=== PATIENT | male | born 1935 | race Caucasian/White ===

== ENCOUNTER → 2017-01-23 | Outpatient (CLI) | payer OTHER ==
[~2017-01-23] MED LIST: ASPI81TA28 PO; BUME1TAB PO; CARV6.252 PO; DEXTCAP23 PO; GLC/500 PO; HYT/2 PO; ISOS120T5 PO; LPT/20 PO; LSN40 PO; MENT2LOZ MT; MRLP17 PO; NRT/25 PO; NRV/10 PO; NTRGSL/4 UT; POTA10TA30 PO; SENN8.6T11 PO; SULF800T23 PO
== END | disposition home or self-care (01) ==
LOC: C.RDSM 10:13
PROVIDERS: ATTEND Physical Medicine & Rehabilitation Sports Medicine
DX: M79.671 Pain in right foot (principal)

== ENCOUNTER 2017-05-01 04:54 | Observation (INO) | payer OTHER ==
[2017-04-22 12:05] VITALS: BMI 32.0
--- NOTE | 2017-04-22 12:47 | PAT Medication Instructions ---
Service Date Apr 22, 2017. Current Home Medication List Amlodipine Besylate (Amlodipine Besylate), 10 MG PO QAM Aspirin (Aspirin Ec), 81 MG PO DAILY Atorvastatin (Atorvastatin Calcium), 20 MG PO QAM Bumetanide (Bumex), 1 MG PO QAM Carvedilol (Coreg), 6.25 MG PO BID Isosorbide Mononitrate Ext Rel (Imdur Ext Rel), 120 MG PO QAM Lisinopril (Lisinopril), 40 MG PO QAM Metformin Hcl (Glucophage), 500 MG PO BID Nitroglycerin (Nitrostat), 0.4 MG UT UD PRN for Chest Pain Nortriptyline Hcl (Pamelor), 25 MG PO HS Polyethylene Glycol 3350 (Miralax), 17 GM PO PRN Potassium Chloride (Potassium Chloride Cr), 20 MEQ PO BID Sennosides-Docusate Sodium (Doc-Q-Lax), 2 TABS PO HS Sulfa/Trimethoprim (Bactrim Ds 800MG/160MG), 1 TAB PO BID Terazosin Hcl (Hytrin), 2 MG PO HS Medication Instructions For Your Scheduled Surgery Sulfa/Trimethoprim (Bactrim Ds 800MG/160MG), 1 TAB PO BID (to be completed prior to surgery) - Hold the following medications 48 hours prior to surgery: Metformin Hcl (Glucophage), 500 MG PO BID - Hold the following medications the morning of surgery: Polyethylene Glycol 3350 (Miralax), 17 GM PO PRN Potassium Chloride (Potassium Chloride Cr), 20 MEQ PO BID Lisinopril (Lisinopril), 40 MG PO QAM Bumetanide (Bumex), 1 MG PO QAM - Take the following medications the morning of surgery with a sip of water: Isosorbide Mononitrate Ext Rel (Imdur Ext Rel), 120 MG PO QAM Nitroglycerin (Nitrostat), 0.4 MG UT UD PRN for Chest Pain (if needed) Carvedilol (Coreg), 6.25 MG PO BID. Atorvastatin (Atorvastatin Calcium), 20 MG PO QAM Amlodipine Besylate (Amlodipine Besylate), 10 MG PO QAM Aspirin (Aspirin Ec), 81 MG PO DAILY (okay to continue per surgeon per pt) - Take the following medications as scheduled the night before surgery: Terazosin Hcl (Hytrin), 2 MG PO HS Sennosides-Docusate Sodium (Doc-Q-Lax), 2 TABS PO HS Polyethylene Glycol 3350 (Miralax), 17 GM PO PRN (if needed) Potassium Chloride (Potassium Chloride Cr), 20 MEQ PO BID Nortriptyline Hcl (Pamelor), 25 MG PO HS Nitroglycerin (Nitrostat), 0.4 MG UT UD PRN for Chest Pain (if needed) Carvedilol (Coreg), 6.25 MG PO BID If you have any questions please call us at [phone] or [phone] or [phone]
[2017-04-22 13:59] LABS: BASO % 0.6 %; BASO ABS # 0.03 K/uL (0-0.2); COMPLETE YES; EOS % 3.8 %; HEMATOCRIT 34.4 % (42-52); IG% 0.2 %; LYMPH % 18.4 %; LYMPH ABS # 0.97 K/uL (1.2-3.4); MEAN CELL VOLUME 85.8 fL (80-100); MEAN CORPUSCULAR HEMOGLOBIN 28.4 pg (25-34); MEAN CORPUSCULAR HGB CONC 33.1 g/dl (32-36); MEAN PLATELET VOLUME 10.2 fL (7.4-10.4); PLATELET COUNT 117 K/uL (130-400); RED BLOOD COUNT 4.01 M/uL (4.7-6.1); WHITE BLOOD COUNT 5.28 K/uL (4.8-10.8)
[2017-04-22 14:09] LABS: PARTIAL THROMBOPLASTIN RATIO 1.1
[2017-04-22 14:10] LABS: BUN/CREATININE RATIO 19.6 (10-20); CALCIUM 8.9 mg/dl (8.5-10.1); CREATININE 1.29 mg/dl (0.60-1.40); POTASSIUM 4.5 mmol/L (3.5-5.1)
[2017-04-22 14:17] LABS: ESTIMATED AVERAGE GLUCOSE 123 mg/dl; HA1C FLAG Normal (Normal)
--- NOTE | 2017-04-22 15:02 | History and Physical ---
History & Physical Date & Time of Service: Apr 22, 2017 at 14:30 Chief Complaint: Right Foot Intractable Plantar Keratosis Primary Care Physician: Lawrence Mallory M.D. History of Present Illness Source: patient Patient is a 81-year-old male who initially saw Dr. Devries back in the beginning of January 2017 due to recurrent breakdown of his right foot. He was referred by the diabetic foot clinic. He has been having issues for many years with regards to his right foot. He has had recurrent breakdown on the plantar aspect of his right foot treated with offloading in the past. Most recently had an episode in August 2016 which has healed up in November. He currently uses a boot to offload this area. He does take some antibiotics. He was treated in them out knee wound clinic. When the wound is healed he has no drainage or swelling. 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 He had a sesamoidectomy on the contralateral foot which relieved the exact same problem when he is having currently. He is therefore interested in having a sesamoidectomy performed on his right foot. He was referred to vascular to evaluate his circulation status and have ABIs performed. He was found to have no circulatory disturbance. He has tried offloading for approximately 3 months again with an orthosis. He continues to have an ulceration of the plantar first ray. He would like to proceed with surgical intervention. He is scheduled for a right foot tibial Sesamoid excision and Achilles tendon lengthening On May 01, 2017 at the [facility]. Past Medical/Surgical History Medical Problems: (1) AAA (abdominal aortic aneurysm) Status: Resolved (2) BPH (benign prostatic hyperplasia) Status: Chronic (3) Diabetes Status: Chronic (4) Diabetic neuropathy Status: Chronic (5) Diabetic retinopathy Status: Chronic (6) Hepatitis Status: Resolved (7) Hypertension Status: Chronic (8) MRSA (methicillin resistant Staphylococcus aureus) Status: Resolved (9) Renal insufficiency Status: Chronic 10. History of skin cancer 11. History of breast cancer 12. Sleep apnea with CPAP 13. History of stroke 14. History of high cholesterol 15. History of heart attack in 1978 16. History of kidney stones 17. Osteoarthritis Surgical Problems: (1) Hx of CABG Status: Resolved (2) Hx of cholecystectomy Status: Resolved 3. Mastectomy 4. Laser surgery 5. Polyp removed from nasal cavity 6. Tonsillectomy 7. Left foot sesamoidectomy 8. Skin cancer excision Family History Diabetes mellitus FHx: heart disease Hypertension He does have a family history of cancer, diabetes, heart disease, Stroke. His father has a history of colon cancer, diabetes mellitus, heart attack, heart disease, and hypertension. His mother has a history of colon cancer, heart attack, heart disease, hypertension. Social History Smoking Status: Former Smoker Drug Use: none Marital Status: Housing status: lives alone, other (States he lives in a "Senior citizen building". [facility] Occupational Status: retired Immunizations History of Influenza Vaccine: No History of Tetanus Vaccine?: Unknown History of Pneumococcal: Yes Pneumococcal Date: Apr 23, 2009 History of Hepatitis B Vaccine: Unknown Multi-Drug Resistant Organisms History of MDRO: Yes Type of MDRO: MRSA Allergies Coded Allergies: Penicillins (Verified Adverse Reaction, Unknown, HAS TOLERATED CEPHALOSPORINS W/O RXN-lightheaded, 04/22/17) tolerates pcn in low doses Home Medications Scheduled Amlodipine Besylate (Amlodipine Besylate), 10 MG PO QAM Aspirin (Aspirin Ec), 81 MG PO DAILY Atorvastatin (Atorvastatin Calcium), 20 MG PO QAM Bumetanide (Bumex), 1 MG PO QAM Carvedilol (Coreg), 6.25 MG PO BID Isosorbide Mononitrate Ext Rel (Imdur Ext Rel), 120 MG PO QAM Lisinopril (Lisinopril), 40 MG PO QAM Metformin Hcl (Glucophage), 500 MG PO BID Nortriptyline Hcl (Pamelor), 25 MG PO HS Polyethylene Glycol 3350 (Miralax), 17 GM PO PRN Potassium Chloride (Potassium Chloride Cr), 20 MEQ PO BID Sennosides-Docusate Sodium (Doc-Q-Lax), 2 TABS PO HS Sulfa/Trimethoprim (Bactrim Ds 800MG/160MG), 1 TAB PO BID Terazosin Hcl (Hytrin), 2 MG PO HS Scheduled PRN Nitroglycerin (Nitrostat), 0.4 MG UT UD PRN for Chest Pain Review of Systems Constitutional: No fever, No chills, No sweats, No weight loss Eyes: No eye pain, No redness ENT: No hearing loss, No sore throat, No tinnitus Respiratory: No cough, No wheezing, No shortness of breath Cardiovascular: No chest pain, No edema, No palpitations Abdomen: No pain, No nausea, No vomiting, No diarrhea, No constipation Musculoskeletal: + joint pain (Left knee pain due to osteoarthritis), + problem reported, No muscle pain, No swelling, No calf pain Genitourinary - Male: + urinary retention (Due to enlarged prostate), No hematuria, No dysuria Neurologic: + numbness/tingling (Diabetic neuropathy), + balance problems Psychiatric: No anxiety Endocrine: No fatigue Hematologic / Lymphatic: No abnormal bleeding/bruising, No clotting problems Integumentary: No rash, No itch Allergic / Immunologic: No frequent infections, No poor healing Physical Exam Vital Signs Height is 6 feet 1 inches. Weight is 115 kg General Appearance: WD/WN, no apparent distress Head: normocephalic, atraumatic Eyes: normal inspection, PERRL, EOMI, funduscopic exam normal ENT: normal ENT inspection, hearing grossly normal, TMs normal, pharynx normal , + pertinent finding (No upper teeth; has dentures for upper and lower teeth but does not have them in today.) Neck: supple, no JVD, no carotid bruits, trachea midline Respiratory/Chest: chest non-tender, lungs clear, normal breath sounds, no respiratory distress, no accessory muscle use Cardiovascular: regular rate, rhythm, no edema, no murmur, normal peripheral pulses Abdomen/GI: normal bowel sounds, non tender, soft Extremities/Musculoskelatal: normal inspection, no calf tenderness, normal capillary refill, no pedal edema, non-tender, + pertinent finding (There is a large callus on the plantar aspect of the great toe MTP joint, perhaps 3 cm in diameter. Centrally, there is an area where there has been some very superficial breakdown of the skin, there is no bleeding. The first ray appears to be slightly plantarflexed. Silfverskiold test is positive. He is short of dorsiflexion in both the knee extended and knee flexed position by about 5. He has a 1+ posterior tibial pulse. 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 The Achilles is nontender.) Neurologic/Psych: no motor/sensory deficits, alert, normal mood/affect, oriented x 3 Skin: normal color, warm/dry, no rash Diagnostics Laboratory Results Results Past 24 Hours Test 04/22/17 12:53 Range/Units White Blood Count 5.28 4.8-10.8 K/uL Red Blood Count 4.01 4.7-6.1 M/uL Hemoglobin 11.4 14.0-18.0 g/dL Hematocrit 34.4 42-52 % Mean Corpuscular Volume 85.8 80-100 fL Mean Corpuscular Hemoglobin 28.4 25-34 pg Mean Corpuscular Hemoglobin Concent 33.1 32-36 g/dl Platelet Count 117 130-400 K/uL Mean Platelet Volume 10.2 7.4-10.4 fL Neutrophils (%) (Auto) 69.0 % Lymphocytes (%) (Auto) 18.4 % Monocytes (%) (Auto) 8.0 % Eosinophils (%) (Auto) 3.8 % Basophils (%) (Auto) 0.6 % Neutrophils # (Auto) 3.65 1.4-6.5 K/uL Lymphocytes # (Auto) 0.97 1.2-3.4 K/uL Monocytes # (Auto) 0.42 0.11-0.59 K/uL Eosinophils # (Auto) 0.20 0-0.5 K/uL Basophils # (Auto) 0.03 0-0.2 K/uL RDW Standard Deviation 52.9 36.4-46.3 fL RDW Coefficient of Variation 16.8 11.5-14.5 % Immature Granulocyte % (Auto) 0.2 % Immature Granulocyte # (Auto) 0.01 0.00-0.02 K/uL Prothrombin Time 11.0 9.0-12.0 SECONDS Prothromb Time International Ratio 1.0 0.9-1.1 Activated Partial Thromboplast Time 27.8 21.0-31.0 SECONDS Partial Thromboplastin Ratio 1.1 Sodium Level 138 136-145 mmol/L Potassium Level 4.5 3.5-5.1 mmol/L Chloride Level 104 98-107 mmol/L Carbon Dioxide Level 27 21-32 mmol/L Anion Gap 7.0 3-11 mmol/L Blood Urea Nitrogen 25 7-18 mg/dl Creatinine 1.29 0.60-1.40 mg/dl Est Creatinine Clear Calc Drug Dose 61.1 ml/min Estimated GFR () 60.7 Estimated GFR (Non- 52.4 BUN/Creatinine Ratio 19.6 10-20 Random Glucose 115 70-99 mg/dl Estimated Average Glucose 123 mg/dl Hemoglobin A1c 5.9 4.5-5.6 % Calcium Level 8.9 8.5-10.1 mg/dl Diagnostic Radiology Diagnostic imaging: Radiographs of the foot done showed degenerative changes. No acute fractures. There is no bone distraction or any indication of ostium myelitis. Radiographs are done with a marker placed overs plantar keratosis and this shows that essentially overlies directly the medial sesamoid bone. other (Atrial fibrillation with slow ventricular response) Impression Assessment and Plan Assessment: Intractable plantar keratosis. Diabetic foot ulcer. Plan: Patient is scheduled for a right foot Achilles tendon lengthening and tibial sesamoid excision with Dr. Devries on May 01, 2017 at the [facility]. Risks and complications of surgery were explained to the patient and include but are not limited to infection, bleeding, pain, scarring, nerve or blood vessel damage, wound problems, blood clots, embolisms, stiffness, incomplete relief of symptoms, Achilles tendon rupture, heart attack, Stroke and . All questions were answered today and he agrees to proceed with surgery. Informed consent was obtained by Dr. Devries. He will have preadmission testing later today and which she will obtain a preoperative CBC, PRP, and EKG. He has presurgical clearance scheduled with his family physician Dr. Llanes later this week. We will use aspirin 325 mg twice daily for approximately 3 weeks after surgery for DVT prophylaxis. He will be admitted to the hospital after surgery for 23 hour observation. Patient states it is not like to take any type of blood thinners due to causing bruising. He does not think that he will take the aspirin 325 mg. He will continue to take his aspirin 81 mg daily as he typically does. Did explain the importance of increase in the aspirin dosage for DVT prophylaxis. We will discuss further with Dr. Devries. He will follow up with Dr. Devries postoperatively 10-14 days after surgery for wound check and evaluation. He would like to go home after surgery. He does live alone but states he is in a senior citizen building and would have help if needed. He typically uses a cane for ambulation. He does have a walker if he needs one. He states he does not do significantly well with a walker and does have a wheelchair. He is able to use a wheelchair throughout his home as he recently just got handicap Equipped apartment. I did explain to him that he may need a short inpatient rehabilitation or prison facility stay. He does not want to do this. All questions were answered today and he does call with any further problems, questions, or concerns.
[~2017-05-01] VITALS: Ht 185.4 cm; Wt 112.8 kg
[2017-05-01] VITALS (8 sets, daily range): BP systolic 129–155; BP diastolic 66–75; PULSE 55–73; TEMP 36.2–36.5; O2SAT 95–100; Ht 185.4 cm; Wt 112.8 kg
[~2017-05-01 04:54] MED LIST changes: -DEXTCAP23 PO; -MENT2LOZ MT; -MRLP17 PO; +POLY335019 PO; -SENN8.6T11 PO; +SENN8.6T96 PO
[2017-05-01] MEDS ORDERED: CEFAZOLIN SOD 2000MG/10 ML IV PUSH IV ONE (06:00)
[2017-05-01] MEDS ORDERED: LACTATED RINGER'S 1000ML 1,000 ML IV SCH ×2 (06:00)
[2017-05-01] MEDS ORDERED: BUPIVACAINE 0.25% 30 ML VIAL ONE (06:23)
[2017-05-01] MEDS ORDERED: MIDAZOLAM HCL 1 MG/ML 2ML VIAL ONE (06:34)
[2017-05-01] MEDS ORDERED: FENTANYL CITRATE INJ 50 MCG/1 ML 2 ML VIAL ONE (06:34)
[2017-05-01] MEDS ORDERED: BACITRACIN 50000 UNIT VIAL ONE (06:37)
[2017-05-01] MEDS ORDERED: BUPIVACAINE 0.5 % 5 MG/1 ML MPF 30ML VIAL ONE (06:37)
--- NOTE | 2017-05-01 07:00 | History & Physical Bridge Note ---
H&P Re-Evaluation Bridge Note: I have examined the patient, reviewed the History & Physical and in the interval since the performance of the History & Physical I have noted the following changes of clinical significance: No changes noted
[2017-05-01] MEDS ORDERED: ONDANSETRON INJ 2 MG/ML 2 ML VIAL ONE (08:03)
[2017-05-01] MEDS ORDERED: PROPOFOL IV EMULSION 10 MG/ML 20 ML VIAL IV ONE (08:03)
[2017-05-01] MEDS ORDERED: LIDOCAINE HCL 2% 2 ML VIAL (20MG/ML) ONE (08:03)
[2017-05-01] MEDS ORDERED: EpHEDrine SULFATE INJ 50 MG/ML AMP ONE (08:11)
--- NOTE | 2017-05-01 08:40 | [facility] Operative Report ---
Operative Report Operative Date May 01, 2017. Pre-Operative Diagnosis Right Foot Intractable Plantar Keratosis. Achilles tendon contracture Post-Operative Diagnosis Same as preop Procedure(s) Performed Right Achilles Tendon Lengthening Tibial Sesmoid Excision Surgeon Dr. Devries Package Checker Surgeon(s) Jania Colbert PA-C Estimated Blood Loss minimal Findings Equinus contracture of the Achilles tendon. Arreguin grade 1 plantar diabetic foot ulcer likely related to pressure from Achilles tendon contracture causing forefoot equinus and prominent tibial sesamoid Specimens A. Right Medial Tibial Sesamoiod Drains none Anesthesia laryngeal mask with popliteal block Complication(s) None Disposition Recovery Room / PACU Indications The patient is a 81-year-old gentleman whose had previous forefoot ulcer on contralateral side treated with tibial seasonal excision. He has an intractable plantar keratosis of the right foot with a superficial ulceration. This is been recurrent and refractory to nonsurgical methods of management. This directly overlies the tibial seasonal which is large. I have any clinical radiographic or MRI evidence of osteomyelitis. He has a positive Silverskiold' s test with a -7-10 loss of ankle dorsiflexion from neutral with both knee extended and knee flexed. Description of Procedure Informed consent was obtained. The patient was identified as able. He identified the operative site as the right big toe and right Achilles tendon. I marked the separately with my initials. Preoperative surgical timeout was performed. Appropriate dose of IV antibiotics was given. He was taken to the operating room positioned supine on the OR table popliteal block and the laryngeal mask anesthetic were administered. DVT prophylaxis intraoperatively with foot pumps postoperatively mechanical devices early mobility and aspirin. There was -7-10 of ankle dorsiflexion with both knee extended and knee flexed. He had a plantar keratosis with a central ulceration several millimeters in size with a granulated base. Tourniquet was applied to the right side films pre -scrubbed and prepped and draped in usual sterile fashion. Limb was exsanguinated with the Esmarch tourniquet inflated 250 mmHg. A medial incision was made over the first metatarsophalangeal joint just below midline. The incision was approximate 5-6 cm in length. The skin was incised and blunt dissection was utilized down to subcutaneous tissues until the medial capsule was identified. The medial sensory nerve was identified and retracted plantar rivera. A longitudinal incision was made below the midline of the metatarsal phalangeal joint in a full-thickness fashion down into the joint. The capsule was released slightly proximally and distally. The medial tibial sesamoid was identified. Her some arthritic spurring present which was excised with a rongeur. The tibial seasonal and was then completely excised using needle tip electrocautery and a 15 blade knife. The tibial seasonal it appeared to be normal in appearance and this was sent for specimen. There is no fluid purulence or softness to indicate any degree of infection. The wound was then irrigated with sterile saline. The gap could not be reapproximated proximal to distal. I did tie the Lexer brevis tendon proximally and distally into the capsule with 2-0 Vicryl. I then repaired the capsule with interrupted 2-0 Vicryl's. The FHL tendon was identified preserved and protected. The sensory nerves were also protected. The skin was then closed with interrupted 40 horizontal nylon mattress sutures. The tibial sesamoid was directly underneath the plantar keratosis. The ulceration was debrided sharply with a rongeur and scalpel blade. The hypertrophic keratin layer was excised. The base of the lesion was debrided. It was 2 mm deep and 4 mm in diameter with good healing tissue. It did not probe to bone. A percutaneous Achilles tendon lengthening was made with 2 cuts medial one distal one proximal just distal to the musculocutaneous junction and the third lateral in between. These were closed with 4-0 nylon interrupted simple simple sutures. The release was percutaneous with a 15 blade knife. The ankle was manipulated and now had 5-10 of dorsiflexion with knee both extended and flexed. Incisions were closed. Fluffs were placed between the toes a nonadherent sterile dressing was applied along with ABDs to pad the heel. Kerlix and an Philipp wrap were applied followed by the patient's a fracture boot. He was then awakened from anesthesia without difficulty and taken to the recovery room in stable condition. The resected tibial seasonal was sent for specimen. There were no complications. Counts are correct in the case. Blood loss was minimal. At the conclusion of the operation spoke the patient's son informed him of my findings in detail postoperative instructions were given. She'll be admitted to the hospital overnight for observation. He'll receive physical therapy. He may weight-bear as tolerated with the fracture boot on at all times. We will follow up on the pathology. I will consider total contact casting and we'll coordinate care with a diabetic foot clinic and wound center. I attest to the content of the Intraoperative Record and any orders documented therein. Any exceptions are noted below.
[2017-05-01] MEDS ORDERED: MAGNESIUM HYDROXIDE SUSP 30 ML UDC PO PRN (08:45)
[2017-05-01] MEDS ORDERED: METOCLOPRAMIDE HCL INJ 5 MG/ML 2 ML VIAL IV PRN (08:45)
[2017-05-01] MEDS ORDERED: OXYCODONE HCL IR 5 MG TAB (IMMEDIATE RELEASE) PO PRN (08:45)
[2017-05-01] MEDS ORDERED: ACETAMINOPHEN 325 MG TAB PO PRN (08:45)
[2017-05-01] MEDS ORDERED: SOD PHOSPHATE/SOD BIPHOSPHATE ENEMA 132 ML BTL PR PRN (08:45)
[2017-05-01] MEDS ORDERED: BISACODYL 10 MG SUPP PR PRN (08:45)
[2017-05-01] MEDS ORDERED: ONDANSETRON INJ 2 MG/ML 2 ML VIAL IV PRN ×2 (08:45→09:15)
[2017-05-01] MEDS ORDERED: NITROGLYCERIN 0.4 MG SL PER TAB CHARGE UT PRN (08:45)
--- NOTE | 2017-05-01 08:53 | [facility] Operative Report ---
Operative Report Operative Date May 01, 2017. Pre-Operative Diagnosis Right Foot Intractable Plantar Keratosis. Achilles tendon contracture Post-Operative Diagnosis Same as preop Procedure(s) Performed Right Achilles Tendon Lengthening, Medial Tibial Sesmoid Excision right foot Surgeon Dr. Devries Manager Storage Surgeon(s) Jania Colbert PA-C Estimated Blood Loss minimal Findings diabetic foot ulcer; achilles tendon contracture Specimens A. Right Medial Tibial Sesamoiod Drains none Anesthesia laryngeal mask with popliteal block Complication(s) None Disposition Recovery Room / PACU (stable) Indications Patient is a 81 year old male, who was evaluated by Dr. Devries for his right foot diabetic foot ulcer that had been coming and going for years. He had normal ADRIEN's and failure of conservative treatment which included local wound care and shoe modifications for offloading. Surgical intervention vs. continue conservative treatment discussed. He wished to proceed with surgery. Risks/ complications discussed, informed consent obtained. Description of Procedure Patient was taken to the operating room, given IV Ancef for surgical prophylaxis. Time out performed, prepped and draped in routine sterile fashion. Patient was placed under general anesthesia. I was present during the entire case, please see Dr. Devries's operative report for further detail. Patient was awakened and transferred to the recovery room in stable condition. I attest to the content of the Intraoperative Record and any orders documented therein. Any exceptions are noted below.
[2017-05-01] MEDS ORDERED: ATROPINE SULFATE 0.1 MG/ML 5ML SYR IV PRN (09:15)
[2017-05-01] MEDS ORDERED: FENTANYL CITRATE INJ 50 MCG/1 ML 2 ML VIAL IV PRN (09:15)
[2017-05-01] MEDS ORDERED: EpHEDrine SULFATE INJ 50 MG/ML AMP IV PRN (09:15)
--- NOTE | 2017-05-01 09:20 | Anesthesiology Progress Note ---
Anesthesia Post Op Note Date & Time May 01, 2017 at 09:20 Vital Signs Pain Intensity: 0 Vital Signs Past 12 Hours Date Time Temp Pulse Resp B/P (MAP) Pulse Ox O2 Delivery O2 Flow Rate FiO2 05/01/17 09:10 59 14 148/71 100 Oxymask 10 05/01/17 09:00 62 15 143/70 100 Oxymask 10 05/01/17 08:50 62 22 131/67 100 Oxymask 10 05/01/17 08:44 36.0 62 18 134/65 96 Oxymask 10 05/01/17 05:47 36.5 66 18 129/66 (87) 98 Room Air Notes Mental Status: alert / awake / arousable, participated in evaluation Pt Amnestic to Procedure: Yes Nausea / Vomiting: adequately controlled Pain: adequately controlled Airway Patency, RR, SpO2: stable & adequate BP & HR: stable & adequate Hydration State: stable & adequate Anesthetic Complications: no major complications apparent
[2017-05-01] MEDS ORDERED: PHARMACY GLYCEMIC MGMT CONSULT PRN (09:36)
[2017-05-01] MEDS ORDERED: DEXTROSE 50% 50 ML SYR IV PRN (09:45)
[2017-05-01] MEDS ORDERED: GLUCOSE 10 TABS/TUBE PO PRN (09:45)
[2017-05-01] MEDS ORDERED: GLUCAGON FOR INJ 1 MG VIAL SQ PRN (09:45)
[2017-05-01] MEDS ORDERED: GLUCOSE 40% GEL 15 GM TUBE PO PRN (09:45)
[2017-05-01] MEDS ORDERED: IV FLUIDS COMPLETED PRN (10:15)
[2017-05-01] MEDS: POTASSIUM CHLORIDE INJ 10 MEQ in SODIUM CHLORIDE 0.9% 1000ML 1,000 ML IV SCH ×2 (11:15→22:26)
--- NOTE | 2017-05-01 13:04 | Pharmacy Progress Note ---
Glycemic Control Intl Consult Date of Service May 01, 2017. Scope Glycemic Pharmacist consulted by Ramon Colbert on 05/01/17 for glycemic control and to write orders per [facility] inpatient glycemic control protocol Objective Weight (Kilograms): 112.800 Accuchecks BSG (last 24hrs): Test 05/01/17 05:34 05/01/17 08:47 05/01/17 12:06 Bedside Glucose 127 mg/dl (70-99) 115 mg/dl (70-99) 110 mg/dl (70-99) HbA1c Test 04/22/17 12:53 Hemoglobin A1c 5.9 % (4.5-5.6) H Recent Pertinent Medications Outpatient Anti-diabetic Regimen: * Metformin 500mg PO BIDM Risk Factors for Insulin Resistance: * Steroids x 1 on POD#1 * Recent Surgery * Diet Assessment & Plan ASSESSMENT: * 81yo T2DM male with excellent outpatient control per recent A1c * Pt is maintained on oral antidiabetic agents as an outpatient * Oral agents are not recommended for inpatient use d/t drug interactions, changing PO intake, and difficulty titrating for acute hyper/hypoglycemia. ADA recommends re-initiating outpatient oral agents 1-2 days prior to discharge if/ when appropriate if they were held on admission. * Will hold oral agents for admission and utilize SQ basal bolus insulin regimen which is the recommended regimen for inpatient glycemic control. * Will initiate weight based insulin dosing for insulin clarence patient and titrate based on BSG trends. PLAN FOR INPATIENT GLYCEMIC CONTROL: * Holding outpatient oral diabetes medications * Will resume metformin POD#1 after PO intake adequate and renal function assessed. * Basal insulin * Lantus 10 units SQ BID IF BSG > 180 * Bolus insulin * NovoLog per scale ACHS or Q6hrs while NPO * Goal Range: Low 110 mg/dL - High 140 mg/dL * Correction Factor: 40 mg/dL/unit * Nutritional / Prandial insulin per carb ratio of 1 unit per 13 grams CHO consumed --> will d/c CR if/when metformin resumed. * Please note that the plan above was derived based on current level of insulin resistance and hospital stress. These recommendations are appropriate for inpatient admission only. Plan of care upon discharge will need to be reassessed to avoid potential outpatient hypo/hyperglycemia. Thank you.
[2017-05-01] MEDS: INSULIN ASPART 100 UNITS/ML 3 ML PEN SC SCH ×3 (14:01→21:06)
[2017-05-01] MEDS: CEFAZOLIN IV 2,000 MG in SYRINGE 0 ML IV SCH (15:49)
--- NOTE | 2017-05-01 16:45 | DIAGNOSTIC IMAGING REPORT ---
RIGHT FIRST TOE 2 VIEWS CLINICAL HISTORY: Foot ulcer. FINDINGS: 2 views of the right first toe are compared to study dated 01/23/2017. The skeletal structures are osteopenic. No fracture is seen. No bony erosion or periostitis is identified. Arthritic changes present the first metatarsophalangeal and interphalangeal joints. Mild soft tissue edema is present in the first toe. This is greatest at the level of the metatarsophalangeal joint. Tiny foci of subcutaneous gas are suggested. No radiodense foreign body is seen. IMPRESSION: 1. No acute bony abnormality is identified in the right first toe. 2. Osteopenia and arthritic change as above. 3. Soft tissue edema is present within the first toe, greatest at the level of the first MTP joint. Electronically signed by: Alex Ye M.D. 05/01/2017 4:44 PM Dictated Date/Time: 05/01/2017 4:42 PM
--- NOTE | 2017-05-01 16:55 | Orthopedic Progress Note ---
Orthopedic Progress Note Date of Service May 01, 2017. Subjective Post OP Day: 0 Reports: feeling well, pain controlled w PO medications, Denies: complaints, chest pain, SOB, nausea / vomiting, light headedness, calf pain Additional Notes: Had some mild vomiting due to the "rice" from lunch. States he just "had to get it out". Otherwise not nauseous. Objective calves soft nontender, N/V intact, dressing C/D/I, A&O x3, toes mobile Sitting in wheelchair, boot in place right foot. Date Time Temp Pulse Resp B/P (MAP) Pulse Ox O2 Delivery O2 Flow Rate FiO2 05/01/17 14:54 36.4 73 18 154/71 (98) 97 Nasal Cannula 2.0 05/01/17 13:00 36.4 58 16 147/75 (99) 100 2.0 05/01/17 11:52 62 16 155/73 (100) 99 2.0 05/01/17 10:52 55 16 140/67 (91) 99 2.0 05/01/17 10:22 61 16 132/73 (92) 99 2.0 05/01/17 09:53 36.2 64 16 145/73 (97) Nasal Cannula 2.0 05/01/17 09:50 Nasal Cannula 2.0 05/01/17 09:30 36.0 60 14 131/70 100 Nasal Cannula 2 05/01/17 09:20 36.0 56 11 148/76 100 Nasal Cannula 2 05/01/17 09:10 59 14 148/71 100 Oxymask 10 05/01/17 09:00 62 15 143/70 100 Oxymask 10 05/01/17 08:50 62 22 131/67 100 Oxymask 10 05/01/17 08:44 36.0 62 18 134/65 96 Oxymask 10 05/01/17 05:47 36.5 66 18 129/66 (87) 98 Room Air Additional Notes: X-rays of foot and toes show removal of medial tibial sesamoid Assessment & Plan Assessment: Right foot s/p achilles tendon lengthening, sesamoidectomy Plan: Continue OOB/WBAT RLE Ice/elevate right foot as needed Needs to wear boot at all times right foot. Regular diet as tolerated will continue to follow Will discuss findings with Dr. Devries. Will re-eval in AM. Discharge Planning Discharge Planning: home (tomorrow)
--- NOTE | 2017-05-01 18:25 | PROGRESS NOTE ---
DATE: 05/01/2017 No problems reported. Toe x-ray shows that the tibial sesamoid has been removed. He is afebrile with stable vital signs. The toe is insensate due to chronic neuropathy. He can wiggle his toes and has normal capillary refill. He can weightbear as tolerated and he will wear the boot at all times. We will reassess tomorrow.
[2017-05-01] MEDS ORDERED: NORTRIPTYLINE HCL 25 MG CAP PO SCH (21:00)
[2017-05-01] MEDS: INSULIN GLARGINE SOLOSTAR 100 UNITS/ML 3 ML PEN SC SCH (21:00)
[2017-05-01] MEDS: POTASSIUM CHLORIDE 20 MEQ TABCR PO SCH (21:35)
[2017-05-01] MEDS: DOCUSATE SODIUM 100 MG CAP PO SCH (21:37)
[2017-05-01] MEDS: CARVEDILOL 6.25 MG TAB PO SCH (21:37)
[2017-05-02] MEDS: CEFAZOLIN IV 2,000 MG in SYRINGE 0 ML IV SCH (00:05)
[2017-05-02 03:00] VITALS: BP 133/70; PULSE 79; TEMP 36.6; O2SAT 94
[2017-05-02 06:27] LABS: MEAN CELL VOLUME 86.7 fL (80-100); MEAN CORPUSCULAR HEMOGLOBIN 27.6 pg (25-34); MEAN CORPUSCULAR HGB CONC 31.9 g/dl (32-36); MEAN PLATELET VOLUME 9.3 fL (7.4-10.4); PLATELET COUNT 104 K/uL (130-400); RED BLOOD COUNT 3.69 M/uL (4.7-6.1); WHITE BLOOD COUNT 5.15 K/uL (4.8-10.8)
[2017-05-02] MEDS ORDERED: NURSING DECISION MEDICATION ORDER SCH (06:45)
[2017-05-02 07:01] LABS: BUN/CREATININE RATIO 17.5 (10-20); CALCIUM 8.1 mg/dl (8.5-10.1); CREATININE 1.14 mg/dl (0.60-1.40); POTASSIUM 4.6 mmol/L (3.5-5.1)
[2017-05-02 07:27] VITALS: BP 138/73; PULSE 72; TEMP 36.6; O2SAT 95
[2017-05-02] MEDS ORDERED: METFORMIN HCL 500 MG TAB PO SCH (08:00)
[2017-05-02] MEDS: POTASSIUM CHLORIDE INJ 10 MEQ in SODIUM CHLORIDE 0.9% 1000ML 1,000 ML IV SCH (08:56)
[2017-05-02] MEDS: POTASSIUM CHLORIDE 20 MEQ TABCR PO SCH (08:57)
[2017-05-02] MEDS: DOCUSATE SODIUM 100 MG CAP PO SCH (08:57)
[2017-05-02] MEDS: CARVEDILOL 6.25 MG TAB PO SCH (08:57)
[2017-05-02] MEDS ORDERED: BUMETANIDE 1 MG TAB PO SCH (09:00)
[2017-05-02] MEDS ORDERED: LISINOPRIL 40 MG TAB PO SCH (09:00)
[2017-05-02] MEDS: INSULIN GLARGINE SOLOSTAR 100 UNITS/ML 3 ML PEN SC SCH (09:00)
[2017-05-02] MEDS ORDERED: ATORVASTATIN 20 MG TAB PO SCH (09:00)
[2017-05-02] MEDS ORDERED: MULTIVITAMIN TAB PO SCH (09:00)
[2017-05-02] MEDS ORDERED: AMLODIPINE BESYLATE 5 MG TAB PO SCH (09:00)
[2017-05-02] MEDS ORDERED: ASPIRIN 81 MG ECTAB PO SCH (09:00)
[2017-05-02] MEDS ORDERED: PANTOprazole SOD 40 MG TAB PO SCH (09:00)
[2017-05-02] MEDS ORDERED: ISOSORBIDE MONONITRATE 60 MG TABCR PO SCH (09:00)
[2017-05-02] MEDS: INSULIN ASPART 100 UNITS/ML 3 ML PEN SC SCH (09:01)
--- NOTE | 2017-05-02 11:52 | Orthopedic Progress Note ---
Orthopedic Progress Note Date of Service May 02, 2017. Subjective Post OP Day: 1 Reports: feeling well, Denies: complaints, chest pain, SOB, nausea / vomiting, light headedness, calf pain Additional Notes: Denies pain right foot due to neuropathy Objective calves soft nontender, N/V intact, capillary refill less than 2 sec., dressing C /D/I, A&O x3, toes mobile Excellent capillary refill. Boot in place right foot. Date Time Temp Pulse Resp B/P (MAP) Pulse Ox O2 Delivery O2 Flow Rate FiO2 05/02/17 08:00 Room Air 05/02/17 07:27 36.6 72 16 138/73 (94) 95 Room Air 05/02/17 03:00 36.6 79 18 133/70 (91) 94 Room Air 05/02/17 00:05 Room Air 05/01/17 22:53 36.5 66 18 143/70 (94) 95 Room Air 05/01/17 15:10 Nasal Cannula 2.0 05/01/17 14:54 36.4 73 18 154/71 (98) 97 Nasal Cannula 2.0 05/01/17 13:00 36.4 58 16 147/75 (99) 100 2.0 05/01/17 11:52 62 16 155/73 (100) 99 2.0 Laboratory Results 24 Hours: Test 05/02/17 06:04 Hematocrit 32.0 % Hemoglobin 10.2 g/dL Assessment & Plan Assessment: POD 1 - Right foot s/p achilles tendon lengthening, sesamoidectomy Plan: Continue OOB/WBAT RLE Ice/elevate right foot as needed Needs to wear boot at all times right foot. Regular diet as tolerated Patient seen and evaluated by Dr. Devries this morning. Plan for discharge to home today. Follow up as scheduled next week [facility]. Discharge Planning Discharge Planning: home (tomorrow)
--- NOTE | 2017-05-02 11:56 | Discharge Instructions ---
Discharge Instructions Date of Service May 02, 2017. Admission Reason for Admission: Right Foot Intractable Plantar Keratosis Discharge Discharge Diagnosis / Problem: Right foot intractable plantar keratosis Discharge Goals Goal(s): Decrease discomfort, Improve function, Increase independence Activity Recommendations Activity Limitations: per Instructions/Follow-up section Weightbearing Status: Left weightbearing (as tolerated), Right weightbearing ( as tolerated with boot on at all times. Use walker to assist with ambulation.) . Instructions / Follow-Up Instructions / Follow-Up DIET: * Resume previous diet. MEDICATIONS: * Please take your prescriptions as instructed at your pre-op appointment and/ or see medication discharge instructions listed above. * If concerns develop, call your physician's office at . SPECIAL CARE INSTRUCTIONS: * Ice/Elevate right foot above heart to relieve pain/swelling. * Keep dressing clean, dry, intact. We will change at your appointment on Saturday. Cover right foot with bag to bathe. * KEEP BOOT ON RIGHT FOOT AT ALL TIMES. * Use walker to assist with ambulation. * You may weight bear as tolerated right lower extremity. * Your surgical extremity may be discolored due to prepping agents used on the skin. A bluish-green tint is a normal variant and should not cause alarm. Call your doctor at [phone] if: * Temperature above 101 degrees * Pain not relieved by pain medicine ordered * There is increased drainage or redness from any incision * You have any unanswered questions, problems or concerns. FOLLOW UP VISIT: * If not already scheduled, please call the office at to schedule a follow-up appointment. *You have a follow up appointment for Saturday05/06/17 for a dressing change right foot at 10:45 a.m. Please call with questions/concerns or need to reschedule appointment. Current Hospital Diet Patient's current hospital diet: Diabetes Type 2 Diet Discharge Diet Recommended Diet: Regular Diet, Diabetes Type 2 Diet Procedures Procedures Performed: Right Achilles Tendon Lengthening, Medial Tibial Sesmoid Excision right foot Pending Studies Studies pending at discharge: no Laboratory Results Hemoglobin A1c Test 04/22/17 12:53 Range/Units Estimated Average Glucose 123 mg/dl Hemoglobin A1c 5.9 H 4.5-5.6 % Medical Emergencies . Who to Call and When: Medical Emergencies: If at any time you feel your situation is an emergency, please call 911 immediately. . Non-Emergent Contact Non-Emergency issues call your: Surgeon Call Non-Emergent contact if: temperature is above 101, your pain is not controlled, wound has increased drainage, wound has increased redness, wound has increased pain, you have any medication questions . "Provider Documentation" section prepared by Jania Colbert. . VTE Core Measure Inpt VTE Proph given/why not?: Other Anticoagulation (ASA 81 mg daily)
[2017-05-02 12:02] VITALS: BP 138/73; PULSE 72; TEMP 36.6; O2SAT 95
--- NOTE | 2017-05-02 14:16 | Discharge Summary ---
Discharge Summary Date of Service May 02, 2017. Discharge Summary Admission Date: May 01, 2017 at 08:48 Discharge Date: May 02, 2017 Discharge Disposition: Home Principal Diagnosis: Intractable plantar keratosis right foot, diabetic foot ulcer Secondary Diagnoses/Problems: Diabetes Procedures: Right foot Achilles tendon lengthening, right foot medial tibial sesamoid excision, debridement diabetic Right foot ulcer Pending Studies/Follow-Up: Follow-up with [facility] orthopedics as scheduled. First follow-up should be on Saturday May 06, 2017 at 10:45 AM. Medication Reconciliation Continued Medications: Amlodipine Besylate (Amlodipine Besylate) 10 Mg Tab 10 MG PO QAM Aspirin (Aspirin Ec) 81 Mg Tab 81 MG PO DAILY TAKES IRREGULARLY Atorvastatin (Atorvastatin Calcium) 20 Mg Tab 20 MG PO QAM Bumetanide (Bumex) 1 Mg Tab 1 MG PO QAM Carvedilol (Coreg) 6.25 Mg Tab 6.25 MG PO BID Isosorbide Mononitrate Ext Rel (Imdur Ext Rel) 120 Mg Ertab 120 MG PO QAM Lisinopril (Lisinopril) 40 Mg Tab 40 MG PO QAM Metformin Hcl (Glucophage) 500 Mg Tab 500 MG PO BID Nitroglycerin (Nitrostat) 0.4 Mg Tab 0.4 MG UT UD PRN for Chest Pain, #25 Nortriptyline Hcl (Pamelor) 25 Mg Cap 25 MG PO HS Polyethylene Glycol 3350 (Miralax) 1 Pow Pow 17 GM PO PRN, #255 GM Potassium Chloride (Potassium Chloride Cr) 10 Meq Tab 20 MEQ PO BID Sennosides-Docusate Sodium (Doc-Q-Lax) 1 Tab Tab 2 TABS PO HS Terazosin Hcl (Hytrin) 2 Mg Cap 2 MG PO HS, CAP Admission Information HPI (per Admitting provider): Patient is a 81-year-old male who initially saw Dr. Devries back in the beginning of January 2017 due to recurrent breakdown of his right foot. He was referred by the diabetic foot clinic. He has been having issues for many years with regards to his right foot. He has had recurrent breakdown on the plantar aspect of his right foot treated with offloading in the past. Most recently had an episode in August 2016 which has healed up in November. He currently uses a boot to offload this area. He does take some antibiotics. He was treated in them out knee wound clinic. When the wound is healed he has no drainage or swelling. 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 He had a sesamoidectomy on the contralateral foot which relieved the exact same problem when he is having currently. He is therefore interested in having a sesamoidectomy performed on his right foot. He was referred to vascular to evaluate his circulation status and have ABIs performed. He was found to have no circulatory disturbance. He has tried offloading for approximately 3 months again with an orthosis. He continues to have an ulceration of the plantar first ray. He would like to proceed with surgical intervention. He is scheduled for a right foot tibial Sesamoid excision and Achilles tendon lengthening On May 01, 2017 at the [facility]. Physical Exam (per Admitting): General Appearance: WD/WN, no apparent distress Head: normocephalic, atraumatic Eyes: normal inspection, PERRL, EOMI, funduscopic exam normal ENT: normal ENT inspection, hearing grossly normal, TMs normal, pharynx normal, + pertinent finding (No upper teeth; has dentures for upper and lower teeth but does not have them in today.) Neck: supple, no JVD, no carotid bruits, trachea midline Respiratory/Chest: chest non-tender, lungs clear, normal breath sounds, no respiratory distress, no accessory muscle use Cardiovascular: regular rate, rhythm, no edema, no murmur, normal peripheral pulses Abdomen/GI: normal bowel sounds, non tender, soft Extremities/Musculoskelatal: normal inspection, no calf tenderness, normal capillary refill, no pedal edema, non-tender, + pertinent finding (There is a large callus on the plantar aspect of the great toe MTP joint, perhaps 3 cm in diameter. Centrally, there is an area where there has been some very superficial breakdown of the skin, there is no bleeding. The first ray appears to be slightly plantarflexed. Silfverskiold test is positive. He is short of dorsiflexion in both the knee extended and knee flexed position by about 5. He has a 1+ posterior tibial pulse. 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 The Achilles is nontender.) Neurologic/Psych: no motor/sensory deficits, alert, normal mood/affect, oriented x 3 Skin: normal color, warm/dry, no rash Hospital Course Patient was admitted to [facility] after undergoing a right foot Achilles tendon lengthening, medial tibial sesamoid excision and debridement diabetic foot ulcer with Dr. Devries on May 01, 2017. His surgery was performed under general anesthesia in peripheral nerve block. He tolerated the procedure well. He did not have any intraoperative complications. He was given 2 g of IV Ancef for surgical prophylaxis. He was awakened and transferred to the recovery room in stable condition. He was kept overnight for observation and pain management. Dressings and his fracture boot were applied. He was instructed that he could be weightbearing as tolerated right lower extremity with the fracture boot on at all times and the assistance of a walker. His regular diet was ordered. His at-home medications were also Continued. He did not have a significant amount of pain after surgery due to his history of diabetic neuropathy in both of his feet. He did well out of bed and felt comfortable with use of the walker. His diabetic diet was continued while in the hospital. He developed some slight nausea during lunch after his surgery but states that it resolved and has had no issues with that since. He did not develop any chest pain or shortness of breath after surgery. He had no issues with urination or moving his bowels. He tolerated a regular diet. He had x-rays of his right foot and toe on the day of surgery which confirmed the sesamoidectomy. On postoperative day one he was evaluated his dressings were clean dry and intact. His boot was in place. It was determined that he would be stable for discharge today. He was discharged to his home with his son in stable condition on May 02, 2017. Discharge instructions were provided. Follow-up instructions were also provided. Total time spent on discharge = 20 min This includes examination of the patient, discharge planning, medication reconciliation, and communication with other providers. Discharge Instructions Discharge Instructions Date of Service May 02, 2017. Admission Reason for Admission: Right Foot Intractable Plantar Keratosis Discharge Discharge Diagnosis / Problem: Right foot intractable plantar keratosis Discharge Goals Goal(s): Decrease discomfort, Improve function, Increase independence Activity Recommendations Activity Limitations: per Instructions/Follow-up section Weightbearing Status: Left weightbearing (as tolerated), Right weightbearing ( as tolerated with boot on at all times. Use walker to assist with ambulation.) . Instructions / Follow-Up Instructions / Follow-Up DIET: * Resume previous diet. MEDICATIONS: * Please take your prescriptions as instructed at your pre-op appointment and/ or see medication discharge instructions listed above. * If concerns develop, call your physician's office at . SPECIAL CARE INSTRUCTIONS: * Ice/Elevate right foot above heart to relieve pain/swelling. * Keep dressing clean, dry, intact. We will change at your appointment on Saturday. Cover right foot with bag to bathe. * KEEP BOOT ON RIGHT FOOT AT ALL TIMES. * Use walker to assist with ambulation. * You may weight bear as tolerated right lower extremity. * Your surgical extremity may be discolored due to prepping agents used on the skin. A bluish-green tint is a normal variant and should not cause alarm. Call your doctor at [phone] if: * Temperature above 101 degrees * Pain not relieved by pain medicine ordered * There is increased drainage or redness from any incision * You have any unanswered questions, problems or concerns. FOLLOW UP VISIT: * If not already scheduled, please call the office at to schedule a follow-up appointment. *You have a follow up appointment for Saturday05/06/17 for a dressing change right foot at 10:45 a.m. Please call with questions/concerns or need to reschedule appointment. Current Hospital Diet Patient's current hospital diet: Diabetes Type 2 Diet Discharge Diet Recommended Diet: Regular Diet, Diabetes Type 2 Diet Procedures Procedures Performed: Right Achilles Tendon Lengthening, Medial Tibial Sesmoid Excision right foot Pending Studies Studies pending at discharge: no Laboratory Results Hemoglobin A1c Test 04/22/17 12:53 Range/Units Estimated Average Glucose 123 mg/dl Hemoglobin A1c 5.9 H 4.5-5.6 % Medical Emergencies . Who to Call and When: Medical Emergencies: If at any time you feel your situation is an emergency, please call 911 immediately. . Non-Emergent Contact Non-Emergency issues call your: Surgeon Call Non-Emergent contact if: temperature is above 101, your pain is not controlled, wound has increased drainage, wound has increased redness, wound has increased pain, you have any medication questions . "Provider Documentation" section prepared by Jania Colbert. . VTE Core Measure Inpt VTE Proph given/why not?: Other Anticoagulation (ASA 81 mg daily) <Electronically signed by Jania Colbert PA-C> Signed: 05/02/17 2710 Signed: The status of this report is ISigned * If report status is Draft, the document has not been finalized by the responsible provider.
== END 2017-05-02 13:05 | disposition home or self-care (01) ==
LOC: C.ACU 04:54 → C.3E 08:48 → ENRESERV 09:32
PROVIDERS: ADMIT Physical Medicine & Rehabilitation Sports Medicine; ATTEND Physical Medicine & Rehabilitation Sports Medicine
DX: L85.1 Acquired keratosis [keratoderma] palmaris et plantaris (principal); M67.01 Short Achilles tendon (acquired), right ankle; E11.621 Type 2 diabetes mellitus with foot ulcer; I48.91 Unspecified atrial fibrillation; I10 Essential (primary) hypertension; E78.00 Pure hypercholesterolemia, unspecified; G47.30 Sleep apnea, unspecified; E66.9 Obesity, unspecified; Z68.32 Body mass index [BMI] 32.0-32.9, adult; I25.2 Old myocardial infarction; Z79.82 Long term (current) use of aspirin; Z79.899 Other long term (current) drug therapy; Z85.3 Personal history of malignant neoplasm of breast; Z87.891 Personal history of nicotine dependence; Z86.73 Personal history of transient ischemic attack (TIA), and cerebral infarction without residual deficits; Z86.14 Personal history of Methicillin resistant Staphylococcus aureus infection; Z88.0 Allergy status to penicillin; Z98.890 Other specified postprocedural states; Z95.1 Presence of aortocoronary bypass graft; Z90.49 Acquired absence of other specified parts of digestive tract; Z90.10 Acquired absence of unspecified breast and nipple; Z90.89 Acquired absence of other organs

== ENCOUNTER 2018-06-28 08:23 | Inpatient (IN) ==
[2018-06-28 09:09] LABS: Basophils # (auto) 0.01 K/uL (0-0.2); Basophils % (auto) 0.2 %; Eosinophils # (auto) 0.25 K/uL (0-0.5); Eosinophils % (auto) 4.9 %; Hematocrit (blood only) 37.1 % (42-52); Immature Granulocytes # (auto) 0.01 K/uL (0.00-0.02); Immature Granulocytes % (auto) 0.2 %; Lymphocytes # (auto) 0.76 K/uL (1.2-3.4); Lymphocytes % (auto) 14.8 %; Mean Corpuscular Hgb Conc 32.3 g/dL (32-36); Mean Corpuscular Volume 86.5 fL (80-100); Mean Platelet Volume 10.6 fL (7.4-10.4); Monocytes # (auto) 0.23 K/uL (0.11-0.59); Monocytes % (auto) 4.5 %; Neutrophils # (auto) 3.88 K/uL (1.4-6.5); Neutrophils % (auto) 75.4 %; Platelet Count 118 K/uL (130-400); RDW Coefficient of Variation 16.7 % (11.5-14.5); RDW Standard Deviation 53.2 fL (36.4-46.3); Red Blood Count 4.29 M/uL (4.7-6.1); White Blood Count 5.14 K/uL (4.8-10.8)
--- NOTE | 2018-06-28 09:18 | Emergency Department Note ---
Entered by Nagi Caro acting as a scribe for Joseph Mak MD History of Present Illness General Chief complaint: Illness Stated complaint: WEAKNESS,CONFUSION Time Seen by Provider: 06/28/18 08:39 Source: patient and family (son and daughter) Limitations: no limitations History of Present Illness Onset (ago): hour(s) (this morning) Location: head Pain Consistency: + other (getting better) Quality: + constant Associated symptoms: + headaches, + shortness of breath, + weakness and + other (concentrated and darker urine, blurry vision, ); no chest pain and no fever/ chills (fever) The patient is an 82 year old male who presents to the Emergency Room with complaints of confusion. The patient's son states the patient woke up this morning confused and did not know where he was. The son states the patient was combative when he woke up. The son states the patient was by himself when he woke up and his friend checked up on him. The daughter states the patient has been filled up with fluid the past couple days. The son notes the patient got prescribed Lasixs yesterday, but has not begun on that medication yet. The patient states he has been SOB and weaker than normal. The patient notes his urine has been more concentrated and darker recently. The patient notes he is a little bit confused right now. The daughter states the patient has been having trouble finding his words. The daughter states the patient complained about blurry vision 2 days ago. The patient states he has not fell recently. He states he has been having headaches since he fell in February, when he was diagnosed with breast cancer and had a cracked bone in the back of his neck. The patient denies having fever or chest pain. He notes his lower back hurts but this is not new and has been constant. Home Medications Home Medications Medication Instructions Recorded Confirmed Type aspirin [Aspirin Low Dose] 81 mg PO DAILY 05/21/18 06/28/18 History carvedilol 6.25 mg PO BID 05/21/18 06/28/18 History metformin 500 mg PO BIDM 05/21/18 06/28/18 History nortriptyline 25 mg PO HS 05/21/18 06/28/18 History sennosides-docusate sodium [Senna 2 tab PO HS 05/21/18 06/28/18 History with Docusate Sodium] terazosin 2 mg PO HS 05/21/18 06/28/18 History acetaminophen [Tylenol Extra 1,000 mg PO Q6H PRN 06/28/18 06/28/18 History Strength] atorvastatin 20 mg PO DAILY 06/28/18 06/28/18 History diclofenac sodium 50 mg PO TID PRN 06/28/18 06/28/18 History isosorbide mononitrate 60 mg PO DAILY 06/28/18 06/28/18 History lisinopril 40 mg PO DAILY 06/28/18 06/28/18 History nitroglycerin 0.4 mg SUBLINGUAL UD 06/28/18 06/28/18 History polyethylene glycol 3350 [Miralax] 17 g PO DAILY PRN 06/28/18 06/28/18 History psyllium 1 scoop/day PO TID PRN 06/28/18 06/28/18 History tamoxifen 20 mg PO DAILY 06/28/18 06/28/18 History torsemide 20 mg PO DAILY 06/28/18 06/28/18 History Allergies Allergy/AdvReac Type Severity Reaction Status Date / Time Penicillins AdvReac Unknown HAS Verified 05/21/18 10:33 TOLERATED CEPHALOSPORINS W/O RXN-lightheaded Past Med/Surg History Medical History Breast cancer in male (Chronic) HLD (hyperlipidemia) (Chronic) Chronic atrial fibrillation (Chronic) CAD (coronary artery disease) (Chronic) Thoracic aortic aneurysm (Chronic) MRSA (methicillin resistant Staphylococcus aureus) (Resolved) Diabetes (Chronic) Hypertension (Chronic) Diabetic neuropathy (Chronic) Diabetic retinopathy (Chronic) BPH (benign prostatic hyperplasia) (Chronic) History of diabetic ulcer of foot (Resolved) Status post partial amputation of foot (Resolved) Bone cancer Kidney stones Surgical History Hx of CABG (Resolved) 1993 Hx of cholecystectomy (Resolved) Social History Current Living Situation: Alone current occupational status: retired Other Information That Helps Us Care for You: No Feels Safe at Home: Yes Safety Concerns: Feels Safe At This Time Smoking Status: Current some day smoker Cigarettes per Day: started smoking cigars intermittently again, previous quit 1977 Hx Alcohol Use: Yes Alcohol type: beer Alcohol Intake Frequency: holidays/ special occasions only Hx Substance Use: No Beliefs That Will Affect Care: None Preferred Language: Dominican Communication Ability: Effective Accounts Payable Or Receivable Clerk Required: No Review of Systems See HPI for pertinent positives & negatives. and A total of 10 systems reviewed and were otherwise negative Physical Exam Vital Signs Vital Signs - 24 hr 06/28/18 08:25 06/28/18 08:35 06/28/18 08:38 Temperature 36.4 C L Temperature Source Oral Sepsis Recent Fever Within 48 Hours No Sepsis New/Unexplained Change in Mental Status No Sepsis Action Taken by Nursing No Action Required Pulse Rate 85 84 81 Pulse Rate [Radial] Respiratory Rate 18 27 H 28 H Respiratory Effort / Characteristics Respiratory Depth Blood Pressure 155/84 H 142/85 H Blood Pressure [Left Arm] Blood Pressure Mean 107 104 Blood Pressure Mean [Left Arm] Pulse Oximetry 94 93 93 Oxygen Delivery Method Room Air Oxygen Flow Rate 06/28/18 08:40 06/28/18 08:50 06/28/18 09:00 Temperature Temperature Source Sepsis Recent Fever Within 48 Hours Sepsis New/Unexplained Change in Mental Status Sepsis Action Taken by Nursing Pulse Rate 77 73 75 Pulse Rate [Radial] Respiratory Rate 29 H 24 21 Respiratory Effort / Characteristics Respiratory Depth Blood Pressure Blood Pressure [Left Arm] Blood Pressure Mean Blood Pressure Mean [Left Arm] Pulse Oximetry 95 Oxygen Delivery Method Oxygen Flow Rate 06/28/18 09:10 06/28/18 09:18 06/28/18 09:19 Temperature Temperature Source Sepsis Recent Fever Within 48 Hours Sepsis New/Unexplained Change in Mental Status Sepsis Action Taken by Nursing Pulse Rate 76 78 Pulse Rate [Radial] 78 Respiratory Rate 26 H 24 18 Respiratory Effort / Characteristics Non-Labored Respiratory Depth Normal Blood Pressure 159/90 H Blood Pressure [Left Arm] 159/90 H Blood Pressure Mean 113 Blood Pressure Mean [Left Arm] 113 Pulse Oximetry 95 Oxygen Delivery Method Room Air Oxygen Flow Rate 06/28/18 09:31 06/28/18 09:40 06/28/18 09:44 Temperature Temperature Source Sepsis Recent Fever Within 48 Hours Sepsis New/Unexplained Change in Mental Status Sepsis Action Taken by Nursing Pulse Rate Pulse Rate [Radial] 75 Respiratory Rate 18 Respiratory Effort / Characteristics Respiratory Depth Blood Pressure Blood Pressure [Left Arm] 160/84 H Blood Pressure Mean Blood Pressure Mean [Left Arm] 109 Pulse Oximetry 90 92 91 Oxygen Delivery Method Room Air Oxygen Flow Rate 06/28/18 09:45 06/28/18 09:50 06/28/18 10:00 Temperature Temperature Source Sepsis Recent Fever Within 48 Hours Sepsis New/Unexplained Change in Mental Status Sepsis Action Taken by Nursing Pulse Rate Pulse Rate [Radial] Respiratory Rate Respiratory Effort / Characteristics Respiratory Depth Blood Pressure 160/84 H Blood Pressure [Left Arm] Blood Pressure Mean 109 Blood Pressure Mean [Left Arm] Pulse Oximetry 91 96 97 Oxygen Delivery Method Oxygen Flow Rate 06/28/18 10:10 06/28/18 10:19 06/28/18 10:20 Temperature Temperature Source Sepsis Recent Fever Within 48 Hours Sepsis New/Unexplained Change in Mental Status Sepsis Action Taken by Nursing Pulse Rate Pulse Rate [Radial] 78 Respiratory Rate 16 Respiratory Effort / Characteristics Non-Labored Respiratory Depth Normal Blood Pressure Blood Pressure [Left Arm] 160/84 H Blood Pressure Mean Blood Pressure Mean [Left Arm] 109 Pulse Oximetry 99 98 98 Oxygen Delivery Method Oxygen Flow Rate 06/28/18 10:30 06/28/18 11:05 06/28/18 11:10 Temperature Temperature Source Sepsis Recent Fever Within 48 Hours Sepsis New/Unexplained Change in Mental Status Sepsis Action Taken by Nursing Pulse Rate 80 Pulse Rate [Radial] Respiratory Rate 20 28 H Respiratory Effort / Characteristics Respiratory Depth Blood Pressure Blood Pressure [Left Arm] Blood Pressure Mean Blood Pressure Mean [Left Arm] Pulse Oximetry 97 Oxygen Delivery Method Oxygen Flow Rate 06/28/18 11:20 06/28/18 11:30 06/28/18 11:40 Temperature Temperature Source Sepsis Recent Fever Within 48 Hours Sepsis New/Unexplained Change in Mental Status Sepsis Action Taken by Nursing Pulse Rate 80 84 78 Pulse Rate [Radial] Respiratory Rate 31 H 31 H 25 H Respiratory Effort / Characteristics Respiratory Depth Blood Pressure Blood Pressure [Left Arm] Blood Pressure Mean Blood Pressure Mean [Left Arm] Pulse Oximetry Oxygen Delivery Method Oxygen Flow Rate 06/28/18 11:50 06/28/18 11:51 06/28/18 12:00 Temperature Temperature Source Sepsis Recent Fever Within 48 Hours Sepsis New/Unexplained Change in Mental Status Sepsis Action Taken by Nursing Pulse Rate 78 93 H Pulse Rate [Radial] Respiratory Rate 30 H 32 H Respiratory Effort / Characteristics Non-Labored Spontaneous Respiratory Depth Normal Blood Pressure Blood Pressure [Left Arm] Blood Pressure Mean Blood Pressure Mean [Left Arm] Pulse Oximetry Oxygen Delivery Method Room Air Oxygen Flow Rate 06/28/18 12:10 06/28/18 12:20 06/28/18 12:30 Temperature Temperature Source Sepsis Recent Fever Within 48 Hours Sepsis New/Unexplained Change in Mental Status Sepsis Action Taken by Nursing Pulse Rate 77 79 83 Pulse Rate [Radial] Respiratory Rate 29 H 28 H 24 Respiratory Effort / Characteristics Respiratory Depth Blood Pressure Blood Pressure [Left Arm] Blood Pressure Mean Blood Pressure Mean [Left Arm] Pulse Oximetry Oxygen Delivery Method Oxygen Flow Rate 06/28/18 12:40 06/28/18 12:50 06/28/18 13:00 Temperature Temperature Source Sepsis Recent Fever Within 48 Hours Sepsis New/Unexplained Change in Mental Status Sepsis Action Taken by Nursing Pulse Rate 81 78 82 Pulse Rate [Radial] Respiratory Rate 26 H 26 H 30 H Respiratory Effort / Characteristics Respiratory Depth Blood Pressure Blood Pressure [Left Arm] Blood Pressure Mean Blood Pressure Mean [Left Arm] Pulse Oximetry Oxygen Delivery Method Oxygen Flow Rate 06/28/18 13:10 06/28/18 13:20 06/28/18 13:33 Temperature Temperature Source Sepsis Recent Fever Within 48 Hours Sepsis New/Unexplained Change in Mental Status Sepsis Action Taken by Nursing Pulse Rate 80 84 Pulse Rate [Radial] 82 Respiratory Rate 28 H 26 H 27 H Respiratory Effort / Characteristics Respiratory Depth Blood Pressure Blood Pressure [Left Arm] 157/91 H Blood Pressure Mean Blood Pressure Mean [Left Arm] 113 Pulse Oximetry 97 Oxygen Delivery Method Room Air Oxygen Flow Rate 06/28/18 14:18 06/28/18 14:22 Temperature Temperature Source Sepsis Recent Fever Within 48 Hours Sepsis New/Unexplained Change in Mental Status Sepsis Action Taken by Nursing Pulse Rate 84 Pulse Rate [Radial] 88 Respiratory Rate 25 H 28 H Respiratory Effort / Characteristics Respiratory Depth Blood Pressure 157/91 H Blood Pressure [Left Arm] 177/82 H Blood Pressure Mean Blood Pressure Mean [Left Arm] 113 Pulse Oximetry 97 Oxygen Delivery Method Room Air Nasal Cannula Oxygen Flow Rate 2 General: Chronically-ill appearing older male in no acute distress. HEENT: Normal cephalic atraumatic. Pupils are equal round and reactive to light. Extraocular movements are intact. Oropharynx is pink with moist mucous membranes. No swelling of the mouth lips or tongue. Neck: Supple with a midline trachea. No meningeal signs or stiffness, no JVD or bruits. No Stridor. Chest: Clear to auscultation bilaterally. No wheezes or rhonchi. No increased work of breathing. Chest has scars from previous surgeries. Heart: regular rate and rhythm. Abdomen: Soft nontender, nondistended without rebound guarding or rigidity. Abdomen has scars from previous surgeries. No hernia. Extremities: No cyanosis clubbing or edema. No calf tenderness or assymetry. Bilateral lower pitting edema. Spine/Back. Non tender to palpation. No CVA tenderness Skin: Good turgor without rashes. Neurologic exam: Cranial nerves two through 12 are intact. Motor and sensation are intact and symmetrical throughout. Answers most questions appropriately. Able to name objects wihout difficulty. Course 0842: Past medical records reviewed. The patient was evaluated in room B6, and a complete history and physical examination were performed. 1022: I reviewed the patient's case with Clarissa Ness PA-C at [facility]– [place]. She will evaluate the patient for further management. Administered Medications Discontinued Medications Furosemide (Lasix) 20 mg IV NOW STA Stop: 06/28/18 10:09 Last Admin: 06/28/18 10:20 Dose: 20 mg Medical Decision Making Differential Diagnosis Sepsis, UTI, CHF, cancer related complication, CVA, and medication side effect. Medical Records Attestation: I reviewed the patient's medical records. Home Medications Current Medication List: was personally reviewed by me Laboratory Data Attestation: I reviewed the patient's lab results. Result diagrams: 06/28/18 08:45 06/28/18 08:45 Lab Results 06/28/18 06/28/18 06/28/18 Range/Units 08:45 08:45 08:45 WBC 5.14 (4.8-10.8) K/uL RBC 4.29 L (4.7-6.1) M/uL Hgb 12.0 L (14.0-18.0) g/dL Hct 37.1 L (42-52) % MCV 86.5 (80-100) fL MCH 28.0 (25-34) pg MCHC 32.3 (32-36) g/dL RDW Std Deviation 53.2 H (36.4-46.3) fL RDW Coeff of Pranay 16.7 H (11.5-14.5) % Plt Count 118 L (130-400) K/uL MPV 10.6 H (7.4-10.4) fL Immature Gran % (Auto) 0.2 % Neut % (Auto) 75.4 % Lymph % (Auto) 14.8 % Gregory % (Auto) 4.5 % Eos % (Auto) 4.9 % Baso % (Auto) 0.2 % Immature Gran # (Auto) 0.01 (0.00-0.02) K/uL Neut # (Auto) 3.88 (1.4-6.5) K/uL Lymph # (Auto) 0.76 L (1.2-3.4) K/uL Gregory # (Auto) 0.23 (0.11-0.59) K/uL Eos # (Auto) 0.25 (0-0.5) K/uL Baso # (Auto) 0.01 (0-0.2) K/uL PT 11.4 (9.0-12.0) Seconds INR 1.1 (0.9-1.1) APTT 24.7 (21.0-31.0) Seconds PTT Ratio 1.0 Sodium 137 (136-145) mmol/L Potassium 3.9 (3.5-5.1) mmol/L Chloride 105 (98-107) mmol/L Carbon Dioxide 25 (21-32) mmol/L Anion Gap 7.0 (3-11) BUN 17 (7-18) mg/dl Creatinine 0.86 (0.6-1.4) mg/dl Est Cr Clr Drug Dosing 89.1 ml/min Est GFR ( Amer) 94.9 Est GFR (Non-Af Amer) 81.9 BUN/Creatinine Ratio 19.7 (10-20) Glucose 124 H (70-99) mg/dl Lactate (0.4-2.0) mmol/L Calcium 8.7 (8.5-10.1) mg/dl Total Bilirubin 1.7 H (0.2-1) mg/dl AST 28 (15-37) U/L ALT 18 (12-78) U/L Alkaline Phosphatase 167 H (45-117) U/L Troponin I < 0.015 (0-0.045) ng/ml NT-Pro-B Natriuret Pep 57890 H (0-1800) pg/ml Total Protein 6.8 (6.4-8.2) gm/dl Albumin 3.0 L (3.4-5.0) gm/dl Globulin 3.8 (2.5-4.0) gm/dl Albumin/Globulin Ratio 0.8 L (0.9-2) Urine Color Urine Appearance (Clear) Urine pH (4.5-7.5) Ur Specific Nada (1.000-1.030) Urine Protein (Negative) Urine Glucose (UA) (Negative) Urine Ketones (Negative) Urine Blood (Negative) Urine Nitrite (Negative) Urine Bilirubin (Negative) Urine Urobilinogen (Negative) Ur Leukocyte Esterase (Negative) Urine WBC (Auto) (0-5) /hpf Urine RBC (Auto) (0-4) /hpf U Hyaline Cast (Auto) (0-5) /lpf U Epithel Cells (Auto) (0-5) /lpf Urine Bacteria (Auto) (Negative) 06/28/18 06/28/18 Range/Units 09:05 12:00 WBC (4.8-10.8) K/uL RBC (4.7-6.1) M/uL Hgb (14.0-18.0) g/dL Hct (42-52) % MCV (80-100) fL MCH (25-34) pg MCHC (32-36) g/dL RDW Std Deviation (36.4-46.3) fL RDW Coeff of Pranay (11.5-14.5) % Plt Count (130-400) K/uL MPV (7.4-10.4) fL Immature Gran % (Auto) % Neut % (Auto) % Lymph % (Auto) % Gregory % (Auto) % Eos % (Auto) % Baso % (Auto) % Immature Gran # (Auto) (0.00-0.02) K/uL Neut # (Auto) (1.4-6.5) K/uL Lymph # (Auto) (1.2-3.4) K/uL Gregory # (Auto) (0.11-0.59) K/uL Eos # (Auto) (0-0.5) K/uL Baso # (Auto) (0-0.2) K/uL PT (9.0-12.0) Seconds INR (0.9-1.1) APTT (21.0-31.0) Seconds PTT Ratio Sodium (136-145) mmol/L Potassium (3.5-5.1) mmol/L Chloride (98-107) mmol/L Carbon Dioxide (21-32) mmol/L Anion Gap (3-11) BUN (7-18) mg/dl Creatinine (0.6-1.4) mg/dl Est Cr Clr Drug Dosing ml/min Est GFR ( Amer) Est GFR (Non-Af Amer) BUN/Creatinine Ratio (10-20) Glucose (70-99) mg/dl Lactate 0.9 (0.4-2.0) mmol/L Calcium (8.5-10.1) mg/dl Total Bilirubin (0.2-1) mg/dl AST (15-37) U/L ALT (12-78) U/L Alkaline Phosphatase (45-117) U/L Troponin I (0-0.045) ng/ml NT-Pro-B Natriuret Pep (0-1800) pg/ml Total Protein (6.4-8.2) gm/dl Albumin (3.4-5.0) gm/dl Globulin (2.5-4.0) gm/dl Albumin/Globulin Ratio (0.9-2) Urine Color Yellow Urine Appearance Clear (Clear) Urine pH 5.0 (4.5-7.5) Ur Specific Nada 1.012 (1.000-1.030) Urine Protein 1+ H (Negative) Urine Glucose (UA) Negative (Negative) Urine Ketones Negative (Negative) Urine Blood Negative (Negative) Urine Nitrite Negative (Negative) Urine Bilirubin Negative (Negative) Urine Urobilinogen Negative (Negative) Ur Leukocyte Esterase Negative (Negative) Urine WBC (Auto) 1-5 (0-5) /hpf Urine RBC (Auto) 0-4 (0-4) /hpf U Hyaline Cast (Auto) 1-5 (0-5) /lpf U Epithel Cells (Auto) 20-30 H (0-5) /lpf Urine Bacteria (Auto) Negative (Negative) Imaging Data Radiologist's Impression: Radiology results as stated below per my review and the radiologist's interpretation: CT head/brain wo con CT DOSE: 537.48 mGy.cm HISTORY: Mental status change episode of confusion TECHNIQUE: Multiaxial CT images of the head were performed without the use of intravenous contrast. A dose lowering technique was utilized adhering to the principles of ALARA. Comparison: None. Findings: The paranasal sinuses and mastoid air cells are clear. The calvarium and skull base are intact. The ventricles and sulci are within normal limits. There is no mass, hematoma, midline shift, or acute infarct. Impression: No acute intracranial abnormality. The above report was generated using voice recognition software. It may contain grammatical, syntax or spelling errors. Electronically signed by: Jared Tyler M.D. 06/28/2018 9:31 AM XR chest 1V portable CLINICAL HISTORY: Sepsis dyspnea COMPARISON STUDY: 02/12/2016 FINDINGS: Moderate cardiomegaly. Infiltrate right base. Atelectasis left base. IMPRESSION: 1. Right and to a lesser extent left basilar infiltrate. 2. Pulmonary vascular congestion. The above report was generated using voice recognition software. It may contain grammatical, syntax or spelling errors. Electronically signed by: Jared Tyler M.D. 06/28/2018 9:17 AM ECG Data Attestation: I personally reviewed and interpreted this ECG as follows: Indication: weakness Rate (beats per minute): 79 Rhythm: atrial fibrillation (poor baseline) Findings: + other (non-specific T wave abnormality); no ST depression and no ST elevation Comparison ECG Date: from (04/22/17) Change: the following changes noted (rate has increased) Blood Pressure Blood Pressure Findings: Elevated blood pressure Blood Pressure Disposition: further management by hospitalist [facility] Narrative This patient comes in as described above. He was placed in room D6. He arrives by ambulance. He will apparently was combative and confused this morning seems doing a lot better. He may have had some potentially word finding problems on exam he seems to be much better at present he has no neurologic deficits. He does appear to be confused intermittently but is able to name objects appropriately. He does a very complex medical history with metastatic breast cancer. He also has congestive heart failure and was supposed to be started on Lasix however they have not received it yet from the pharmacy. he has been filling up with fluid in his legs and short of breath. He also has had some urinary symptoms. Due to all these issues, I do not think this was likely a stroke but more of a metabolic issue or potentially infectious issue he was worked up from a sepsis as well as stroke standpoint and cardiac standpoint. He is not a TPA candidate given the fact that he woke up this way and I do not feel is likely an interventional candidate given all of his other comorbidities. His chest x-ray does show increased markings in the base which I think is most likely fluid overload, clinically is nothing to suggest pneumonia. Clinically does look fluid overloaded and his BNP is elevated further supporting CHF. He was given IV Lasix 20 mg IV. He has no significant electrolyte or metabolic abnormalities. The CAT scan of his head is unremarkable and he has nothing to suggest sepsis. Blood cultures been obtained and are pending. The patient does need to be admitted/observe for further inpatient treatment evaluation and diuresis. Impression & Plan CHF (congestive heart failure), Altered mental status Discharge Plan Visit Data *Final* Discharge Date/Time: 06/28/18 14:18 Chief Complaint: Illness Stated Complaint: WEAKNESS,CONFUSION ED Provider: Joseph Mak Discharge Problem: CHF (congestive heart failure), Altered mental status Patient Disposition: Admitted As Inpatient Discharge Instructions Interventions: ED Discharge Assessment Last Done: 06/28/18 14:18 The scribe's documentation has been prepared under my direction and personally reviewed by me in its entirety. I confirm that the note above accurately reflects all work, treatment, procedures, and medical decision making performed by me.
[2018-06-28 09:27] LABS: Alanine Aminotransferase 18 U/L (12-78); Aspartate Aminotransferase 28 U/L (15-37); BUN Creatinine Ratio 19.7 (10-20); Blood Urea Nitrogen 17 mg/dl (7-18); Calcium 8.7 mg/dl (8.5-10.1); Carbon Dioxide 25 mmol/L (21-32); Chloride 105 mmol/L (98-107); Creatinine Clr Calc Pharmacy 89.1 ml/min; Est GFR (African American) 94.9; Est GFR (Non-African American) 81.9; Glucose 124 mg/dl (70-99); Potassium 3.9 mmol/L (3.5-5.1); Sodium 137 mmol/L (136-145)
[2018-06-28 09:31] LABS: Albumin Globulin Ratio 0.8 (0.9-2); Alkaline Phosphatase 167 U/L (45-117); Bilirubin,Total 1.7 mg/dl (0.2-1); Globulin 3.8 gm/dl (2.5-4.0); NT Pro B Type Natriuretic Pept 11716 pg/ml (0-1800); Total Protein 6.8 gm/dl (6.4-8.2); Troponin I < 0.015 ng/ml (0-0.045)
[2018-06-28 09:34] LABS: INR 1.1 (0.9-1.1); Partial Thromboplastin Time 24.7 Seconds (21.0-31.0); Prothrombin Time 11.4 Seconds (9.0-12.0)
--- NOTE | 2018-06-28 09:34 | CT Scan Report ---
CT head/brain wo con CT DOSE: 537.48 mGy.cm HISTORY: Mental status change episode of confusion TECHNIQUE: Multiaxial CT images of the head were performed without the use of intravenous contrast. A dose lowering technique was utilized adhering to the principles of ALARA. Comparison: None. Findings: The paranasal sinuses and mastoid air cells are clear. The calvarium and skull base are int act. The ventricles and sulci are within normal limits. There is no mass, hematoma, midline shift, or acute infarct. Impression: No acute intracranial abnormality. The above report was generated using voice recognition software. It may contain grammatical, syntax or spelling errors. Electronically signed by: Jared Tyler M.D. 06/28/2018 9:31 AM
[2018-06-28] MEDS ORDERED: FUROSEMIDE 40 MG/4 ML VIAL IV STA (10:08)
[2018-06-28 12:12] LABS: Appearance Urine Clear (Clear); Bacteria Urine Automated Negative (Negative); Bilirubin Urine Negative (Negative); Color Urine Yellow; Epithelial Cell Urine Auto 20-30 /lpf (0-5); Glucose Urine UA Negative (Negative); Ketones Urine Negative (Negative); Leukocyte Esterase Urine Negative (Negative); Nitrite Urine Negative (Negative); Protein Urine 1+ (Negative); Specific Gravity Urine 1.012 (1.000-1.030); Urobilinogen Urine Negative (Negative)
--- NOTE | 2018-06-28 12:24 | History & Physical Report ---
Date of Service June 28, 2018 Assessment & Plan (1) CHF (congestive heart failure): Patient presented with increased shortness of breath, increased BLE edema past couple of days. 11 pound weight gain in the past 1-2 weeks. Had torsemide 20 mg prescribed by PCP yesterday however has not started yet. In ER patient afebrile, P: 85, BP: 155/84, RR: 27, 94% on room air. WBC: 5, Hgb : 12 (baseline ~ 11), PLT: 118 (baseline ~90-120s), BNP: 11,716, negative troponin, EKG: Atrial fibrillation, rate 79, nonspecific T wave abnormality inferior leads. Was given Lasix 20 mg IV CXR: Right and to a lesser extent left basilar infiltrate. Pulmonary vascular congestion. -Telemetry to monitor -Monitor I's and O's, daily weights -low-sodium diet -Lasix 40 mg IV twice daily -Echo -Trend troponin -Bladder scan, postvoid residual, Arcos catheter -CBC, CMP, BNP in a.m. (2) Altered mental status: Reported confusion and workup this morning, agitation, word finding difficulty. Symptoms improved since ER arrival however continues with difficulty with word finding. Reported BSG this morning 143. In ER BS, afebrile, lactic acid WNL, no leukocytosis. CXR: Right and to a lesser extent left basilar infiltrate. Pulmonary vascular congestion. CT head: No acute changes -R/O metabolic encephalopathy secondary to underlying infection, Brain mets, stroke -Suspect more fluid overload, than infiltrate. Will monitor -Pending UA -Pending blood cultures -pending TSH, B12 -MRI brain -neuro checks -continue ASA, statin -consider neuro consult if no improvement or worsening (3) Chronic atrial fibrillation: Rate controlled in the 70s Not on anticoagulation: Refused anticoagulation in the past, h/o falls -Continue carvedilol (4) CAD (coronary artery disease): S/P CABG in 1993 Denies CP, SOB. Negative troponin. EKG: a-fib, rate 79, nonspecific t wave abnormality inferior, chronic anterior lead changes -trend troponin -pending echo -Continue imdur, carvedilol, aspirin (5) Breast cancer in male: S/P mastectomy in 2012. 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 Follows with Dr Tran - oncologist -continue tamoxifen -chronic back and hip pain - will hold NSAIDs at this time and monitor renal functions, Tylenol IV prn, try to avoid narcotics at this time with AMS (6) Diabetes: DM II HA1c: 5.9 on 05/2018 -Hold metformin while in hospital -NovoLog sliding scale (7) Hypertension: -Continue lisinopril, carvedilol, imdur -monitor BP (8) HLD (hyperlipidemia): -Continue atorvastatin (9) Diabetic neuropathy: -Patient has been on nortriptyline for several years, will continue (10) BPH (benign prostatic hyperplasia): History urinary retention 04/2018 requiring Arcos catheter in ER visit -Bladder scan, pending post void residual -Continue terazosin DVT Prophylaxis -SCDs DNR/DNI as per discussion with pt and daughter Follows with Dr Mallory for routine care Pt was seen with Dr Galeas. See addendum History of Present Illness Chief Complaint: Confusion Primary Care Provider: Lawrence Mallory MD Pt is 82 y/o M with PMH CAD s/p CABG in 1993, chronic atrial fibrillation refuses anticoagulation, HTN, HLD, DM II, BPH, thoracic aortic aneurysm, breast cancer diagnosed in 2012 with metastases to the spine diagnosed 02/2018 presented to ER with complaint of confusion this morning. Patient reports woke up this morning and was confused. He has a friend/neighbor who checks on him every morning and patient states was verbally hostile towards friend this morning which is very unlike him. He reports that he kept putting his pills in a bag instead of putting them in his mouth to swallow. Also reports was confused and thought the pill container lid was a pill. It is reported patient had noted trouble with word finding. Patient's daughter feels patient is less confused in the ER however still has some continued word finding troubles. He reports that he checked his BSG this morning and was 143. Denies any trouble swallowing or recent choking. Denies any falls since 2017. Reports some blurry vision past several weeks. Patient and daughter also reports that patient has had increased shortness of breath and orthopnea past several days with noted increased bilateral lower extremity edema and approximately 11 pound weight gain in the past 2 weeks. Was seen at PCP office yesterday given a prescription for torsemide 20 mg however has not started that yet. Denies chest pain. Reports intermittent clear productive cough for the past several months, without any recent worsening. Denies fever or chills. Patient with history syncope/fall in 02/2018 and was found to have left fibular head fracture, C7 fracture, further workup ensued and patient found to have bone metastases to L-spine, pelvis. Patient was discharged to [facility] and then discharged home. Has been ambulating with walker and uses wheelchair. Patient states since that time has had gradual increase generalized weakness, intermittent nausea, decreased appetite and shortness of breath with walking. Has chronic lower extremity paresthesias, denies any recent worsening or new parethesias. 04/2018 patient had urinary retension and was seen in ER requiring catheterization. Patient states since has had intermittent dysuria in the past few weeks has noticed dark urine. Reports has been urinating, unsure if complete bladder emptying. Has nocturia. Denies fever/chills, diaphoresis, V/D/C, ACEVES, dizziness, syncope, neck pain, CP, palpitations, hemoptysis, sore throat, otalgia, rhinorrhea, abdominal pain, rashes, hematuria, melena, hematochezia. Out patient records reviewed: -MRI L Spine w/o contrast 03/15/2018: T9 superior endplate fx, T1 sclerotic lesion compatible with mets, healing right 11th rib fx, 50% L1 compression fx, extensive hypointense mets seen throught lumbar spine and sacrum, sacral insufficiency fx -MRI C-Spine w/o contrast 03/15/18: displaced C7 spinous process fracture edema, multilevel disc degeneration -echo 12/2015: EF: 55-60% -Cardiac cath 2005 - patent vessels -Nuclear stress test 03/2015 - no inducible ischemia -CT CHEST: 12/2015: Atherosclerotic changes with mild ectasia of the thoracic aorta but no evidence of aneurysm or dissection Allergies Allergy/AdvReac Type Severity Reaction Status Date / Time Penicillins AdvReac Unknown HAS Verified 05/21/18 10:33 TOLERATED CEPHALOSPORINS W/O RXN-lightheaded Home Medications Home Medications Medication Instructions Recorded Confirmed Type aspirin [Aspirin Low Dose] 81 mg PO DAILY 05/21/18 06/28/18 History carvedilol 6.25 mg PO BID 05/21/18 06/28/18 History metformin 500 mg PO BIDM 05/21/18 06/28/18 History nortriptyline 25 mg PO HS 05/21/18 06/28/18 History sennosides-docusate sodium [Senna 2 tab PO HS 05/21/18 06/28/18 History with Docusate Sodium] terazosin 2 mg PO HS 05/21/18 06/28/18 History acetaminophen [Tylenol Extra 1,000 mg PO Q6H PRN 06/28/18 06/28/18 History Strength] atorvastatin 20 mg PO DAILY 06/28/18 06/28/18 History diclofenac sodium 50 mg PO TID PRN 06/28/18 06/28/18 History isosorbide mononitrate 60 mg PO DAILY 06/28/18 06/28/18 History lisinopril 40 mg PO DAILY 06/28/18 06/28/18 History nitroglycerin 0.4 mg SUBLINGUAL UD 06/28/18 06/28/18 History polyethylene glycol 3350 [Miralax] 17 g PO DAILY PRN 06/28/18 06/28/18 History psyllium 1 scoop/day PO TID PRN 06/28/18 06/28/18 History tamoxifen 20 mg PO DAILY 06/28/18 06/28/18 History torsemide 20 mg PO DAILY 06/28/18 06/28/18 History Past Med/Surg History Medical History Breast cancer in male (Chronic) HLD (hyperlipidemia) (Chronic) Chronic atrial fibrillation (Chronic) CAD (coronary artery disease) (Chronic) Thoracic aortic aneurysm (Chronic) MRSA (methicillin resistant Staphylococcus aureus) (Resolved) Diabetes (Chronic) Hypertension (Chronic) Diabetic neuropathy (Chronic) Diabetic retinopathy (Chronic) BPH (benign prostatic hyperplasia) (Chronic) History of diabetic ulcer of foot (Resolved) Status post partial amputation of foot (Resolved) Bone cancer Kidney stones Surgical History Hx of CABG (Resolved) 1993 Hx of cholecystectomy (Resolved) Social History Current Living Situation: Alone current occupational status: retired Other Information That Helps Us Care for You: No Feels Safe at Home: Yes Safety Concerns: Feels Safe At This Time Smoking Status: Current some day smoker Cigarettes per Day: started smoking cigars intermittently again, previous quit 1977 Hx Alcohol Use: Yes Alcohol type: beer Alcohol Intake Frequency: holidays/ special occasions only Hx Substance Use: No Beliefs That Will Affect Care: None Preferred Language: Luxembourgish Communication Ability: Effective Environmental Geologist Required: No Review of Systems All systems reviewed & are unremarkable except as noted in HPI & below Physical Exam 2 Vital Signs (Past 24 Hours): Last Vital Signs Temp 36.4 C L 06/28/18 08:25 Pulse 93 H 06/28/18 12:00 Resp 32 H 06/28/18 12:00 BP 160/84 H 06/28/18 10:19 Pulse Ox 97 06/28/18 10:30 Physical Exam: General: no acute distress, WDWN Head: normocephalic, atraumatic Eyes: PERRL, EOM's intact, conjunctiva non-injected, anicteric ENT: normal inspection external ears, nose, mucous membranes mildly dry Neck: supple, trachea midline, non-tender Lungs: R: 24, no retractions, +diminished, rales bases bilaterally, pulse ox 94 % on RA CV: irregularly irregular, rate 70's, systolic murmur, 3+ pretibial edema Abd: normal BS, soft, distended, non-tender Ext: no cyanosis, no calf tenderness Neuro: A&O to person, place, time, some noted trouble with word finding, tongue midline, no facial droop, bilateral upper and lower extremities 3/5 strength bilaterally, weak equal food concession manager strength bilaterally, no pronator drift, normal affect Skin: warm, dry Results & Data Laboratory Results Short CBC 06/28/18 Range/Units 08:45 WBC 5.14 (4.8-10.8) K/uL Hgb 12.0 L (14.0-18.0) g/dL Hct 37.1 L (42-52) % Plt Count 118 L (130-400) K/uL BMP 06/28/18 08:45 Sodium 137 Potassium 3.9 Chloride 105 Carbon Dioxide 25 BUN 17 Creatinine 0.86 Glucose 124 H Calcium 8.7 Cardiac Enzymes 06/28/18 Range/Units 08:45 Troponin I < 0.015 (0-0.045) ng/ml Liver Function 06/28/18 Range/Units 08:45 Total Bilirubin 1.7 H (0.2-1) mg/dl AST 28 (15-37) U/L ALT 18 (12-78) U/L Alkaline Phosphatase 167 H (45-117) U/L Albumin 3.0 L (3.4-5.0) gm/dl Urine 06/28/18 Range/Units 12:00 Urine Color Yellow Urine Appearance Clear (Clear) Urine pH 5.0 (4.5-7.5) Ur Specific Nathalie 1.012 (1.000-1.030) Urine Protein 1+ H (Negative) Urine Glucose (UA) Negative (Negative) Lactate 0.9 (0.4-2.0) Diagnostic Findings CT HEAD: Impression: No acute intracranial abnormality. CXR: IMPRESSION: 1. Right and to a lesser extent left basilar infiltrate. 2. Pulmonary vascular congestion. ECG Rate (beats per minute): 79 Rhythm: atrial fibrillation Additional Comments: Read by record retrieval specialist: Atrial fibrillation Non-specific intra-ventricular conduction block Cannot rule out Anterior infarct , age undetermined Abnormal ECG When compared with ECG of 22-APR-2017 12:55, Questionable change in QRS axis Nonspecific T wave abnormality now evident in Inferior leads Confirmed by SHAN FLORES ([id number]) on 06/28/2018 12:54:13 PM Supervising Physician Co-Signing Physician Notes I saw this patient with the physician assistant paralegal, I participated in the history, physical, review of systems, and physical exam. I reviewed the medications with the patient and the physician assistant paralegal and helped reconcile the medications. I helped take a detailed family and social history as well. I formulated the assessment and plan personally with the physician assistant paralegal and went over it with the patient. _ (1) CHF (congestive heart failure) Heart failure chronicity: unspecified Heart failure type: unspecified Qualified Code(s): I50.9 - Heart failure, unspecified (2) Altered mental status Altered mental status type: unspecified Coma depth: Coma timing: Qualified Code(s): R41.82 - Altered mental status, unspecified
[2018-06-28] MEDS ORDERED: GLUCAGON FOR INJ 1 MG VIAL SQ PRN (15:01)
[2018-06-28] MEDS ORDERED: POLYETHYLENE (MIRALAX) 17 GM PACK PO PRN (15:01)
[2018-06-28] MEDS ORDERED: NITROGLYCERIN SL 0.4 MG/TAB TAB SL PRN (15:01)
[2018-06-28] MEDS ORDERED: GLUCOSE 10 TABS/TUBE PO PRN (15:01)
[2018-06-28] MEDS ORDERED: GLUCOSE 40% GEL 15 GM TUBE PO PRN (15:01)
[2018-06-28] MEDS ORDERED: ACETAMINOPHEN 325 MG TAB PO PRN (15:01)
[2018-06-28] MEDS ORDERED: CARBOHYDRATES FOR HYPOGLYCEMIA PO PRN (15:01)
[2018-06-28] MEDS ORDERED: DEXTROSE 50% 50 ML SYRINGE IV PRN (15:01)
[2018-06-28] MEDS ORDERED: PHARMACIST DISCHARGE MED REC CONSULT PRN (15:01)
[2018-06-28] MEDS ORDERED: ACETAMINOPHEN 65 ML IV PRN (15:45)
[2018-06-28] MEDS ORDERED: MoRPHine SULFATE 2 MG/ML CARP IV ONE (16:18)
[2018-06-28] MEDS: FUROSEMIDE 40 MG in SYRINGE 0 ML IV SCH (16:39)
[2018-06-28] MEDS ORDERED: FUROSEMIDE 40 MG/4 ML VIAL IV SCH (17:00)
[2018-06-28] MEDS ORDERED: OXYCODONE HCL IR 5 MG TAB (IMMEDIATE RELEASE) PO PRN (17:33)
[2018-06-28] MEDS: INSULIN ASPART 100 UNITS/ML 3 ML PEN SC SCH ×2 (17:47→20:58)
[2018-06-28 20:13] LABS: T4 Free Thyroxine 1.33 ng/dl (0.8-1.6); Troponin I < 0.015 ng/ml (0-0.045)
[2018-06-28] MEDS: TERAZOSIN HCL 1 MG CAP PO SCH (20:57)
[2018-06-28] MEDS: NORTRIPTYLINE HCL 25 MG CAP PO SCH (20:57)
[2018-06-28] MEDS: CARVEDILOL 6.25 MG TAB PO SCH (20:58)
[2018-06-29 03:14] LABS: Hematocrit (blood only) 33.9 % (42-52); Hemoglobin 10.6 g/dL (14.0-18.0); Mean Corpuscular Hgb Conc 31.3 g/dL (32-36); Mean Corpuscular Volume 87.6 fL (80-100); RDW Coefficient of Variation 16.9 % (11.5-14.5); RDW Standard Deviation 53.9 fL (36.4-46.3); Red Blood Count 3.87 M/uL (4.7-6.1); White Blood Count 4.53 K/uL (4.8-10.8)
[2018-06-29 03:41] LABS: Alanine Aminotransferase 16 U/L (12-78); Albumin Level 2.6 gm/dl (3.4-5.0); Aspartate Aminotransferase 26 U/L (15-37); BUN Creatinine Ratio 20.4 (10-20); Blood Urea Nitrogen 18 mg/dl (7-18); Calcium 7.9 mg/dl (8.5-10.1); Carbon Dioxide 27 mmol/L (21-32); Chloride 108 mmol/L (98-107); Creatinine Clr Calc Pharmacy 88.1 ml/min; Est GFR (African American) 94.5; Est GFR (Non-African American) 81.5; Glucose 110 mg/dl (70-99); Magnesium 1.7 mg/dl (1.8-2.4); Potassium 3.8 mmol/L (3.5-5.1); Sodium 139 mmol/L (136-145)
[2018-06-29 03:45] LABS: Mean Platelet Volume 10.6 fL (7.4-10.4); Platelet Count 98 K/uL (130-400)
[2018-06-29 03:46] LABS: Albumin Globulin Ratio 0.8 (0.9-2); Alkaline Phosphatase 152 U/L (45-117); Bilirubin,Total 1.6 mg/dl (0.2-1); Globulin 3.2 gm/dl (2.5-4.0); NT Pro B Type Natriuretic Pept 11685 pg/ml (0-1800); Total Protein 5.8 gm/dl (6.4-8.2); Troponin I < 0.015 ng/ml (0-0.045)
[2018-06-29] MEDS: INSULIN ASPART 100 UNITS/ML 3 ML PEN SC SCH ×4 (08:43→20:58)
[2018-06-29] MEDS: LISINOPRIL 40 MG TAB PO SCH (08:44)
[2018-06-29] MEDS: CARVEDILOL 6.25 MG TAB PO SCH ×2 (08:44→20:56)
[2018-06-29] MEDS: TAMOXIFEN CITRATE 10 MG TABLET PO SCH (08:44)
[2018-06-29] MEDS: ASPIRIN 81 MG ECTAB PO SCH ×2 (08:44→20:56)
[2018-06-29] MEDS: ATORVASTATIN 20 MG TAB PO SCH (08:44)
[2018-06-29] MEDS: ISOSORBIDE MONO EXTENDED REL 60 MG TABCR PO SCH (08:45)
[2018-06-29] MEDS: FUROSEMIDE 40 MG in SYRINGE 0 ML IV SCH ×2 (08:51→17:11)
--- NOTE | 2018-06-29 11:35 | Hospitalist Progress Note ---
Date of Service June 29, 2018 Assessment & Plan (1) CHF (congestive heart failure): BNP: 11,716, negative troponin, CXR: Right and to a lesser extent left basilar infiltrate. Pulmonary vascular congestion. Echo: grade III diastolic CHF, RV systolic function reduced, mild to moderate mitral regurg placed on Lasix 40mg IV -150cc documented on i&os continue Lasix 40mg IV will consult Cardiology S[facility] (2) Altered mental status: possible TIA/CVA, Brain Mets? has a fib not on anticoagulation, only ASA 81mg has breast cancer with spinal mets, on tamoxifen initial CT head: negative patient declines Brain MRI and CT head due to his back pain offered premedication with analgesics he still declined seems to be back to baseline mental status will consult Neurology (3) Chronic atrial fibrillation: Rate controlled in the 70s Not on anticoagulation: Refused anticoagulation in the past, h/o falls -Continue carvedilol (4) CAD (coronary artery disease): S/P CABG in 1993 no cardiac symptoms troponins negative -Continue imdur, carvedilol, aspirin (5) Breast cancer in male: S/P mastectomy in 2012. 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 Follows with Dr Tran - oncologist -continue tamoxifen -chronic back and hip pain - will hold NSAIDs at this time and monitor renal functions, Tylenol IV prn, try to avoid narcotics at this time with AMS (6) Diabetes: DM II HA1c: 5.9 on 05/2018 -Hold metformin while in hospital -NovoLog sliding scale (7) Hypertension: -Continue lisinopril, carvedilol, imdur -monitor BP (8) HLD (hyperlipidemia): -Continue atorvastatin (9) Diabetic neuropathy: -Patient has been on nortriptyline for several years, will continue (10) BPH (benign prostatic hyperplasia): History urinary retention 04/2018 requiring Arcos catheter in ER visit -Bladder scan, pending post void residual -Continue terazosin DVT Prophylaxis -SCDs DNR/DNI as per discussion with pt and daughter Follows with Dr Mallory for routine care Subjective ff up for altered mental status, CHF seen resting in bed, alert, oriented x 3, answers questions appropriately states he feels improved today, states he is not confused anymore denies other neurologic deficits states breathing and leg swelling have improved compared to yesterday denies chest pain, dizziness, palpitations no other symptoms Physical Exam 2 Vital Signs (Past 24 Hours): Last Vital Signs Temp 36.5 C 06/29/18 07:53 Pulse 80 06/29/18 07:53 Resp 20 06/29/18 07:53 BP 167/79 H 06/29/18 07:53 Pulse Ox 99 06/29/18 07:53 Physical Exam: General- oriented x 3, not in distress, speaks in sentences with no effort or accessory muscle use Eyes- anicteric Neck- no JVD Lungs- decreased breath sounds right base, clear on the left Heart- normal rate, regular rhythm; no murmurs Abdomen- normal bowel sounds, nondistended, soft, nontender Extremities- no pretibial edema, no calf tenderness Neuro- alert, oriented x 3; no gross focal neurologic deficits Skin- warm & dry _ (1) CHF (congestive heart failure) Heart failure chronicity: unspecified Heart failure type: unspecified Qualified Code(s): I50.9 - Heart failure, unspecified (2) Altered mental status Altered mental status type: unspecified Coma depth: Coma timing: Qualified Code(s): R41.82 - Altered mental status, unspecified
--- NOTE | 2018-06-29 14:05 | Consultation Report ---
DATE OF CONSULTATION: 06/29/2018 HISTORY OF PRESENT ILLNESS: Jonathan is an 82-year-old, presented to the Emergency Room for evaluation of an episode of confusion, word finding deficits, etc., all occurring apparently yesterday morning, with a recurrent episode apparently this morning of brief duration. I refer the reader to the history of present illness recorded for more details. All of this occurs in the setting of coronary artery disease, status post CABG in 1993, chronic atrial fibrillation, with refusal of anticoagulation in the past, hypertension, hyperlipidemia, type 2 diabetes, BPH, thoracic aortic aneurysm, breast cancer in a male with metastases to the spine in 2018, and other problems as outlined. According to the history, patient has also had over the past week or so increasing shortness of breath, orthopnea, bilateral lower extremity edema, and 11 pound weight gain implying increasing congestive heart failure. He was given a prescription for torsemide 20 mg yesterday, but this had not been started at the time he presented with a confusional episode. He had a recent fall in 02/2018, had a left fibular head fracture, a C7 fracture, and he was then found to have bone metastases to the lumbar spine and pelvis, was discharged to [facility] and discharged home. He has been using a walker and a wheelchair ever since. He has had increasing generalized weakness ever since that point and sounds as though this has accelerated over the past 2 weeks with the increasing congestive heart failure symptoms. He has also had urinary retention back in April, was seen in the ER, required catheterization, and has had dysuria in the past and noted some dark urine. There is history apparently of some foul smelling urine. He denied any fevers, sweats, chills, headache, dizziness, syncope, neck pain, palpitations, hemoptysis, otalgia, rhinorrhea, abdominal pain, rashes, hematuria, melena, etc. He was aware of his "confusion", knew he was having word finding deficits yesterday morning, and describes he was trying to eat the top of his pill bottle and then being unable to place the pills back in it, and apparently was very irritated with a significant other but could not express himself and then later was apologetic. He alludes to a brief episode this morning of a similar type but is a little unclear. Currently, there are a number of issues being addressed including his congestive heart failure, the altered mental status. He has had a CAT scan, which does not show anything other than chronic changes. An MRI is pending although he is quite reluctant to have it done. He has rate controlled chronic atrial fibrillation and still refuses anticoagulation. The medications are being continued. He has coronary disease for which his medications are not being altered other than for more treatment of his congestive heart failure. His breast cancer is being treated as it has been on the outpatient basis with tamoxifen despite the bone metastases. He follows with our oncologists in [facility]. His diabetes, hypertension, dyslipidemia, diabetic neuropathy, BPH, etc. are all being handled, and he has a diabetic neuropathy. He is DNR/DNI as per discussion. PAST MEDICAL HISTORY: Pretty much as outlined above. Prior imaging studies in the recent past show a T9 superior endplate fracture, sclerotic lesion in T1 compatible with metastases, 11th rib fracture, L1 compression fracture, extensive hypointense metastases throughout the lumbar spine and sacrum, and a displaced C7 spinous process fracture. An echo shows normal ejection fraction, this was recorded in 2016. ALLERGIES: HE LISTS ALLERGIES TO PENICILLINS. MEDICATIONS: Home medications include aspirin, carvedilol, metformin, nortriptyline, sennosides, terazosin, acetaminophen, atorvastatin, diclofenac, Isordil, lisinopril, nitroglycerin, polyethylene, psyllium, tamoxifen, and torsemide. PAST SURGICAL HISTORY: Reveals the CABG and history of cholecystectomy. SOCIAL HISTORY: Reveals he currently lives alone with a significant other in attendance. He is retired. He is a nonsmoker. He does not use alcohol other than occasional ingestion of beer. REVIEW OF SYSTEMS: Recorded on the chart and obtained briefly by me today at the bedside and indicates symptoms of the congestive heart failure with weight gain, increased shortness of breath and orthopnea, and the episodes of what sounds like an aphasia with language disturbance, word finding deficits and confusion yesterday morning and perhaps today. Otherwise, there have been no significant new issues referable to head, eyes, ears, nose, throat, cardiovascular, pulmonary, gastrointestinal, genitourinary, musculoskeletal, dermatologic, hematologic, or endocrinologic systems other than those related to his chronic extensive medical history. PHYSICAL EXAMINATION: VITAL SIGNS: His blood pressure was 160/84, he was afebrile, pulse was 93 and irregularly irregular, and his O2 saturations were 97%, respiratory rate was a little elevated at most. GENERAL: He was in no active distress. There were no cranial deformities. Speech was clear. Eyes were normal. No carotid bruits were heard. RESPIRATORY: Lungs were clear. There may have been rales in both bases according to the initial exam. CARDIOVASCULAR: Heart had an irregularly irregular rhythm. There was a slight systolic murmur. GASTROINTESTINAL: Abdomen was soft and nontender. EXTREMITIES: There was a grade 3+ pretibial edema. NEUROLOGICAL: He was awake, alert, oriented. I did not picking supervisor any word finding deficits today. Tongue was midline. There may have been a slight left facial asymmetry at most. I did not see any drift or pronation sign, tremors, tics, or choreiform activity. Reflexes are absent at the ankles and knees. Toes were downgoing. No Ernesto signs were seen. Strength testing was reasonably good when one could get him to cooperate, and sensation revealed a distal reduction in vibration, light touch, and temperature below the mid calves consistent with his neuropathy. At this point, I agree that the differential diagnosis includes a possible embolic transient ischemic attacks to explain the confusion. He does have a potential toxic encephalopathy due to his heart failure. He may have a urinary tract infection, but these events sound like pretty distinct self-limited episodes more consistent with tias than a generalized encephalopthy He is in atrial fibrillation and is at risk particularly with increasing chf and more atrial back pressure If he consents to an MRI, we will review it. His major issue is his pain when he is recumbent, and this could probably be handled by premedications with analgesia, perhaps some benzodiazepines. Otherwise, basic laboratory studies seemed to be unremarkable. We do not see anything significant on CAT scan other than some chronic changes, and the MRI will be the most helpful. For now, however, since he has been adamantly against taking Coumadin in the past, I do not know if we are going to be able to convince him to take it again if we do find evidence for embolic strokes. Neurology will check back with him tomorrow. ROSAURA
--- NOTE | 2018-06-29 16:19 | Ultrasound Report ---
ULTRASOUND OF THE CAROTID ARTERIES CLINICAL HISTORY: Strokelike symptoms. COMPARISON STUDY: No priors. TECHNIQUE: Real-time, grayscale, and color Doppler sonography of the carotid arteries is performed. I mages are reviewed in the transverse and longitudinal planes. FINDINGS: Blood pressures were not assessed due to limb restrictions. The carotid arteries are patent bilaterally and demonstrate antegrade flow. There is minimal atherosc lerotic plaque identified. Normal doppler arterial waveforms are seen throughout. Velocity measuremen ts are listed below. Common carotid peak systolic velocity (cm/sec): RIGHT: 63 LEFT: 80 ICA proximal peak systolic velocity (cm/sec): RIGHT: 61 LEFT: 36 ICA mid peak systolic velocity (cm/sec): RIGHT: 76 LEFT: 38 ICA distal peak systolic velocity (cm/sec): RIGHT: 58 LEFT: 38 ICA/CC peak systolic ratio: RIGHT: 1.2 LEFT: 0.5 Antegrade flow was shown in the vertebral arteries. The external carotid arteries are patent. IMPRESSION: 1. There is no sonographic evidence of hemodynamically significant stenosis in the right or left brooks tid arterial system. 2. Antegrade flow is shown in the vertebral arteries. Electronically signed by: Alex Ye M.D. 06/29/2018 4:18 PM
[2018-06-29] MEDS ORDERED: GADOBUTROL 65ML VIAL IV PRN (16:31)
--- NOTE | 2018-06-29 16:55 | Magnetic Resonance Report ---
MRI OF THE BRAIN COMBO CLINICAL HISTORY: Change in mental status. Memory loss. Reported history of metastatic disease. COMPARISON STUDY: CT of the brain dated 06/28/2018. TECHNIQUE: MRI of the brain was performed utilizing various T1 and T2-weighted sequences in the axial , sagittal, and coronal planes. Contrast-enhanced sequences were acquired following the administratio n of 10 cc of Gadavist. FINDINGS: Brain parenchyma: There are age-related involutional changes noting mild subcortical and periventricu lar microangiopathic disease. There is no hemorrhage or mass effect. There is no restricted diffusion to suggest acute ischemia. No enhancing mass lesion is identified on the postcontrast images. Nelson-w presley matter differentiation is preserved. No extra-axial fluid collection is seen. The cerebellar ton sils are normal in configuration. Ventricles, sulci, and cisterns: Prominent secondary to involutional change. Pituitary and sella: Partially empty sella is incidentally noted.. Intracranial vasculature: Normal flow voids are maintained at the skull base. Orbits: The bony orbits are grossly intact. Orbital contents are normal in appearance. Sinuses and mastoids: Trace mucosal thickening is seen in the left maxillary antrum. The remaining pa ranasal sinuses are clear, as are the mastoid air cells. Calvarium: A 1.7 cm T1 hypointense lesion is noted in the clivus, best seen on sagittal image #11. No additional osseous lesion is clearly identified. Cervical cord: Partially visualized cervical spinal cord is normal in morphology and signal intensity . IMPRESSION: 1. There is no hemorrhage, enhancing mass, or evidence of acute ischemia. 2. 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 Electronically signed by: Alex Ye M.D. 06/29/2018 4:54 PM
[2018-06-29] MEDS ORDERED: NITROGLYCERIN SL 0.4 MG/TAB TAB SL STA (20:51)
[2018-06-29] MEDS: NORTRIPTYLINE HCL 25 MG CAP PO SCH (20:56)
[2018-06-29] MEDS: TERAZOSIN HCL 1 MG CAP PO SCH (20:56)
[2018-06-29] MEDS ORDERED: ASPIRIN 325 MG ECTAB PO STA (21:10)
[2018-06-29] MEDS ORDERED: ASPIRIN 81 MG ECTAB PO STA (21:14)
[2018-06-29] MEDS ORDERED: TRAMADOL HCL 50 MG TABLET PO PRN (21:27)
[2018-06-29 21:33] LABS: Partial Thromboplastin Time 27.1 Seconds (21.0-31.0)
[2018-06-30] MEDS: INSULIN ASPART 100 UNITS/ML 3 ML PEN SC SCH ×4 (09:06→21:19)
[2018-06-30] MEDS: ASPIRIN 81 MG ECTAB PO SCH (09:07)
[2018-06-30] MEDS: ATORVASTATIN 20 MG TAB PO SCH (09:08)
[2018-06-30] MEDS: LISINOPRIL 40 MG TAB PO SCH (09:08)
[2018-06-30] MEDS: ISOSORBIDE MONO EXTENDED REL 60 MG TABCR PO SCH (09:08)
[2018-06-30] MEDS: TAMOXIFEN CITRATE 10 MG TABLET PO SCH (09:08)
[2018-06-30] MEDS: CARVEDILOL 6.25 MG TAB PO SCH (09:08)
[2018-06-30] MEDS: FUROSEMIDE 40 MG in SYRINGE 0 ML IV SCH ×2 (09:08→16:57)
--- NOTE | 2018-06-30 09:27 | Cardiology Consultation ---
Date of Consultation June 30, 2018 Assessment & Plan (1) CHF (congestive heart failure): BNP: 11,716, negative troponin, CXR: Right and to a lesser extent left basilar infiltrate. Pulmonary vascular congestion. Echo: grade III diastolic CHF, RV systolic function reduced, mild to moderate mitral regurg continue Lasix 40mg IV Patient seems to be approaching euvolemia Agree with management so far. (2) Altered mental status: possible TIA/CVA, Brain Mets? The patient has a history of A. fib however, by his own decision he is not anticoagulated. has breast cancer with spinal mets, on tamoxifen initial CT head: negative patient declines Brain MRI and CT head due to his back pain offered premedication with analgesics he still declined seems to be back to baseline mental status will consult Neurology (3) Chronic atrial fibrillation: Rate controlled in the 70s Not on anticoagulation: Refused anticoagulation in the past, h/o falls -Continue carvedilol (4) CAD (coronary artery disease): S/P CABG in 1993 no cardiac symptoms troponins negative -Continue imdur, carvedilol, aspirin (5) Breast cancer in male: S/P mastectomy in 2012. 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 Follows with Dr Tran - oncologist -continue tamoxifen -chronic back and hip pain - will hold NSAIDs at this time and monitor renal functions, Tylenol IV prn, try to avoid narcotics at this time with AMS (6) Diabetes: DM II HA1c: 5.9 on 05/2018 -Hold metformin while in hospital -NovoLog sliding scale (7) Hypertension: -Continue lisinopril, carvedilol, imdur -monitor BP (8) HLD (hyperlipidemia): -Continue atorvastatin (9) Diabetic neuropathy: -Patient has been on nortriptyline for several years, will continue (10) BPH (benign prostatic hyperplasia): History urinary retention 04/2018 requiring Arcos catheter in ER visit -Bladder scan, pending post void residual -Continue terazosin DVT Prophylaxis -SCDs DNR/DNI as per discussion with pt and daughter Follows with Dr Mallory for routine care History of Present Illness Reason for Consultation: Heart failure Attending Physician: Erick Easley MD History of Present Illness This is an 82-year-old male patient history of coronary artery bypass surgery in 1993, atrial fibrillation and diastolic heart failure who presented with mental status changes and volume overload. Patient also has metastatic breast cancer which may be contributing to his confusion. He has been diuresed overnight since admission and feels better. He is alert and conversive to me today. He has no new cardiac complaints. Allergies Allergy/AdvReac Type Severity Reaction Status Date / Time Penicillins AdvReac Unknown HAS Verified 05/21/18 10:33 TOLERATED CEPHALOSPORINS W/O RXN-lightheaded Home Medications Home Medications Medication Instructions Recorded Confirmed Type aspirin [Aspirin Low Dose] 81 mg PO DAILY 05/21/18 06/28/18 History carvedilol 6.25 mg PO BID 05/21/18 06/28/18 History metformin 500 mg PO BIDM 05/21/18 06/28/18 History nortriptyline 25 mg PO HS 05/21/18 06/28/18 History sennosides-docusate sodium [Senna 2 tab PO HS 05/21/18 06/28/18 History with Docusate Sodium] terazosin 2 mg PO HS 05/21/18 06/28/18 History acetaminophen [Tylenol Extra 1,000 mg PO Q6H PRN 06/28/18 06/28/18 History Strength] atorvastatin 20 mg PO DAILY 06/28/18 06/28/18 History diclofenac sodium 50 mg PO TID PRN 06/28/18 06/28/18 History isosorbide mononitrate 60 mg PO DAILY 06/28/18 06/28/18 History lisinopril 40 mg PO DAILY 06/28/18 06/28/18 History nitroglycerin 0.4 mg SUBLINGUAL UD 06/28/18 06/28/18 History polyethylene glycol 3350 [Miralax] 17 g PO DAILY PRN 06/28/18 06/28/18 History psyllium 1 scoop/day PO TID PRN 06/28/18 06/28/18 History tamoxifen 20 mg PO DAILY 06/28/18 06/28/18 History torsemide 20 mg PO DAILY 06/28/18 06/28/18 History Patient History Medical History Breast cancer in male (Chronic) HLD (hyperlipidemia) (Chronic) Chronic atrial fibrillation (Chronic) CAD (coronary artery disease) (Chronic) Thoracic aortic aneurysm (Chronic) MRSA (methicillin resistant Staphylococcus aureus) (Resolved) Diabetes (Chronic) Hypertension (Chronic) Diabetic neuropathy (Chronic) Diabetic retinopathy (Chronic) BPH (benign prostatic hyperplasia) (Chronic) History of diabetic ulcer of foot (Resolved) Status post partial amputation of foot (Resolved) Bone cancer Kidney stones Surgical History Hx of CABG (Resolved) 1993 Hx of cholecystectomy (Resolved) Family History Other Colon cancer Diabetes Family history non-contributory HTN (hypertension) Social History Current Living Situation: Alone current occupational status: retired Other Information That Helps Us Care for You: No Feels Safe at Home: Yes Safety Concerns: Feels Safe At This Time Smoking Status: Current some day smoker Cigarettes per Day: started smoking cigars intermittently again, previous quit 1977 Hx Alcohol Use: Yes Alcohol type: beer Alcohol Intake Frequency: holidays/ special occasions only Hx Substance Use: No Beliefs That Will Affect Care: None Communication Ability: Effective Review of Systems Review of Systems: See HPI for pertinent positives. All other 10 point review of systems are negative. Physical Exam 2 Vital Signs (Past 24 Hours): Last Vital Signs Temp 36.6 C 06/30/18 07:06 Pulse 76 06/30/18 09:00 Resp 20 06/30/18 07:06 BP 181/79 H 06/30/18 09:00 Pulse Ox 99 06/30/18 07:06 Physical Exam: General: no acute distress and stated age Head: normocephalic, no masses, lesions, tenderness or abnormalities Eyes: conjunctiva are pink and non-injected, sclera clear Neck: supple, no adenopathy, no bruits, normal jugular venous pulse, no hepatojugular reflux Chest: normal shape and normal respiratory effort Lungs: clear to auscultation and percussion Cardiac Exam: - irregular rate & rhythm, no murmurs gallops or rubs - normal S1 , normal S2, S4 Pulses: 2(+) throughout Abdomen: abdomen soft, non-tender, no abnormal masses and no hepatosplenomegaly Musculoskeletal: no gait disturbance, no joint inflammation, no deforming arthritis Extremities: no edema and no cyanosis Neuro: grossly normal exam Results & Data Laboratory Results Laboratory Results - last 24 hr 06/29/18 06/29/18 06/29/18 11:38 17:01 20:15 APTT PTT Ratio POC Glucose 100 H 128 H 163 H Troponin I 06/29/18 06/29/18 06/30/18 21:03 21:03 07:40 APTT 27.1 PTT Ratio 1.0 POC Glucose 92 Troponin I < 0.015 Medications Administered Current Inpatient Medications Acetaminophen (Tylenol) 650 mg PO Q4H PRN PRN Reason: Pain or Fever Stop: 07/28/18 15:00 Aspirin (Ecotrin) 81 mg PO DAILY JUAN ANTONIO Stop: 07/29/18 08:59 Last Admin: 06/30/18 09:07 Dose: 81 mg Atorvastatin Calcium (Lipitor) 20 mg PO DAILY JUAN ANTONIO Stop: 07/29/18 08:59 Last Admin: 06/30/18 09:08 Dose: 20 mg Carvedilol (Coreg) 6.25 mg PO BID JUAN ANTONIO Stop: 07/28/18 20:59 Last Admin: 06/30/18 09:08 Dose: 6.25 mg Dextrose (Dextrose 50%) 25 - 50 ml IV UD PRN; Protocol PRN Reason: Hypoglycemia Protocol Stop: 07/28/18 15:00 Gadobutrol (Gadavist 65ml) 10 ml IV ONCE PRN PRN Reason: Interaction Checking Stop: 07/03/18 16:30 Last Admin: 06/29/18 16:31 Dose: 10 ml Glucagon (Glucagen) 1 mg SQ UD PRN; Protocol PRN Reason: Hypoglycemia Protocol Stop: 07/28/18 15:00 Glucose (Glucose 40%) 15 - 30 gm PO UD PRN; Protocol PRN Reason: Hypoglycemia Protocol Stop: 07/28/18 15:00 Glucose (Dex4 Glucose) 4 - 8 tabs PO UD PRN; Protocol PRN Reason: Hypoglycemia Protocol Stop: 07/28/18 15:00 Furosemide 40 mg/ Syringe 4 mls @ 4 mls/min IV BID17 JUAN ANTONIO Stop: 07/28/18 16:59 Last Admin: 06/30/18 09:08 Dose: 4 mls/min Acetaminophen (Ofirmev) 65 mls @ 200 mls/hr IV Q8H PRN PRN Reason: pain Stop: 07/28/18 15:44 Insulin Aspart (Novolog Flexpen) 0 units SC ACHS JUAN ANTONIO Stop: 07/28/18 16:29 Last Admin: 06/30/18 09:06 Dose: Not Given Isosorbide Mononitrate (Imdur Extended Rel) 60 mg PO DAILY [facility] Stop: 07/29/18 08:59 Last Admin: 06/30/18 09:08 Dose: 60 mg Lisinopril (Zestril) 40 mg PO DAILY [facility] Stop: 07/29/18 08:59 Last Admin: 06/30/18 09:08 Dose: 40 mg Miscellaneous (Carbohydrates For Hypoglycemia) 15 - 30 gm PO UD PRN PRN Reason: Hypoglycemia Treatment Stop: 07/28/18 15:00 Miscellaneous Information (Pharmacist Discharge Med Rec Consult) 1 ea N/A UD PRN PRN Reason: Consult Stop: 07/28/18 15:00 Nitroglycerin (Nitrostat) 0.4 mg SL UD PRN PRN Reason: Chest Pain Stop: 07/28/18 15:00 Last Admin: 06/29/18 20:56 Dose: 0.4 mg Nortriptyline HCl (Pamelor) 25 mg PO [facility] Stop: 07/28/18 20:59 Last Admin: 06/29/18 20:56 Dose: 25 mg Polyethylene Glycol (Miralax Powder Packet) 17 gm PO DAILY PRN PRN Reason: Constipation Stop: 07/28/18 15:00 Tamoxifen Citrate (Nolvadex) 20 mg PO DAILY [facility] Stop: 07/29/18 08:59 Last Admin: 06/30/18 09:08 Dose: 20 mg Terazosin HCl (Hytrin) 2 mg PO HS [facility] Stop: 07/28/18 20:59 Last Admin: 06/29/18 20:56 Dose: 2 mg Tramadol HCl (Ultram) 25 mg PO Q4H PRN PRN Reason: Pain Stop: 07/29/18 21:26 _ (1) CHF (congestive heart failure) Heart failure chronicity: unspecified Heart failure type: unspecified Qualified Code(s): I50.9 - Heart failure, unspecified (2) Altered mental status Altered mental status type: unspecified Coma depth: Coma timing: Qualified Code(s): R41.82 - Altered mental status, unspecified
[2018-06-30] MEDS ORDERED: CARVEDILOL 6.25 MG TAB PO ONE (12:17)
--- NOTE | 2018-06-30 12:18 | Hospitalist Progress Note ---
Date of Service June 30, 2018 Assessment & Plan (1) CHF (congestive heart failure): BNP: 11,716, negative troponin, CXR: Right and to a lesser extent left basilar infiltrate. Pulmonary vascular congestion. Echo: grade III diastolic CHF, RV systolic function reduced, mild to moderate mitral regurg placed on Lasix 40mg IV diuresing well continue Lasix 40mg IV consulted Cardiology S[facility] possible transition to PO Lasix tomorrow (2) Altered mental status: possible TIA/CVA, Brain Mets? has a fib not on anticoagulation, only ASA 81mg has breast cancer with spinal mets, on tamoxifen initial CT head: negative Brain MRI: 1. There is no hemorrhage, enhancing mass, or evidence of acute ischemia. 2. 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 seems to be back to baseline mental status Neurology consulted will need to ff up with Oncologist (3) Chronic atrial fibrillation: Rate controlled in the 70s Not on anticoagulation: Refused anticoagulation in the past, h/o falls - Carvedilol increased to improve HTN monitor (4) CAD (coronary artery disease): S/P CABG in 1993 no cardiac symptoms troponins negative -Continue imdur, carvedilol, aspirin (5) Breast cancer in male: S/P mastectomy in 2012. 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 Follows with Dr Tran - oncologist -continue tamoxifen -chronic back and hip pain - will hold NSAIDs at this time and monitor renal functions, Tylenol IV prn, try to avoid narcotics at this time (6) Diabetes: DM II HA1c: 5.9 on 05/2018 -Hold metformin while in hospital -NovoLog sliding scale (7) Hypertension: -Continue lisinopril, carvedilol, imdur increase Carvedilol monitor (8) HLD (hyperlipidemia): -Continue atorvastatin (9) Diabetic neuropathy: -Patient has been on nortriptyline for several years, will continue (10) BPH (benign prostatic hyperplasia): History urinary retention 04/2018 requiring Arcos catheter in ER visit -Bladder scan, pending post void residual -Continue terazosin DVT Prophylaxis -SCDs DNR/DNI as per discussion with pt and daughter Follows with Dr Mallory for routine care Subjective ff up for CHF, AMS seen resting in bed, comfortable states he feels improved no confusion today breathing is improving no chest pain, dyspnea, dizziness no other symptoms Physical Exam 2 Vital Signs (Past 24 Hours): Last Vital Signs Temp 36.6 C 06/30/18 07:06 Pulse 76 06/30/18 09:00 Resp 20 06/30/18 07:06 BP 181/79 H 06/30/18 09:00 Pulse Ox 95 06/30/18 11:13 Physical Exam: General- oriented x 3, not in distress, speaks in sentences with no effort or accessory muscle use Eyes- anicteric Neck- no JVD Lungs- clear breath sounds bilaterally, no rales/wheezes Heart- normal rate, regular rhythm; no murmurs Abdomen- normal bowel sounds, nondistended, soft, nontender Extremities- grade 1 lower leg edema, no calf tenderness Neuro- alert, oriented x 3; no gross focal neurologic deficits Skin- warm & dry Results & Data Laboratory Results Laboratory Results - last 24 hr 06/29/18 06/29/18 06/29/18 20:15 21:03 21:03 APTT 27.1 PTT Ratio 1.0 Sodium Potassium Chloride Carbon Dioxide Anion Gap BUN Creatinine Est Cr Clr Drug Dosing Est GFR ( Amer) Est GFR (Non-Af Amer) BUN/Creatinine Ratio Glucose POC Glucose 163 H Calcium Magnesium Troponin I < 0.015 06/30/18 06/30/18 06/30/18 07:40 11:53 12:06 APTT PTT Ratio Sodium 137 Potassium 3.7 Chloride 103 Carbon Dioxide 30 Anion Gap 4.0 BUN 19 H Creatinine 0.91 Est Cr Clr Drug Dosing 80.6 Est GFR ( Amer) 91.9 Est GFR (Non-Af Amer) 79.3 BUN/Creatinine Ratio 21.2 H Glucose 114 H POC Glucose 92 105 H Calcium 8.0 L Magnesium 1.7 L Troponin I 06/30/18 16:36 APTT PTT Ratio Sodium Potassium Chloride Carbon Dioxide Anion Gap BUN Creatinine Est Cr Clr Drug Dosing Est GFR ( Amer) Est GFR (Non-Af Amer) BUN/Creatinine Ratio Glucose POC Glucose 128 H Calcium Magnesium Troponin I _ (1) CHF (congestive heart failure) Heart failure chronicity: unspecified Heart failure type: unspecified Qualified Code(s): I50.9 - Heart failure, unspecified (2) Altered mental status Altered mental status type: unspecified Coma depth: Coma timing: Qualified Code(s): R41.82 - Altered mental status, unspecified
[2018-06-30 12:36] LABS: BUN Creatinine Ratio 21.2 (10-20); Creatinine Clr Calc Pharmacy 80.6 ml/min; Est GFR (African American) 91.9; Est GFR (Non-African American) 79.3; Magnesium 1.7 mg/dl (1.8-2.4); Potassium 3.7 mmol/L (3.5-5.1)
--- NOTE | 2018-06-30 15:03 | Neurology Progress Note ---
Date of Service June 30, 2018 Assessment & Plan (1) Altered mental status: 1. 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 optimize DM, HLD, HTN, LDL <70 consider patient age 3. cardiology consult for rate control and treatment of CHF 4. aspirin 81 mg daily - does not want coumadin for afib prophy- no optimal treatment 5. PT/OT for discharge needs will sign off for now. will see in outpatient as needed basis. Supervising Physician Co-Signing Physician Notes I have seen and discussed above patient with Dr Marcelino Garcia, neurology I have seen Mr. Combs today, reviewed his MRI scan, discussed the case with Talia Mott PA-C and and pleased to report that the MRI scan shows no evidence for embolic infarction involving the left hemisphere but does show some possible metastatic disease involving the clivus which will be followed up by oncology. His heart failure is being evaluated and treated by cardiology. To date there is no apparent evidence for an underlying infection. His confusional episodes therefore probably by process of elimination, due to his congestive failure related encephalopathy and have now largely cleared. Neurology is going to sign off the case at this time. We be most pleased to reevaluate Mr. Combs if things change during the course of the subsequent hospitalization. Marcelino Castillo is 82 year old male -PMH CAD s/p CABG in 1993, chronic atrial fibrillation refuses anticoagulation, HTN, HLD, DM II, BPH, thoracic aortic aneurysm, breast cancer diagnosed in 2012 with metastases to the spine diagnosed 02/2018 presented to ER with complaint of confusion. He was also having some trouble with word finding. At the time of event his BSG 143. Today he states he is doing well his daughter is bed side and states he has been up standing by the bed but was not walking yet today. denies CP, SOB, abdominal pain, one sided weakness, numbness tingling, vision changes. He does states he had a fall prior to coming to the hospital. Physical Exam 2 Vital Signs (Past 24 Hours): Last Vital Signs Temp 36.5 C 06/30/18 12:00 Pulse 88 06/30/18 12:52 Resp 20 06/30/18 12:00 BP 154/72 H 06/30/18 12:52 Pulse Ox 98 06/30/18 12:00 Gen: alert NAD lungs course breath sounds CV irregular strength biceps tricpes hand gift shop clerk 5/5 bilaterally finger to nose no bipass no pronator drift Results & Data Laboratory Results Abnormal lab results 06/29/18 06/29/18 06/30/18 Range/Units 17:01 20:15 11:53 BUN (7-18) mg/dl BUN/Creatinine Ratio (10-20) Glucose (70-99) mg/dl POC Glucose 128 H 163 H 105 H (70-99) Calcium (8.5-10.1) mg/dl Magnesium (1.8-2.4) mg/dl 06/30/18 Range/Units 12:06 BUN 19 H (7-18) mg/dl BUN/Creatinine Ratio 21.2 H (10-20) Glucose 114 H (70-99) mg/dl POC Glucose (70-99) Calcium 8.0 L (8.5-10.1) mg/dl Magnesium 1.7 L (1.8-2.4) mg/dl Diagnostic Findings MRI brain with and without- . There is no hemorrhage, enhancing mass, or evidence of acute ischemia. 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 _ (1) Altered mental status Altered mental status type: unspecified Coma depth: Coma timing: Qualified Code(s): R41.82 - Altered mental status, unspecified
[2018-06-30] MEDS ORDERED: NURSING DECISION MEDICATION PRN (19:19)
[2018-06-30] MEDS: MICONAZOLE NITRATE POWDER 43 GM EXT PRN (21:19)
[2018-06-30] MEDS: NORTRIPTYLINE HCL 25 MG CAP PO SCH (21:19)
[2018-06-30] MEDS: CARVEDILOL 12.5 MG TAB PO SCH (21:19)
[2018-06-30] MEDS: TERAZOSIN HCL 1 MG CAP PO SCH (21:19)
[2018-07-01 07:37] LABS: Albumin Level 2.5 gm/dl (3.4-5.0); Bilirubin Direct 0.9 mg/dl (0-0.2); Calcium 7.9 mg/dl (8.5-10.1); Creatinine Clr Calc Pharmacy 73.6 ml/min; Est GFR (Non-African American) 69.9; Magnesium 1.7 mg/dl (1.8-2.4); Potassium 3.7 mmol/L (3.5-5.1)
[2018-07-01 07:40] LABS: Bilirubin,Total 1.8 mg/dl (0.2-1); Total Protein 5.8 gm/dl (6.4-8.2)
[2018-07-01] MEDS: MICONAZOLE NITRATE POWDER 43 GM EXT PRN (08:45)
[2018-07-01] MEDS: INSULIN ASPART 100 UNITS/ML 3 ML PEN SC SCH ×4 (08:45→20:54)
[2018-07-01] MEDS: FUROSEMIDE 40 MG in SYRINGE 0 ML IV SCH (08:45)
[2018-07-01] MEDS: ATORVASTATIN 20 MG TAB PO SCH (08:46)
[2018-07-01] MEDS: LISINOPRIL 40 MG TAB PO SCH (08:46)
[2018-07-01] MEDS: ISOSORBIDE MONO EXTENDED REL 60 MG TABCR PO SCH (08:46)
[2018-07-01] MEDS: TAMOXIFEN CITRATE 10 MG TABLET PO SCH (08:46)
[2018-07-01] MEDS: ASPIRIN 81 MG ECTAB PO SCH (08:46)
[2018-07-01] MEDS: CARVEDILOL 12.5 MG TAB PO SCH ×2 (08:46→21:20)
--- NOTE | 2018-07-01 11:44 | Cardiology Progress Note ---
Date of Service July 01, 2018 Assessment & Plan (1) CHF (congestive heart failure): The patient's congestive heart failure has resolved. He was on torsemide 20 mg daily at home which can be restarted. I would discontinue the IV Lasix. (2) Altered mental status: Neurology consult appreciated. (3) Chronic atrial fibrillation: Rate controlled in the 70s Not on anticoagulation: Refused anticoagulation in the past, h/o falls -Continue carvedilol (4) CAD (coronary artery disease): S/P CABG in 1993 no cardiac symptoms troponins negative -Continue imdur, carvedilol, aspirin (5) Breast cancer in male: S/P mastectomy in 2012. 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 Follows with Dr Tran - oncologist -continue tamoxifen -chronic back and hip pain - will hold NSAIDs at this time and monitor renal functions, Tylenol IV prn, try to avoid narcotics at this time with AMS (6) Diabetes: DM II HA1c: 5.9 on 05/2018 -Hold metformin while in hospital -NovoLog sliding scale (7) Hypertension: -Continue lisinopril, carvedilol, imdur -monitor BP (8) HLD (hyperlipidemia): -Continue atorvastatin (9) Diabetic neuropathy: -Patient has been on nortriptyline for several years, will continue (10) BPH (benign prostatic hyperplasia): History urinary retention 04/2018 requiring Arcos catheter in ER visit -Bladder scan, pending post void residual -Continue terazosin DVT Prophylaxis -SCDs DNR/DNI as per discussion with pt and daughter Follows with Dr Mallory for routine care Subjective The patient had an uneventful night. He has been ambulating without difficulty or discomfort. No shortness of breath. Physical Exam 2 Vital Signs (Past 24 Hours): Last Vital Signs Temp 36.7 C 07/01/18 07:59 Pulse 76 07/01/18 08:43 Resp 20 07/01/18 07:59 BP 159/87 H 07/01/18 08:43 Pulse Ox 97 07/01/18 07:59 Physical Exam: General: no acute distress and stated age Head: normocephalic, no masses, lesions, tenderness or abnormalities Eyes: conjunctiva are pink and non-injected, sclera clear Neck: supple, no adenopathy, no bruits, normal jugular venous pulse, no hepatojugular reflux Chest: normal shape and normal respiratory effort Lungs: clear to auscultation and percussion Cardiac Exam: - regular rate & rhythm, no murmurs gallops or rubs - normal S1, normal S2 Pulses: 2(+) throughout Abdomen: abdomen soft, non-tender, no abnormal masses and no hepatosplenomegaly Musculoskeletal: no gait disturbance, no joint inflammation, no deforming arthritis Extremities: no edema and no cyanosis Neuro: grossly normal exam Results & Data Laboratory Results Laboratory Results - last 24 hr 06/30/18 06/30/18 06/30/18 11:53 12:06 16:36 Sodium 137 Potassium 3.7 Chloride 103 Carbon Dioxide 30 Anion Gap 4.0 BUN 19 H Creatinine 0.91 Est Cr Clr Drug Dosing 80.6 Est GFR ( Amer) 91.9 Est GFR (Non-Af Amer) 79.3 BUN/Creatinine Ratio 21.2 H Glucose 114 H POC Glucose 105 H 128 H Calcium 8.0 L Magnesium 1.7 L Total Bilirubin Direct Bilirubin AST ALT Alkaline Phosphatase Total Protein Albumin 06/30/18 07/01/18 07/01/18 20:55 06:31 07:40 Sodium 137 Potassium 3.7 Chloride 102 Carbon Dioxide 30 Anion Gap 5.0 BUN 25 H Creatinine 1.01 Est Cr Clr Drug Dosing 73.6 Est GFR ( Amer) 81.0 Est GFR (Non-Af Amer) 69.9 BUN/Creatinine Ratio 25.0 H Glucose 103 H POC Glucose 127 H 105 H Calcium 7.9 L Magnesium 1.7 L Total Bilirubin 1.8 H Direct Bilirubin 0.9 H AST 35 ALT 19 Alkaline Phosphatase 137 H Total Protein 5.8 L Albumin 2.5 L Medications Administered Current Inpatient Medications Acetaminophen (Tylenol) 650 mg PO Q4H PRN PRN Reason: Pain or Fever Stop: 07/28/18 15:00 Aspirin (Ecotrin) 81 mg PO DAILY [facility] Stop: 07/29/18 08:59 Last Admin: 07/01/18 08:46 Dose: 81 mg Atorvastatin Calcium (Lipitor) 20 mg PO DAILY [facility] Stop: 07/29/18 08:59 Last Admin: 07/01/18 08:46 Dose: 20 mg Carvedilol (Coreg) 12.5 mg PO BID [facility] Stop: 07/30/18 20:59 Last Admin: 07/01/18 08:46 Dose: 12.5 mg Dextrose (Dextrose 50%) 25 - 50 ml IV UD PRN; Protocol PRN Reason: Hypoglycemia Protocol Stop: 07/28/18 15:00 Gadobutrol (Gadavist 65ml) 10 ml IV ONCE PRN PRN Reason: Interaction Checking Stop: 07/03/18 16:30 Last Admin: 06/29/18 16:31 Dose: 10 ml Glucagon (Glucagen) 1 mg SQ UD PRN; Protocol PRN Reason: Hypoglycemia Protocol Stop: 07/28/18 15:00 Glucose (Glucose 40%) 15 - 30 gm PO UD PRN; Protocol PRN Reason: Hypoglycemia Protocol Stop: 07/28/18 15:00 Glucose (Dex4 Glucose) 4 - 8 tabs PO UD PRN; Protocol PRN Reason: Hypoglycemia Protocol Stop: 07/28/18 15:00 Furosemide 40 mg/ Syringe 4 mls @ 4 mls/min IV BID17 [facility] Stop: 07/28/18 16:59 Last Admin: 07/01/18 08:45 Dose: 4 mls/min Acetaminophen (Ofirmev) 65 mls @ 200 mls/hr IV Q8H PRN PRN Reason: pain Stop: 07/28/18 15:44 Insulin Aspart (Novolog Flexpen) 0 units SC ACHS [facility] Stop: 07/28/18 16:29 Last Admin: 07/01/18 08:45 Dose: 2 units Isosorbide Mononitrate (Imdur Extended Rel) 60 mg PO DAILY [facility] Stop: 07/29/18 08:59 Last Admin: 07/01/18 08:46 Dose: 60 mg Lisinopril (Zestril) 40 mg PO DAILY [facility] Stop: 07/29/18 08:59 Last Admin: 07/01/18 08:46 Dose: 40 mg Miconazole Nitrate (Desenex) 1 appln EXT PRN PRN PRN Reason: TO GROIN FOLDS Stop: 07/30/18 19:23 Last Admin: 07/01/18 08:45 Dose: 1 appln Miscellaneous (Carbohydrates For Hypoglycemia) 15 - 30 gm PO UD PRN PRN Reason: Hypoglycemia Treatment Stop: 07/28/18 15:00 Miscellaneous Information (Pharmacist Discharge Med Rec Consult) 1 ea N/A UD PRN PRN Reason: Consult Stop: 07/28/18 15:00 Nitroglycerin (Nitrostat) 0.4 mg SL UD PRN PRN Reason: Chest Pain Stop: 07/28/18 15:00 Last Admin: 06/29/18 20:56 Dose: 0.4 mg Nortriptyline HCl (Pamelor) 25 mg PO HS [facility] Stop: 07/28/18 20:59 Last Admin: 06/30/18 21:19 Dose: 25 mg Polyethylene Glycol (Miralax Powder Packet) 17 gm PO DAILY PRN PRN Reason: Constipation Stop: 07/28/18 15:00 Tamoxifen Citrate (Nolvadex) 20 mg PO DAILY [facility] Stop: 07/29/18 08:59 Last Admin: 07/01/18 08:46 Dose: 20 mg Terazosin HCl (Hytrin) 2 mg PO [facility] Stop: 07/28/18 20:59 Last Admin: 06/30/18 21:19 Dose: 2 mg Tramadol HCl (Ultram) 25 mg PO Q4H PRN PRN Reason: Pain Stop: 07/29/18 21:26 _ (1) CHF (congestive heart failure) Heart failure chronicity: unspecified Heart failure type: unspecified Qualified Code(s): I50.9 - Heart failure, unspecified (2) Altered mental status Altered mental status type: unspecified Coma depth: Coma timing: Qualified Code(s): R41.82 - Altered mental status, unspecified
--- NOTE | 2018-07-01 13:24 | Hospitalist Progress Note ---
Date of Service July 01, 2018 Assessment & Plan (1) CHF (congestive heart failure): BNP: 11,716, negative troponin, CXR: Right and to a lesser extent left basilar infiltrate. Pulmonary vascular congestion. Echo: grade III diastolic CHF, RV systolic function reduced, mild to moderate mitral regurg placed on Lasix 40mg IV diuresed well, almost negative 3 L transitioned to Torsemide 20mg po daily consulted Cardiology SVC will need to ff up with [facility] (2) Altered mental status: possible TIA/CVA, Brain Mets? has a fib not on anticoagulation, only ASA 81mg has breast cancer with spinal mets, on tamoxifen initial CT head: negative Brain MRI: 1. There is no hemorrhage, enhancing mass, or evidence of acute ischemia. 2. 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 back to baseline mental status Neurology consulted will need to inform Oncologist Dr. Smallwood patient needs to ff up with him soon (3) Shoulder pain: check CXR Ortho consulted (4) Left knee pain: xray of the knee, femur, hip ordered (5) Hyperbilirubinemia: T bill and Dir Jeyson noted to be elevated Liver US ordered GI consulted (6) Chronic atrial fibrillation: Rate controlled in the 70s Not on anticoagulation: Refused anticoagulation in the past, h/o falls - Carvedilol increased to improve HTN monitor (7) CAD (coronary artery disease): S/P CABG in 1993 no cardiac symptoms troponins negative -Continue imdur, carvedilol, aspirin (8) Breast cancer in male: S/P mastectomy in 2012. 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 Follows with Dr Tran - oncologist -continue tamoxifen -chronic back and hip pain - will hold NSAIDs at this time and monitor renal functions, Tylenol IV prn, try to avoid narcotics at this time Brain MRI: 1. There is no hemorrhage, enhancing mass, or evidence of acute ischemia. 2. 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 will need to inform Oncologist Dr. Smallwood patient needs to ff up with him soon (9) Diabetes: DM II HA1c: 5.9 on 05/2018 -Hold metformin while in hospital -NovoLog sliding scale (10) Hypertension: -Continue lisinopril, carvedilol, imdur increased Carvedilol monitor (11) HLD (hyperlipidemia): -Continue atorvastatin (12) Diabetic neuropathy: -Patient has been on nortriptyline for several years, will continue (13) BPH (benign prostatic hyperplasia): History urinary retention 04/2018 requiring Arcos catheter in ER visit -Bladder scan, pending post void residual -Continue terazosin DVT Prophylaxis - SCDs DNR/DNI as per discussion with pt and daughter Disposition lives in an apartment PT OT recommends Rehab d/c when medically stable ff up with PCP, [employer], Oncologist Subjective ff up for CHF, AMS resting in bed, comfortable, watching TV states he continues to feel improved denies confusion, new neuro deficits denies dyspnea, leg pain reports severe left shoulder pain, even with minimal movement also has some left knee pain has history of fall last February no other symptoms Physical Exam 2 Vital Signs (Past 24 Hours): Last Vital Signs Temp 36.8 C 07/01/18 12:08 Pulse 74 07/01/18 12:08 Resp 22 07/01/18 12:08 BP 154/73 H 07/01/18 12:08 Pulse Ox 99 07/01/18 12:08 Physical Exam: General- oriented x 2, not in distress, speaks in sentences with no effort or accessory muscle use Eyes- anicteric Neck- no JVD Lungs- clear breath sounds bilaterally Heart- normal rate, regular rhythm; no murmurs Abdomen- normal bowel sounds, nondistended, soft, nontender Extremities- left shoulder: no edema/erythema/tenderness, poor ROM due to pain left knee- " , good ROM no pretibial edema, no calf tenderness Neuro- alert, oriented x 2; no gross focal neurologic deficits Skin- warm & dry Results & Data Laboratory Results Laboratory Results - last 24 hr 06/30/18 06/30/18 07/01/18 16:36 20:55 06:31 Sodium 137 Potassium 3.7 Chloride 102 Carbon Dioxide 30 Anion Gap 5.0 BUN 25 H Creatinine 1.01 Est Cr Clr Drug Dosing 73.6 Est GFR ( Amer) 81.0 Est GFR (Non-Af Amer) 69.9 BUN/Creatinine Ratio 25.0 H Glucose 103 H POC Glucose 128 H 127 H Calcium 7.9 L Magnesium 1.7 L Iron TIBC Transferrin Transferrin % Sat Ferritin Total Bilirubin 1.8 H Direct Bilirubin 0.9 H AST 35 ALT 19 Alkaline Phosphatase 137 H Total Protein 5.8 L Albumin 2.5 L 07/01/18 07/01/18 07/01/18 07:40 11:46 15:37 Sodium Potassium Chloride Carbon Dioxide Anion Gap BUN Creatinine Est Cr Clr Drug Dosing Est GFR ( Amer) Est GFR (Non-Af Amer) BUN/Creatinine Ratio Glucose POC Glucose 105 H 156 H Calcium Magnesium Iron 47 TIBC 251 Transferrin 166 L Transferrin % Sat 20 Ferritin 274.2 Total Bilirubin Direct Bilirubin AST ALT Alkaline Phosphatase Total Protein Albumin _ (1) CHF (congestive heart failure) Heart failure chronicity: unspecified Heart failure type: unspecified Qualified Code(s): I50.9 - Heart failure, unspecified (2) Altered mental status Altered mental status type: unspecified Coma depth: Coma timing: Qualified Code(s): R41.82 - Altered mental status, unspecified
--- NOTE | 2018-07-01 14:54 | Gastrointestinal Consultation ---
Date of Consultation July 01, 2018 Assessment & Plan (1) Hyperbilirubinemia: Present on Admission?: Yes (2) LFTs abnormal: Pt is a 82 y/o male admitted for confusion and volume overload (hx of CHF) , who is seen for abnormal LFTs: Tbili 1.7, Dbili 0.9. Alk phos 137. His transaminases are normal (AST 35, ALT 19). Noted his labs also showed mild anemia w thrombocytopenia. INR his normal. Albumin low. He admits to hx of hepatitis x 2, and prior hx of heavy ETOH use. No abdominal imaging available here or outpt to review. Wonder if he has cirrhosis or congestive hepatopathy. Doubt elevated Tbili and alk phos related to biliary obstruction as no signs of abd pain, n/v or jaundice. - Will obtain CT abd/pelvis w contrast to r/o cirrhosis - Liver serologies to r/o autoimmune, hereditary liver disease, hepatitis: MEMO, AMA, Anti smooth muscle antibody, SPEP, ceruloplasmin, Alpha 1 antitrypsin, iron indices, hepatitis panel, celiac serologies - Avoid Hepatotoxic meds. Present on Admission?: Yes Supervising Physician Co-Signing Physician Notes I have performed a history and physical examination of this patient and reviewed the electronic medical record. Specifically, on physical examination there are no signs of chronic liver disease (no spider angiomata, palmar erythema, etc.). I have discussed the case with CARRINGTON Grady. The above note reflects my findings, conclusions, and recommendations. Kemal Paris MD History of Present Illness Reason for Consultation: Hyperbilirubinemia Requesting Physician: Dr. Erick Easley Attending Physician: Dr. Kemal Paris History of Present Illness Pt is a 82 y/o male, w PMHx of CHF, CAD s/p CABG, breast ca w mets s/p mastectomy in 2012 currently on Tamoxifen, DM II and neuropathy, hyperlipidemia , BPH who is currently admitted for confusion and volume overload. Confusion is resolved. Initially suspected may have TIA vs CVA, seen by Neurology. Brain MRI negative. Volume overload improved w diuretics. GI consulted for hyperbilirubinemia. LFTs: Tbili 1.7, Dbili 0.9, AST 35, ALT 19, Alk phos 137. No prior abdominal imaging available to review from [facility] or [facility]. He denies any c/o abd pain, n/v, jaundice. He reported hx of "hepatitis twice" in 1940s after the war and then in 1960s. Admits prior heavy ETOH uses but had quit "years ago". Hx of blood donation but never transfusion. Denies tattoos, body piercing. Denies illicit drugs. Other lab reviewed notable for mild anemia, thrombocytopenia, low albumin. INR normal. Allergies Allergy/AdvReac Type Severity Reaction Status Date / Time Penicillins AdvReac Unknown HAS Verified 05/21/18 10:33 TOLERATED CEPHALOSPORINS W/O RXN-lightheaded Home Medications Home Medications Medication Instructions Recorded Confirmed Type aspirin [Aspirin Low Dose] 81 mg PO DAILY 05/21/18 06/28/18 History carvedilol 6.25 mg PO BID 05/21/18 06/28/18 History metformin 500 mg PO BIDM 05/21/18 06/28/18 History nortriptyline 25 mg PO HS 05/21/18 06/28/18 History sennosides-docusate sodium [Senna 2 tab PO HS 05/21/18 06/28/18 History with Docusate Sodium] terazosin 2 mg PO HS 05/21/18 06/28/18 History acetaminophen [Tylenol Extra 1,000 mg PO Q6H PRN 06/28/18 06/28/18 History Strength] atorvastatin 20 mg PO DAILY 06/28/18 06/28/18 History diclofenac sodium 50 mg PO TID PRN 06/28/18 06/28/18 History isosorbide mononitrate 60 mg PO DAILY 06/28/18 06/28/18 History lisinopril 40 mg PO DAILY 06/28/18 06/28/18 History nitroglycerin 0.4 mg SUBLINGUAL UD 06/28/18 06/28/18 History polyethylene glycol 3350 [Miralax] 17 g PO DAILY PRN 06/28/18 06/28/18 History psyllium 1 scoop/day PO TID PRN 06/28/18 06/28/18 History tamoxifen 20 mg PO DAILY 06/28/18 06/28/18 History torsemide 20 mg PO DAILY 06/28/18 06/28/18 History Patient History Medical History Breast cancer in male (Chronic) HLD (hyperlipidemia) (Chronic) Chronic atrial fibrillation (Chronic) CAD (coronary artery disease) (Chronic) Thoracic aortic aneurysm (Chronic) MRSA (methicillin resistant Staphylococcus aureus) (Resolved) Diabetes (Chronic) Hypertension (Chronic) Diabetic neuropathy (Chronic) Diabetic retinopathy (Chronic) BPH (benign prostatic hyperplasia) (Chronic) History of diabetic ulcer of foot (Resolved) Status post partial amputation of foot (Resolved) Bone cancer Kidney stones Surgical History Hx of CABG (Resolved) 1993 Hx of cholecystectomy (Resolved) Family History Other Colon cancer Diabetes Family history non-contributory HTN (hypertension) Social History Current Living Situation: Alone current occupational status: retired Other Information That Helps Us Care for You: No Feels Safe at Home: Yes Safety Concerns: Feels Safe At This Time Smoking Status: Current some day smoker Cigarettes per Day: started smoking cigars intermittently again, previous quit 1977 Hx Alcohol Use: Yes Alcohol type: beer Alcohol Intake Frequency: holidays/ special occasions only Hx Substance Use: No Beliefs That Will Affect Care: None Communication Ability: Effective Review of Systems Constitutional: as per Subjective / HPI Respiratory: no cough and no dyspnea Cardiovascular: no chest pain, no lightheadedness and no edema Gastrointestinal: no abdominal pain, no nausea and no vomiting Physical Exam 2 Vital Signs (Past 24 Hours): Last Vital Signs Temp 36.8 C 07/01/18 12:08 Pulse 74 07/01/18 12:08 Resp 22 07/01/18 12:08 BP 154/73 H 07/01/18 12:08 Pulse Ox 99 07/01/18 12:08 Constitutional: WD/WN, vitals as above well groomed, cooperative and comfortable Eyes: PERRL, conjunctivae normal, anicteric sclerae ENMT: external ear and nose normal, oropharynx normal Respiratory: no respiratory distress and no labored breathing Auscultation : + diminished lung sounds; no crackles and no wheezes Cardiovascular: Rate/Rhythm: regular rate and regular rhythm Extremities: + edema (mild lower extremities edema) Gastrointestinal (Abdomen): normal bowel sounds, soft, nontender, no hepatosplenomegaly Skin: no rashes, warm and dry no jaundice Neurologic: Motor/Sensory: no asterixis Psychiatric: A+Ox3, euthymic affect Results & Data Laboratory Results Laboratory Results - last 48 hr 06/29/18 06/29/18 06/29/18 17:01 20:15 21:03 APTT 27.1 PTT Ratio 1.0 Sodium Potassium Chloride Carbon Dioxide Anion Gap BUN Creatinine Est Cr Clr Drug Dosing Est GFR ( Amer) Est GFR (Non-Af Amer) BUN/Creatinine Ratio Glucose POC Glucose 128 H 163 H Calcium Magnesium Total Bilirubin Direct Bilirubin AST ALT Alkaline Phosphatase Troponin I Total Protein Albumin 06/29/18 06/30/18 06/30/18 21:03 07:40 11:53 APTT PTT Ratio Sodium Potassium Chloride Carbon Dioxide Anion Gap BUN Creatinine Est Cr Clr Drug Dosing Est GFR ( Amer) Est GFR (Non-Af Amer) BUN/Creatinine Ratio Glucose POC Glucose 92 105 H Calcium Magnesium Total Bilirubin Direct Bilirubin AST ALT Alkaline Phosphatase Troponin I < 0.015 Total Protein Albumin 06/30/18 06/30/18 06/30/18 12:06 16:36 20:55 APTT PTT Ratio Sodium 137 Potassium 3.7 Chloride 103 Carbon Dioxide 30 Anion Gap 4.0 BUN 19 H Creatinine 0.91 Est Cr Clr Drug Dosing 80.6 Est GFR ( Amer) 91.9 Est GFR (Non-Af Amer) 79.3 BUN/Creatinine Ratio 21.2 H Glucose 114 H POC Glucose 128 H 127 H Calcium 8.0 L Magnesium 1.7 L Total Bilirubin Direct Bilirubin AST ALT Alkaline Phosphatase Troponin I Total Protein Albumin 07/01/18 07/01/18 07/01/18 06:31 07:40 11:46 APTT PTT Ratio Sodium 137 Potassium 3.7 Chloride 102 Carbon Dioxide 30 Anion Gap 5.0 BUN 25 H Creatinine 1.01 Est Cr Clr Drug Dosing 73.6 Est GFR ( Amer) 81.0 Est GFR (Non-Af Amer) 69.9 BUN/Creatinine Ratio 25.0 H Glucose 103 H POC Glucose 105 H 156 H Calcium 7.9 L Magnesium 1.7 L Total Bilirubin 1.8 H Direct Bilirubin 0.9 H AST 35 ALT 19 Alkaline Phosphatase 137 H Troponin I Total Protein 5.8 L Albumin 2.5 L
--- NOTE | 2018-07-01 15:12 | Ultrasound Report ---
US liver HISTORY: 82 years-old Male elevated bilirubin acutely elevated LFTs COMPARISON: CTA 02/12/2016 TECHNIQUE: Multiple real-time sonographic images of the abdominal right upper quadrant were obtained assessing grayscale appearance and color flow FINDINGS: Limited study secondary to patient body habitus and obscuring bowel gas. Pancreas is not well visuali zed. Small right pleural effusion incidentally noted. Liver is unremarkable without focal mass or int rahepatic biliary ductal dilation. Punctate nonshadowing calcifications about the liver compatible wi th prior granulomatous disease. No intrahepatic biliary ductal dilation. Prior cholecystectomy. Commo n bile duct is normal, 6 mm. 2.5 cm cysts noted about the interpolar right kidney. No right-sided hydronephrosis. 6 mm echogenic f ocus of the superior pole right kidney suggests nonobstructing calculus. IMPRESSION: 1. Prior cholecystectomy. No associated biliary ductal dilation. 2. Right nephrolithiasis without hydronephrosis. The above report was generated using voice recognition software. It may contain grammatical, syntax o r spelling errors. Electronically signed by: Franky Venegas M.D. 07/01/2018 3:10 PM
--- NOTE | 2018-07-01 15:14 | XRay Report ---
XR knee LT 2V routine CLINICAL HISTORY: pain, r/o fracture pain COMPARISON: None. DISCUSSION: Moderate generalized degenerative change. No evidence for fracture or dislocation. Soft t issue vascular calcification. There is no evidence for soft tissue swelling. IMPRESSION: Degenerative change. No acute process. The above report was generated using voice recognition software. It may contain grammatical, syntax or spelling errors. Electronically signed by: Jared Tyler M.D. 07/01/2018 3:13 PM
--- NOTE | 2018-07-01 15:16 | XRay Report ---
XR femur LT 2V routine CLINICAL HISTORY: r/o fracture pain COMPARISON: None. DISCUSSION: Potential abnormal bone mineralization of the mid femoral shaft. Possibility of metastati c deposit must be considered. No evidence for fracture. Soft tissue vascular calcifications are prese nt. There is no evidence for soft tissue swelling. IMPRESSION: Abnormal bone mineralization mid femoral shaft raises the possibility of a metastatic pro cess. No acute posttraumatic abnormality. The above report was generated using voice recognition software. It may contain grammatical, syntax or spelling errors. Electronically signed by: Jared Tyler M.D. 07/01/2018 3:14 PM
--- NOTE | 2018-07-01 15:24 | XRay Report ---
XR shoulder LT min 2V routine CLINICAL HISTORY: shoulder pain , history of fall trauma. Pain. COMPARISON: None. DISCUSSION: Moderate degenerative change glenohumeral joint. No abnormal soft tissue calcifications. Acromioclavicular joint is intact. No evidence for fracture or dislocation. Osteopenia. There is no e vidence for soft tissue swelling. IMPRESSION: Moderate degenerative change. Osteopenia. No acute bony abnormality. The above report was generated using voice recognition software. It may contain grammatical, syntax or spelling errors. Electronically signed by: Jared Tyler M.D. 07/01/2018 3:23 PM
--- NOTE | 2018-07-01 15:28 | XRay Report ---
XR hip LT min 2V CLINICAL HISTORY: r/o fracture trauma. Pain. COMPARISON: None. DISCUSSION: Moderate degenerative change left hip joint space. No evidence for acetabular protrusion. No evidence for fracture or dislocation. Soft tissue vascular calcifications. There is no evidence f or soft tissue swelling. IMPRESSION: Moderate degenerative change. No acute process. The above report was generated using voice recognition software. It may contain grammatical, syntax or spelling errors. Electronically signed by: Jared Tyler M.D. 07/01/2018 3:26 PM
[2018-07-01 16:15] LABS: Ferritin 274.2 ng/ml (8-388)
[2018-07-01 16:46] LABS: Hepatitis B Surface Antigen Neg (Neg)
[2018-07-01 17:15] LABS: Hepatitis C IgG 13Yrs+Old_Rflx Neg (Neg)
[2018-07-01] MEDS: TERAZOSIN HCL 1 MG CAP PO SCH (21:19)
[2018-07-01] MEDS: NORTRIPTYLINE HCL 25 MG CAP PO SCH (21:20)
[2018-07-02 07:05] LABS: Albumin Level 2.4 gm/dl (3.4-5.0); Bilirubin Direct 0.9 mg/dl (0-0.2); Bilirubin,Total 1.5 mg/dl (0.2-1); Total Protein 5.6 gm/dl (6.4-8.2)
[2018-07-02] MEDS: INSULIN ASPART 100 UNITS/ML 3 ML PEN SC SCH ×4 (07:58→20:48)
[2018-07-02] MEDS: ATORVASTATIN 20 MG TAB PO SCH (07:59)
[2018-07-02] MEDS: ASPIRIN 81 MG ECTAB PO SCH (07:59)
[2018-07-02] MEDS: ISOSORBIDE MONO EXTENDED REL 60 MG TABCR PO SCH (07:59)
[2018-07-02] MEDS: CARVEDILOL 12.5 MG TAB PO SCH ×2 (07:59→21:02)
[2018-07-02] MEDS: TAMOXIFEN CITRATE 10 MG TABLET PO SCH (07:59)
[2018-07-02] MEDS: TORSEMIDE 20 MG TAB PO SCH (07:59)
[2018-07-02] MEDS: LISINOPRIL 40 MG TAB PO SCH (07:59)
[2018-07-02] MEDS ORDERED: POLYETHYLENE (MIRALAX) 17 GM PACK PO PRN (09:27)
[2018-07-02] MEDS: DOCUSATE SODIUM 100 MG CAP PO SCH ×2 (10:18→21:02)
[2018-07-02] MEDS: SENNA 8.6 MG TAB PO SCH (10:18)
--- NOTE | 2018-07-02 13:31 | Gastroenterology Progress Note ---
Date of Service July 02, 2018 Assessment & Plan (1) Hyperbilirubinemia: (2) LFTs abnormal: Pt is a 82 y/o male admitted for confusion and volume overload (hx of CHF) , who is seen for abnormal LFTs: Tbili 1.7, Dbili 0.9. Alk phos 137. His transaminases are normal (AST 35, ALT 19). Noted his labs also showed mild anemia w thrombocytopenia. INR his normal. Albumin low. He admits to hx of hepatitis x 2, and prior hx of heavy ETOH use. No abdominal imaging available here or outpt to review. Wonder if he has cirrhosis or congestive hepatopathy. Doubt elevated Tbili and alk phos related to biliary obstruction as no signs of abd pain, n/v or jaundice. Liver u/s obtained w/o signs of cirrhosis or other abnormalities such as masses or biliary dilation. Serologies pending. - F/U Liver serologies to r/o autoimmune, hereditary liver disease, hepatitis: MEMO, AMA, Anti smooth muscle antibody, SPEP, ceruloplasmin, Alpha 1 antitrypsin , iron indices, hepatitis panel, celiac serologies - Avoid Hepatotoxic meds. - No new plans, GI will sign off; will f/u upon pt's DC in GI clinic to review his serologies and monitor for liver disease. Supervising Physician Co-Signing Physician Notes I have performed a history and physical examination of this patient and reviewed the electronic medical record. Specifically, on physical examination there is no hepatomegaly or abdominal tenderness. I have discussed the case with CARRINGTON Grady. The above note reflects my findings, conclusions, and recommendations. Kemal Paris MD Subjective Pt feels well, denies any abd pain, n/v. Liver u/s obtaine yesterday w/o signs of abnormalities or masses on liver, CBD 6mm, no biliary duct dilation. He refused CT scan Physical Exam 2 Vital Signs (Past 24 Hours): Last Vital Signs Temp 36.6 C 07/02/18 11:32 Pulse 72 07/02/18 11:32 Resp 22 07/02/18 11:32 BP 147/61 H 07/02/18 11:32 Pulse Ox 94 07/02/18 11:32 Constitutional: WD/WN, vitals as above well groomed, cooperative and comfortable Eyes: PERRL, conjunctivae normal, anicteric sclerae ENMT: external ear and nose normal, oropharynx normal Respiratory: normal respiratory effort, lungs clear to auscultation Cardiovascular: RRR, no murmur, no edema Gastrointestinal (Abdomen): normal bowel sounds, soft, nontender, no hepatosplenomegaly Skin: no rashes, warm and dry no jaundice Neurologic: Motor/Sensory: no asterixis Psychiatric: A+Ox3, euthymic affect Lymphatic: no lymphedema
--- NOTE | 2018-07-02 17:18 | Hospitalist Progress Note ---
Date of Service July 02, 2018 Assessment & Plan (1) CHF (congestive heart failure): BNP: 11,716, negative troponin on admission CXR 06/28/18: Right and to a lesser extent left basilar infiltrate. Pulmonary vascular congestion. Echo 06/29/18: grade III diastolic CHF, RV systolic function reduced, mild to moderate mitral regurg initially was on Lasix 40mg IV, and have been transitioned to transitioned to Torsemide 20mg po daily will need outpatient cardiology follow up (2) Altered mental status: -no evidence for stroke -as per neurology evluation on 06/30/18 "MRI scan shows no evidence for embolic infarction involving the left hemisphere but does show some possible metastatic disease involving the clivus which will be followed up by oncology. His heart failure is being evaluated and treated by cardiology. To date there is no apparent evidence for an underlying infection. His confusional episodes therefore probably by process of elimination, due to his congestive failure related encephalopathy and have now largely cleared." will need outpatient follow up with Oncologist Dr. Whiting (3) Shoulder pain: Moderate degenerative change. Osteopenia. No acute bony abnormality (4) Left knee pain: no acute process of left knee or hip Abnormal bone mineralization mid femoral shaft raises the possibility of a metastatic process. No acute posttraumatic abnormality. (5) Hyperbilirubinemia: Total bilirubin and Direct Bilirubin noted to be abover reference range of normal on this admission -Liver US ordered 1. Prior cholecystectomy. No associated biliary ductal dilation. 2. Right nephrolithiasis without hydronephrosis. -Gastroenterology does not suspect biliary obstructions - F/U Liver serologies to r/o autoimmune, hereditary liver disease, hepatitis: MEMO, AMA, Anti smooth muscle antibody, SPEP, ceruloplasmin, Alpha 1 antitrypsin , iron indices, hepatitis panel, celiac serologies - Avoid Hepatotoxic meds. -outpatient gastroenterology clinic follow up (6) Chronic atrial fibrillation: Rate controlled in the 70s Not on anticoagulation: Refused anticoagulation in the past, h/o falls - Carvedilol 12.5 mg BID (7) CAD (coronary artery disease): S/P CABG in 1993 no cardiac symptoms troponins negative -Continue imdur, carvedilol, aspirin (8) Breast cancer in male: S/P mastectomy in 2012. 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 There is no hemorrhage, enhancing mass, or evidence of acute ischemia. 2. 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 will need outpatient follow up with Oncologist Dr. Whiting (9) Diabetes: Diabetes Type II , controlled without exterminator helper termite use of insulin HA1c: 5.9 on 05/2018 -Hold metformin while in hospital -NovoLog sliding scale (10) Hypertension: -Continue lisinopril, carvedilol, imdur increased Carvedilol (11) HLD (hyperlipidemia): -Continue atorvastatin (12) Diabetic neuropathy: -Patient has been on nortriptyline for several years, will continue (13) BPH (benign prostatic hyperplasia): History urinary retention 04/2018 requiring Machado catheter in ER visit -Bladder scan, pending post void residual -Continue terazosin -machado removed on 07/02/18 DVT Prophylaxis - SCDs DNR/DNI as per discussion with pt and daughter Disposition; awaiting for placement to [facility] given mobility impairments Subjective Patient seen and examined at bedside. Doing well without nasal cannula and machado which were both removed today. On exam patient has been minimally mobile. Could not sit up to lean foward for lung asucultation. He turned over the the side of the bed for this exam. Generally reported of not being able to be steady on his feet with standing or walking Denies chest pain or shortness of breath or abdominal pain. Reports constipation. denies urinary retention with the machado removed. Physical Exam 2 Vital Signs (Past 24 Hours): Last Vital Signs Temp 36.6 C 07/02/18 14:59 Pulse 67 07/02/18 14:59 Resp 18 07/02/18 14:59 BP 140/70 07/02/18 14:59 Pulse Ox 93 07/02/18 14:59 Constitutional: WD/WN, vitals as above Eyes: PERRL, conjunctivae normal, anicteric sclerae EOM intact bilaterally ENMT: external ear and nose normal, oropharynx normal Neck: trachea midline, no thyromegaly Respiratory: normal respiratory effort, lungs clear to auscultation Cardiovascular: Rate/Rhythm: regular rhythm and + bradycardic Gastrointestinal (Abdomen): normal bowel sounds, soft, nontender, no hepatosplenomegaly Musculoskeletal: Head/Neck/Chest: normocephalic and head atraumatic Neurologic: PERRL, EOMI, accommodation nl, no face palsy, no dysarthria Psychiatric: A+Ox3, euthymic affect _ (1) CHF (congestive heart failure) Heart failure chronicity: unspecified Heart failure type: unspecified Qualified Code(s): I50.9 - Heart failure, unspecified (2) Altered mental status Altered mental status type: unspecified Coma depth: Coma timing: Qualified Code(s): R41.82 - Altered mental status, unspecified
[2018-07-02] MEDS: TERAZOSIN HCL 1 MG CAP PO SCH (21:01)
[2018-07-02] MEDS: NORTRIPTYLINE HCL 25 MG CAP PO SCH (21:01)
[2018-07-03] MEDS: ATORVASTATIN 20 MG TAB PO SCH (08:29)
[2018-07-03] MEDS: LISINOPRIL 40 MG TAB PO SCH (08:29)
[2018-07-03] MEDS: ISOSORBIDE MONO EXTENDED REL 60 MG TABCR PO SCH (08:29)
[2018-07-03] MEDS: CARVEDILOL 12.5 MG TAB PO SCH ×2 (08:29→21:27)
[2018-07-03] MEDS: INSULIN ASPART 100 UNITS/ML 3 ML PEN SC SCH ×4 (08:29→21:28)
[2018-07-03] MEDS: TAMOXIFEN CITRATE 10 MG TABLET PO SCH (08:30)
[2018-07-03] MEDS: TORSEMIDE 20 MG TAB PO SCH (08:30)
[2018-07-03] MEDS: SENNA 8.6 MG TAB PO SCH (08:30)
[2018-07-03] MEDS: ASPIRIN 81 MG ECTAB PO SCH (08:30)
[2018-07-03] MEDS: DOCUSATE SODIUM 100 MG CAP PO SCH ×2 (08:30→21:27)
--- NOTE | 2018-07-03 11:16 | Cardiology Progress Note ---
Date of Service July 03, 2018 Assessment & Plan (1) CHF (congestive heart failure): Continue home diuretic after discharge (2) Chronic atrial fibrillation: Rate controlled in the 70s Not on anticoagulation: Refused anticoagulation in the past, h/o falls -Continue carvedilol (3) CAD (coronary artery disease): S/P CABG in 1993 no cardiac symptoms (4) Breast cancer in male: S/P mastectomy in 2012. 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 Follows with Dr Tran - oncologist -continue tamoxifen (5) Diabetes: DM II HA1c: 5.9 on 05/2018 -Hold metformin while in hospital -NovoLog sliding scale (6) Hypertension: -Continue lisinopril, carvedilol, imdur -monitor BP (7) HLD (hyperlipidemia): -Continue atorvastatin Subjective The patient had an uneventful night. Plan is for admission to a rehab hospital Physical Exam 2 Vital Signs (Past 24 Hours): Last Vital Signs Temp 36.6 C 07/03/18 07:08 Pulse 74 07/03/18 07:42 Resp 18 07/03/18 07:08 BP 176/81 H 07/03/18 07:08 Pulse Ox 91 07/03/18 07:08 Physical Exam: General: no acute distress and stated age Head: normocephalic, no masses, lesions, tenderness or abnormalities Eyes: conjunctiva are pink and non-injected, sclera clear Neck: supple, no adenopathy, no bruits, normal jugular venous pulse, no hepatojugular reflux Chest: normal shape and normal respiratory effort Lungs: clear to auscultation and percussion Cardiac Exam: - irregular rate & rhythm, no murmurs gallops or rubs - normal S1 , normal S2 Pulses: 2(+) throughout Abdomen: abdomen soft, non-tender, no abnormal masses and no hepatosplenomegaly Musculoskeletal: no gait disturbance, no joint inflammation, no deforming arthritis Extremities: no edema and no cyanosis Neuro: grossly normal exam Results & Data Laboratory Results Laboratory Results - last 24 hr 07/01/18 07/02/18 07/02/18 15:37 11:43 16:35 POC Glucose 153 H 131 H Hepatitis A IgM Ab NON-REACTIVE Hep B Core IgM Ab NON-REACTIVE 07/02/18 07/03/18 20:47 07:40 POC Glucose 142 H 127 H Hepatitis A IgM Ab Hep B Core IgM Ab Medications Administered Current Inpatient Medications Acetaminophen (Tylenol) 650 mg PO Q4H PRN PRN Reason: Pain or Fever Stop: 07/28/18 15:00 Last Admin: 07/02/18 02:08 Dose: 650 mg Aspirin (Ecotrin) 81 mg PO DAILY JUAN ANTONIO Stop: 07/29/18 08:59 Last Admin: 07/03/18 08:30 Dose: 81 mg Atorvastatin Calcium (Lipitor) 20 mg PO DAILY JUAN ANTONIO Stop: 07/29/18 08:59 Last Admin: 07/03/18 08:29 Dose: 20 mg Carvedilol (Coreg) 12.5 mg PO BID JUAN ANTONIO Stop: 07/30/18 20:59 Last Admin: 07/03/18 08:29 Dose: 12.5 mg Dextrose (Dextrose 50%) 25 - 50 ml IV UD PRN; Protocol PRN Reason: Hypoglycemia Protocol Stop: 07/28/18 15:00 Docusate Sodium (Colace) 100 mg PO BID JUAN ANTONIO Stop: 08/01/18 09:29 Last Admin: 07/03/18 08:30 Dose: 100 mg Gadobutrol (Gadavist 65ml) 10 ml IV ONCE PRN PRN Reason: Interaction Checking Stop: 07/03/18 16:30 Last Admin: 06/29/18 16:31 Dose: 10 ml Glucagon (Glucagen) 1 mg SQ UD PRN; Protocol PRN Reason: Hypoglycemia Protocol Stop: 07/28/18 15:00 Glucose (Glucose 40%) 15 - 30 gm PO UD PRN; Protocol PRN Reason: Hypoglycemia Protocol Stop: 07/28/18 15:00 Glucose (Dex4 Glucose) 4 - 8 tabs PO UD PRN; Protocol PRN Reason: Hypoglycemia Protocol Stop: 07/28/18 15:00 Acetaminophen (Ofirmev) 65 mls @ 200 mls/hr IV Q8H PRN PRN Reason: pain Stop: 07/28/18 15:44 Insulin Aspart (Novolog Flexpen) 0 units SC ACHS JUAN ANTONIO Stop: 07/28/18 16:29 Last Admin: 07/03/18 08:29 Dose: 3 units Isosorbide Mononitrate (Imdur Extended Rel) 60 mg PO DAILY [facility] Stop: 07/29/18 08:59 Last Admin: 07/03/18 08:29 Dose: 60 mg Lisinopril (Zestril) 40 mg PO DAILY JUAN ANTONIO Stop: 07/29/18 08:59 Last Admin: 07/03/18 08:29 Dose: 40 mg Miconazole Nitrate (Desenex) 1 appln EXT PRN PRN PRN Reason: TO GROIN FOLDS Stop: 07/30/18 19:23 Last Admin: 07/01/18 08:45 Dose: 1 appln Miscellaneous (Carbohydrates For Hypoglycemia) 15 - 30 gm PO UD PRN PRN Reason: Hypoglycemia Treatment Stop: 07/28/18 15:00 Miscellaneous Information (Pharmacist Discharge Med Rec Consult) 1 ea N/A UD PRN PRN Reason: Consult Stop: 07/28/18 15:00 Nitroglycerin (Nitrostat) 0.4 mg SL UD PRN PRN Reason: Chest Pain Stop: 07/28/18 15:00 Last Admin: 06/29/18 20:56 Dose: 0.4 mg Nortriptyline HCl (Pamelor) 25 mg PO HS [facility] Stop: 07/28/18 20:59 Last Admin: 07/02/18 21:01 Dose: 25 mg Polyethylene Glycol (Miralax Powder Packet) 17 gm PO DAILY PRN PRN Reason: Constipation Stop: 07/28/18 15:00 Sennosides (Senokot) 8.6 mg PO QAM [facility] Stop: 08/01/18 09:29 Last Admin: 07/03/18 08:30 Dose: 8.6 mg Tamoxifen Citrate (Nolvadex) 20 mg PO DAILY [facility] Stop: 07/29/18 08:59 Last Admin: 07/03/18 08:30 Dose: 20 mg Terazosin HCl (Hytrin) 2 mg PO HS [facility] Stop: 07/28/18 20:59 Last Admin: 07/02/18 21:01 Dose: 2 mg Torsemide (Demadex) 20 mg PO QAM [facility] Stop: 08/01/18 08:59 Last Admin: 07/03/18 08:30 Dose: 20 mg Tramadol HCl (Ultram) 25 mg PO Q4H PRN PRN Reason: Pain Stop: 07/29/18 21:26 _ (1) CHF (congestive heart failure) Heart failure chronicity: unspecified Heart failure type: unspecified Qualified Code(s): I50.9 - Heart failure, unspecified
[2018-07-03] MEDS ORDERED: LACTULOSE SYRUP 20 GM/30 ML UDC PO STA (15:51)
--- NOTE | 2018-07-03 15:51 | Hospitalist Progress Note ---
Date of Service July 03, 2018 Assessment & Plan (1) CHF (congestive heart failure): BNP: 11,716, negative troponin on admission CXR 06/28/18: Right and to a lesser extent left basilar infiltrate. Pulmonary vascular congestion. Echo 06/29/18: grade III diastolic CHF, RV systolic function reduced, mild to moderate mitral regurg initially was on Lasix 40mg IV, and have been transitioned to transitioned to Torsemide 20mg po daily will need outpatient cardiology follow up (2) Altered mental status: -no evidence for stroke -as per neurology evluation on 06/30/18 "MRI scan shows no evidence for embolic infarction involving the left hemisphere but does show some possible metastatic disease involving the clivus which will be followed up by oncology. His heart failure is being evaluated and treated by cardiology. To date there is no apparent evidence for an underlying infection. His confusional episodes therefore probably by process of elimination, due to his congestive failure related encephalopathy and have now largely cleared." -Neurology clinic 07/10/2018 11:20 AM Provider Talia Mott PA-C Department Neurology [facility] -will need outpatient follow up with Oncologist Dr. Whiting (3) Shoulder pain: Moderate degenerative change. Osteopenia. No acute bony abnormality (4) Left knee pain: no acute process of left knee or hip Abnormal bone mineralization mid femoral shaft raises the possibility of a metastatic process. No acute posttraumatic abnormality. -will need outpatient follow up with Oncologist Dr. Whiting (5) Hyperbilirubinemia: Total bilirubin and Direct Bilirubin noted to be abover reference range of normal on this admission -Liver US ordered 1. Prior cholecystectomy. No associated biliary ductal dilation. 2. Right nephrolithiasis without hydronephrosis. -Gastroenterology does not suspect biliary obstructions - F/U Liver serologies to r/o autoimmune, hereditary liver disease, hepatitis: MEMO, AMA, Anti smooth muscle antibody, SPEP, ceruloplasmin, Alpha 1 antitrypsin , iron indices, hepatitis panel, celiac serologies - Avoid Hepatotoxic meds. -outpatient gastroenterology clinic follow up 07/22/2018 11:30 AM Provider CARRINGTON Villanueva Department Gastroenterology, [facility] (6) Chronic atrial fibrillation: Rate controlled in the 70s Not on anticoagulation: Refused anticoagulation in the past, h/o falls - Carvedilol 12.5 mg BID -cardiology clinic follow up07/22/2018 4:00 PM Provider Jared Johnson PA-C Department Cardiology [facility] (7) CAD (coronary artery disease): S/P CABG in 1993 no cardiac symptoms troponins negative -Continue imdur, carvedilol, aspirin (8) Breast cancer in male: S/P mastectomy in 2012. 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 There is no hemorrhage, enhancing mass, or evidence of acute ischemia. 2. 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 will need outpatient follow up with Oncologist Dr. Whiting (9) Diabetes: Diabetes Type II , controlled without termite exterminator use of insulin HA1c: 5.9 on 05/2018 -Hold metformin while in hospital -NovoLog sliding scale (10) Hypertension: -Continue lisinopril, carvedilol, imdur -continue Carvedilol 12.5 mg BID (11) HLD (hyperlipidemia): -Continue atorvastatin (12) Diabetic neuropathy: -Patient has been on nortriptyline for several years, will continue Constipation -bowel regimen with senna, colace, miralax -give lactulose x1 (13) BPH (benign prostatic hyperplasia): History urinary retention 04/2018 requiring Machado catheter in ER visit -machado removed on 07/02/18 -continue terasozin DVT Prophylaxis - SCDs DNR/DNI Deconditioning -awaiting for placement to [facility] given deconditioning -continue PT/OT while inpatient Family doctor appointment 07/07/2018 3:00 PM Provider Lawrence Mallory MD Department Internal Medicine [facility] Subjective Denies chest pain or shortness of breath or abdominal pain. Reports constipation. Physical Exam 2 Vital Signs (Past 24 Hours): Last Vital Signs Temp 36.9 C 07/03/18 15:00 Pulse 73 07/03/18 15:00 Resp 20 07/03/18 15:00 BP 173/84 H 07/03/18 15:00 Pulse Ox 92 07/03/18 15:00 Constitutional: WD/WN, vitals as above Eyes: PERRL, conjunctivae normal, anicteric sclerae EOM intact bilaterally ENMT: external ear and nose normal, oropharynx normal Neck: trachea midline, no thyromegaly Respiratory: normal respiratory effort, lungs clear to auscultation Cardiovascular: Rate/Rhythm: regular rhythm and + bradycardic Gastrointestinal (Abdomen): normal bowel sounds, soft, nontender, no hepatosplenomegaly Musculoskeletal: Head/Neck/Chest: normocephalic and head atraumatic Neurologic: PERRL, EOMI, accommodation nl, no face palsy, no dysarthria Psychiatric: A+Ox3, euthymic affect _ (1) CHF (congestive heart failure) Heart failure chronicity: unspecified Heart failure type: unspecified Qualified Code(s): I50.9 - Heart failure, unspecified (2) Altered mental status Altered mental status type: unspecified Coma depth: Coma timing: Qualified Code(s): R41.82 - Altered mental status, unspecified
[2018-07-03] MEDS: TERAZOSIN HCL 1 MG CAP PO SCH (21:28)
[2018-07-03] MEDS: NORTRIPTYLINE HCL 25 MG CAP PO SCH (21:28)
[2018-07-04] MEDS: LISINOPRIL 40 MG TAB PO SCH (08:44)
[2018-07-04] MEDS: TAMOXIFEN CITRATE 10 MG TABLET PO SCH (08:44)
[2018-07-04] MEDS: ASPIRIN 81 MG ECTAB PO SCH (08:44)
[2018-07-04] MEDS: SENNA 8.6 MG TAB PO SCH (08:45)
[2018-07-04] MEDS: ISOSORBIDE MONO EXTENDED REL 60 MG TABCR PO SCH (08:45)
[2018-07-04] MEDS: CARVEDILOL 12.5 MG TAB PO SCH ×2 (08:45→20:42)
[2018-07-04] MEDS: ATORVASTATIN 20 MG TAB PO SCH (08:45)
[2018-07-04] MEDS: DOCUSATE SODIUM 100 MG CAP PO SCH ×2 (08:45→20:45)
[2018-07-04] MEDS: TORSEMIDE 20 MG TAB PO SCH (08:45)
[2018-07-04] MEDS: INSULIN ASPART 100 UNITS/ML 3 ML PEN SC SCH ×4 (08:49→20:41)
[2018-07-04] MEDS ORDERED: LACTULOSE SYRUP 30 GM/45 ML UDP PO STA (09:01)
[2018-07-04 09:38] LABS: Basophils # (auto) 0.02 K/uL (0-0.2); Basophils % (auto) 0.4 %; Eosinophils # (auto) 0.27 K/uL (0-0.5); Eosinophils % (auto) 5.3 %; Hematocrit (blood only) 35.3 % (42-52); Hemoglobin 11.3 g/dL (14.0-18.0); Immature Granulocytes # (auto) 0.01 K/uL (0.00-0.02); Immature Granulocytes % (auto) 0.2 %; Lymphocytes # (auto) 1.19 K/uL (1.2-3.4); Lymphocytes % (auto) 23.6 %; Mean Corpuscular Volume 85.7 fL (80-100); Mean Platelet Volume 10.4 fL (7.4-10.4); Monocytes # (auto) 0.46 K/uL (0.11-0.59); Monocytes % (auto) 9.1 %; Neutrophils % (auto) 61.4 %; Platelet Count 129 K/uL (130-400); RDW Coefficient of Variation 16.9 % (11.5-14.5); RDW Standard Deviation 52.9 fL (36.4-46.3); Red Blood Count 4.12 M/uL (4.7-6.1); White Blood Count 5.05 K/uL (4.8-10.8)
[2018-07-04 09:58] LABS: Albumin Level 2.6 gm/dl (3.4-5.0); BUN Creatinine Ratio 28.4 (10-20); Calcium 8.2 mg/dl (8.5-10.1); Creatinine Clr Calc Pharmacy 79.8 ml/min; Est GFR (African American) 89.5; Est GFR (Non-African American) 77.3; Magnesium 2.2 mg/dl (1.8-2.4); Potassium 4.1 mmol/L (3.5-5.1)
[2018-07-04 10:00] LABS: Albumin Globulin Ratio 0.7 (0.9-2); Bilirubin,Total 1.9 mg/dl (0.2-1); Globulin 3.5 gm/dl (2.5-4.0); Total Protein 6.1 gm/dl (6.4-8.2)
--- NOTE | 2018-07-04 10:55 | XRay Report ---
XR abdomen min 2V HISTORY: 82 years-old Male rule out bowel obstruction or fecal disimpaction acute generalized abdomi nal pain with concern for bowel obstruction COMPARISON: CTA 13/07/2015 TECHNIQUE: Supine and left lateral decubitus films of the abdomen. FINDINGS: Prior median sternotomy changes. Cardiomegaly. Mild gaseous distention of the stomach. Calcified gran ulomata noted about the spleen. Cholecystectomy. No small bowel obstruction, pneumatosis or pneumoper itoneum. Mild gaseous distention about the transverse colon. Moderate formed stool is noted throughou t the colon. Large stool volume seen about the distal sigmoid and rectum with rectosigmoid distention . No definite urolith. Surgical clips are seen about the right hemipelvis. Degenerative changes of th e spine, hips and pelvis. IMPRESSION: 1. Nonobstructive bowel gas pattern. 2. Constipation with rectosigmoid fecal impaction. 3. Cardiomegaly. The above report was generated using voice recognition software. It may contain grammatical, syntax o r spelling errors. Electronically signed by: Franky Venegas M.D. 07/04/2018 10:53 AM
[2018-07-04] MEDS: TAP WATER ENEMA PR SCH (13:13)
[2018-07-04] MEDS ORDERED: LACTULOSE SYRUP 30 GM/45 ML UDP PO ONE (18:00)
--- NOTE | 2018-07-04 19:42 | Hospitalist Progress Note ---
Date of Service July 04, 2018 Assessment & Plan (1) CHF (congestive heart failure): BNP: 11,716, negative troponin on admission CXR 06/28/18: Right and to a lesser extent left basilar infiltrate. Pulmonary vascular congestion. Echo 06/29/18: grade III diastolic CHF, RV systolic function reduced, mild to moderate mitral regurg initially was on Lasix 40mg IV, and have been transitioned to transitioned to Torsemide 20mg po daily on this admission will need outpatient cardiology follow up (2) Altered mental status: -no evidence for stroke -as per neurology evluation on 06/30/18 "MRI scan shows no evidence for embolic infarction involving the left hemisphere but does show some possible metastatic disease involving the clivus which will be followed up by oncology. His heart failure is being evaluated and treated by cardiology. To date there is no apparent evidence for an underlying infection. His confusional episodes therefore probably by process of elimination, due to his congestive failure related encephalopathy and have now largely cleared." -Neurology clinic 07/10/2018 11:20 AM Provider Talia Mott PA-C Department Neurology [facility] -will need outpatient follow up with Oncologist Dr. Whiting (3) Shoulder pain: Moderate degenerative change. Osteopenia. No acute bony abnormality (4) Left knee pain: no acute process of left knee or hip Abnormal bone mineralization mid femoral shaft raises the possibility of a metastatic process. No acute posttraumatic abnormality. -will need outpatient follow up with Oncologist Dr. Whiting (5) Hyperbilirubinemia: Total bilirubin and Direct Bilirubin noted to be abover reference range of normal on this admission -Liver US ordered 1. Prior cholecystectomy. No associated biliary ductal dilation. 2. Right nephrolithiasis without hydronephrosis. -Gastroenterology does not suspect biliary obstructions - F/U Liver serologies to r/o autoimmune, hereditary liver disease, hepatitis: MEMO, AMA, Anti smooth muscle antibody, SPEP, ceruloplasmin, Alpha 1 antitrypsin , iron indices, hepatitis panel, celiac serologies - Avoid Hepatotoxic meds. -outpatient gastroenterology clinic follow up 07/22/2018 11:30 AM Provider CARRINGTON Villanueva Department Gastroenterology, [facility] (6) Chronic atrial fibrillation: Rate controlled in the 70s Not on anticoagulation: Refused anticoagulation in the past, h/o falls - Carvedilol 12.5 mg BID -cardiology clinic follow up07/22/2018 4:00 PM Provider Jared Johnson PA-C Department Cardiology [facility] (7) CAD (coronary artery disease): S/P CABG in 1993 no cardiac symptoms troponins negative -Continue imdur, carvedilol, aspirin (8) Breast cancer in male: S/P mastectomy in 2012. 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 There is no hemorrhage, enhancing mass, or evidence of acute ischemia. 2. 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 will need outpatient follow up with Oncologist Dr. Whiting (9) Diabetes: Diabetes Type II , controlled without mcfp use of insulin HA1c: 5.9 on 05/2018 -Hold metformin while in hospital -NovoLog sliding scale (10) Hypertension: -Continue lisinopril, carvedilol, imdur -continue Carvedilol 12.5 mg BID (11) HLD (hyperlipidemia): -Continue atorvastatin (12) Diabetic neuropathy: -Patient has been on nortriptyline for several years, will continue Constipation -bowel regimen with senna, colace, miralax -give lactulose x1 (13) BPH (benign prostatic hyperplasia): History urinary retention 04/2018 requiring Machado catheter in ER visit -machado removed on 07/02/18 -continue terasozin -urinary retention reported overnight between 07/03/18 to 07/04/18 and machado was placed again Constipation Patient was found on abdominal X ray on 07/04/18 to be severely constipated after aggressive bowel regimen and attempt for fecal disimpaction, patient made bowel movement possibly that constipation could have contributed to urinary retention although patient did have urinary retention issues in the past will continue to monitor for bowel movements and consider machado removal tomorrow DVT Prophylaxis - SCDs DNR/DNI Deconditioning -awaiting for placement to [place] given deconditioning -continue PT/OT while inpatient Family doctor appointment 07/07/2018 3:00 PM Provider Lawrence Mallory MD Department Internal Medicine [facility] Subjective urinary retention reported overnight between 07/03/18 to 07/04/18 and machado was placed again Patient was found on abdominal X ray to be severely constipated after aggressive bowel regimen and attempt for fecal disimpaction, patient made bowel movement possibly that constipation could have contributed to urinary retention although patient did have urinary retention issues in the past will continue to monitor for bowel movements and consider machado removal tomorrow Denies chest pain or shortness of breath or abdominal pain. Reports constipation. Physical Exam 2 Vital Signs (Past 24 Hours): Last Vital Signs Temp 36.5 C 07/04/18 15:17 Pulse 76 07/04/18 15:17 Resp 22 07/04/18 15:17 BP 154/65 H 07/04/18 15:17 Pulse Ox 94 07/04/18 15:17 Constitutional: WD/WN, vitals as above Eyes: PERRL, conjunctivae normal, anicteric sclerae EOM intact bilaterally ENMT: external ear and nose normal, oropharynx normal Neck: trachea midline, no thyromegaly Respiratory: normal respiratory effort, lungs clear to auscultation Cardiovascular: Rate/Rhythm: regular rate and regular rhythm Gastrointestinal (Abdomen): normal bowel sounds, soft, nontender, no hepatosplenomegaly Musculoskeletal: Head/Neck/Chest: normocephalic and head atraumatic Neurologic: PERRL, EOMI, accommodation nl, no face palsy, no dysarthria Psychiatric: A+Ox3, euthymic affect _ (1) CHF (congestive heart failure) Heart failure chronicity: unspecified Heart failure type: unspecified Qualified Code(s): I50.9 - Heart failure, unspecified (2) Altered mental status Altered mental status type: unspecified Coma depth: Coma timing: Qualified Code(s): R41.82 - Altered mental status, unspecified
[2018-07-04] MEDS: TERAZOSIN HCL 1 MG CAP PO SCH (20:42)
[2018-07-04] MEDS: NORTRIPTYLINE HCL 25 MG CAP PO SCH (20:43)
[2018-07-05] MEDS: ATORVASTATIN 20 MG TAB PO SCH (08:38)
[2018-07-05] MEDS: TORSEMIDE 20 MG TAB PO SCH (08:39)
[2018-07-05] MEDS: CARVEDILOL 12.5 MG TAB PO SCH (08:39)
[2018-07-05] MEDS: ISOSORBIDE MONO EXTENDED REL 60 MG TABCR PO SCH (08:39)
[2018-07-05] MEDS: LISINOPRIL 40 MG TAB PO SCH (08:39)
[2018-07-05] MEDS: SENNA 8.6 MG TAB PO SCH (08:39)
[2018-07-05] MEDS: ASPIRIN 81 MG ECTAB PO SCH (08:39)
[2018-07-05] MEDS: TAMOXIFEN CITRATE 10 MG TABLET PO SCH (08:40)
[2018-07-05] MEDS: TAP WATER ENEMA PR SCH (08:40)
[2018-07-05] MEDS: DOCUSATE SODIUM 100 MG CAP PO SCH (08:45)
[2018-07-05] MEDS: INSULIN ASPART 100 UNITS/ML 3 ML PEN SC SCH ×3 (08:51→17:42)
--- NOTE | 2018-07-05 08:53 | XRay Report ---
XR abdomen 2V w PA chest CLINICAL HISTORY: Constipation. COMPARISON STUDY: 07/04/2018 FINDINGS: The heart is enlarged. There are suspected bilateral pleural effusions with associated by b asilar airspace opacities. There is mild pulmonary vascular congestion. There are postsurgical change s of midline sternotomy. There is no free intraperitoneal air. Supine and decubitus views the abdomen reveal no free intraperitoneal air. There is mild gaseous prominence of the colon likely secondary t o an ileus. There is no evidence of bowel obstruction. There is no evidence of significant fecal rete ntion. There are lytic lesions within the right scapula and possibly the left scapula. Skeletal metas tasis cannot be excluded. IMPRESSION: 1. Cardiomegaly, mild congestive failure, bilateral pleural effusions, and associated by basilar airs pace opacities 2. No evidence of bowel obstruction. No evidence of free air. 3. Mild gaseous prominence of the colon likely secondary to mild ileus 4. Suspected lytic bone disease involving the right scapula and possibly the left scapula. Clinical c orrelation is advocated, as lytic skeletal metastases are the diagnosis of exclusion Electronically signed by: Golden Flynn M.D. 07/05/2018 8:51 AM
--- NOTE | 2018-07-05 15:25 | Hospitalist Progress Note ---
Date of Service July 05, 2018 Assessment & Plan (1) CHF (congestive heart failure): BNP: 11,716, negative troponin on admission CXR 06/28/18: Right and to a lesser extent left basilar infiltrate. Pulmonary vascular congestion. Echo 06/29/18: grade III diastolic CHF, RV systolic function reduced, mild to moderate mitral regurg initially was on Lasix 40mg IV, and have been transitioned to transitioned to Torsemide 20mg po daily on this admission will need outpatient cardiology follow up (2) Altered mental status: -no evidence for stroke -as per neurology evluation on 06/30/18 "MRI scan shows no evidence for embolic infarction involving the left hemisphere but does show some possible metastatic disease involving the clivus which will be followed up by oncology. His heart failure is being evaluated and treated by cardiology. To date there is no apparent evidence for an underlying infection. His confusional episodes therefore probably by process of elimination, due to his congestive failure related encephalopathy and have now largely cleared." -Neurology clinic 07/10/2018 11:20 AM Provider Talia Mott PA-C Department Neurology [facility] -will need outpatient follow up with Oncologist Dr. Whiting (3) Shoulder pain: Moderate degenerative change. Osteopenia. No acute bony abnormality Suspected lytic bone disease involving the right scapula and possibly the left scapula (4) Left knee pain: no acute process of left knee or hip Abnormal bone mineralization mid femoral shaft raises the possibility of a metastatic process. No acute posttraumatic abnormality. -will need outpatient follow up with Oncologist Dr. Whiting (5) Hyperbilirubinemia: Total bilirubin and Direct Bilirubin noted to be abover reference range of normal on this admission -Liver US ordered 1. Prior cholecystectomy. No associated biliary ductal dilation. 2. Right nephrolithiasis without hydronephrosis. -Gastroenterology does not suspect biliary obstructions - Liver serologies to r/o autoimmune, hereditary liver disease, hepatitis: pending lab results for MEMO, AMA, Anti smooth muscle antibody, SPEP, ceruloplasmin, Alpha 1 antitrypsin, eliac serologies -generally normal iron studies, hepatitis negative - Avoid Hepatotoxic meds. -outpatient gastroenterology clinic follow up 07/22/2018 11:30 AM Provider CARRINGTON Villanueva Department Gastroenterology, [facility] (6) Chronic atrial fibrillation: Rate controlled in the 70s Not on anticoagulation: Refused anticoagulation in the past, h/o falls - Carvedilol 12.5 mg BID -cardiology clinic follow up07/22/2018 4:00 PM Provider Jared Johnson PA-C Department Cardiology [facility] (7) CAD (coronary artery disease): S/P CABG in 1993 no cardiac symptoms troponins negative -Continue imdur, carvedilol, aspirin (8) Breast cancer in male: Breast Cancer in Male with Metastasis, S/P mastectomy in 2012. 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 Other imaging Suspected lytic bone disease involving the right scapula and possibly the left scapula Abnormal bone mineralization mid femoral shaft raises the possibility of a metastatic process will need outpatient follow up with Oncologist Dr. Whiting (9) Diabetes: Diabetes Type II , controlled without mcfp use of insulin HA1c: 5.9 on 05/2018 -Hold metformin while in hospital -NovoLog sliding scale (10) Hypertension: -Continue lisinopril, carvedilol, imdur -continue Carvedilol 12.5 mg BID (11) HLD (hyperlipidemia): -Continue atorvastatin (12) Diabetic neuropathy: -Patient has been on nortriptyline for several years, will continue Constipation -bowel regimen with senna, colace, miralax -give lactulose x1 (13) BPH (benign prostatic hyperplasia): History urinary retention 04/2018 requiring Machado catheter in ER visit -machado removed on 07/02/18 -continue terasozin -urinary retention reported overnight between 07/03/18 to 07/04/18 and machado was placed again -removed machado on 07/05/18 and currently good trial of void Constipation Patient was found on abdominal X ray on 07/04/18 to be severely constipated after aggressive bowel regimen and attempt for fecal disimpaction, patient made bowel movements possibly that constipation could have contributed to urinary retention although patient did have urinary retention issues in the past removed machado on 07/05/18 and currently good trial of void DVT Prophylaxis - SCDs Deconditioning Patient is to be discharged from hospital and will go to [facility] for physical rehabiltation DNR/DNI Discharge Diagnosis Altered Mental Status (resolved). Acute on Chronic diastolic Congestive Heart failure, Atrial Fibrillation, Coronary Artery Disease, Controlled diabetes Mellitus type 2, Breast Cancer in Male with Metastasis, Urinary retention, Constipation Discharge Instructions Patient is to be discharged from hospital and will go to [facility] for physical rehabiltation Patient should follow up with Dr. Ashley Faustin Marc his oncologist at [address] [place] [address] Phone: after the hospital stay ([facility] appointment line were called but an actual appointment date has not been arranged yet and patient should see the oncologist in the next 7 to 10 days if possible) An osseous metastasis is questioned in the clivus. Suspected lytic bone disease involving the right scapula and possibly the left scapula Abnormal bone mineralization mid femoral shaft raises the possibility of a metastatic process Other follow ups 07/07/2018 3:00 PM Provider Lawrence Mallory MD Department Internal Medicine [facility] 07/10/2018 11:20 AM Provider Talia Mott PA-C Department Neurology [facility] 07/22/2018 11:30 AM Provider CARRINGTON Villanueva Department Gastroenterology, [facility] 07/22/2018 4:00 PM Provider Jared Johnson PA-C Department Cardiology [facility] 08/22/2018 11:15 AM Provider Nisha Rodríguez PA-C Department Hematology/ Oncology [facility] Patient should take Carvedilol 12.5 mg BID after discharge instead of previous home dosing of 6.25 mg BID Patient has rash of buttock and should have miconazole nitrate applied to buttock daily CHF Discharge Instructions Call your Primary Care doctor if any of the following symptoms or problems start or get worse: * Shortness of breath or difficulty breathing * Wake up at night short of breath * Chest pain * Cough * Swelling of your hands, feet, or legs * More fatigued or tired with your normal activity * Palpitations - sudden fast heart beats WEIGHT * Weigh yourself every morning after using the bathroom. * Use the same scale. * Wear the same amount of clothing. * Write your weight down on a chart. * Call your Primary Care doctor if you gain more than 2-3 pounds in 1-2 days. MEDICATIONS * Use this discharge instruction sheet for medication instructions. * Take your medications at the time your doctor ordered. * Do not skip a dose of your medicines. * If you miss a dose of medicine, take it as soon as possible, but DO NOT DOUBLE A DOSE. * Read your medicine information when you get home. * Know all of the side effects of your medicine. If in doubt, ask your pharmacist * Call your Primary Care doctor's office if you have any side effects. * Be sure all of your doctors know what medicine and herbs you take (including cold, flu, and herbal medicine). Take the following with you to your follow-up doctor appointments: * Weight Chart * Medication List * List of questions Do not drink excessive alcohol, beer or wine. Subjective Patient making bowel movements and follow up X ray without stool burden although did noted some lytic lesions of scapula which is likely related to patient's malignancy Denies pain of extremities Machado was removed and good trial of void after the constipation has resolved Denies chest pain or shortness of breath or abdominal pain Physical Exam 2 Vital Signs (Past 24 Hours): Last Vital Signs Temp 36.3 C L 07/05/18 15:00 Pulse 69 07/05/18 15:00 Resp 18 07/05/18 15:00 BP 132/89 07/05/18 15:00 Pulse Ox 95 07/05/18 15:00 Constitutional: WD/WN, vitals as above Eyes: PERRL, conjunctivae normal, anicteric sclerae EOM intact bilaterally ENMT: external ear and nose normal, oropharynx normal Neck: trachea midline, no thyromegaly Respiratory: normal respiratory effort, lungs clear to auscultation Cardiovascular: Rate/Rhythm: regular rate and regular rhythm Gastrointestinal (Abdomen): normal bowel sounds, soft, nontender, no hepatosplenomegaly Musculoskeletal: Head/Neck/Chest: normocephalic and head atraumatic Neurologic: PERRL, EOMI, accommodation nl, no face palsy, no dysarthria Psychiatric: A+Ox3, euthymic affect _ (1) CHF (congestive heart failure) Heart failure chronicity: unspecified Heart failure type: unspecified Qualified Code(s): I50.9 - Heart failure, unspecified (2) Altered mental status Altered mental status type: unspecified Coma depth: Coma timing: Qualified Code(s): R41.82 - Altered mental status, unspecified
--- NOTE | 2018-07-05 15:42 | Discharge Summary ---
Date of Service July 05, 2018 Admission HPI Per Admitting Provider Pt is 82 y/o M with PMH CAD s/p CABG in 1993, chronic atrial fibrillation refuses anticoagulation, HTN, HLD, DM II, BPH, thoracic aortic aneurysm, breast cancer diagnosed in 2012 with metastases to the spine diagnosed 02/2018 presented to ER with complaint of confusion this morning. Patient reports woke up this morning and was confused. He has a friend/neighbor who checks on him every morning and patient states was verbally hostile towards friend this morning which is very unlike him. He reports that he kept putting his pills in a bag instead of putting them in his mouth to swallow. Also reports was confused and thought the pill container lid was a pill. It is reported patient had noted trouble with word finding. Patient's daughter feels patient is less confused in the ER however still has some continued word finding troubles. He reports that he checked his BSG this morning and was 143. Denies any trouble swallowing or recent choking. Denies any falls since 2017. Reports some blurry vision past several weeks. Patient and daughter also reports that patient has had increased shortness of breath and orthopnea past several days with noted increased bilateral lower extremity edema and approximately 11 pound weight gain in the past 2 weeks. Was seen at PCP office yesterday given a prescription for torsemide 20 mg however has not started that yet. Denies chest pain. Reports intermittent clear productive cough for the past several months, without any recent worsening. Denies fever or chills. Patient with history syncope/fall in 02/2018 and was found to have left fibular head fracture, C7 fracture, further workup ensued and patient found to have bone metastases to L-spine, pelvis. Patient was discharged to [facility] and then discharged home. Has been ambulating with walker and uses wheelchair. Patient states since that time has had gradual increase generalized weakness, intermittent nausea, decreased appetite and shortness of breath with walking. Has chronic lower extremity paresthesias, denies any recent worsening or new parethesias. 04/2018 patient had urinary retension and was seen in ER requiring catheterization. Patient states since has had intermittent dysuria in the past few weeks has noticed dark urine. Reports has been urinating, unsure if complete bladder emptying. Has nocturia. Denies fever/chills, diaphoresis, V/D/C, ACEVES, dizziness, syncope, neck pain, CP, palpitations, hemoptysis, sore throat, otalgia, rhinorrhea, abdominal pain, rashes, hematuria, melena, hematochezia. Out patient records reviewed: -MRI L Spine w/o contrast 03/15/2018: T9 superior endplate fx, T1 sclerotic lesion compatible with mets, healing right 11th rib fx, 50% L1 compression fx, extensive hypointense mets seen throught lumbar spine and sacrum, sacral insufficiency fx -MRI C-Spine w/o contrast 03/15/18: displaced C7 spinous process fracture edema, multilevel disc degeneration -echo 12/2015: EF: 55-60% -Cardiac cath 2005 - patent vessels -Nuclear stress test 03/2015 - no inducible ischemia -CT CHEST: 12/2015: Atherosclerotic changes with mild ectasia of the thoracic aorta but no evidence of aneurysm or dissection Admission Exam Per Admitting Provider General: no acute distress, WDWN Head: normocephalic, atraumatic Eyes: PERRL, EOM's intact, conjunctiva non-injected, anicteric ENT: normal inspection external ears, nose, mucous membranes mildly dry Neck: supple, trachea midline, non-tender Lungs: R: 24, no retractions, +diminished, rales bases bilaterally, pulse ox 94 % on RA CV: irregularly irregular, rate 70's, systolic murmur, 3+ pretibial edema Abd: normal BS, soft, distended, non-tender Ext: no cyanosis, no calf tenderness Neuro: A&O to person, place, time, some noted trouble with word finding, tongue midline, no facial droop, bilateral upper and lower extremities 3/5 strength bilaterally, weak equal fabrication supervisor strength bilaterally, no pronator drift, normal affect Skin: warm, dry Principal Diagnosis Altered Mental Status (resolved). Acute on Chronic diastolic Congestive Heart failure, Atrial Fibrillation, Coronary Artery Disease, Controlled diabetes Mellitus type 2, Breast Cancer in Male with Metastasis, Urinary retention, Constipation Discharge Exam Constitutional WD/WN, vitals as above Eyes PERRL, conjunctivae normal, anicteric sclerae EOM intact bilaterally ENMT external ear and nose normal, oropharynx normal Neck trachea midline, no thyromegaly Respiratory normal respiratory effort, lungs clear to auscultation Cardiovascular Rate/Rhythm: regular rate and regular rhythm Gastrointestinal (Abdomen) normal bowel sounds, soft, nontender, no hepatosplenomegaly Musculoskeletal Head/Neck/Chest: normocephalic and head atraumatic Neurologic PERRL, EOMI, accommodation nl, no face palsy, no dysarthria Psychiatric A+Ox3, euthymic affect Discharge Data Allergies Allergy/AdvReac Type Severity Reaction Status Date / Time Penicillins AdvReac Unknown HAS Verified 05/21/18 10:33 TOLERATED CEPHALOSPORINS W/O RXN-lightheaded Consultations 06/28/18 10:28 ED Decision to Admit Stat 06/28/18 15:01 Consult Case Management - Discharge Planning Routine 06/29/18 11:33 Consult Neurology Routine 06/29/18 11:49 Consult Cardiology Routine 07/01/18 13:01 Consult Gastroenterology Routine Ordered Studies 06/28/18 08:53 CT head/brain wo con Stat 06/29/18 12:53 US carotid doppler BI Routine 06/29/18 13:38 MR brain wo/w con Routine 07/01/18 13:01 US liver Routine Hospital Course (1) CHF (congestive heart failure): BNP: 11,716, negative troponin on admission CXR 06/28/18: Right and to a lesser extent left basilar infiltrate. Pulmonary vascular congestion. Echo 06/29/18: grade III diastolic CHF, RV systolic function reduced, mild to moderate mitral regurg initially was on Lasix 40mg IV, and have been transitioned to transitioned to Torsemide 20mg po daily on this admission will need outpatient cardiology follow up (2) Altered mental status: -no evidence for stroke -as per neurology evluation on 06/30/18 "MRI scan shows no evidence for embolic infarction involving the left hemisphere but does show some possible metastatic disease involving the clivus which will be followed up by oncology. His heart failure is being evaluated and treated by cardiology. To date there is no apparent evidence for an underlying infection. His confusional episodes therefore probably by process of elimination, due to his congestive failure related encephalopathy and have now largely cleared." -Neurology clinic 07/10/2018 11:20 AM Provider Talia Mott PA-C Department Neurology [facility] -will need outpatient follow up with Oncologist Dr. Whiting (3) Shoulder pain: Moderate degenerative change. Osteopenia. No acute bony abnormality Suspected lytic bone disease involving the right scapula and possibly the left scapula (4) Left knee pain: no acute process of left knee or hip Abnormal bone mineralization mid femoral shaft raises the possibility of a metastatic process. No acute posttraumatic abnormality. -will need outpatient follow up with Oncologist Dr. Whiting (5) Hyperbilirubinemia: Total bilirubin and Direct Bilirubin noted to be abover reference range of normal on this admission -Liver US ordered 1. Prior cholecystectomy. No associated biliary ductal dilation. 2. Right nephrolithiasis without hydronephrosis. -Gastroenterology does not suspect biliary obstructions - Liver serologies to r/o autoimmune, hereditary liver disease, hepatitis: pending lab results for MEMO, AMA, Anti smooth muscle antibody, SPEP, ceruloplasmin, Alpha 1 antitrypsin, eliac serologies -generally normal iron studies, hepatitis negative - Avoid Hepatotoxic meds. -outpatient gastroenterology clinic follow up 07/22/2018 11:30 AM Provider CARRINGTON Villanueva Department Gastroenterology, [facility] (6) Chronic atrial fibrillation: Rate controlled in the 70s Not on anticoagulation: Refused anticoagulation in the past, h/o falls - Carvedilol 12.5 mg BID -cardiology clinic follow up07/22/2018 4:00 PM Provider Jared Johnson PA-C Department Cardiology [facility] (7) CAD (coronary artery disease): S/P CABG in 1993 no cardiac symptoms troponins negative -Continue imdur, carvedilol, aspirin (8) Breast cancer in male: Breast Cancer in Male with Metastasis, S/P mastectomy in 2012. 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 Other imaging Suspected lytic bone disease involving the right scapula and possibly the left scapula Abnormal bone mineralization mid femoral shaft raises the possibility of a metastatic process will need outpatient follow up with Oncologist Dr. Whiting (9) Diabetes: Diabetes Type II , controlled without alf use of insulin HA1c: 5.9 on 05/2018 -Hold metformin while in hospital -NovoLog sliding scale (10) Hypertension: -Continue lisinopril, carvedilol, imdur -continue Carvedilol 12.5 mg BID (11) HLD (hyperlipidemia): -Continue atorvastatin (12) Diabetic neuropathy: -Patient has been on nortriptyline for several years, will continue Constipation -bowel regimen with senna, colace, miralax -give lactulose x1 (13) BPH (benign prostatic hyperplasia): History urinary retention 04/2018 requiring Machado catheter in ER visit -machado removed on 07/02/18 -continue terasozin -urinary retention reported overnight between 07/03/18 to 07/04/18 and machado was placed again -removed machado on 07/05/18 and currently good trial of void Constipation Patient was found on abdominal X ray on 07/04/18 to be severely constipated after aggressive bowel regimen and attempt for fecal disimpaction, patient made bowel movements possibly that constipation could have contributed to urinary retention although patient did have urinary retention issues in the past removed machado on 07/05/18 and currently good trial of void DVT Prophylaxis - SCDs Deconditioning Patient is to be discharged from hospital and will go to [facility] for physical rehabiltation DNR/DNI Discharge Diagnosis Altered Mental Status (resolved). Acute on Chronic diastolic Congestive Heart failure, Atrial Fibrillation, Coronary Artery Disease, Controlled diabetes Mellitus type 2, Breast Cancer in Male with Metastasis, Urinary retention, Constipation Discharge Instructions Patient is to be discharged from hospital and will go to [facility] for physical rehabiltation Patient should follow up with Dr. Ashley Tran his oncologist at [address] [place] [address] Phone: after the hospital stay ([facility] appointment line were called but an actual appointment date has not been arranged yet and patient should see the oncologist in the next 7 to 10 days if possible) An osseous metastasis is questioned in the clivus. Suspected lytic bone disease involving the right scapula and possibly the left scapula Abnormal bone mineralization mid femoral shaft raises the possibility of a metastatic process Other follow ups 07/07/2018 3:00 PM Provider Lawrence Mallory MD Department Internal Medicine [facility] 07/10/2018 11:20 AM Provider Talia Mott PA-C Department Neurology [facility] 07/22/2018 11:30 AM Provider Sharmin Salim Nemesio, RIB TRIM SEPARATOR Department Gastroenterology, [facility] 07/22/2018 4:00 PM Provider Jared Johnson PA-C Department Cardiology [facility] 08/22/2018 11:15 AM Provider Nisha Rodríguez PA-C Department Hematology/ Oncology [facility] Patient should take Carvedilol 12.5 mg BID after discharge instead of previous home dosing of 6.25 mg BID Patient has rash of buttock and should have miconazole nitrate applied to buttock daily CHF Discharge Instructions Call your Primary Care doctor if any of the following symptoms or problems start or get worse: * Shortness of breath or difficulty breathing * Wake up at night short of breath * Chest pain * Cough * Swelling of your hands, feet, or legs * More fatigued or tired with your normal activity * Palpitations - sudden fast heart beats WEIGHT * Weigh yourself every morning after using the bathroom. * Use the same scale. * Wear the same amount of clothing. * Write your weight down on a chart. * Call your Primary Care doctor if you gain more than 2-3 pounds in 1-2 days. MEDICATIONS * Use this discharge instruction sheet for medication instructions. * Take your medications at the time your doctor ordered. * Do not skip a dose of your medicines. * If you miss a dose of medicine, take it as soon as possible, but DO NOT DOUBLE A DOSE. * Read your medicine information when you get home. * Know all of the side effects of your medicine. If in doubt, ask your pharmacist * Call your Primary Care doctor's office if you have any side effects. * Be sure all of your doctors know what medicine and herbs you take (including cold, flu, and herbal medicine). Take the following with you to your follow-up doctor appointments: * Weight Chart * Medication List * List of questions Do not drink excessive alcohol, beer or wine. Total Time Total Time Spent Total Time Spent (In Minutes): 40 minutes Total Time Includes: Examination of the Patient, Discharge Planning and Medication Reconciliation Discharge Plan Discharge Items Patient Disposition: Transfer Inpatient Rehab Fac Reason For Visit: FLUID OVERLOAD,CONFUSION Discharge Diagnosis: Altered Mental Status (resolved). Acute on Chronic diastolic Congestive Heart failure, Atrial Fibrillation, Coronary Artery Disease , Controlled diabetes Mellitus type 2, Breast Cancer in Male with Metastasis, Urinary retention, Constipation Condition: Good Discharge Goals: Improve disease control Activity: Resume your previous activity Non-emergency contact: Primary Care Provider and Specialist Call non-emergency contact if: you have any medication questions Diet: Regular Addtl Provider Instructions: Patient is to be discharged from hospital and will go to [facility] for physical rehabiltation Patient should follow up with Dr. Ashley Tran his oncologist at [address] [place] [address] Phone: after the hospital stay ([facility] appointment line were called but an actual appointment date has not been arranged yet and patient should see the oncologist in the next 7 to 10 days if possible) An osseous metastasis is questioned in the clivus. Suspected lytic bone disease involving the right scapula and possibly the left scapula Abnormal bone mineralization mid femoral shaft raises the possibility of a metastatic process Other follow ups 07/07/2018 3:00 PM Provider Lawrence Mallory MD Department Internal Medicine [facility] 07/10/2018 11:20 AM Provider Talia Mott PA-C Department Neurology [facility] 07/22/2018 11:30 AM Provider CARRINGTON Villanueva Department Gastroenterology, [facility] 07/22/2018 4:00 PM Provider Jared Johnson PA-C Department Cardiology [facility] 08/22/2018 11:15 AM Provider Nisha Rodríguez PA-C Department Hematology/ Oncology [facility] Patient should take Carvedilol 12.5 mg BID after discharge instead of previous home dosing of 6.25 mg BID Patient has rash of buttock and should have miconazole nitrate applied to buttock daily CHF Discharge Instructions Call your Primary Care doctor if any of the following symptoms or problems start or get worse: * Shortness of breath or difficulty breathing * Wake up at night short of breath * Chest pain * Cough * Swelling of your hands, feet, or legs * More fatigued or tired with your normal activity * Palpitations - sudden fast heart beats WEIGHT * Weigh yourself every morning after using the bathroom. * Use the same scale. * Wear the same amount of clothing. * Write your weight down on a chart. * Call your Primary Care doctor if you gain more than 2-3 pounds in 1-2 days. MEDICATIONS * Use this discharge instruction sheet for medication instructions. * Take your medications at the time your doctor ordered. * Do not skip a dose of your medicines. * If you miss a dose of medicine, take it as soon as possible, but DO NOT DOUBLE A DOSE. * Read your medicine information when you get home. * Know all of the side effects of your medicine. If in doubt, ask your pharmacist * Call your Primary Care doctor's office if you have any side effects. * Be sure all of your doctors know what medicine and herbs you take (including cold, flu, and herbal medicine). Take the following with you to your follow-up doctor appointments: * Weight Chart * Medication List * List of questions Do not drink excessive alcohol, beer or wine. Prescriptions: New carvedilol 12.5 mg Tablet 12.5 mg PO BID 30 Days Qty: 60 RF: 0 miconazole nitrate [Desenex] 2 % Powder 1 applic EXT DAILY 15 Days Qty: 1 RF: 1 Continue torsemide 20 mg tablet 20 mg PO DAILY RF: 0 acetaminophen [Tylenol Extra Strength] 500 mg Tablet 1,000 mg PO Q6H PRN (Reason: Fever Or Pain) RF: 0 atorvastatin 20 mg tablet 20 mg PO DAILY RF: 0 diclofenac sodium 50 mg tablet,delayed release (DR/EC) 50 mg PO TID PRN (Reason: Pain) RF: 0 isosorbide mononitrate 60 mg tablet extended release 24 hr 60 mg PO DAILY RF: 0 lisinopril 40 mg tablet 40 mg PO DAILY RF: 0 polyethylene glycol 3350 [Miralax] 17 gram/dose Powder 17 g PO DAILY PRN (Reason: Constipation) RF: 0 nitroglycerin 0.4 mg tablet, sublingual 0.4 mg Sublingual UD RF: 0 psyllium Powder 1 scoop/day PO TID PRN (Reason: Constipation) RF: 0 tamoxifen 20 mg Tablet 20 mg PO DAILY RF: 0 metformin 500 mg Tablet 500 mg PO BIDM RF: 0 sennosides-docusate sodium [Senna with Docusate Sodium] 8.6-50 mg Tablet 2 tab PO HS RF: 0 aspirin [Aspirin Low Dose] 81 mg Tablet,Delayed Release (Dr/Ec) 81 mg PO DAILY RF: 0 nortriptyline 25 mg Capsule 25 mg PO HS RF: 0 terazosin 2 mg Capsule 2 mg PO HS RF: 0 Discontinued carvedilol 6.25 mg Tablet 6.25 mg PO BID RF: 0 Stand-Alone Forms: [facility] Discharge Orders: Discharge Order (Routine); Ordered 07/05/18 Ordered By: Elliot Cruz Skilled Items Patient informed of condition?: Yes DNR: Yes Discharge Level of Care: Acute rehab Communicable Disease: No Discharge Prognosis: Stable Admission Data Admit Date/Time: 06/28/18 11:53 Attending Provider: Elliot Cruz Admit Provider: Elliot Galeas Primary Care Provider: Lawrence Mallory Other Providers: Elliot Galeas ; Talia Mott ; Marcelino Garcia ; Talia Leiva ; Juan Molina ; Darin Smith ; Janet Cochran ; Matt Fritz ; [place] ; Campbell Quiñones ; Ezra Santiago ; Da Quintana ; Jared Johnson ; Linda Cox ; Talia Schulz ; Harvey Munguia ; Alpesh Aden ; Sana Garcia ; Victorino Roach ; Tonie Miguel ; Deanna Spann ; Lulú Christine ; Kemal Paris ; Roderick Gama. ; Bridgett Palomo ; Rosalia Perez ; Sharmin Herr ; Natalia Mathur ; Ruslan Troncoso Service: Telemetry Medical Other Interventions: Discharge Summary Assessment (RN) Last Done: 07/05/18 14:26
[2018-07-06 20:52] LABS: Albumin 2.9 G/DL (3.8-4.8); Alpha 1 Antitrypsin >300 MG/DL (83-199); Alpha 1 Globulin 0.5 G/DL (0.2-0.3); Alpha 2 Globulin 0.7 G/DL (0.5-0.9); Anti Nuclear Antibody Screen POSITIVE (NEGATIVE); Beta-1-Globulin 0.3 G/DL (0.4-0.6); Beta-2-Globulin 0.3 G/DL (0.2-0.5); Ceruloplasmin 41 MG/DL (18-36); Gamma Globulin 0.8 G/DL (0.8-1.7); IgA Serum 176 mg/dL (81-463); Monoclonal Protein Band 1 DNR G/DL (NOT DETECTED); Monoclonal Protein Band 2 DNR G/DL (NOT DETECTED); Monoclonal Protein Band 3 DNR G/DL (NOT DETECTED); Tis Trans IgA 1 U/mL (<4); Total Protein 5.5 G/DL (6.2-8.3)
--- NOTE | 2018-07-07 09:46 | Coding Query ---
CODING QUERY To promote full compliance with coding requirements relating to patient care, provider participation is requested in all cases of bone char kiln operator uncertainty. Please assist us with the question(s) below: Coding Question: The following was documented in the progress notes: "His confusional episodes therefore probably by process of elimination, due to his congestive failure related encephalopathy", confusion/disorientation were also documented throughout. Please clarify below to the best of your knowledge. Thank you for your help! () Metabolic encephalopathy, present on admission (x) Encephalopathy, unspecified, present on admission () Other encephalopathy, present on admission () Encephalopathy, ruled-out () Other, explain Thank you! Shira Sy Principal Diagnosis: "that condition established after study, to be chiefly responsible for occasioning the admission of the patient to the hospital for care." Co-Existing Principal Diagnosis: "when two or more diagnoses equally meet the criteria for principal diagnosis as determined by the circumstances of admission , diagnostic work up, and/or therapy provided, and the Alphabetic Index, Tabular List, or another coding guideline does not provide sequencing direction , any one of the diagnoses may be sequenced first." "When the physician has documented what appears to be a current diagnosis in the body of the record, but has not included the diagnosis in the final diagnostic statement, the physician should be asked whether the diagnosis should be added." (Source [facility]oding [facility] 2 QTR90. p3-4) ROSAURA
[2018-07-07 11:15] LABS: ANA Pattern SPECKLED; ANA Titer > OR = 1:1280 TITER (<1:40)
== END 2018-07-05 17:55 | DRG 292 ==
LOC: ED 08:23 → SUATTDRO 11:53 → 2N 11:53 → 4E 07-04 02:38

== ENCOUNTER 2018-11-18 19:36 | Inpatient (IN) ==
[2018-11-18] MEDS ORDERED: OPTIRAY 320 125ml IV PRN (20:10)
[2018-11-18 20:14] LABS: Basophils # (auto) 0.01 K/uL (0-0.2); Basophils % (auto) 0.2 %; Eosinophils # (auto) 0.26 K/uL (0-0.5); Eosinophils % (auto) 4.9 %; Hematocrit (blood only) 34.2 % (42-52); Hemoglobin 11.4 g/dL (14.0-18.0); Immature Granulocytes # (auto) 0.01 K/uL (0.00-0.02); Immature Granulocytes % (auto) 0.2 %; Lymphocytes # (auto) 1.14 K/uL (1.2-3.4); Lymphocytes % (auto) 21.3 %; Mean Corpuscular Hgb Conc 33.3 g/dL (32-36); Mean Corpuscular Volume 88.6 fL (80-100); Mean Platelet Volume 10.1 fL (7.4-10.4); Monocytes # (auto) 0.42 K/uL (0.11-0.59); Monocytes % (auto) 7.9 %; Neutrophils # (auto) 3.51 K/uL (1.4-6.5); Neutrophils % (auto) 65.5 %; Platelet Count 113 K/uL (130-400); RDW Coefficient of Variation 15.6 % (11.5-14.5); RDW Standard Deviation 50.8 fL (36.4-46.3); Red Blood Count 3.86 M/uL (4.7-6.1); White Blood Count 5.35 K/uL (4.8-10.8)
--- NOTE | 2018-11-18 20:20 | CT Scan Report ---
CT OF THE HEAD WITHOUT CONTRAST CLINICAL HISTORY: Stroke evaluation COMPARISON STUDY: Head CT June 28, 2018. MRI of the brain June 29, 2018. TECHNIQUE: Helical axial images of the head were obtained without IV contrast. Automated exposure con trol was utilized for the study. A dose lowering technique was utilized adhering to the principles o f ALARA. FINDINGS: No acute intracranial hemorrhage, midline shift or mass effect is present. Ventricular syst em is stable. The basilar cisterns are patent. There are no extra-axial collections. There are no fin dings to suggest acute dural sinus thrombosis or acute territorial infarct. Several sclerotic lesions are noted, including within the right temporal bone and the clivus. IMPRESSION: 1. No acute intracranial findings. 2. Several skeletal lesions which favor skeletal metastatic disease. Electronically signed by: James Woodall M.D. 11/18/2018 8:18 PM
[2018-11-18 20:25] LABS: INR 1.1 (0.9-1.1); Partial Thromboplastin Ratio 0.9; Partial Thromboplastin Time 25.4 Seconds (21.0-31.0); Prothrombin Time 11.5 Seconds (9.0-12.0)
[2018-11-18 20:31] LABS: Alanine Aminotransferase 17 U/L (12-78); Albumin Level 3.4 gm/dl (3.4-5.0); Aspartate Aminotransferase 19 U/L (15-37); BUN Creatinine Ratio 22.8 (10-20); Blood Urea Nitrogen 24 mg/dl (7-18); Calcium 8.4 mg/dl (8.5-10.1); Carbon Dioxide 27 mmol/L (21-32); Chloride 106 mmol/L (98-107); Creatinine Clr Calc Pharmacy 72.6 ml/min; Est GFR (African American) 76.4; Glucose 109 mg/dl (70-99); Potassium 3.9 mmol/L (3.5-5.1); Sodium 139 mmol/L (136-145)
[2018-11-18 20:36] LABS: Alkaline Phosphatase 77 U/L (45-117); Bilirubin,Total 1.3 mg/dl (0.2-1); Globulin 3.5 gm/dl (2.5-4.0); Total Protein 6.9 gm/dl (6.4-8.2); Troponin I < 0.015 ng/ml (0-0.045)
--- NOTE | 2018-11-18 20:37 | CT Scan Report ---
CT ANGIOGRAPHY OF THE NECK WITH CONTRAST CLINICAL HISTORY: Left-sided weakness. COMPARISON STUDY: PET/CT October 27, 2018. Technique: CT angiography of the carotid and vertebral arteries was obtained using [employer] 320 IV and 3D reconstruction on an independent workstation. NASCET criteria was utilized. Automated exposure c ontrol was utilized for the study. A dose lowering technique was utilized adhering to the principles of ALARA. CT DOSE: 1103.82 mGy.cm Findings: The bilateral common carotid and cervical internal carotid arteries are patent. There is mi ld atherosclerotic plaque. No dissection. The left vertebral artery is dominant. There is moderate to severe stenosis of the proximal intracranial portion of the left vertebral artery due to extensive c alcified atherosclerotic plaque. Bilateral pleural effusions right larger left, are partially imaged. Multinodular thyroid goiter is noted. Innumerable mixed lytic and sclerotic skeletal lesions are not ed. The CTA of the head will be reported separately. IMPRESSION: 1. Mild atherosclerotic plaque with no significant stenosis within the major vessels of the neck. 2. Moderate to severe stenosis of the proximal intracranial portion of the left vertebral artery due to extensive calcified atherosclerotic plaque. 3. 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 Electronically signed by: James Woodall M.D. 11/18/2018 8:36 PM
--- NOTE | 2018-11-18 20:44 | CT Scan Report ---
CTA ANGIOGRAPHY OF THE HEAD CLINICAL HISTORY: Left-sided weakness. COMPARISON STUDY: MRI of the brain June 29, 2018. Head CT June 28, 2018. TECHNIQUE: Helical axial images of the head were obtained following uneventful intravenous administr ation of 115 cc of Optiray 320. Automated exposure control was utilized for the study. A dose lower ing technique was utilized adhering to the principles of ALARA. FINDINGS: Please note that the CTA of the neck will be reported separately. 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 No add itional sites of vessel occlusion are noted. 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 There is persistence of the right posterior cerebral artery. There is no intracranial aneurysm. There is moderate plaque wit hin bilateral cavernous carotids without stenosis. No acute intracranial hemorrhage, midline shift or mass effect is present. 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 IMPRESSION: 1. 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 2. 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 3. Extensive skeletal metastatic disease. Electronically signed by: James Woodall M.D. 11/18/2018 8:43 PM
--- NOTE | 2018-11-18 21:15 | XRay Report ---
XR chest 1V portable CLINICAL HISTORY: Weakness. Breast cancer. COMPARISON STUDY: Chest radiograph August 12, 2018. FINDINGS: There are median sternotomy wires and clips from bypass grafting. Moderate cardiomegaly is noted. Moderate bilateral pleural effusions are noted. There is no pneumothorax. Numerous skeletal me tastases are noted. There is mild edema. Bibasilar opacities are noted. IMPRESSION: 1. Mild pulmonary edema with moderate bilateral pleural effusions and bibasilar opacities may reflect atelectasis or consolidation. 2. Numerous skeletal metastases. Electronically signed by: James Woodall M.D. 11/18/2018 9:14 PM
--- NOTE | 2018-11-18 21:21 | Emergency Department Note ---
Entered by Alma Rosa Alas acting as a scribe for History of Present Illness General Chief complaint: Stroke/CVA Symptoms Stated complaint: CVA SYMPTOMS Time Seen by Provider: 11/18/18 19:44 Source: patient and family History of Present Illness Onset (ago): hour(s) 3 Location: left Pain Consistency: + other (persistent ) Maximum Pain Intensity: 5 Quality: + other (weakness) Associated symptoms: + confusion, + headaches and + other (positive leaning to left side while standing; positive driving electric wheelchair to the left; negative abdominal pain); no nausea/vomiting The patient is a 82 year old male who presents to the Emergency Room with complaints of persistent left-sided weakness that began at about 1700, about 3 hours prior to arrival. The patient's family states that at about this time, the patient began to drive his electric wheelchair to the left and leaning to the left side of his body when standing up. The patient's family states that the patient has been somewhat confused during this time. The patient states that he has a headache that began at the time of his other symptoms. The patient denies abdominal pain, nausea, and vomiting. Home Medications Home Medications Medication Instructions Recorded Confirmed Type aspirin [Aspirin Low Dose] 81 mg PO QAM 05/21/18 11/18/18 History metformin 500 mg PO BIDM 05/21/18 11/18/18 History nortriptyline 25 mg PO HS 05/21/18 11/18/18 History sennosides-docusate sodium [Senna 2 tab PO HS 05/21/18 11/18/18 History with Docusate Sodium] acetaminophen [Tylenol Extra 1,000 mg PO Q6H PRN 06/28/18 11/18/18 History Strength] atorvastatin 20 mg PO [facility] 06/28/18 11/18/18 History diclofenac sodium 50 mg PO TID PRN 06/28/18 11/18/18 History isosorbide mononitrate 60 mg PO [facility] 06/28/18 11/18/18 History lisinopril 40 mg PO QAM 06/28/18 11/18/18 History nitroglycerin 0.4 mg SUBLINGUAL UD 06/28/18 11/18/18 History tamoxifen 20 mg PO QAM 06/28/18 11/18/18 History torsemide 20 mg PO QAM 06/28/18 11/18/18 History carvedilol 12.5 mg PO BIDM 08/12/18 11/18/18 History Metamucil Smooth 58.6% Powder 1 dose PO TID PRN 11/18/18 11/18/18 History calcium carbonate-vitamin D3 1 cap PO DAILY 11/18/18 11/18/18 History [Calcium 600 + D(3)] magnesium hydroxide [Milk of 0 ml PO DAILY PRN 11/18/18 11/18/18 History Magnesia] polyethylene glycol 3350 [Miralax] 17 g PO DAILY PRN 11/18/18 11/18/18 History potassium, sodium phosphates 1 packet PO BID 11/18/18 11/18/18 History [Phos-NaK] terazosin 2 mg PO HS 11/18/18 11/18/18 History Allergies Allergy/AdvReac Type Severity Reaction Status Date / Time Penicillins AdvReac Unknown HAS Verified 08/18/18 10:51 TOLERATED CEPHALOSPORINS W/O RXN-lightheaded Past Med/Surg History Medical History Pressure ulcer (Acute) LFTs abnormal Hyperbilirubinemia Left knee pain Shoulder pain Breast cancer in male (Chronic) HLD (hyperlipidemia) (Chronic) Chronic atrial fibrillation (Chronic) CAD (coronary artery disease) (Chronic) Thoracic aortic aneurysm (Chronic) CHF (congestive heart failure) (Acute) Altered mental status (Acute) MRSA (methicillin resistant Staphylococcus aureus) (Resolved) Diabetes (Chronic) Hypertension (Chronic) Hepatitis (Resolved) Diabetic neuropathy (Chronic) Diabetic retinopathy (Chronic) Renal insufficiency (Chronic) BPH (benign prostatic hyperplasia) (Chronic) History of diabetic ulcer of foot (Resolved) Status post partial amputation of foot (Resolved) Pneumonia (Inactive) Bone cancer Kidney stones Surgical History Hx of CABG (Resolved) 1993 Hx of cholecystectomy (Resolved) H/O breast surgery (Chronic) Family History Other Colon cancer Diabetes Family history non-contributory Hypertension Social History Preferred Language: Egyptian Communication Ability: Effective Visual Impairment: No Limitations Hearing Ability: Normal 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 and A total of 10 systems reviewed and were otherwise negative Physical Exam Vital Signs Vital Signs - 24 hr 11/18/18 19:39 11/18/18 19:48 11/18/18 19:51 Temperature 36.3 C L Temperature Source Oral Sepsis Recent Fever Within 48 Hours No Sepsis New/Unexplained Change in Mental Status No Sepsis Action Taken by Nursing No Action Required Pulse Rate 79 88 81 Pulse Rate [Finger] Pulse Rate from SpO2 Sensor 87 84 Respiratory Rate 20 24 29 H Respiratory Effort / Characteristics Respiratory Depth Blood Pressure 225/114 H 223/121 H Blood Pressure [Left Arm] Blood Pressure Mean 151 155 Blood Pressure Mean [Left Arm] Pulse Oximetry 95 92 93 Oxygen Delivery Method Oxygen Flow Rate 11/18/18 20:00 11/18/18 20:13 11/18/18 20:14 Temperature Temperature Source Sepsis Recent Fever Within 48 Hours Sepsis New/Unexplained Change in Mental Status Sepsis Action Taken by Nursing Pulse Rate 80 Pulse Rate [Finger] Pulse Rate from SpO2 Sensor 76 79 Respiratory Rate 19 Respiratory Effort / Characteristics Respiratory Depth Blood Pressure 227/109 H Blood Pressure [Left Arm] Blood Pressure Mean 148 Blood Pressure Mean [Left Arm] Pulse Oximetry 95 98 94 Oxygen Delivery Method Room Air Oxygen Flow Rate 11/18/18 20:16 11/18/18 20:21 11/18/18 20:26 Temperature Temperature Source Sepsis Recent Fever Within 48 Hours Sepsis New/Unexplained Change in Mental Status Sepsis Action Taken by Nursing Pulse Rate 74 80 80 Pulse Rate [Finger] Pulse Rate from SpO2 Sensor 80 82 82 Respiratory Rate 22 26 H 22 Respiratory Effort / Characteristics Respiratory Depth Blood Pressure 225/116 H 231/123 H 237/128 H Blood Pressure [Left Arm] Blood Pressure Mean 152 159 164 Blood Pressure Mean [Left Arm] Pulse Oximetry 93 93 96 Oxygen Delivery Method Oxygen Flow Rate 11/18/18 20:30 11/18/18 20:31 11/18/18 20:35 Temperature Temperature Source Sepsis Recent Fever Within 48 Hours Sepsis New/Unexplained Change in Mental Status Sepsis Action Taken by Nursing Pulse Rate 85 77 79 Pulse Rate [Finger] Pulse Rate from SpO2 Sensor 85 82 Respiratory Rate 27 H 20 27 H Respiratory Effort / Characteristics Respiratory Depth Blood Pressure 219/147 H Blood Pressure [Left Arm] Blood Pressure Mean 171 Blood Pressure Mean [Left Arm] Pulse Oximetry 93 89 L Oxygen Delivery Method Oxygen Flow Rate 11/18/18 20:36 11/18/18 20:40 11/18/18 20:41 Temperature Temperature Source Sepsis Recent Fever Within 48 Hours Sepsis New/Unexplained Change in Mental Status Sepsis Action Taken by Nursing Pulse Rate 82 87 82 Pulse Rate [Finger] Pulse Rate from SpO2 Sensor Respiratory Rate 20 21 22 Respiratory Effort / Characteristics Respiratory Depth Blood Pressure 192/95 H 200/102 H Blood Pressure [Left Arm] Blood Pressure Mean 127 134 Blood Pressure Mean [Left Arm] Pulse Oximetry Oxygen Delivery Method Oxygen Flow Rate 11/18/18 20:45 11/18/18 20:46 11/18/18 20:50 Temperature Temperature Source Sepsis Recent Fever Within 48 Hours Sepsis New/Unexplained Change in Mental Status Sepsis Action Taken by Nursing Pulse Rate 84 85 81 Pulse Rate [Finger] Pulse Rate from SpO2 Sensor Respiratory Rate 27 H 19 25 H Respiratory Effort / Characteristics Respiratory Depth Blood Pressure 191/99 H Blood Pressure [Left Arm] Blood Pressure Mean 129 Blood Pressure Mean [Left Arm] Pulse Oximetry Oxygen Delivery Method Oxygen Flow Rate 11/18/18 20:51 11/18/18 20:55 11/18/18 20:56 Temperature Temperature Source Sepsis Recent Fever Within 48 Hours Sepsis New/Unexplained Change in Mental Status Sepsis Action Taken by Nursing Pulse Rate 84 84 87 Pulse Rate [Finger] Pulse Rate from SpO2 Sensor Respiratory Rate 24 27 H 21 Respiratory Effort / Characteristics Respiratory Depth Blood Pressure 192/88 H 191/93 H Blood Pressure [Left Arm] Blood Pressure Mean 122 125 Blood Pressure Mean [Left Arm] Pulse Oximetry Oxygen Delivery Method Oxygen Flow Rate 11/18/18 21:00 11/18/18 21:01 11/18/18 21:05 Temperature Temperature Source Sepsis Recent Fever Within 48 Hours Sepsis New/Unexplained Change in Mental Status Sepsis Action Taken by Nursing Pulse Rate 81 87 88 Pulse Rate [Finger] Pulse Rate from SpO2 Sensor Respiratory Rate 25 H 21 28 H Respiratory Effort / Characteristics Respiratory Depth Blood Pressure 189/94 H Blood Pressure [Left Arm] Blood Pressure Mean 125 Blood Pressure Mean [Left Arm] Pulse Oximetry Oxygen Delivery Method Oxygen Flow Rate 11/18/18 21:06 11/18/18 21:10 11/18/18 21:11 Temperature Temperature Source Sepsis Recent Fever Within 48 Hours Sepsis New/Unexplained Change in Mental Status Sepsis Action Taken by Nursing Pulse Rate 83 90 84 Pulse Rate [Finger] Pulse Rate from SpO2 Sensor Respiratory Rate 25 H 26 H 21 Respiratory Effort / Characteristics Respiratory Depth Blood Pressure 185/85 H 197/98 H Blood Pressure [Left Arm] Blood Pressure Mean 118 131 Blood Pressure Mean [Left Arm] Pulse Oximetry Oxygen Delivery Method Oxygen Flow Rate 11/18/18 21:15 11/18/18 21:16 11/18/18 21:18 Temperature Temperature Source Sepsis Recent Fever Within 48 Hours Sepsis New/Unexplained Change in Mental Status Sepsis Action Taken by Nursing Pulse Rate 87 82 Pulse Rate [Finger] 87 Pulse Rate from SpO2 Sensor Respiratory Rate 20 20 20 Respiratory Effort / Characteristics Respiratory Depth Blood Pressure 168/107 H Blood Pressure [Left Arm] 168/107 H Blood Pressure Mean 127 Blood Pressure Mean [Left Arm] 127 Pulse Oximetry 90 Oxygen Delivery Method Room Air Oxygen Flow Rate 11/18/18 21:20 11/18/18 21:21 11/18/18 21:23 Temperature Temperature Source Sepsis Recent Fever Within 48 Hours Sepsis New/Unexplained Change in Mental Status Sepsis Action Taken by Nursing Pulse Rate 85 85 Pulse Rate [Finger] 85 Pulse Rate from SpO2 Sensor 85 84 Respiratory Rate 17 18 20 Respiratory Effort / Characteristics Non-Labored Respiratory Depth Normal Blood Pressure 153/85 H Blood Pressure [Left Arm] 153/85 H Blood Pressure Mean 107 Blood Pressure Mean [Left Arm] 107 Pulse Oximetry 93 96 96 Oxygen Delivery Method Nasal Cannula Nasal Cannula Oxygen Flow Rate 2 2 11/18/18 21:25 11/18/18 21:26 11/18/18 21:30 Temperature Temperature Source Sepsis Recent Fever Within 48 Hours Sepsis New/Unexplained Change in Mental Status Sepsis Action Taken by Nursing Pulse Rate 82 80 86 Pulse Rate [Finger] Pulse Rate from SpO2 Sensor 86 81 89 Respiratory Rate 21 19 16 Respiratory Effort / Characteristics Respiratory Depth Blood Pressure 158/82 H Blood Pressure [Left Arm] Blood Pressure Mean 107 Blood Pressure Mean [Left Arm] Pulse Oximetry 96 96 96 Oxygen Delivery Method Oxygen Flow Rate 11/18/18 21:31 11/18/18 21:35 11/18/18 21:36 Temperature Temperature Source Sepsis Recent Fever Within 48 Hours Sepsis New/Unexplained Change in Mental Status Sepsis Action Taken by Nursing Pulse Rate 89 88 85 Pulse Rate [Finger] Pulse Rate from SpO2 Sensor 85 88 83 Respiratory Rate 18 19 19 Respiratory Effort / Characteristics Respiratory Depth Blood Pressure 165/80 H 155/78 H Blood Pressure [Left Arm] Blood Pressure Mean 108 103 Blood Pressure Mean [Left Arm] Pulse Oximetry 95 95 94 Oxygen Delivery Method Oxygen Flow Rate 11/18/18 21:40 11/18/18 21:41 11/18/18 21:45 Temperature Temperature Source Sepsis Recent Fever Within 48 Hours Sepsis New/Unexplained Change in Mental Status Sepsis Action Taken by Nursing Pulse Rate 85 83 87 Pulse Rate [Finger] Pulse Rate from SpO2 Sensor 86 84 79 Respiratory Rate 24 20 17 Respiratory Effort / Characteristics Respiratory Depth Blood Pressure 167/92 H Blood Pressure [Left Arm] Blood Pressure Mean 117 Blood Pressure Mean [Left Arm] Pulse Oximetry 93 93 94 Oxygen Delivery Method Oxygen Flow Rate 11/18/18 21:46 11/18/18 21:47 11/18/18 21:50 Temperature Temperature Source Sepsis Recent Fever Within 48 Hours Sepsis New/Unexplained Change in Mental Status Sepsis Action Taken by Nursing Pulse Rate 86 81 Pulse Rate [Finger] 88 Pulse Rate from SpO2 Sensor 87 84 Respiratory Rate 20 20 19 Respiratory Effort / Characteristics Respiratory Depth Blood Pressure 143/66 H Blood Pressure [Left Arm] 143/66 H Blood Pressure Mean 91 Blood Pressure Mean [Left Arm] 91 Pulse Oximetry 94 94 95 Oxygen Delivery Method Nasal Cannula Oxygen Flow Rate 2 11/18/18 21:51 11/18/18 21:55 11/18/18 21:56 Temperature Temperature Source Sepsis Recent Fever Within 48 Hours Sepsis New/Unexplained Change in Mental Status Sepsis Action Taken by Nursing Pulse Rate 81 83 83 Pulse Rate [Finger] Pulse Rate from SpO2 Sensor 82 89 84 Respiratory Rate 21 20 21 Respiratory Effort / Characteristics Respiratory Depth Blood Pressure 159/71 H 151/72 H Blood Pressure [Left Arm] Blood Pressure Mean 100 98 Blood Pressure Mean [Left Arm] Pulse Oximetry 95 95 95 Oxygen Delivery Method Oxygen Flow Rate 11/18/18 22:00 11/18/18 22:01 11/18/18 22:05 Temperature Temperature Source Sepsis Recent Fever Within 48 Hours Sepsis New/Unexplained Change in Mental Status Sepsis Action Taken by Nursing Pulse Rate 79 78 86 Pulse Rate [Finger] Pulse Rate from SpO2 Sensor 81 80 86 Respiratory Rate 18 20 17 Respiratory Effort / Characteristics Respiratory Depth Blood Pressure 154/72 H Blood Pressure [Left Arm] Blood Pressure Mean 99 Blood Pressure Mean [Left Arm] Pulse Oximetry 94 95 95 Oxygen Delivery Method Oxygen Flow Rate 11/18/18 22:06 11/18/18 22:10 11/18/18 22:11 Temperature Temperature Source Sepsis Recent Fever Within 48 Hours Sepsis New/Unexplained Change in Mental Status Sepsis Action Taken by Nursing Pulse Rate 83 82 81 Pulse Rate [Finger] Pulse Rate from SpO2 Sensor 85 85 84 Respiratory Rate 18 18 17 Respiratory Effort / Characteristics Respiratory Depth Blood Pressure 152/62 H 131/74 Blood Pressure [Left Arm] Blood Pressure Mean 92 93 Blood Pressure Mean [Left Arm] Pulse Oximetry 94 93 95 Oxygen Delivery Method Oxygen Flow Rate 11/18/18 22:15 11/18/18 22:16 11/18/18 22:20 Temperature Temperature Source Sepsis Recent Fever Within 48 Hours Sepsis New/Unexplained Change in Mental Status Sepsis Action Taken by Nursing Pulse Rate 81 91 H 83 Pulse Rate [Finger] Pulse Rate from SpO2 Sensor 85 87 87 Respiratory Rate 20 17 17 Respiratory Effort / Characteristics Respiratory Depth Blood Pressure 142/71 H Blood Pressure [Left Arm] Blood Pressure Mean 94 Blood Pressure Mean [Left Arm] Pulse Oximetry 95 95 95 Oxygen Delivery Method Oxygen Flow Rate 11/18/18 22:21 11/18/18 22:25 11/18/18 22:26 Temperature Temperature Source Sepsis Recent Fever Within 48 Hours Sepsis New/Unexplained Change in Mental Status Sepsis Action Taken by Nursing Pulse Rate 94 H 82 75 Pulse Rate [Finger] Pulse Rate from SpO2 Sensor 87 84 78 Respiratory Rate 15 22 19 Respiratory Effort / Characteristics Respiratory Depth Blood Pressure 157/83 H 145/60 H Blood Pressure [Left Arm] Blood Pressure Mean 107 88 Blood Pressure Mean [Left Arm] Pulse Oximetry 95 95 95 Oxygen Delivery Method Oxygen Flow Rate 11/18/18 22:30 11/18/18 22:31 11/18/18 22:35 Temperature Temperature Source Sepsis Recent Fever Within 48 Hours Sepsis New/Unexplained Change in Mental Status Sepsis Action Taken by Nursing Pulse Rate 78 84 82 Pulse Rate [Finger] Pulse Rate from SpO2 Sensor 80 83 81 Respiratory Rate 19 20 20 Respiratory Effort / Characteristics Respiratory Depth Blood Pressure 156/85 H Blood Pressure [Left Arm] Blood Pressure Mean 108 Blood Pressure Mean [Left Arm] Pulse Oximetry 95 95 96 Oxygen Delivery Method Oxygen Flow Rate 11/18/18 22:36 11/18/18 22:40 11/18/18 22:41 Temperature Temperature Source Sepsis Recent Fever Within 48 Hours Sepsis New/Unexplained Change in Mental Status Sepsis Action Taken by Nursing Pulse Rate 81 80 78 Pulse Rate [Finger] Pulse Rate from SpO2 Sensor 82 82 79 Respiratory Rate 22 21 23 Respiratory Effort / Characteristics Respiratory Depth Blood Pressure 161/77 H 164/77 H Blood Pressure [Left Arm] Blood Pressure Mean 105 106 Blood Pressure Mean [Left Arm] Pulse Oximetry 96 96 96 Oxygen Delivery Method Oxygen Flow Rate 11/18/18 22:45 11/18/18 22:50 11/18/18 22:54 Temperature Temperature Source Sepsis Recent Fever Within 48 Hours Sepsis New/Unexplained Change in Mental Status Sepsis Action Taken by Nursing Pulse Rate 77 82 82 Pulse Rate [Finger] Pulse Rate from SpO2 Sensor 80 81 81 Respiratory Rate 21 16 19 Respiratory Effort / Characteristics Respiratory Depth Blood Pressure 176/83 H Blood Pressure [Left Arm] Blood Pressure Mean 114 Blood Pressure Mean [Left Arm] Pulse Oximetry 94 96 97 Oxygen Delivery Method Oxygen Flow Rate 11/18/18 22:55 11/18/18 22:56 11/18/18 23:00 Temperature Temperature Source Sepsis Recent Fever Within 48 Hours Sepsis New/Unexplained Change in Mental Status Sepsis Action Taken by Nursing Pulse Rate 81 77 79 Pulse Rate [Finger] Pulse Rate from SpO2 Sensor 80 79 81 Respiratory Rate 16 16 14 Respiratory Effort / Characteristics Respiratory Depth Blood Pressure 185/89 H Blood Pressure [Left Arm] Blood Pressure Mean 121 Blood Pressure Mean [Left Arm] Pulse Oximetry 96 96 96 Oxygen Delivery Method Oxygen Flow Rate 11/18/18 23:01 11/18/18 23:05 11/18/18 23:06 Temperature Temperature Source Sepsis Recent Fever Within 48 Hours Sepsis New/Unexplained Change in Mental Status Sepsis Action Taken by Nursing Pulse Rate 79 80 83 Pulse Rate [Finger] Pulse Rate from SpO2 Sensor 78 83 82 Respiratory Rate 16 19 17 Respiratory Effort / Characteristics Respiratory Depth Blood Pressure 173/91 H 178/77 H Blood Pressure [Left Arm] Blood Pressure Mean 118 110 Blood Pressure Mean [Left Arm] Pulse Oximetry 97 96 96 Oxygen Delivery Method Oxygen Flow Rate 11/18/18 23:10 11/18/18 23:11 11/18/18 23:15 Temperature Temperature Source Sepsis Recent Fever Within 48 Hours Sepsis New/Unexplained Change in Mental Status Sepsis Action Taken by Nursing Pulse Rate 83 77 80 Pulse Rate [Finger] Pulse Rate from SpO2 Sensor 84 79 81 Respiratory Rate 18 20 16 Respiratory Effort / Characteristics Respiratory Depth Blood Pressure 168/86 H Blood Pressure [Left Arm] Blood Pressure Mean 113 Blood Pressure Mean [Left Arm] Pulse Oximetry 97 97 98 Oxygen Delivery Method Oxygen Flow Rate 11/18/18 23:16 11/18/18 23:20 11/18/18 23:30 Temperature Temperature Source Sepsis Recent Fever Within 48 Hours Sepsis New/Unexplained Change in Mental Status Sepsis Action Taken by Nursing Pulse Rate 81 83 Pulse Rate [Finger] 80 Pulse Rate from SpO2 Sensor 80 81 Respiratory Rate 15 21 20 Respiratory Effort / Characteristics Respiratory Depth Blood Pressure 140/70 Blood Pressure [Left Arm] 153/68 H Blood Pressure Mean 93 Blood Pressure Mean [Left Arm] 96 Pulse Oximetry 98 97 97 Oxygen Delivery Method Nasal Cannula Oxygen Flow Rate 2 GENERAL: Patient is awake alert in no acute distress patient is resting comfortably and showing no signs of anxiety EYES: The conjunctivae are clear. The pupils are round and reactive. EARS, NOSE, MOUTH AND THROAT: The nose is without any evidence of any deformity. Mucous membranes are moist tongue is midline NECK: The neck is nontender and supple. RESPIRATORY: Normal respiratory effort is noted there is no evidence of wheezing rhonchi or rales CARDIOVASCULAR: Regular rate and rhythm noted there no murmurs rubs or gallops normal S1 normal S2 BACK: No midline tenderness or or step-off noted range of motion in flexion extension as well as rotation no signs of muscle spasm noted MUSCULOSKELETAL/EXTREMITIES: There is no evidence of gross deformity full range of motion is noted in the hips and shoulders SKIN: There is no obvious evidence of any rash. Pedal edema was noted bilaterally. NEUROLOGIC: Patient is awake alert and oriented x3. Swatch Maker strength is diminished in the left upper extremity. There is a slight drift in the left upper extremity. Patient is able to hold each leg off the bed for greater than 5 seconds. There is slight diminished strength in the left lower extremity compared to the right lower extremity. There is no facial droop noted. Course 1950: The patient was evaluated in room B2, and a complete history and physical examination were performed. 2018: I discussed the case with Dr. [facility] who states that he will come evaluate the patient. 2036: I checked on the patient and Dr. Joy is evaluating the patient at bedsid e. 2048: Dr. Joy states that after evaluating the patient, he is using a last known well time of 1600. He states that this means the patient is not a tPA candidate. 2113: [facility] who accepted the patient for further evaluation. Administered Medications Ioversol (Optiray 320 125ml) 115 ml IV ONCE PRN PRN Reason: Interaction Checking Stop: 11/22/18 20:09 Last Admin: 11/18/18 20:11 Dose: 115 ml Documented by: [id number] Discontinued Medications Nicardipine HCl 25 mg/ Sodium (Chloride) 250 mls @ 50 mls/hr IV .Q5H [facility]; Protocol Stop: 12/18/18 20:14 Last Titration: 11/18/18 20:57 Dose: 7.5 mg/hr, 75 mls/hr Documented by: [id number] Admin: 11/18/18 20:27 Dose: 5 mg/hr, 50 mls/hr Documented by: [id number] Cosigned by: [id number] Medical Decision Making Differential Diagnosis Differential diagnosis: Etiologies such as metabolic, infection, hypo/hyperglycemia, electrolyte abnormalities, cardiac sources, intracerebral event, toxicologic, neurologic, as well as others were entertained. Medical Records Attestation: I reviewed the patient's medical records. Home Medications Current Medication List: was personally reviewed by me Laboratory Data Attestation: I reviewed the patient's lab results. Result diagrams: 11/18/18 19:59 11/18/18 19:59 Lab Results 11/18/18 11/18/18 11/18/18 Range/Units 19:59 19:59 19:59 WBC 5.35 (4.8-10.8) K/uL RBC 3.86 L (4.7-6.1) M/uL Hgb 11.4 L (14.0-18.0) g/dL Hct 34.2 L (42-52) % MCV 88.6 (80-100) fL MCH 29.5 (25-34) pg MCHC 33.3 (32-36) g/dL RDW Std Deviation 50.8 H (36.4-46.3) fL RDW Coeff of Pranay 15.6 H (11.5-14.5) % Plt Count 113 L (130-400) K/uL MPV 10.1 (7.4-10.4) fL Immature Gran % (Auto) 0.2 % Neut % (Auto) 65.5 % Lymph % (Auto) 21.3 % [place] % (Auto) 7.9 % Eos % (Auto) 4.9 % Baso % (Auto) 0.2 % Immature Gran # (Auto) 0.01 (0.00-0.02) K/uL Neut # (Auto) 3.51 (1.4-6.5) K/uL Lymph # (Auto) 1.14 L (1.2-3.4) K/uL [place] # (Auto) 0.42 (0.11-0.59) K/uL Eos # (Auto) 0.26 (0-0.5) K/uL Baso # (Auto) 0.01 (0-0.2) K/uL PT 11.5 (9.0-12.0) Seconds INR 1.1 (0.9-1.1) APTT 25.4 (21.0-31.0) Seconds PTT Ratio 0.9 Sodium 139 (136-145) mmol/L Potassium 3.9 (3.5-5.1) mmol/L Chloride 106 (98-107) mmol/L Carbon Dioxide 27 (21-32) mmol/L Anion Gap 6.0 (3-11) BUN 24 H (7-18) mg/dl Creatinine 1.06 (0.6-1.4) mg/dl Est Cr Clr Drug Dosing 72.6 ml/min Est GFR ( Amer) 76.4 Est GFR (Non-Af Amer) 66.0 BUN/Creatinine Ratio 22.8 H (10-20) Glucose 109 H (70-99) mg/dl POC Glucose (70-99) Calcium 8.4 L (8.5-10.1) mg/dl Magnesium 2.0 (1.8-2.4) mg/dl Total Bilirubin 1.3 H (0.2-1) mg/dl AST 19 (15-37) U/L ALT 17 (12-78) U/L Alkaline Phosphatase 77 (45-117) U/L Troponin I < 0.015 (0-0.045) ng/ml NT-Pro-B Natriuret Pep 7014 H (0-1800) pg/ml Total Protein 6.9 (6.4-8.2) gm/dl Albumin 3.4 (3.4-5.0) gm/dl Globulin 3.5 (2.5-4.0) gm/dl Albumin/Globulin Ratio 1.0 (0.9-2) TSH 0.501 (0.300-4.500) uIu/ml Urine Color Urine Appearance (Clear) Urine pH (4.5-7.5) Ur Specific [place] (1.000-1.030) Urine Protein (Negative) Urine Glucose (UA) (Negative) Urine Ketones (Negative) Urine Blood (Negative) Urine Nitrite (Negative) Urine Bilirubin (Negative) Urine Urobilinogen (Negative) Ur Leukocyte Esterase (Negative) Urine WBC (Auto) (0-5) /hpf Urine RBC (Auto) (0-4) /hpf U Hyaline Cast (Auto) (0-5) /lpf U Epithel Cells (Auto) (0-5) /lpf Urine Bacteria (Auto) (Negative) Blood Type Antibody Screen 11/18/18 11/18/18 11/18/18 Range/Units 19:59 20:23 21:48 WBC (4.8-10.8) K/uL RBC (4.7-6.1) M/uL Hgb (14.0-18.0) g/dL Hct (42-52) % MCV (80-100) fL MCH (25-34) pg MCHC (32-36) g/dL RDW Std Deviation (36.4-46.3) fL RDW Coeff of Pranay (11.5-14.5) % Plt Count (130-400) K/uL MPV (7.4-10.4) fL Immature Gran % (Auto) % Neut % (Auto) % Lymph % (Auto) % [place] % (Auto) % Eos % (Auto) % Baso % (Auto) % Immature Gran # (Auto) (0.00-0.02) K/uL Neut # (Auto) (1.4-6.5) K/uL Lymph # (Auto) (1.2-3.4) K/uL [place] # (Auto) (0.11-0.59) K/uL Eos # (Auto) (0-0.5) K/uL Baso # (Auto) (0-0.2) K/uL PT (9.0-12.0) Seconds INR (0.9-1.1) APTT (21.0-31.0) Seconds PTT Ratio Sodium (136-145) mmol/L Potassium (3.5-5.1) mmol/L Chloride (98-107) mmol/L Carbon Dioxide (21-32) mmol/L Anion Gap (3-11) BUN (7-18) mg/dl Creatinine (0.6-1.4) mg/dl Est Cr Clr Drug Dosing ml/min Est GFR ( Amer) Est GFR (Non-Af Amer) BUN/Creatinine Ratio (10-20) Glucose (70-99) mg/dl POC Glucose 110 H (70-99) Calcium (8.5-10.1) mg/dl Magnesium (1.8-2.4) mg/dl Total Bilirubin (0.2-1) mg/dl AST (15-37) U/L ALT (12-78) U/L Alkaline Phosphatase (45-117) U/L Troponin I (0-0.045) ng/ml NT-Pro-B Natriuret Pep (0-1800) pg/ml Total Protein (6.4-8.2) gm/dl Albumin (3.4-5.0) gm/dl Globulin (2.5-4.0) gm/dl Albumin/Globulin Ratio (0.9-2) TSH (0.300-4.500) uIu/ml Urine Color Yellow Urine Appearance Clear (Clear) Urine pH 8.0 H (4.5-7.5) Ur Specific [place] 1.012 (1.000-1.030) Urine Protein Trace H (Negative) Urine Glucose (UA) Negative (Negative) Urine Ketones Negative (Negative) Urine Blood Negative (Negative) Urine Nitrite Negative (Negative) Urine Bilirubin Negative (Negative) Urine Urobilinogen Negative (Negative) Ur Leukocyte Esterase Negative (Negative) Urine WBC (Auto) 0 (0-5) /hpf Urine RBC (Auto) 5-10 H (0-4) /hpf U Hyaline Cast (Auto) 0 (0-5) /lpf U Epithel Cells (Auto) 10-20 H (0-5) /lpf Urine Bacteria (Auto) Negative (Negative) Blood Type A Positive Antibody Screen NEGATIVE Imaging Data Radiologist's Impression: Radiology results as stated below per my review and the radiologist's interpretation: CT ANGIOGRAPHY OF THE NECK WITH CONTRAST CLINICAL HISTORY: Left-sided weakness. COMPARISON STUDY: PET/CT October 27, 2018. Technique: CT angiography of the carotid and vertebral arteries was obtained using Optiray 320 IV and 3D reconstruction on an independent workstation. NASCET criteria was utilized. Automated exposure control was utilized for the study. A dose lowering technique was utilized adhering to the principles of ALARA. CT DOSE: 1103.82 mGy.cm Findings: The bilateral common carotid and cervical internal carotid arteries are patent. There is mild atherosclerotic plaque. No dissection. The left vertebral artery is dominant. There is moderate to severe stenosis of the proximal intracranial portion of the left vertebral artery due to extensive calcified atherosclerotic plaque. Bilateral pleural effusions right larger left, are partially imaged. Multinodular thyroid goiter is noted. Innumerable mixed lytic and sclerotic skeletal lesions are noted. The CTA of the head will be reported separately. IMPRESSION: 1. Mild atherosclerotic plaque with no significant stenosis within the major vessels of the neck. 2. Moderate to severe stenosis of the proximal intracranial portion of the left vertebral artery due to extensive calcified atherosclerotic plaque. 3. 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 Electronically signed by: James Woodall M.D. 11/18/2018 8:36 PM CTA ANGIOGRAPHY OF THE HEAD CLINICAL HISTORY: Left-sided weakness. COMPARISON STUDY: MRI of the brain June 29, 2018. Head CT June 28, 2018. TECHNIQUE: Helical axial images of the head were obtained following uneventful intravenous administration of 115 cc of Optiray 320. Automated exposure control was utilized for the study. A dose lowering technique was utilized adhering to the principles of ALARA. FINDINGS: Please note that the CTA of the neck will be reported separately. 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 No additional sites of vessel occlusion are noted. 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 There is persistence of the right posterior cerebral artery. There is no intracranial aneurysm. There is moderate plaque within bilateral cavernous carotids without stenosis. No acute intracranial hemorrhage, midline shift or mass effect is present. 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 IMPRESSION: 1. 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 2. 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 3. Extensive skeletal metastatic disease. Electronically signed by: James Woodall M.D. 11/18/2018 8:[address] OF THE HEAD WITHOUT CONTRAST CLINICAL HISTORY: Stroke evaluation COMPARISON STUDY: Head CT June 28, 2018. MRI of the brain June 29, 2018. TECHNIQUE: Helical axial images of the head were obtained without IV contrast. Automated exposure control was utilized for the study. A dose lowering technique was utilized adhering to the principles of ALARA. FINDINGS: No acute intracranial hemorrhage, midline shift or mass effect is present. Ventricular system is stable. The basilar cisterns are patent. There are no extra-axial collections. There are no findings to suggest acute dural sinus thrombosis or acute territorial infarct. Several sclerotic lesions are noted, including within the right temporal bone and the clivus. IMPRESSION: 1. No acute intracranial findings. 2. Several skeletal lesions which favor skeletal metastatic disease. Electronically signed by: James Woodall M.D. 11/18/2018 8:18 PM XR chest 1V portable CLINICAL HISTORY: Weakness. Breast cancer. COMPARISON STUDY: Chest radiograph August 12, 2018. FINDINGS: There are median sternotomy wires and clips from bypass grafting. Moderate cardiomegaly is noted. Moderate bilateral pleural effusions are noted. There is no pneumothorax. 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 There is mild edema. Bibasilar opacities are noted. IMPRESSION: 1. Mild pulmonary edema with moderate bilateral pleural effusions and bibasilar opacities may reflect atelectasis or consolidation. 2. Numerous skeletal metastases. Electronically signed by: James Woodall M.D. 11/18/2018 9:14 PM ECG Data Attestation: I personally reviewed and interpreted this ECG as follows: Indication: weakness Rate (beats per minute): 78 Rhythm: atrial fibrillation Findings: + other (poor R wave progression) and + ST depression (diffuse); no ectopy Comparison ECG Date: from (08/12/2018) Change: no significant change Blood Pressure Blood Pressure Findings: Elevated blood pressure Blood Pressure Disposition: further management by hospitalist JOSIAH Narrative The patient is an 82-year-old male who presented to the department for an evalua tion of an acute neurologic deficit. The patient was brought directly back from triage. On my initial evaluation it was very difficult to ascertain what the last known well time was. For this reason he was made a stroke alert. He does have a history of atrial fibrillation but currently does not take any blood thinners. The patient's overall findings appear to be consistent with left- sided weakness. His initial CAT scan was negative. We discussed his case with the stroke neurologist at [facility]. After discussion with the patient as well as his significant other as well as his family members, we have established that the last known well time was approximately 4 PM. We do not feel that he was a good candidate for TPA given his accelerated blood pressure. His blood pressure was controlled in the emergency department with IV antihypertensives. The patient was reevaluated multiple times. With blood pressure control the patient's symptoms slowly improved. CT angiography of the head and neck were obtained. There appears to be an acute cut off on the right MCA at a bifurcation bridge. This appears to be a small vessel at this time. Again the patient was not felt to be a good candidate for TPA or interventional procedure after discussion with the stroke neurologist. We discussed patient's laboratory and radiographic studies with him and his family members. We also discussed his case with the on-call [facility] hospitalist. They have agreed to evaluate the patient in the emergency department for further management and disposition. Impression & Plan CVA (cerebral vascular accident) Critical Care Time I have personally spent 45 minutes of critical care time in the direct management of this patient. This includes bedside care, interpretation of diagnostic studies, and testing, discussion with consultants, patient, and family members, and other required patient management activities. This 45 minutes is in excess of all separately billable procedures. Critical Care Time: Yes Total Critical Care Time: 45 Discharge Plan Visit Data Chief Complaint: Stroke/CVA Symptoms Stated Complaint: CVA SYMPTOMS ED Provider: Kemal Abreu Discharge Problem: CVA (cerebral vascular accident) Patient Disposition: Being Evaluated by Hospitalist Forms Stand Alone Forms: My [employer] Prescriptions Prescriptions: No Action torsemide 20 mg tablet 20 mg PO QAM RF: 0 acetaminophen [Tylenol Extra Strength] 500 mg Tablet 1,000 mg PO Q6H PRN (Reason: Fever Or Pain) RF: 0 atorvastatin 20 mg tablet 20 mg PO QAM RF: 0 diclofenac sodium 50 mg tablet,delayed release (DR/EC) 50 mg PO TID PRN (Reason: Pain) RF: 0 isosorbide mononitrate 60 mg tablet extended release 24 hr 60 mg PO QAM RF: 0 lisinopril 40 mg tablet 40 mg PO QAM RF: 0 nitroglycerin 0.4 mg tablet, sublingual 0.4 mg Sublingual UD RF: 0 tamoxifen 20 mg Tablet 20 mg PO QAM RF: 0 metformin 500 mg Tablet 500 mg PO BIDM RF: 0 sennosides-docusate sodium [Senna with Docusate Sodium] 8.6-50 mg Tablet 2 tab PO HS RF: 0 aspirin [Aspirin Low Dose] 81 mg Tablet,Delayed Release (Dr/Ec) 81 mg PO QAM RF: 0 nortriptyline 25 mg Capsule 25 mg PO HS RF: 0 carvedilol 12.5 mg tablet 12.5 mg PO BIDM RF: 0 polyethylene glycol 3350 [Miralax] 17 gram Powder In Packet 17 g PO DAILY PRN (Reason: Constipation) RF: 0 magnesium hydroxide [Milk of Magnesia] 400 mg/5 mL Suspension PO DAILY PRN (Reason: Constipation) RF: 0 terazosin 2 mg capsule 2 mg PO HS RF: 0 Calcium 600 + D(3) 600 mg calcium- 200 unit Capsule 1 cap PO DAILY RF: 0 potassium, sodium phosphates [Phos-NaK] 280-160-250 mg powder in packet 1 packet PO BID RF: 0 Metamucil Smooth 58.6% Powder 1 dose PO TID PRN (Reason: Constipation) RF: 0 Referrals Referrals: Lawrence Mallory MD [Primary Care Provider] - Discharge Problem: CVA (cerebral vascular accident) Qualifiers: CVA mechanism: unspecified Qualified Code(s): I63.9 - Cerebral infarction, unspecified The scribe's documentation has been prepared under my direction and personally reviewed by me in its entirety. I confirm that the note above accurately reflects all work, treatment, procedures, and medical decision making performed by me.
[2018-11-18 22:21] LABS: NT Pro B Type Natriuretic Pept 7014 pg/ml (0-1800)
[2018-11-18 22:38] LABS: Appearance Urine Clear (Clear); Bacteria Urine Automated Negative (Negative); Bilirubin Urine Negative (Negative); Blood Urine Negative (Negative); Cast Urine Automated 0 /lpf (0-5); Color Urine Yellow; Glucose Urine UA Negative (Negative); Ketones Urine Negative (Negative); Leukocyte Esterase Urine Negative (Negative); Nitrite Urine Negative (Negative); Specific Gravity Urine 1.012 (1.000-1.030); Urobilinogen Urine Negative (Negative); WBC Urine Automated 0 /hpf (0-5)
--- NOTE | 2018-11-18 22:52 | History & Physical Report ---
Date of Service November 18, 2018 Assessment & Plan (1) TIA (transient ischemic attack): Past history TIAs as per patient Possible embolic event given history of A. fib not on anticoagulation secondary to patient refusal/fall risk as per records Hypertensive crisis associated with neurologic event Precipitous BP drop following initiation of nicardipine drip at the ER. chronic diastolic heart failure (EF 55-60% TTE 2019), patient congested on CXR although sans shortness of breath/fluid retention complaints CAD status post CABG metastatic breast cancer status post surgery undergoing chemotx, Excellent response to current regimen as per recent outpatient Oncology note 2 weeks ago. Extensive skeletal mets incidentally found on head neck imaging tonight. 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 (As per patient's daughter, patient open to NOAC over Coumadin if recommended.) Stop Nicardipine drip at the ER given precipitous BP drop. Permissive hypertension for now. Initiate home Coreg at lowest dose if SBP greater than 190s Hold other home antihypertensives for now. Neurology consult RE TIA ISS BG goal 1 40-1 80 DVT prophylaxis. SCDs RE chronic thrombocytopenia DNR Patient's daughter requesting updates from providers. [facility], contact #[phone]. (Secondary contact is patient's son, Mr. Flakito Delgadillo, contact number [phone].) History of Present Illness Chief Complaint: Stroke symptoms Primary Care Provider: Lawrence Mallory MD History obtained from patient, family, and records. Medical history significant for chronic diastolic heart failure (EF 55-60% TTE 2019), A. fib not on Coumadin secondary to patient refusal/fall risk as per records, CAD status post CABG, hypertension, hx TIAs as per px, metastatic breast cancer status post surgery undergoing chemotx, chronic pancytopenia, DM 2 on oral medications, past tobacco abuse, hx MRSA as per records. Recent confinement June 2018 for decompensated heart failure. This afternoon patient noted by family to be leaning to the left side, electric chair veering to the left. Patient left arm was noted to be weak. Some weakness on the left face and decreased vision on the left as per family. Patient complained of achy headache. No chest pain, no S OB. Compliant with home aspirin. Patient does not monitor blood pressure at home. Patient has been emotional today upon receiving ashes of his barrel loader and cleaner dog that had recently . Stroke alert called upon arrival at the ER. At the ER, SBP noted to be 240s. Nicardipine drip started at the ER. Patient arm weakness improved as per family. SBP currently 140s. Medical History as above Surgical History : CABG, bone debridement, right mastectomy, skin cancer surgery, sinus surgery, toe surgery, ulnar nerve revision, cholecystectomy Family History : Colon cancer, diabetes, hypertension Personal/Social history : Past tobacco abuse, no EtOH intake, retired from construction work Allergies Allergy/AdvReac Type Severity Reaction Status Date / Time Penicillins AdvReac Unknown HAS Verified 08/18/18 10:51 TOLERATED CEPHALOSPORINS W/O RXN-lightheaded Home Medications Home Medications Medication Instructions Recorded Confirmed Type aspirin [Aspirin Low Dose] 81 mg PO QAM 05/21/18 11/18/18 History metformin 500 mg PO BIDM 05/21/18 11/18/18 History nortriptyline 25 mg PO HS 05/21/18 11/18/18 History sennosides-docusate sodium [Senna 2 tab PO HS 05/21/18 11/18/18 History with Docusate Sodium] acetaminophen [Tylenol Extra 1,000 mg PO Q6H PRN 06/28/18 11/18/18 History Strength] atorvastatin 20 mg PO QAM 06/28/18 11/18/18 History diclofenac sodium 50 mg PO TID PRN 06/28/18 11/18/18 History isosorbide mononitrate 60 mg PO QAM 06/28/18 11/18/18 History lisinopril 40 mg PO QAM 06/28/18 11/18/18 History nitroglycerin 0.4 mg SUBLINGUAL UD 06/28/18 11/18/18 History tamoxifen 20 mg PO QAM 06/28/18 11/18/18 History torsemide 20 mg PO QAM 06/28/18 11/18/18 History carvedilol 12.5 mg PO BIDM 08/12/18 11/18/18 History Metamucil Smooth 58.6% Powder 1 dose PO TID PRN 11/18/18 11/18/18 History calcium carbonate-vitamin D3 1 cap PO DAILY 11/18/18 11/18/18 History [Calcium 600 + D(3)] magnesium hydroxide [Milk of 0 ml PO DAILY PRN 11/18/18 11/18/18 History Magnesia] polyethylene glycol 3350 [Miralax] 17 g PO DAILY PRN 11/18/18 11/18/18 History potassium, sodium phosphates 1 packet PO BID 11/18/18 11/18/18 History [Phos-NaK] terazosin 2 mg PO HS 11/18/18 11/18/18 History Past Med/Surg History Medical History Pressure ulcer (Acute) LFTs abnormal Hyperbilirubinemia Left knee pain Shoulder pain Breast cancer in male (Chronic) HLD (hyperlipidemia) (Chronic) Chronic atrial fibrillation (Chronic) CAD (coronary artery disease) (Chronic) Thoracic aortic aneurysm (Chronic) CHF (congestive heart failure) (Acute) Altered mental status (Acute) MRSA (methicillin resistant Staphylococcus aureus) (Resolved) Diabetes (Chronic) Hypertension (Chronic) Hepatitis (Resolved) Diabetic neuropathy (Chronic) Diabetic retinopathy (Chronic) Renal insufficiency (Chronic) BPH (benign prostatic hyperplasia) (Chronic) History of diabetic ulcer of foot (Resolved) Status post partial amputation of foot (Resolved) Pneumonia (Inactive) Bone cancer Kidney stones Surgical History Hx of CABG (Resolved) 1993 Hx of cholecystectomy (Resolved) H/O breast surgery (Chronic) Family History Other Colon cancer Diabetes Family history non-contributory Hypertension Social History Preferred Language: [place] Communication Ability: Effective Visual Impairment: No Limitations Hearing Ability: Normal Editing Internship Required: No Beliefs That Will Affect Care: None marital status: Current Living Situation: Alone current occupational status: retired Feels Safe at Home: Yes Safety Concerns: Feels Safe At This Time Smoking Status: Former smoker Cigarettes Per Day: started smoking cigars intermittently again, previous quit 1977 Second Hand Exposure: No Hx Alcohol Use: Yes Alcohol type: beer Hx Substance Use: No Review of Systems Review of Systems: As per HPI, all 10 systems reviewed, all other ROS negative Physical Exam Physical Exam: GENERAL: Slightly anxious, no respiratory distress SKIN: Pallor, warm HEENT: Pale palpebral conjunctivae, no ptosis, subtle facial symmetry left, dry buccal mucosa NECK : Supple, no tenderness CHEST : CTA, no tenderness HEART : Irregular, systolic murmur ABDOMEN: Some distention, nontender EXTREMITIES : No LE swelling/tenderness, no other conspicuous deformities noted NEUROLOGIC : Coherent, subtle L facial asymmetry L, MMTs R5/5, L4/5, left pronator drift, gait and stance not assessed Results & Data Vital Signs (Past 12 Hours) Vital Signs Temp Pulse Pulse Resp BP BP Pulse Ox 11/18/18 22:11 81 17 131/74 95 11/18/18 22:10 82 18 93 11/18/18 22:06 83 18 152/62 H 94 11/18/18 22:05 86 17 95 11/18/18 22:01 78 20 154/72 H 95 11/18/18 22:00 79 18 94 11/18/18 21:56 83 21 151/72 H 95 11/18/18 21:55 83 20 95 11/18/18 21:51 81 21 159/71 H 95 11/18/18 21:50 81 19 95 11/18/18 21:47 88 20 143/66 H 94 11/18/18 21:46 86 20 143/66 H 94 11/18/18 21:45 87 17 94 11/18/18 21:41 83 20 167/92 H 93 11/18/18 21:40 85 24 93 11/18/18 21:36 85 19 155/78 H 94 11/18/18 21:35 88 19 95 11/18/18 21:31 89 18 165/80 H 95 11/18/18 21:30 86 16 96 11/18/18 21:26 80 19 158/82 H 96 11/18/18 21:25 82 21 96 11/18/18 21:23 85 20 153/85 H 96 11/18/18 21:21 85 18 153/85 H 96 11/18/18 21:20 85 17 93 11/18/18 21:18 87 20 168/107 H 90 11/18/18 21:16 82 20 168/107 H 11/18/18 21:15 87 20 11/18/18 21:11 84 21 197/98 H 11/18/18 21:10 90 26 H 11/18/18 21:06 83 25 H 185/85 H 11/18/18 21:05 88 28 H 11/18/18 21:01 87 21 189/94 H 11/18/18 21:00 81 25 H 11/18/18 20:56 87 21 191/93 H 11/18/18 20:55 84 27 H 11/18/18 20:51 84 24 192/88 H 11/18/18 20:50 81 25 H 11/18/18 20:46 85 19 191/99 H 11/18/18 20:45 84 27 H 11/18/18 20:41 82 22 200/102 H 11/18/18 20:40 87 21 11/18/18 20:36 82 20 192/95 H 11/18/18 20:35 79 27 H 11/18/18 20:31 77 20 219/147 H 89 L 11/18/18 20:30 85 27 H 93 11/18/18 20:26 80 22 237/128 H 96 11/18/18 20:21 80 26 H 231/123 H 93 11/18/18 20:16 74 22 225/116 H 93 11/18/18 20:14 80 19 227/109 H 94 11/18/18 20:13 98 11/18/18 20:00 95 11/18/18 19:51 81 29 H 93 11/18/18 19:48 88 24 223/121 H 92 11/18/18 19:39 36.3 C L 79 20 225/114 H 95 Laboratory Results Laboratory Results WBC 5.35 K/uL (4.8-10.8) 11/18/18 19:59 RBC 3.86 M/uL (4.7-6.1) L 11/18/18 19:59 Hgb 11.4 g/dL (14.0-18.0) L 11/18/18 19:59 Hct 34.2 % (42-52) L 11/18/18 19:59 MCV 88.6 fL (80-100) 11/18/18 19:59 MCH 29.5 pg (25-34) 11/18/18 19:59 MCHC 33.3 g/dL (32-36) 11/18/18 19:59 RDW Std Deviation 50.8 fL (36.4-46.3) H 11/18/18 19:59 RDW Coeff of Pranay 15.6 % (11.5-14.5) H 11/18/18 19:59 Plt Count 113 K/uL (130-400) L 11/18/18 19: MPV 10.1 fL (7.4-10.4) 11/18/18 19:59 Immature Gran % (Auto) 0.2 % 11/18/18 19:59 Neut % (Auto) 65.5 % 11/18/18 19:59 Lymph % (Auto) 21.3 % 11/18/18 19:59 [place] % (Auto) 7.9 % 11/18/18 19:59 Eos % (Auto) 4.9 % 11/18/18 19:59 Baso % (Auto) 0.2 % 11/18/18 19:59 Immature Gran # (Auto) 0.01 K/uL (0.00-0.02) 11/18/18 19: Neut # (Auto) 3.51 K/uL (1.4-6.5) 11/18/18 19:59 Lymph # (Auto) 1.14 K/uL (1.2-3.4) L 11/18/18 19:59 [place] # (Auto) 0.42 K/uL (0.11-0.59) 11/18/18 19:59 Eos # (Auto) 0.26 K/uL (0-0.5) 11/18/18 19: Baso # (Auto) 0.01 K/uL (0-0.2) 11/18/18 19:59 PT 11.5 Seconds (9.0-12.0) 11/18/18 19:59 INR 1.1 (0.9-1.1) 11/18/18 19:59 APTT 25.4 Seconds (21.0-31.0) 11/18/18 19:59 PTT Ratio 0.9 11/18/18 19:59 Sodium 139 mmol/L (136-145) 11/18/18 19:59 Potassium 3.9 mmol/L (3.5-5.1) 11/18/18 19:59 Chloride 106 mmol/L (98-107) 11/18/18 19:59 Carbon Dioxide 27 mmol/L (21-32) 11/18/18 19:59 6.0 (3-11) 11/18/18 19:59 BUN 24 mg/dl (7-18) H 11/18/18 19:59 1.06 mg/dl (0.6-1.4) 11/18/18 19:59 Est Cr Clr Drug Dosing 72.6 ml/min 11/18/18 19:59 Est GFR ( Amer) 76.4 11/18/18 19:59 Est GFR (Non-Af Amer) 66.0 11/18/18 19:59 22.8 (10-20) H 11/18/18 19:59 Glucose 109 mg/dl (70-99) H 11/18/18 19:59 POC Glucose 110 (70-99) H 11/18/18 20:23 Calcium 8.4 mg/dl (8.5-10.1) L 11/18/18 19:59 Magnesium 2.0 mg/dl (1.8-2.4) 11/18/18 19:59 1.3 mg/dl (0.2-1) H 11/18/18 19:59 AST 19 U/L (15-37) 11/18/18 19:59 ALT 17 U/L (12-78) 11/18/18 19:59 77 U/L (45-117) 11/18/18 19:59 < 0.015 ng/ml (0-0.045) 11/18/18 19:59 NT-Pro-B Natriuret Pep 7014 pg/ml (0-1800) H 11/18/18 19:59 6.9 gm/dl (6.4-8.2) 11/18/18 19:59 3.4 gm/dl (3.4-5.0) 11/18/18 19:59 3.5 gm/dl (2.5-4.0) 11/18/18 19:59 1.0 (0.9-2) 11/18/18 19:59 TSH 0.501 uIu/ml (0.300-4.500) 11/18/18 19:59 Blood Type A Positive 11/18/18 19:59 Antibody Screen NEGATIVE 11/18/18 19:[address] head: 1. No acute intracranial findings. 2. Several skeletal lesions which favor skeletal metastatic disease. CT head angio: 1. 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 2. 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 3. Extensive skeletal metastatic disease. CT neck: 1. Mild atherosclerotic plaque with no significant stenosis within the major vessels of the neck. 2. Moderate to severe stenosis of the proximal intracranial portion of the left vertebral artery due to extensive calcified atherosclerotic plaque. 3. 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 Chest x-ray : 1. Mild pulmonary edema with moderate bilateral pleural effusions and bibasilar opacities may reflect atelectasis or consolidation. 2. Numerous skeletal metastases. EKG as per my interpretation: Rate 80, A. fib T wave flattening inferior leads
[2018-11-18 22:57] LABS: Protein Urine Trace (Negative)
[2018-11-19] MEDS ORDERED: FUROSEMIDE 20 MG in SYRINGE 0 ML IV ONE (00:45)
[2018-11-19] MEDS ORDERED: CARVEDILOL 3.125 MG TAB PO SCH (00:45)
[2018-11-19] MEDS ORDERED: POTASSIUM CHLORIDE 20 MEQ TABCR PO STA (04:01)
[2018-11-19 06:11] LABS: Estimated Average Glucose 123 mg/dl; Hemoglobin A1C 5.9 % (4.5-5.6)
[2018-11-19] MEDS ORDERED: CARBOHYDRATES FOR HYPOGLYCEMIA PO PRN (06:21)
[2018-11-19] MEDS ORDERED: GLUCOSE 10 TABS/TUBE PO PRN (06:21)
[2018-11-19] MEDS ORDERED: NITROGLYCERIN SL 0.4 MG/TAB TAB SL PRN (06:21)
[2018-11-19] MEDS ORDERED: GLUCOSE 40% GEL 15 GM TUBE PO PRN (06:21)
[2018-11-19] MEDS ORDERED: TRAMADOL HCL 50 MG TABLET PO PRN (06:21)
[2018-11-19] MEDS ORDERED: DEXTROSE 50% 50 ML SYRINGE IV PRN (06:21)
[2018-11-19] MEDS ORDERED: GLUCAGON FOR INJ 1 MG VIAL SQ PRN (06:21)
[2018-11-19] MEDS ORDERED: PROMETHAZINE HCL 12.5 MG in SODIUM CHLORIDE 0.9% 50 ML IV PRN (06:21)
[2018-11-19] MEDS ORDERED: POLYETHYLENE (MIRALAX) 17 GM PACK PO PRN (06:21)
[2018-11-19] MEDS ORDERED: PSYLLIUM 58.6% POWDER PACKET PO PRN (06:21)
[2018-11-19] MEDS ORDERED: PHARMACIST DISCHARGE MED REC CONSULT PRN (06:21)
--- NOTE | 2018-11-19 08:57 | Magnetic Resonance Report ---
MR angio head wo con HISTORY: Mental status change cva TECHNIQUE: 3-D [id number] MRA of the brain was performed without contrast. COMPARISON STUDY: None. FINDINGS: Visualized intracranial internal carotid arteries, distal vertebral arteries, and basilar a rtery are widely patent. There is no significant stenosis, occlusion, or aneurysm seen within the [place] ateral ACAs, MCAs, or retail stock clerk. The right vertebral artery is extremely small in terms of caliber presuma dung on a congenital basis. Left vertebral artery is serpiginous and dominant. There is minimal scatte red atherosclerotic change of the intracranial vasculature with no major stenotic process. IMPRESSION: No significant stenosis, occlusion, or aneurysm within the [place]. Congenitally small/hypop lastic right vertebral vessel. The above report was generated using voice recognition software. It may contain grammatical, syntax or spelling errors. Electronically signed by: Jared Tyler M.D. 11/19/2018 8:56 AM
[2018-11-19] MEDS ORDERED: ATORVASTATIN 20 MG TAB PO SCH (09:00)
--- NOTE | 2018-11-19 09:02 | Magnetic Resonance Report ---
MRI OF THE BRAIN WITHOUT CONTRAST CLINICAL HISTORY: cva PERSONAL HISTORY OF BREAST CARCINOMA COMPARISON STUDY: 06/29/2018, CT scan dated 11/18/2018 FINDINGS: Sagittal T1, axial diffusion, proton density and T2 weighted axial, coronal FLAIR, and axial T1-weigh jah images were acquired. No intra or extra-axial mass lesions are visualized There is a 4 cm focus of restricted water diffusion involving the right parietal lobe with extension to the temporal lobe and right right insular cortex. The findings are indicative of acute/subacute in farct. There is no evidence of ventricular dilatation. Proton density T2-weighted and FLAIR images reveal scattered foci of increased T2 signal within the w [place]ley matter, likely on a small vessel basis. In addition there is subtle increased FLAIR signal in th e region of the acute/subacute right parietal lobe infarct. There are no abnormal flow voids. There are areas of abnormal marrow signal within the upper cervical spine and clivus suspicious for s keletal metastasis. IMPRESSION: 1. Acute/subacute infarct involving the right parietal lobe with extension to the right temporal lobe and insular cortex 2. Skeletal metastasis Electronically signed by: Golden Flynn M.D. 11/19/2018 9:01 AM
[2018-11-19] MEDS: TAMOXIFEN CITRATE 10 MG TABLET PO SCH (10:19)
[2018-11-19] MEDS: ASPIRIN 81 MG ECTAB PO SCH (10:20)
[2018-11-19] MEDS: INSULIN ASPART 100 UNITS/ML 3 ML PEN SC SCH ×4 (10:23→21:35)
--- NOTE | 2018-11-19 10:29 | Hospitalist Progress Note ---
Date of Service November 19, 2018 Assessment & Plan (1) Acute CVA (cerebrovascular accident): -left sided weakness -Neck CTA: Moderate to severe stenosis of the proximal intracranial portion of the left vertebral artery due to extensive calcified atherosclerotic plaque -Head CTA: Abrupt cut off of a sylvian branch of the right middle cerebral artery which could account for the patient's left-sided weakness -Acute/subacute infarct involving the right parietal lobe with extension to the right temporal lobe and insular cortex -continue home dose aspirin 81 mg -increase home dose statin from atorvastatin 20 mg daily to 40 mg daily -Had discussion with patient of diagnosis of stroke and that with current atrial fibrillation that patient should be on a blood thinner. Discussed with patient that coumadin has a readily reversible agent if the blood becomes too thin but patient is reluctant to take coumadin because his had bleeding complications from coumadin. Discussed with patient that given history of malignancy that Lovenox is better recommendation than other new oral anticoagula nts but patient is reluctant about taking daily injections -Neurology consultation recommendations appreciated -continue PT/OT evaluations Hypertensive crisis associated with neurologic event -Precipitous BP drop following initiation of nicardipine drip at the ER. -currently on low dose carvedilol -will resume homed dose carvedilol 12.5 mg PO BID with first dose to start tonight on 11/19/18 -resume home dose isosorbide mono nitrate -resume home dose lisinopril 40 mg daily Chronic atrial Fibrillation -rate controlled -have asked patient to reconsider systemic anticoagulation between coumadin or Lovenox on discharge -currently on low dose carvedilol -will resume homed dose carvedilol 12.5 mg PO BID with first dose to start tonight on 11/19/18 Chronic Anemia -Hgb stable above 11 -check platelets chronic diastolic heart failure (EF 55-60% TTE 2019) CAD status post CABG in the past -titrate off nasal cannula -resume home dose torsemide 20 mg daily Benign Prostate hypertrophy -resume home dose terazosin 2 mg qhs -will remove machado Type 2 diabetes mellitus 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 Flakito Delgadillo, contact number [phone] Subjective Had discussion with patient of diagnosis of stroke and that with current atrial fibrillation that patient should be on a blood thinner. Discussed with patient that coumadin has a readily reversible agent if the blood becomes too thin but patient is reluctant to take coumadin because his had bleeding complications from coumadin. Discussed with patient that given history of malignancy that Lovenox is better recommendation than other new oral anticoagulants but patient is reluctant about taking daily injections mild left upper extremity weakness compared to the right upper extremity. patient reports at baseline he ambulates with walker or uses wheelchair. patient reports he lives by himself. denies acute pain. no chest pain. no palpitations. no shortness of breath. no headache. no dizziness Physical Exam Constitutional: WD/WN, vitals as above Eyes: PERRL, conjunctivae normal, anicteric sclerae EOM intact bilaterally ENMT: external ear and nose normal, oropharynx normal Neck: trachea midline, no thyromegaly Respiratory: normal respiratory effort, lungs clear to auscultation Cardiovascular: Rate/Rhythm: regular rate and + irregularly irregular Gastrointestinal (Abdomen): normal bowel sounds, soft, nontender, no hepatosplenomegaly Musculoskeletal: Head/Neck/Chest: normocephalic and head atraumatic mild left upper extremity weakness compared to the right upper extremity Neurologic: PERRL, EOMI, accommodation nl, no face palsy, no dysarthria CN's II-XI intact bilaterally Psychiatric: A+Ox3, euthymic affect Genitourinary: machado Results & Data Vital Signs (Past 12 Hours) Vital Signs Temp Pulse Pulse Resp BP BP BP 11/19/18 07:11 36.8 C 86 16 182/63 H 11/19/18 04:00 36.6 C 76 16 187/91 H 11/19/18 02:08 85 201/97 H 187/111 H 11/18/18 23:37 36.5 C 86 18 191/86 H 11/18/18 23:30 80 20 153/68 H 11/18/18 23:20 83 21 11/18/18 23:16 81 15 140/70 11/18/18 23:15 80 16 11/18/18 23:11 77 20 168/86 H 11/18/18 23:10 83 18 11/18/18 23:06 83 17 178/77 H 11/18/18 23:05 80 19 11/18/18 23:01 79 16 173/91 H 11/18/18 23:00 79 14 11/18/18 22:56 77 16 185/89 H 11/18/18 22:55 81 16 11/18/18 22:54 82 19 176/83 H 11/18/18 22:50 82 16 11/18/18 22:45 77 21 11/18/18 22:41 78 23 164/77 H 11/18/18 22:40 80 21 11/18/18 22:36 81 22 161/77 H 11/18/18 22:35 82 20 11/18/18 22:31 84 20 156/85 H 11/18/18 22:30 78 19 Pulse Ox 11/19/18 07:11 92 11/19/18 04:00 98 11/19/18 02:08 11/18/18 23:37 94 11/18/18 23:30 97 11/18/18 23:20 97 11/18/18 23:16 98 11/18/18 23:15 98 11/18/18 23:11 97 11/18/18 23:10 97 11/18/18 23:06 96 11/18/18 23:05 96 11/18/18 23:01 97 11/18/18 23:00 96 11/18/18 22:56 96 11/18/18 22:55 96 11/18/18 22:54 97 11/18/18 22:50 96 11/18/18 22:45 94 11/18/18 22:41 96 11/18/18 22:40 96 11/18/18 22:36 96 11/18/18 22:35 96 11/18/18 22:31 95 11/18/18 22:30 95
[2018-11-19] MEDS: ATORVASTATIN 40 MG TAB PO SCH (10:45)
[2018-11-19] MEDS ORDERED: TORSEMIDE 10 MG TAB PO ONE (11:35)
[2018-11-19] MEDS: ISOSORBIDE MONO EXTENDED REL 60 MG TABCR PO SCH (12:41)
[2018-11-19] MEDS: LISINOPRIL 40 MG TAB PO SCH (12:41)
--- NOTE | 2018-11-19 13:56 | Neurology Consultation ---
Date of Consultation November 19, 2018 Assessment & Plan (1) Acute CVA (cerebrovascular accident): 1. MRI - right parietal lobe ext into the right temp lobe -stroke 2. CTA head/neck with stenosis of left vert, asymptomatic 3. optimize HTN, DM, HLD LDL<70 consider patient age and condition 4. continue aspirin 81 mg could increase to 162 mg and add plavix but with afib coumadin or NoAC would be choice 5. PT/OT speech for discharge needs 6. continue to follow with oncology for treatment Tamoxifen 7. poor prognosis with breast CA and skeletal mets 8. will likely need rehab prior to return home follow up with neurology as outpatient 4-6 weeks Talia Mott PAC, schedule Supervising Physician Co-Signing Physician Notes I have seen and discussed above patient with Dr Talia Leiva, neurology Pt seen and examined. Hx of mets breast ca, a fib, on asa. Sudden mild left weakness and neglect. CTA branch occlusion of r mca sylvian branch. MRI confirmed modest-sized infarct R MCA. Study noncontrast. Exam no denial, no right left confusion, nml speech, mild flat L NLF, visual extinction to left. Mild weakness L arm L leg with upward left drift. Mildly clumsy L hand, extinction of double simultaneous extinction. Gait was not testingedImp R MCA infarct related to a fib , potential contribution from cancer related hypercoagulable state. FU MRI brain with contrast tomorr, provided no hemorrhagic transformation could start Lovenox or NOAC. I agree with Dr Cruz that the oncologists usually prefer Lovenox in cancer. Defer to Dr Caro in that regard. Will need to see pt ambulate to see how safe a candidate he will be. PT will need rehab and that will give an observation period re safety. Risk factor mod is appropriate, including gradual reduction in bp, optimization of blood sugars and LDL. ALEXANDRU Leiva MD History of Present Illness Reason for Consultation: CVA Requesting Physician: Elliot Cruz MD Attending Physician: Elliot Cruz MD History of Present Illness Jonathan is a 82 year old male who has a PMH, breast CA, AF, CAD, CHF, DM and DM neuropathy, HTN, hepatitis who presents to the Emergency Room with complaints of persistent left-sided weakness that began at about 1700, about 3 hours prior to arrival. He was driving his electric wheelchair to the left and leaning to the left side of his body when standing up. He caught his arm on the door jam with going through with his wheelchair. He also states that he had a headache that began at the time of his other symptoms. He walks with a walker and uses an electric wheel chair for any distance. He has refused to take coumadin in the past with known AF and refused the chemotherapy treatment that was advised when the breast CA was resected. He is currently on Tamoxifin 20 mg am. He now has known mets to the bone which was discover last year after a fall. denies CP, SOB, abdominal pain, bowel or bladder issues, vision changes. +left sided weakness, +peripheral feeling loss (chronic). Allergies Allergy/AdvReac Type Severity Reaction Status Date / Time Penicillins AdvReac Unknown HAS Verified 08/18/18 10:51 TOLERATED CEPHALOSPORINS W/O RXN-lightheaded Home Medications Home Medications Medication Instructions Recorded Confirmed Type aspirin [Aspirin Low Dose] 81 mg PO QAM 05/21/18 11/18/18 History metformin 500 mg PO BIDM 05/21/18 11/18/18 History nortriptyline 25 mg PO HS 05/21/18 11/18/18 History sennosides-docusate sodium [Senna 2 tab PO HS 05/21/18 11/18/18 History with Docusate Sodium] acetaminophen [Tylenol Extra 1,000 mg PO Q6H PRN 06/28/18 11/18/18 History Strength] atorvastatin 20 mg PO QAM 06/28/18 11/18/18 History diclofenac sodium 50 mg PO TID PRN 06/28/18 11/18/18 History isosorbide mononitrate 60 mg PO QAM 06/28/18 11/18/18 History lisinopril 40 mg PO QAM 06/28/18 11/18/18 History nitroglycerin 0.4 mg SUBLINGUAL UD 06/28/18 11/18/18 History tamoxifen 20 mg PO QAM 06/28/18 11/18/18 History torsemide 20 mg PO QAM 06/28/18 11/18/18 History carvedilol 12.5 mg PO BIDM 08/12/18 11/18/18 History Metamucil Smooth 58.6% Powder 1 dose PO TID PRN 11/18/18 11/18/18 History calcium carbonate-vitamin D3 1 cap PO DAILY 11/18/18 11/18/18 History [Calcium 600 + D(3)] magnesium hydroxide [Milk of 0 ml PO DAILY PRN 11/18/18 11/18/18 History Magnesia] polyethylene glycol 3350 [Miralax] 17 g PO DAILY PRN 11/18/18 11/18/18 History potassium, sodium phosphates 1 packet PO BID 11/18/18 11/18/18 History [Phos-NaK] terazosin 2 mg PO HS 11/18/18 11/18/18 History Patient History Medical History Pressure ulcer (Acute) LFTs abnormal Hyperbilirubinemia Left knee pain Shoulder pain Breast cancer in male (Chronic) HLD (hyperlipidemia) (Chronic) Chronic atrial fibrillation (Chronic) CAD (coronary artery disease) (Chronic) Thoracic aortic aneurysm (Chronic) CHF (congestive heart failure) (Acute) Altered mental status (Acute) MRSA (methicillin resistant Staphylococcus aureus) (Resolved) Diabetes (Chronic) Hypertension (Chronic) Hepatitis (Resolved) Diabetic neuropathy (Chronic) Diabetic retinopathy (Chronic) Renal insufficiency (Chronic) BPH (benign prostatic hyperplasia) (Chronic) History of diabetic ulcer of foot (Resolved) Status post partial amputation of foot (Resolved) Pneumonia (Inactive) Bone cancer Kidney stones Surgical History Hx of CABG (Resolved) 1993 Hx of cholecystectomy (Resolved) H/O breast surgery (Chronic) Family History Other Colon cancer Diabetes Family history non-contributory Hypertension Social History Preferred Language: Tuval[place] Communication Ability: Effective Visual Impairment: No Limitations Hearing Ability: Normal 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 Beliefs That Will Affect Care: None marital status: Current Living Situation: Alone current occupational status: retired Feels Safe at Home: Yes Safety Concerns: Feels Safe At This Time Smoking Status: Former smoker Cigarettes Per Day: started smoking cigars intermittently again, previous quit 1977 Second Hand Exposure: No Hx Alcohol Use: Yes Alcohol type: beer Hx Substance Use: No Physical Exam Physical Exam: Physical Exam: Constitutional: appearance ill appearing Ears, Nose, Mouth and Throat: mucous membranes moist, no injection and skin normal, eyes normal Cardiovascular: irregular Respiratory: course breath sounds Musculoskeletal: no peripheral edema and decreased distal pulses Skin: neurocutaneous disease noted to mid mao Eyes: extraocular muscles intact (EOMI) and pupils equal, round and reactive to light (PERRL) NEUROLOGIC EXAMINATION: Mental status: Alert and interactive Oriented to full date and location Oriented to person Speech fluent with no evidence of aphasia Cranial Nerves nasolabial fold flattened on the left, left deltoid 4/5, hand brake coupler dinkey biceps triceps 5/5, right hand brake coupler dinkey, biceps triceps deltoid 5/5, hip flex left 4/5, right 5/5, plantar flex ext bilaterally 5/5 Reflexes: Deep tendon reflexes were symmetrical and graded 2/5. toes up going Sensory: decreased sensation to knees bilaterally with vibration light touch Coordination: Gait/Stance: Posture leaning to left in bed Motor: pronator drift of out stretched arms with eyes closed- left Strength: left deltoid 4/5, hand brake coupler dinkey biceps triceps 5/5, right hand brake coupler dinkey, biceps triceps deltoid 5/5, hip flex left 4/5, right 5/5, plantar flex ext bilaterally 5/5 Results & Data Vital Signs (Past 12 Hours) Vital Signs Temp Pulse Pulse Resp BP BP Pulse Ox 11/19/18 11:23 36.8 C 74 16 196/98 H 95 11/19/18 08:00 75 11/19/18 07:11 36.8 C 86 16 182/63 H 92 11/19/18 04:00 36.6 C 76 16 187/91 H 98 11/19/18 02:08 85 201/97 H 187/111 H Laboratory Results Abnormal lab results 11/18/18 11/18/18 11/18/18 Range/Units 19:59 19:59 19:59 RBC 3.86 L (4.7-6.1) M/uL Hgb 11.4 L (14.0-18.0) g/dL Hct 34.2 L (42-52) % RDW Std Deviation 50.8 H (36.4-46.3) fL RDW Coeff of Pranay 15.6 H (11.5-14.5) % Plt Count 113 L (130-400) K/uL Lymph # (Auto) 1.14 L (1.2-3.4) K/uL BUN 24 H (7-18) mg/dl BUN/Creatinine Ratio 22.8 H (10-20) Glucose 109 H (70-99) mg/dl POC Glucose (70-99) Hemoglobin A1c 5.9 H (4.5-5.6) % Calcium 8.4 L (8.5-10.1) mg/dl Total Bilirubin 1.3 H (0.2-1) mg/dl NT-Pro-B Natriuret Pep 7014 H (0-1800) pg/ml Urine pH (4.5-7.5) Urine Protein (Negative) Urine RBC (Auto) (0-4) /hpf U Epithel Cells (Auto) (0-5) /lpf 11/18/18 11/18/18 11/19/18 Range/Units 20:23 21:48 07:28 RBC (4.7-6.1) M/uL Hgb (14.0-18.0) g/dL Hct (42-52) % RDW Std Deviation (36.4-46.3) fL RDW Coeff of Pranay (11.5-14.5) % Plt Count (130-400) K/uL Lymph # (Auto) (1.2-3.4) K/uL BUN (7-18) mg/dl BUN/Creatinine Ratio (10-20) Glucose (70-99) mg/dl POC Glucose 110 H 131 H (70-99) Hemoglobin A1c (4.5-5.6) % Calcium (8.5-10.1) mg/dl Total Bilirubin (0.2-1) mg/dl NT-Pro-B Natriuret Pep (0-1800) pg/ml Urine pH 8.0 H (4.5-7.5) Urine Protein Trace H (Negative) Urine RBC (Auto) 5-10 H (0-4) /hpf U Epithel Cells (Auto) 10-20 H (0-5) /lpf 11/19/18 Range/Units 12:02 RBC (4.7-6.1) M/uL Hgb (14.0-18.0) g/dL Hct (42-52) % RDW Std Deviation (36.4-46.3) fL RDW Coeff of Pranay (11.5-14.5) % Plt Count (130-400) K/uL Lymph # (Auto) (1.2-3.4) K/uL BUN (7-18) mg/dl BUN/Creatinine Ratio (10-20) Glucose (70-99) mg/dl POC Glucose 124 H (70-99) Hemoglobin A1c (4.5-5.6) % Calcium (8.5-10.1) mg/dl Total Bilirubin (0.2-1) mg/dl NT-Pro-B Natriuret Pep (0-1800) pg/ml Urine pH (4.5-7.5) Urine Protein (Negative) Urine RBC (Auto) (0-4) /hpf U Epithel Cells (Auto) (0-5) /lpf Diagnostic Findings CXR- Mild pulmonary edema with moderate bilateral pleural effusions and bibasilar opacities may reflect atelectasis or consolidation. Numerous skeletal metastases. CT head-No acute intracranial findings. Several skeletal lesions which favor skeletal metastatic disease. CTA head/neck - Abrupt cut off of a sylvian branch of the right middle cerebral artery which could account for the patient's left-sided weakness. 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 Extensive skeletal metastatic disease. MRI brain-Acute/subacute infarct involving the right parietal lobe with extension to the right temporal lobe and insular cortex Skeletal metastasis MRA head- No significant stenosis, occlusion, or aneurysm within the [place]. Congenitally small/hypoplastic right vertebral vessel.
[2018-11-19] MEDS: NORTRIPTYLINE HCL 25 MG CAP PO SCH (20:20)
[2018-11-19] MEDS: CARVEDILOL 12.5 MG TAB PO SCH (20:21)
[2018-11-19] MEDS: DOCUSATE SODIUM/SENNA 50/8.6MG TAB PO SCH (20:23)
[2018-11-19] MEDS: TERAZOSIN HCL 1 MG CAP PO SCH (23:07)
[2018-11-20 06:53] LABS: Basophils # (auto) 0.01 K/uL (0-0.2); Basophils % (auto) 0.2 %; Eosinophils # (auto) 0.21 K/uL (0-0.5); Eosinophils % (auto) 4.6 %; Hematocrit (blood only) 36.1 % (42-52); Hemoglobin 11.8 g/dL (14.0-18.0); Immature Granulocytes # (auto) 0.01 K/uL (0.00-0.02); Immature Granulocytes % (auto) 0.2 %; Lymphocytes # (auto) 1.02 K/uL (1.2-3.4); Lymphocytes % (auto) 22.4 %; Mean Corpuscular Hgb Conc 32.7 g/dL (32-36); Mean Corpuscular Volume 88.5 fL (80-100); Mean Platelet Volume 9.4 fL (7.4-10.4); Monocytes # (auto) 0.41 K/uL (0.11-0.59); Neutrophils # (auto) 2.89 K/uL (1.4-6.5); Neutrophils % (auto) 63.6 %; Platelet Count 105 K/uL (130-400); RDW Coefficient of Variation 15.4 % (11.5-14.5); RDW Standard Deviation 49.9 fL (36.4-46.3); Red Blood Count 4.08 M/uL (4.7-6.1); White Blood Count 4.55 K/uL (4.8-10.8)
[2018-11-20 07:04] LABS: INR 1.1 (0.9-1.1); Partial Thromboplastin Time 25.9 Seconds (21.0-31.0); Prothrombin Time 11.4 Seconds (9.0-12.0)
[2018-11-20 07:21] LABS: Calcium 8.1 mg/dl (8.5-10.1); Creatinine Clr Calc Pharmacy 72.6 ml/min; Est GFR (African American) 85.1; Est GFR (Non-African American) 73.4; Magnesium 2.3 mg/dl (1.8-2.4); Potassium 3.7 mmol/L (3.5-5.1)
[2018-11-20] MEDS: LISINOPRIL 40 MG TAB PO SCH (08:53)
[2018-11-20] MEDS: ISOSORBIDE MONO EXTENDED REL 60 MG TABCR PO SCH (08:53)
[2018-11-20] MEDS: CARVEDILOL 12.5 MG TAB PO SCH ×2 (08:53→21:13)
[2018-11-20] MEDS: ATORVASTATIN 40 MG TAB PO SCH (08:54)
[2018-11-20] MEDS: TAMOXIFEN CITRATE 10 MG TABLET PO SCH (08:54)
[2018-11-20] MEDS: ASPIRIN 81 MG ECTAB PO SCH (08:54)
[2018-11-20] MEDS: TORSEMIDE 10 MG TAB PO SCH (08:54)
[2018-11-20] MEDS: INSULIN ASPART 100 UNITS/ML 3 ML PEN SC SCH ×4 (08:58→21:12)
[2018-11-20] MEDS ORDERED: GADOBUTROL 65ML VIAL IV PRN (09:44)
--- NOTE | 2018-11-20 10:39 | Magnetic Resonance Report ---
MRI OF THE BRAIN WITHOUT AND WITH IV CONTRAST CLINICAL HISTORY: Right MCA infarct. Metastatic breast cancer. Evaluate for enhancing lesion. COMPARISON STUDY: Head CT and CTA of the head November 18, 2018. MRI of the brain November 19, 2018. TECHNIQUE: Utilizing a 1.5 Tosha magnet and dedicated coil, multiplanar, multiecho imaging of the br ain was performed pre and postcontrast administration. IV administration of 9.5 mL of Gadavist contr ast was uneventful. Thin cut T1 post contrast imaging was performed with multiplanar reformats. FINDINGS: Foci of restricted diffusion within the right frontal, temporal and frontal lobes within th e right MCA territory are again noted. Extent of restricted diffusion is unchanged since MRI of October 232018. Mild associated vasogenic edema has increased. There is no mass effect. There is no hemorrha ge. Ventricular system is normal. Basilar cisterns are patent. There are no extra axial collections. Flow-voids for the major intracranial vessels are present. There is no intracranial mass or pathologi c enhancement. This exam is mildly compromised by motion artifact although is diagnostic. Numerous fo ci of marrow replacement within visual skeletal structures are noted. These have increased in number and extent since MRI of June 29, 2018. Orbits are unremarkable. IMPRESSION: 1. No parenchymal metastases identified. 2. Expected evolution of an acute right MCA territory infarct. 3. Numerous skeletal metastases which have increased since MRI of June 29, 2018. Electronically signed by: James Woodall M.D. 11/20/2018 10:38 AM
[2018-11-20] MEDS: AMLODIPINE BESYLATE 5 MG TAB PO SCH (15:47)
--- NOTE | 2018-11-20 16:47 | Hospitalist Progress Note ---
Date of Service November 20, 2018 Assessment & Plan (1) Acute CVA (cerebrovascular accident): Acute CVA (cerebrovascular accident): -left sided weakness -Neck CTA: Moderate to severe stenosis of the proximal intracranial portion of the left vertebral artery due to extensive calcified atherosclerotic plaque -Head CTA: Abrupt cut off of a sylvian branch of the right middle cerebral artery which could account for the patient's left-sided weakness -Acute/subacute infarct involving the right parietal lobe with extension to the right temporal lobe and insular cortex -continue home dose aspirin 81 mg -increase home dose statin from atorvastatin 20 mg daily to 40 mg daily -11/19/18 Had discussion with patient of diagnosis of stroke and that with current atrial fibrillation that patient should be on a blood thinner. Discussed with patient that coumadin has a readily reversible agent if the blood becomes too thin but patient is reluctant to take coumadin because his had bleeding complications from coumadin. Discussed with patient that given history of malignancy that Lovenox is better recommendation than other new oral anticoagulants but patient is reluctant about taking daily injections -11/20/18 Patient had repeat Brain MRI : 1. No parenchymal metastases identified. 2. Expected evolution of an acute right MCA territory infarct. 3. Numerous skeletal metastases which have increased since MRI of June 29, 2018. -11/20/18: no new focal deficits: patient agreeable to remote computer terminal operator Xarelto anticoagulation and 1 dose of Lovenox; will give Lovenox 40 mg starting on 11/20/18 evening and then start oral Xarelto in morning of 11/21/18 to help with patient's usual timing of morning medications Hypertensive crisis associated with neurologic event Hypertension -blood pressure better controlled but somewhat still elevated -continue homed dose carvedilol 12.5 mg PO BID -continue home dose isosorbide mono nitrate -continue home dose lisinopril 40 mg daily -add amlodipine 5 mg daily starting on 11/20/18 Chronic atrial Fibrillation -rate controlled -continue homed dose carvedilol 12.5 mg PO BID Chronic Anemia -Hgb stable above 11 Thrombocytopenia -platelets stable 100,000 chronic diastolic heart failure (EF 55-60% TTE 2019) CAD status post CABG in the past -continue home dose torsemide 20 mg daily Benign Prostate hypertrophy -resume home dose terazosin 2 mg qhs Type 2 diabetes mellitus controlled 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 Flakito Delgadillo, contact number [phone] disposition: will continue to monitor as inpatient for better blood pressure control, transition to NOAC starting on 11/20/18 Subjective patient continues to decline care home coumadin or longer term Lovenox for stroke prophylaxis in context of atrial fibrillation. patient agreeable to remote computer terminal operator Xarelto anticoagulation; he agrees to 1 dose of Lovenox before transition to Xaralto. patient has high blood pressure today. denies headache or dizziness. no new focal deficits. the left side is still rather strong. Physical Exam Constitutional: WD/WN, vitals as above Eyes: PERRL, conjunctivae normal, anicteric sclerae EOM intact bilaterally ENMT: external ear and nose normal, oropharynx normal (mild left labial fold flattening) Neck: trachea midline, no thyromegaly Respiratory: normal respiratory effort, lungs clear to auscultation Cardiovascular: Rate/Rhythm: regular rate and + irregularly irregular Gastrointestinal (Abdomen): normal bowel sounds, soft, nontender, no hepatosplenomegaly Musculoskeletal: no cyanosis or clubbing, extremities motor strength 5/5 (mild weakness of left upper extremities) Head/Neck/Chest: normocephalic and head atraumatic Neurologic: PERRL, EOMI, accommodation nl, no face palsy, no dysarthria CN's II-XI intact bilaterally Psychiatric: A+Ox3, euthymic affect Results & Data Vital Signs (Past 12 Hours) Vital Signs Temp Pulse Pulse Resp BP Pulse Ox 11/20/18 15:26 36.6 C 66 18 162/65 H 95 11/20/18 11:31 36.4 C L 73 18 172/88 H 95 11/20/18 08:00 82 11/20/18 07:23 36.5 C 75 18 191/95 H 96
[2018-11-20] MEDS ORDERED: ENOXAPARIN 100 MG/1ML SYR SQ ONE (16:52)
[2018-11-20] MEDS ORDERED: ENOXAPARIN INJ 40 MG/0.4 ML SYR SQ STA (17:32)
[2018-11-20] MEDS: TERAZOSIN HCL 1 MG CAP PO SCH (21:13)
[2018-11-20] MEDS: DOCUSATE SODIUM/SENNA 50/8.6MG TAB PO SCH (21:14)
[2018-11-20] MEDS: NORTRIPTYLINE HCL 25 MG CAP PO SCH (21:23)
--- NOTE | 2018-11-20 21:58 | Progress Note ---
DATE: 11/18/2018 I am seeing Mr. Delgadillo in followup of the right MCA infarction with a history of atrial fibrillation for which he was on aspirin. The CTA of head and neck showed no high grade stenosis of the carotid arteries. Evidence of skeletal metastasis. CTA of the head showed cut off of the right sylvian branch of the right middle cerebral artery, moderate to severe stenosis of proximal left vertebral artery. The patient has not had any further symptoms and is planning on going home tomorrow. He had declined warfarin in the past because his ex- had some serious complications of its use and he also declined Lovenox use. He is to be sent home on a Novel anticoagulant. PHYSICAL EXAMINATION: He is awake and alert. There is no denial. There is visual extinction on the left. No facial asymmetry. Speech and language are normal. No right/left confusion. There is minimal if any weakness on the left arm, equal rapid alternating movements. Lower extremity full. There is extinction to double simultaneous stimulation limbs. His gait is modestly wide based. He has difficulty arising from the soft bed, but on the whole appears safe with his walker. IMPRESSION: Embolic infarction. The patient is discharged on Novel anticoagulants. He will need to continue to ambulate cautiously as he lives alone. He indicates that home physical therapy will be set up for him. He can see us in followup post-discharge. Will sign off at present. ROSAURA
[2018-11-21] MEDS: ACETAMINOPHEN 325 MG TAB PO PRN ×2 (00:37→08:06)
[2018-11-21] MEDS: AMLODIPINE BESYLATE 5 MG TAB PO SCH (08:07)
[2018-11-21] MEDS: ASPIRIN 81 MG ECTAB PO SCH (08:07)
[2018-11-21] MEDS: CARVEDILOL 12.5 MG TAB PO SCH (08:07)
[2018-11-21] MEDS: ISOSORBIDE MONO EXTENDED REL 60 MG TABCR PO SCH (08:07)
[2018-11-21] MEDS: ATORVASTATIN 40 MG TAB PO SCH (08:08)
[2018-11-21] MEDS: TAMOXIFEN CITRATE 10 MG TABLET PO SCH (08:08)
[2018-11-21] MEDS: TORSEMIDE 10 MG TAB PO SCH (08:08)
[2018-11-21] MEDS: LISINOPRIL 40 MG TAB PO SCH (08:09)
[2018-11-21] MEDS: INSULIN ASPART 100 UNITS/ML 3 ML PEN SC SCH ×2 (08:10→12:25)
--- NOTE | 2018-11-21 09:46 | Hospitalist Progress Note ---
Date of Service November 21, 2018 Assessment & Plan (1) Acute CVA (cerebrovascular accident): Acute CVA (cerebrovascular accident): -left sided weakness -Neck CTA: Moderate to severe stenosis of the proximal intracranial portion of the left vertebral artery due to extensive calcified atherosclerotic plaque -Head CTA: Abrupt cut off of a sylvian branch of the right middle cerebral artery which could account for the patient's left-sided weakness -Acute/subacute infarct involving the right parietal lobe with extension to the right temporal lobe and insular cortex -continue home dose aspirin 81 mg -increase home dose statin from atorvastatin 20 mg daily to 40 mg daily -11/19/18 Had discussion with patient of diagnosis of stroke and that with current atrial fibrillation that patient should be on a blood thinner. Discussed with patient that coumadin has a readily reversible agent if the blood becomes too thin but patient is reluctant to take coumadin because his had bleeding complications from coumadin. Discussed with patient that given history of malignancy that Lovenox is better recommendation than other new oral anticoagulants but patient is reluctant about taking daily injections -11/20/18 Patient had repeat Brain MRI : 1. No parenchymal metastases identified. 2. Expected evolution of an acute right MCA territory infarct. 3. Numerous skeletal metastases which have increased since MRI of June 29, 2018. -11/20/18: no new focal deficits: patient agreeable to terminal operations manager Xarelto anticoagulation and 1 dose of Lovenox; will give Lovenox 40 mg starting on 11/20/18 evening and then start oral Xarelto in morning of 11/21/18 to help with patient's usual timing of morning medications -11/21/18: Patient should take Xarelto daily with aspirin 81 mg daily to prevent stroke recurrence. Patient should call for medical assistance or hold Xarelto/aspirin if having acute bleeding. Follow up with primary care doctor to check blood work for hemoglobin or platelet changes. Patient should take atorvastatin as 40 mg daily and take amlodipine 5 mg along with other blood pressure medicals of carvedilol 12.5 mg BID and lisinopril 40 mg daily and isosorbide mononitrate daily and follow up with primary care doctor on further blood pressure control Hypertensive crisis associated with neurologic event Hypertension -blood pressure better controlled but somewhat still elevated -continue homed dose carvedilol 12.5 mg PO BID -continue home dose isosorbide mono nitrate -continue home dose lisinopril 40 mg daily -continue add amlodipine 5 mg daily started on 11/20/18 Chronic atrial Fibrillation -rate controlled -continue homed dose carvedilol 12.5 mg PO BID -continue Xarelto Chronic Anemia -Hgb stable above 11 -Follow up with primary care doctor to check blood work for hemoglobin or platelet changes. Thrombocytopenia -platelets stable 100,000 -Follow up with primary care doctor to check blood work for hemoglobin or platelet changes. chronic diastolic heart failure (EF 55-60% TTE 2018) CAD status post CABG in the past -continue home dose torsemide 20 mg daily Benign Prostate hypertrophy -resume home dose terazosin 2 mg qhs Type 2 diabetes mellitus controlled without terminal operations manager current use of insulin -HbA1c 5.9 -patient was giving sliding scale insulin as per fingerstick glucose while inpatient -patient may resume home dose metformin when discharged -continue home dose nortriptyline for diabetic neuropathy Malignancy -metastatic breast cancer status post surgery undergoing chemotherapy -CTA neck scans confirms skeletal lesions -continue tamoxifen -outpatient follow up with oncologist -[facility] appointment line was called to schedule an earlier appointment with oncologist prior to previous January 2019 appointment so patient can discuss with oncologist about cancer progression and Xarelto use DVT prophylaxis: SCDs for now Patient's daughter [facility], contact #[phone]; Secondary contact is patient's son, Mr. Flakito Delgadillo, contact number [phone] Discharge Diagnosis Acute CVA (cerebrovascular accident), Hypertensive crisis associated with neurologic event, Hypertension, Chronic atrial Fibrillation, Malignancy (metastatic breast cancer), Chronic Anemia, Thrombocytopenia, Type 2 diabetes mellitus controlled without terminal operations manager current use of insulin Discharge Instructions Risk Factors for Stroke: You can reduce your chances of stroke by working with your medical provider to adopt a healthy lifestyle. Some specific ways to lower your chance of stroke are: * If you are a smoker, now is the time to stop smoking cigarettes * If you are diabetic, improve the control of your blood sugars * Avoid excessive amounts of alcohol * Control high blood pressure * Lose weight if you are overweight * Be sure to lead an active lifestyle * Eat a healthy diet low in salt, cholesterol and fat You should know about other risk factors for stroke that you are unable to control. These include: * Age 55 years or older * Male gender * Certain racial groups: , or / * Family History of Stroke, Mini stroke or Heart Attack * Sickle Cell Disease Follow Up: It is important for you to keep your follow up appointments with your medical provider. Who to Call and When: Medical Emergencies: Call 911 immediately if you experience any of the following warning signs and symptoms of Stroke: * Sudden numbness or weakness of the face, arm or leg, especially on one side of the body * Sudden confusion, trouble speaking or understanding * Sudden trouble seeing in one or both eyes * Sudden trouble walking, dizziness, loss of balance or coordination * Sudden severe headache with no cause Do not delay calling 911 if you experience any warning signs or symptoms of a stroke. Delay in seeking medical attention may affect what treatments can be given to you. . Patient should take Xarelto daily with aspirin 81 mg daily to prevent stroke recurrence. Patient should call for medical assistance or hold Xarelto/aspirin if having acute bleeding. Follow up with primary care doctor to check blood work for hemoglobin or platelet changes. Patient should take atorvastatin as 40 mg daily and take amlodipine 5 mg along with other blood pressure medicals of carvedilol 12.5 mg BID and lisinopril 40 mg daily and isosorbide mononitrate daily and follow up with primary care doctor on further blood pressure control Follow up appointments [facility] appointment line was called to schedule an earlier appointment with oncologist prior to previous January 2019 appointment so patient can discuss with oncologist about cancer progression and Xarelto use 11/25/2018 3:00 PM Provider Lawrence Mallory MD Department Internal Medicine [facility] 12/05/2018 9:30 AM Provider Lab [facility] Department Laboratory [facility] 12/05/2018 10:00 AM Provider Chair 11 Hem Onc [facility] Department Hematology/Oncology Treatment, [place] 12/30/2018 10:40 AM Provider Talia Mott PA-C Department Neurology [facility] Subjective Patient seen and examined this AM. Blood pressure appears better controlled. BP 164/84 in the AM and recently had additional amlodipine to anti-hypertensive regimen started on 11/20/18. Patient denies headache or chest pain. left upper extremity strength seems almost symmetric. patient denies shortness of breath. no vomiting. no fever. discussed plans with patient about hospital dischareg and follow uos Physical Exam Constitutional: WD/WN, vitals as above Eyes: PERRL, conjunctivae normal, anicteric sclerae EOM intact bilaterally ENMT: external ear and nose normal, oropharynx normal (mild left labial fold flattening) Neck: trachea midline, no thyromegaly Respiratory: normal respiratory effort, lungs clear to auscultation Cardiovascular: Rate/Rhythm: regular rate and + irregularly irregular Gastrointestinal (Abdomen): normal bowel sounds, soft, nontender, no hepatosplenomegaly Musculoskeletal: no cyanosis or clubbing, extremities motor strength 5/5 (mild weakness of left upper extremities) Head/Neck/Chest: normocephalic and head atraumatic Neurologic: PERRL, EOMI, accommodation nl, no face palsy, no dysarthria CN's II-XI intact bilaterally Psychiatric: A+Ox3, euthymic affect Results & Data Vital Signs (Past 12 Hours) Vital Signs Temp Pulse Pulse Resp BP Pulse Ox 11/21/18 08:05 71 164/84 H 11/21/18 07:36 69 11/21/18 07:03 36.5 C 65 18 182/89 H 95 11/21/18 04:27 36.7 C 72 18 142/76 H 92 11/21/18 00:04 69 11/20/18 23:43 36.7 C 70 16 139/74 94
[2018-11-21] MEDS ORDERED: STROKE PATIENT DISCHARGE STA (10:01)
--- NOTE | 2018-11-21 10:02 | Discharge Summary ---
Date of Service November 21, 2018 Admission HPI Per Admitting Provider History obtained from patient, family, and records. Medical history significant for chronic diastolic heart failure (EF 55-60% TTE 2018), A. fib not on Coumadin secondary to patient refusal/fall risk as per records, CAD status post CABG, hypertension, hx TIAs as per px, metastatic breast cancer status post surgery undergoing chemotx, chronic pancytopenia, DM 2 on oral medications, past tobacco abuse, hx MRSA as per records. Recent confinement June 2018 for decompensated heart failure. This afternoon patient noted by family to be leaning to the left side, electric chair veering to the left. Patient left arm was noted to be weak. Some weakness on the left face and decreased vision on the left as per family. Patient complained of achy headache. No chest pain, no S OB. Compliant with home aspirin. Patient does not monitor blood pressure at home. 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 Stroke alert called upon arrival at the ER. At the ER, SBP noted to be 240s. Nicardipine drip started at the ER. Patient arm weakness improved as per family. SBP currently 140s. Medical History as above Surgical History : CABG, bone debridement, right mastectomy, skin cancer surgery, sinus surgery, toe surgery, ulnar nerve revision, cholecystectomy Family History : Colon cancer, diabetes, hypertension Personal/Social history : Past tobacco abuse, no EtOH intake, retired from construction work Admission Exam Per Admitting Provider GENERAL: Slightly anxious, no respiratory distress SKIN: Pallor, warm HEENT: Pale palpebral conjunctivae, no ptosis, subtle facial symmetry left, dry buccal mucosa NECK : Supple, no tenderness CHEST : CTA, no tenderness HEART : Irregular, systolic murmur ABDOMEN: Some distention, nontender EXTREMITIES : No LE swelling/tenderness, no other conspicuous deformities noted NEUROLOGIC : Coherent, subtle L facial asymmetry L, MMTs R5/5, L4/5, left pronator drift, gait and stance not assessed Principal Diagnosis Acute CVA (cerebrovascular accident), Hypertensive crisis associated with neurologic event, Hypertension, Chronic atrial Fibrillation, Malignancy (metastatic breast cancer), Chronic Anemia, Thrombocytopenia, Type 2 diabetes mellitus controlled without fpc current use of insulin Discharge Exam Constitutional WD/WN, vitals as above Eyes PERRL, conjunctivae normal, anicteric sclerae EOM intact bilaterally ENMT external ear and nose normal, oropharynx normal (mild left labial fold matty ening) Neck trachea midline, no thyromegaly Respiratory normal respiratory effort, lungs clear to auscultation Cardiovascular Rate/Rhythm: regular rate Gastrointestinal (Abdomen) normal bowel sounds, soft, nontender, no hepatosplenomegaly Musculoskeletal no cyanosis or clubbing, extremities motor strength 5/5 (mild weakness of left upper extremities) Head/Neck/Chest: normocephalic and head atraumatic Neurologic PERRL, EOMI, accommodation nl, no face palsy, no dysarthria CN's II-XI intact bilaterally Psychiatric A+Ox3, euthymic affect Discharge Data Allergies Allergy/AdvReac Type Severity Reaction Status Date / Time Penicillins AdvReac Unknown HAS Verified 08/18/18 10:51 TOLERATED CEPHALOSPORINS W/O RXN-lightheaded Consultations 11/18/18 20:52 ED Decision to Admit Stat 11/19/18 06:21 Consult Case Management - Discharge Planning Routine Consult Case Management - Discharge Planning Routine Consult Neurology Routine Ordered Studies 11/18/18 19:53 CT angio head w con Stat CT angio neck with con Stat CT head/brain wo con Stat 11/19/18 06:21 MR angio head wo con Urgent MR brain wo con Routine 11/20/18 08:00 MR brain wo/w con Routine Hospital Course (1) Acute CVA (cerebrovascular accident): Acute CVA (cerebrovascular accident): -left sided weakness -Neck CTA: Moderate to severe stenosis of the proximal intracranial portion of the left vertebral artery due to extensive calcified atherosclerotic plaque -Head CTA: Abrupt cut off of a sylvian branch of the right middle cerebral artery which could account for the patient's left-sided weakness -Acute/subacute infarct involving the right parietal lobe with extension to the right temporal lobe and insular cortex -continue home dose aspirin 81 mg -increase home dose statin from atorvastatin 20 mg daily to 40 mg daily -11/19/18 Had discussion with patient of diagnosis of stroke and that with curren t atrial fibrillation that patient should be on a blood thinner. Discussed with patient that coumadin has a readily reversible agent if the blood becomes too thin but patient is reluctant to take coumadin because his had bleeding complications from coumadin. Discussed with patient that given history of malignancy that Lovenox is better recommendation than other new oral anticoagulants but patient is reluctant about taking daily injections -11/20/18 Patient had repeat Brain MRI : 1. No parenchymal metastases identified. 2. Expected evolution of an acute right MCA territory infarct. 3. Numerous skeletal metastases which have increased since MRI of June 29, 2018. -11/20/18: no new focal deficits: patient agreeable to fpc Xarelto anticoagulation and 1 dose of Lovenox; will give Lovenox 40 mg starting on 11/20/18 evening and then start oral Xarelto in morning of 11/21/18 to help with patient's usual timing of morning medications -11/21/18: Patient should take Xarelto daily with aspirin 81 mg daily to prevent stroke recurrence. Patient should call for medical assistance or hold Xarelto/aspirin if having acute bleeding. Follow up with primary care doctor to check blood work for hemoglobin or platelet changes. Patient should take atorvastatin as 40 mg daily and take amlodipine 5 mg along with other blood pressure medicals of carvedilol 12.5 mg BID and lisinopril 40 mg daily and isosorbide mononitrate daily and follow up with primary care doctor on further blood pressure control Hypertensive crisis associated with neurologic event Hypertension -blood pressure better controlled but somewhat still elevated -continue homed dose carvedilol 12.5 mg PO BID -continue home dose isosorbide mono nitrate -continue home dose lisinopril 40 mg daily -continue add amlodipine 5 mg daily started on 11/20/18 Chronic atrial Fibrillation -rate controlled -continue homed dose carvedilol 12.5 mg PO BID -continue Xarelto Chronic Anemia -Hgb stable above 11 -Follow up with primary care doctor to check blood work for hemoglobin or platelet changes. Thrombocytopenia -platelets stable 100,000 -Follow up with primary care doctor to check blood work for hemoglobin or platelet changes. 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 -HbA1c 5.9 -patient was giving sliding scale insulin as per fingerstick glucose while inpatient -patient may resume home dose metformin when discharged -continue home dose nortriptyline for diabetic neuropathy Malignancy -metastatic breast cancer status post surgery undergoing chemotherapy -CTA neck scans confirms skeletal lesions -continue tamoxifen -outpatient follow up with oncologist -[facility] appointment line was called to schedule an earlier appointment with oncologist prior to previous January 2019 appointment so patient can discuss with oncologist about cancer progression and Xarelto use DVT prophylaxis: SCDs for now Patient's daughter[facility], contact #[phone]; Secondary contact is patient's son, Mr. Flakito Delgadillo, contact number [phone] Discharge Diagnosis Acute CVA (cerebrovascular accident), Hypertensive crisis associated with neurologic event, Hypertension, Chronic atrial Fibrillation, Malignancy (metastatic breast cancer), Chronic Anemia, Thrombocytopenia, Type 2 diabetes mellitus controlled without fpc current use of insulin Discharge Instructions Risk Factors for Stroke: You can reduce your chances of stroke by working with your medical provider to adopt a healthy lifestyle. Some specific ways to lower your chance of stroke are: * If you are a smoker, now is the time to stop smoking cigarettes * If you are diabetic, improve the control of your blood sugars * Avoid excessive amounts of alcohol * Control high blood pressure * Lose weight if you are overweight * Be sure to lead an active lifestyle * Eat a healthy diet low in salt, cholesterol and fat You should know about other risk factors for stroke that you are unable to cont rol. These include: * Age 55 years or older * Male gender * Certain racial groups: , or / * Family History of Stroke, Mini stroke or Heart Attack * Sickle Cell Disease Follow Up: It is important for you to keep your follow up appointments with your medical provider. Who to Call and When: Medical Emergencies: Call 911 immediately if you experience any of the following warning signs and symptoms of Stroke: * Sudden numbness or weakness of the face, arm or leg, especially on one side of the body * Sudden confusion, trouble speaking or understanding * Sudden trouble seeing in one or both eyes * Sudden trouble walking, dizziness, loss of balance or coordination * Sudden severe headache with no cause Do not delay calling 911 if you experience any warning signs or symptoms of a stroke. Delay in seeking medical attention may affect what treatments can be given to you. . Patient should take Xarelto daily with aspirin 81 mg daily to prevent stroke recurrence. Patient should call for medical assistance or hold Xarelto/aspirin if having acute bleeding. Follow up with primary care doctor to check blood work for hemoglobin or platelet changes. Patient should take atorvastatin as 40 mg daily and take amlodipine 5 mg along with other blood pressure medicals of carvedilol 12.5 mg BID and lisinopril 40 mg daily and isosorbide mononitrate daily and follow up with primary care doctor on further blood pressure control Follow up appointments [facility] appointment line was called to schedule an earlier appointment with oncologist prior to previous January 2019 appointment so patient can discuss with oncologist about cancer progression and Xarelto use 11/25/2018 3:00 PM Provider Lawrence Mallory MD Department Internal Medicine [facility] 12/05/2018 9:30 AM Provider Lab [facility] Department Laboratory [facility] 12/05/2018 10:00 AM Provider Chair 11 Hem Onc [facility] 10[facility]40 AM Provider Talia Mott PA-C Department Neurology [facility] Total Time Total Time Spent Total Time Spent (In Minutes): 40 minutes Total Time Includes: Examination of the Patient, Discharge Planning, Medication Reconciliation and Communication With Other Providers Discharge Plan Discharge Items Patient Disposition: Home - Home Health Services Reason For Visit: CVA Discharge Diagnosis: Acute CVA (cerebrovascular accident), Hypertensive crisis associated with neurologic event, Hypertension, Chronic atrial Fibrillation, Malignancy (metastatic breast cancer), Chronic Anemia, Thrombocytopenia, Type 2 diabetes mellitus controlled without fpc current use of insulin Condition: Good Discharge Goals: Improve disease control Activity: Resume your previous activity Non-emergency contact: Primary Care Provider and Neurologist Call non-emergency contact if: you have any medication questions Follow-up/Referrals: Lawrence Mallory MD [Primary Care Provider] - Diet: Carb Consistent or DM2 Addtl Provider Instructions: Risk Factors for Stroke: You can reduce your chances of stroke by working with your medical provider to adopt a healthy lifestyle. Some specific ways to lower your chance of stroke are: If you are a smoker, now is the time to stop smoking cigarettes If you are diabetic, improve the control of your blood sugars Avoid excessive amounts of alcohol Control high blood pressure Lose weight if you are overweight Be sure to lead an active lifestyle Eat a healthy diet low in salt, cholesterol and fat You should know about other risk factors for stroke that you are unable to control. These include: Age 55 years or older Male gender Certain racial groups: , or / Family History of Stroke, Mini stroke or Heart Attack Sickle Cell Disease Follow Up: It is important for you to keep your follow up appointments with your medical provider. Who to Call and When: Medical Emergencies: Call 911 immediately if you experience any of the following warning signs and symptoms of Stroke: Sudden numbness or weakness of the face, arm or leg, especially on one side of the body Sudden confusion, trouble speaking or understanding Sudden trouble seeing in one or both eyes Sudden trouble walking, dizziness, loss of balance or coordination Sudden severe headache with no cause Do not delay calling 911 if you experience any warning signs or symptoms of a stroke. Delay in seeking medical attention may affect what treatments can be given to you. . Patient should take Xarelto daily with aspirin 81 mg daily to prevent stroke recurrence. Patient should call for medical assistance or hold Xarelto/aspirin if having acute bleeding. Follow up with primary care doctor to check blood work for hemoglobin or platelet changes. Patient should take atorvastatin as 40 mg daily and take amlodipine 5 mg along with other blood pressure medicals of carvedilol 12.5 mg BID and lisinopril 40 mg daily and isosorbide mononitrate daily and follow up with primary care doctor on further blood pressure control Follow up appointments [facility] appointment line was called to schedule an earlier appointment with oncologist prior to previous January 2019 appointment so patient can discuss with oncologist about cancer progression and Xarelto use 11/25/2018 3:00 PM Provider Lawrence Mallory MD Department Internal Medicine [facility] 12/05/2018 9:30 AM Provider Lab [facility] Department Laboratory [facility] 12/05/2018 10:00 AM Provider Chair 11 Hem Onc [facility] 10:40 AM Provider Talia Mott PA-C Department Neurology [facility] Prescriptions: New atorvastatin 40 mg Tablet 40 mg PO QAM 30 Days Qty: 30 RF: 0 amlodipine 5 mg tablet 5 mg PO QAM 30 Days Qty: 30 RF: 0 Continued torsemide 20 mg tablet 20 mg PO QAM RF: 0 diclofenac sodium 50 mg tablet,delayed release (DR/EC) 50 mg PO TID PRN (Reason: Pain) RF: 0 isosorbide mononitrate 60 mg tablet extended release 24 hr 60 mg PO QAM RF: 0 lisinopril 40 mg tablet 40 mg PO QAM RF: 0 nitroglycerin 0.4 mg tablet, sublingual 0.4 mg Sublingual UD RF: 0 tamoxifen 20 mg Tablet 20 mg PO QAM RF: 0 metformin 500 mg Tablet 500 mg PO BIDM RF: 0 sennosides-docusate sodium [Senna with Docusate Sodium] 8.6-50 mg Tablet 2 tab PO HS RF: 0 aspirin [Aspirin Low Dose] 81 mg Tablet,Delayed Release (Dr/Ec) 81 mg PO QAM RF: 0 nortriptyline 25 mg Capsule 25 mg PO HS RF: 0 carvedilol 12.5 mg tablet 12.5 mg PO BIDM RF: 0 polyethylene glycol 3350 [Miralax] 17 gram Powder In Packet 17 g PO DAILY PRN (Reason: Constipation) RF: 0 magnesium hydroxide [Milk of Magnesia] 400 mg/5 mL Suspension PO DAILY PRN (Reason: Constipation) RF: 0 terazosin 2 mg capsule 2 mg PO HS RF: 0 Calcium 600 + D(3) 600 mg calcium- 200 unit Capsule 1 cap PO DAILY RF: 0 potassium, sodium phosphates [Phos-NaK] 280-160-250 mg powder in packet 1 packet PO BID RF: 0 Metamucil Smooth 58.6% Powder 1 dose PO TID PRN (Reason: Constipation) RF: 0 Discontinued acetaminophen [Tylenol Extra Strength] 500 mg Tablet 1,000 mg PO Q6H PRN (Reason: Fever Or Pain) RF: 0 atorvastatin 20 mg tablet 20 mg PO QAM RF: 0 Stand-Alone Forms: [facility]charge Orders: Discharge Order (Routine); Ordered 11/21/18 Ordered By: Elliot Cruz Admission Data Admit Date/Time: 11/18/18 22:58 Attending Provider: Elliot Cruz Admit Provider: Guillermo Martin Primary Care Provider: Lawrence Mallory Other Providers: Guillermo Martin ; Marcelino Garcia Service: Telemetry Medical
--- NOTE | 2018-11-21 15:56 | Pharmacy Report ---
Pharmacist Stroke Counseling - Date of Service November 21, 2018 - Scope: Pharmacy has been consulted to provide medication discharge counseling for this patient admitted with transient ischemic attack as per the Pharmacist Discharge Counseling for Stroke Patients Protocol. - Medications on Discharge: Home Medications Medication Instructions Recorded Confirmed aspirin [Aspirin Low Dose] 81 mg PO QAM 05/21/18 11/18/18 metformin 500 mg PO BIDM 05/21/18 11/18/18 nortriptyline 25 mg PO HS 05/21/18 11/18/18 sennosides-docusate sodium [Senna 2 tab PO HS 05/21/18 11/18/18 with Docusate Sodium] diclofenac sodium 50 mg PO TID PRN 06/28/18 11/18/18 isosorbide mononitrate 60 mg PO QAM 06/28/18 11/18/18 lisinopril 40 mg PO QAM 06/28/18 11/18/18 nitroglycerin 0.4 mg SUBLINGUAL UD 06/28/18 11/18/18 tamoxifen 20 mg PO QAM 06/28/18 11/18/18 torsemide 20 mg PO QAM 06/28/18 11/18/18 carvedilol 12.5 mg PO BIDM 08/12/18 11/18/18 Calcium 600 + D(3) 1 cap PO DAILY 11/18/18 11/18/18 Metamucil Smooth 58.6% Powder 1 dose PO TID PRN 11/18/18 11/18/18 magnesium hydroxide [Milk of 0 ml PO DAILY PRN 11/18/18 11/18/18 Magnesia] polyethylene glycol 3350 [Miralax] 17 g PO DAILY PRN 11/18/18 11/18/18 potassium, sodium phosphates 1 packet PO BID 11/18/18 11/18/18 [Phos-NaK] terazosin 2 mg PO HS 11/18/18 11/18/18 New Rx's Medication Instructions Recorded amlodipine 5 mg PO QAM 30 Days #30 tab 11/21/18 atorvastatin 40 mg PO QAM 30 Days #30 tab 11/21/18 Xarelto 20 mg daily with evening meal - Action: The above medications, specifically ones for stroke treatment/prophylaxis, have been reviewed in detail with the patient and/or patient customer field representative(s) prior to discharge. This includes indication, common adverse reactions, drug interactions, and medication administration. Medication counseling has been employed using the teach-back method to ensure understanding. - Outcome: The patient and his son have demonstrated understanding of the medication especially Xarelto, ASA and Lipitor. I explained that the Lipitor dose was increased to 40 mg daily and addressed possible side effects from that. Please note, they are aware that the pharmacist will call them within 72 hours post-discharge to confirm that the appropriate medications are being taken and answer any further medication related questions the patient might have at that time. Contact information Individual to be contacted: Son- Jonathan Storyon Relationship to patient: Son Phone number: [phone] (son's cell phone) Best time to call: Anytime per the son. Thank you for allowing pharmacy to be involved in the care of this patient. Please call [phone] or [phone] with any additional questions
[2018-11-21] MEDS ORDERED: RIVAROXABAN 20 MG TAB PO SCH (16:30)
--- NOTE | 2018-11-24 15:44 | Pharmacy Report ---
Pharmacist Post D/C Phone Note - Phone Note: Date of phone call: November 24, 2018. The patient and/or patient sales promotion representative(s) were unable to be reached for a follow-up phone call within the 72 hour time frame. Discharge counseling pharmacist contact information has already been provided to the patient should questions arise. Thank you for allowing us to be involved in the care of this patient. - Home Medications: Home Medications Medication Instructions Recorded Confirmed aspirin [Aspirin Low Dose] 81 mg PO QAM 05/21/18 11/18/18 metformin 500 mg PO BIDM 05/21/18 11/18/18 nortriptyline 25 mg PO HS 05/21/18 11/18/18 sennosides-docusate sodium [Senna 2 tab PO HS 05/21/18 11/18/18 with Docusate Sodium] diclofenac sodium 50 mg PO TID PRN 06/28/18 11/18/18 isosorbide mononitrate 60 mg PO QAM 06/28/18 11/18/18 lisinopril 40 mg PO QAM 06/28/18 11/18/18 nitroglycerin 0.4 mg SUBLINGUAL UD 06/28/18 11/18/18 tamoxifen 20 mg PO QAM 06/28/18 11/18/18 torsemide 20 mg PO QAM 06/28/18 11/18/18 carvedilol 12.5 mg PO BIDM 08/12/18 11/18/18 Calcium 600 + D(3) 1 cap PO DAILY 11/18/18 11/18/18 Metamucil Smooth 58.6% Powder 1 dose PO TID PRN 11/18/18 11/18/18 magnesium hydroxide [Milk of 0 ml PO DAILY PRN 11/18/18 11/18/18 Magnesia] polyethylene glycol 3350 [Miralax] 17 g PO DAILY PRN 11/18/18 11/18/18 potassium, sodium phosphates 1 packet PO BID 11/18/18 11/18/18 [Phos-NaK] terazosin 2 mg PO HS 11/18/18 11/18/18 New Rx's Medication Instructions Recorded amlodipine 5 mg PO QAM 30 Days #30 tab 11/21/18 atorvastatin 40 mg PO QAM 30 Days #30 tab 11/21/18 rivaroxaban [Xarelto] 20 mg PO DAILY #30 tab 11/21/18
== END 2018-11-21 16:21 | disposition home health service (06) | DRG 64 ==
LOC: ED 19:36 → 2W 22:58

== ENCOUNTER 2018-12-15 11:31 | Inpatient (IN) ==
[2018-12-15] MEDS ORDERED: ALBUT/IPRATROP 3MG/0.5MG NEB 3 ML VIAL NEB STA (14:26)
[2018-12-15] MEDS ORDERED: ONDANSETRON INJ 2 MG/ML 2 ML VIAL IV PRN (15:52)
[2018-12-15] MEDS ORDERED: FUROSEMIDE 40 MG in SYRINGE 0 ML IV ONE (16:00)
[2018-12-15] MEDS ORDERED: DEXTROSE 50% 50 ML SYRINGE IV PRN (16:14)
[2018-12-15] MEDS ORDERED: GLUCOSE 40% GEL 15 GM TUBE PO PRN (16:14)
[2018-12-15] MEDS ORDERED: GLUCAGON FOR INJ 1 MG VIAL SQ PRN (16:14)
[2018-12-15] MEDS ORDERED: CARBOHYDRATES FOR HYPOGLYCEMIA PO PRN (16:14)
[2018-12-15] MEDS ORDERED: GLUCOSE 10 TABS/TUBE PO PRN (16:14)
[2018-12-15] MEDS ORDERED: NITROGLYCERIN SL 0.4 MG/TAB TAB SL SCH (16:15)
--- NOTE | 2018-12-15 16:28 | History & Physical Report ---
Date of Service December 15, 2018 Assessment & Plan (1) Acute on chronic diastolic (congestive) heart failure: 82 yo M presents today as an EMS transfer from [facility] for acute on chronic diastolic heart failure. He reports started feeling more SOB about 2 weeks ago and was seen in the ED here and diagnosed with bronchitis, completed total of 10 days of doxycycline 100 mg BID. He reports he never quite felt right after this, continued SOB-- both pt and his daughter then noticed increased LE edema over the last 3-4 days. This morning when his visiting nurse came found O2 sats to be in the low 90's at rest and in the mid 80's with activity with associated chest pain and mild elevated BP at 162/72 so he was taken via EMS to [place] [facility]. At [place] ED: BP 138/66, HR 75, 02 90% RA, WBC 4.8, H/H 9.6/31.6, Plt 132, Cr 0.96, K 4, Na 141, INR 2, BNP 7474 (chronic pancytopenia) CXR: Large bilateral pleural effusions. He had negative troponins and EKG at [facility] but requested transport to [facility] as his doctors are here. Pt received Nitro and ASA which relieved chest pain, denies active chest pain at this time. He is no longer feeling SOB with oxygen on but still has labored breathing. Outpatient Echo done October 2018: Grade 3 diastolic dysfunction, follows with Dr. Quintana for cardiology outpatient Admit to Telemetry Start Lasix 40 mg now dose, then 40 mg BID starting tomorrow Check: Troponins, EKG, PT/INR, CBC, BMP, Magnesium in the AM Repeat CXR tomorrow morning Xopenex/Atrovent q6h Continue Oxygen PRN, now at 2L and stable Consult Cardiology-- Dr. Quiñones made aware (2) Chronic atrial fibrillation: On Xarelto, to continue Monitor, recheck EKG (3) Hypertension: BP from 138/66-169/81, continue to monitor Continue home meds Recheck EKG and troponins (4) History of CVA (cerebrovascular accident): October 2018, had short hospital stay here and started on Xarelto To continue Xarelto home dose Will recheck PT/INR as INR was 2 from [place] records (5) HLD (hyperlipidemia): Continue atorvastatin, LFTs WNL (6) Diabetes: Last A1C 5.9 06/13/18 HOLD metformin Diabetic diet BSG ACHS, insulin orders in place based on BSG (7) Breast cancer in male: Follows with Dr. Tran outpatient On tamoxifen, to continue Pt reports OK to talk to his daughter and/or son who are both in [facility] Chart-- daughter BJ ([phone]) , son Ed F ([phone] OR [phone]) VTE Prophylaxis: Continue with Xarelto 20 mg daily Pt follows with Dr. Llanes for routine care. Patient seen in coordination with . See addendum for further details. History of Present Illness Chief Complaint: Chest pain/SOB Primary Care Provider: Lawrence Mallory MD 82 yo M with PMHx of CHF, T2DM, Dyslipidemia, Chronic Afib, HTN, Hx of CVA, chronic pancytopenia and Breast CA who presents today as a direct admit from [place] ED for acute on chronic diastolic heart failure. He reports started feeling more SOB about 2 weeks ago and was seen in the ED here and diagnosed with bronchitis, completed total of 10 days of doxycycline 100 mg BID. He reports he never quite felt right after this, continued SOB-- both pt and his daughter then noticed increased LE edema over the last 3-4 days. This morning when his visiting nurse came found O2 sats to be in the low 90's at rest and in the mid 80's with activity with associated chest pain and mild sophie vated BP at 162/72 so he was taken via EMS to [place] [facility]. At [place] ED: BP 138/66, HR 75, 02 90% RA, WBC 4.8, H/H 9.6/31.6, Plt 132, Cr 0.96, K 4, Na 141, INR 2, BNP 7474 (chronic pancytopenia) CXR: Large bilateral pleural effusions. He had negative troponins and EKG at [facility] but requested transport to [facility] as his doctors are here. Pt received Nitro and ASA which relieved chest pain, denies active chest pain at this time. He is no longer feeling SOB with oxygen on but still has labored breathing. Outpatient Echo done October 2018: Grade 3 diastolic dysfunction, follows with Dr. Quintana for cardiology outpatient. He saw wound clinic 12/09/18 for chronic foot/leg ulcers, hx of neuropathy, no drainage of lesions or bleeding. Pt denies cough, congestion, fevers/chills, CP, headache, dizziness, abdominal pain, change in bowel or bladder. Allergies Allergy/AdvReac Type Severity Reaction Status Date / Time Penicillins AdvReac Unknown HAS Verified 11/30/18 12:15 TOLERATED CEPHALOSPORINS W/O RXN-lightheaded Home Medications Home Medications Medication Instructions Recorded Confirmed Type aspirin [Aspirin Low Dose] 81 mg PO QAM 05/21/18 12/15/18 History metformin 500 mg PO BIDM 05/21/18 12/15/18 History nortriptyline 25 mg PO HS 05/21/18 12/15/18 History sennosides-docusate sodium [Senna 2 tab PO HS 05/21/18 12/15/18 History with Docusate Sodium] diclofenac sodium 50 mg PO TID PRN 06/28/18 12/15/18 History isosorbide mononitrate 60 mg PO QAM 06/28/18 12/15/18 History lisinopril 40 mg PO QAM 06/28/18 12/15/18 History nitroglycerin 0.4 mg SUBLINGUAL UD 06/28/18 12/15/18 History tamoxifen 20 mg PO QAM 06/28/18 12/15/18 History torsemide 20 mg PO UD 06/28/18 12/15/18 History carvedilol 12.5 mg PO BID 08/12/18 12/15/18 History Calcium 600 + D(3) 1 cap PO QAM 11/18/18 12/15/18 History magnesium hydroxide [Milk of 0 ml PO DAILY PRN 11/18/18 12/15/18 History Magnesia] polyethylene glycol 3350 [Miralax] 17 g PO DAILY PRN 11/18/18 12/15/18 History potassium, sodium phosphates 1 packet PO BID 11/18/18 12/15/18 History [Phos-NaK] terazosin 2 mg PO HS 11/18/18 12/15/18 History atorvastatin 40 mg PO QAM 30 Days #30 tab 11/21/18 12/15/18 Rx rivaroxaban [Xarelto] 20 mg PO PM 11/30/18 12/15/18 History psyllium husk [Metamucil] 1 tbsp PO TID PRN 12/15/18 12/15/18 History Past Med/Surg History Medical History Pressure ulcer (Acute) LFTs abnormal Hyperbilirubinemia Breast cancer in male (Chronic) HLD (hyperlipidemia) (Chronic) Chronic atrial fibrillation (Chronic) CAD (coronary artery disease) (Chronic) Thoracic aortic aneurysm (Chronic) CHF (congestive heart failure) (Acute) Altered mental status (Acute) MRSA (methicillin resistant Staphylococcus aureus) (Resolved) Diabetes (Chronic) Hypertension (Chronic) Hepatitis (Resolved) Diabetic neuropathy (Chronic) Diabetic retinopathy (Chronic) Renal insufficiency (Chronic) BPH (benign prostatic hyperplasia) (Chronic) History of diabetic ulcer of foot (Resolved) Status post partial amputation of foot (Resolved) Venous stasis ulcer (Acute) 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) Acquired claw toe of right foot (Chronic) Callus (Chronic) Hallux abducto valgus, bilateral (Chronic) Pneumonia (Inactive) Bone cancer Kidney stones Surgical History Hx of CABG (Resolved) 1993 Hx of cholecystectomy (Resolved) H/O breast surgery (Chronic) Family History Other Colon cancer Diabetes Family history non-contributory Hypertension Social History Preferred Language: Belarusian Communication Ability: Effective Communication Ability Comment: glasses Visual Impairment: No Limitations Hearing Ability: Normal 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 Beliefs That Will Affect Care: None marital status: Current Living Situation: Alone Current Living Situation Comment: apartment, hanicap unit, 1st floor, no stairs current occupational status: retired Feels Safe at Home: Yes Safety Concerns: Feels Safe At This Time Smoking Status: Former smoker Tobacco Type: cigars Cigarettes Per Day: 4 Smoking End Date: february 2018 Second Hand Exposure: No Tobacco Cessation Education Requested by Patient: No Hx Alcohol Use: Yes Alcohol type: hard liquor Hx Substance Use: No Review of Systems Review of Systems: All systems reviewed & are unremarkable except as noted in HPI & below Physical Exam Physical Exam: GENERAL: alert, no acute distress, well nourished and well developed HEAD: Normocephalic, atraumatic EYES: PERRL, EOMI, Conjunctiva are pink and non-injected, sclera clear EARS: External ears normal, Canals clear, TM's clear with good cone of light NOSE: no purulent discharge, no sinus tenderness, no mucosal erythema or edema OROPHARYNX: no exudate, no erythema, lips, buccal mucosa, and tongue normal and mucous membranes are moist NECK: supple, no adenopathy HEART: regular rate & rhythm, no murmurs and no gallops, 1+ pitting edema b/l LE LUNGS: no rales or rhonchi, mild labored breathing, diminished bibasilar, moderate wheezing throughout ABDOMEN: abdomen soft, non-tender, normal bowel sounds, no masses or organomegaly, no rebound or guarding, no CVA tenderness, no bladder distention identified and no bruits SKIN: skin color, texture, turgor are normal, few scabbed over ulcers on b/l LE-- no drainage, bleeding, or signs of secondary bacterial infection NEURO: alert & oriented x 3 with fluent speech, no focal motor/sensory deficits Results & Data Vital Signs (Past 12 Hours) Vital Signs Temp Pulse Resp BP Pulse Ox 12/15/18 14:55 36.7 C 69 18 169/81 H 99 12/15/18 14:50 69 24 97 Laboratory Results Outside labs from [facility]: WBC 4.8 H/H 9.6/31.6 Platelets 132 Cr 0.96 Potassium 4 Sodium 141 BNP 7474 Diagnostic Findings CXR from [facility]: Large bilateral pleural effusions Code Status & VTE Plan Code Status DNR Supervising Physician Co-Signing Physician Notes Pt was seen and examined. Agreed with Tomasz EATON exam, assessment and plan. 82 yo M with PMHx of CHF, T2DM, Dyslipidemia, Chronic Afib, HTN, Hx of CVA, chronic pancytopenia and Breast CA was sent from [place] ED as a direct admit for acute on chronic diastolic heart failure. Pt said that for the past 2 weeks he has been having worsening SOB. He said that he completed a course of 2 weeks abx for bronchitis. He said that his breathing got worst today with oxygen level was in the 80's with activity associated with chest pain. Pt and anupama barfield noted increased swelling in b/l LE extremities. Received aspirin and nitro at the [place] ER. CXR from [place] ED showed large bilateral pleural effusions. Will give Lasix 40mg IV x1. Will monitor I/O. Will repeat CXR in am. Cardiology consult. Pt choked during dinner while eating broccoli. He said that had similar episodes few months back while eating broccoli. Nurse said that she coughed while drinking water. Will keep NPO except med and consult speech therapy for eval. Continue monitor closely. Please refer to Tomasz EATON documentation for other problems. MD Antwan
[2018-12-15] MEDS ORDERED: INSULIN ASPART 100 UNITS/ML 3 ML PEN SC SCH (16:30)
[2018-12-15 16:37] LABS: INR 1.3 (0.9-1.1); Prothrombin Time 13.5 Seconds (9.0-12.0)
[2018-12-15 17:08] LABS: Creatinine Clr Calc Pharmacy 82.1 ml/min; Est GFR (African American) 89.5; Est GFR (Non-African American) 77.3
[2018-12-15] MEDS: DOCUSATE SODIUM/SENNA 50/8.6MG TAB PO SCH (19:34)
[2018-12-15] MEDS: POT PHOSPHATE MONOBASIC W/ SOD TAB PO SCH (19:35)
[2018-12-15] MEDS: NORTRIPTYLINE HCL 25 MG CAP PO SCH (19:35)
[2018-12-15] MEDS: TERAZOSIN HCL 1 MG CAP PO SCH (19:35)
[2018-12-15] MEDS: CARVEDILOL 12.5 MG TAB PO SCH (19:36)
[2018-12-15] MEDS: IPRATROPIUM BROMIDE NEB SOLN 0.02% 2.5 ML VIAL INH SCH (19:36)
[2018-12-15] MEDS: LEVALBUTEROL 1.25MG/0.5ML NEB INH SCH (19:36)
[2018-12-15] MEDS ORDERED: XOPENEX/ATROVENT 1.25mg/0.5MG NEB COMBO NEB SCH (20:00)
[2018-12-15] MEDS: RIVAROXABAN 20 MG TAB PO SCH (20:27)
[2018-12-16] MEDS: INSULIN ASPART 100 UNITS/ML 3 ML PEN SC SCH ×5 (00:23→20:24)
[2018-12-16] MEDS: IPRATROPIUM BROMIDE NEB SOLN 0.02% 2.5 ML VIAL INH SCH ×4 (01:56→19:24)
[2018-12-16] MEDS: LEVALBUTEROL 1.25MG/0.5ML NEB INH SCH ×4 (01:56→19:24)
[2018-12-16 05:36] LABS: Hematocrit (blood only) 31.4 % (42-52); Mean Corpuscular Hgb Conc 31.8 g/dL (32-36); Mean Corpuscular Volume 91.3 fL (80-100); RDW Coefficient of Variation 16.5 % (11.5-14.5); RDW Standard Deviation 54.9 fL (36.4-46.3); Red Blood Count 3.44 M/uL (4.7-6.1); White Blood Count 3.65 K/uL (4.8-10.8)
[2018-12-16 05:59] LABS: Mean Platelet Volume 9.7 fL (7.4-10.4); Platelet Count 97 K/uL (130-400)
[2018-12-16 06:00] LABS: Platelet Estimate Decreased (Normal)
[2018-12-16 06:10] LABS: BUN Creatinine Ratio 22.9 (10-20); Calcium 8.3 mg/dl (8.5-10.1); Creatinine Clr Calc Pharmacy 85.8 ml/min; Est GFR (African American) 93.6; Est GFR (Non-African American) 80.8; Magnesium 1.9 mg/dl (1.8-2.4); Potassium 3.6 mmol/L (3.5-5.1)
--- NOTE | 2018-12-16 08:19 | XRay Report ---
XR chest 2V routine CLINICAL HISTORY: Congestive heart failure. COMPARISON STUDY: Chest radiograph November 30, 2018. PET/CT October 27, 2018. Chest radiograph December 15, 2018 . FINDINGS: Median sternotomy wires and mediastinal surgical clips are noted. There is no pneumothorax. Cardiomegaly is unchanged. Mild pulmonary edema has progressed. Moderate right and small left pleura l effusions are again noted. IMPRESSION: 1. Moderate right and small left pleural effusions. 2. Increase in pulmonary edema. Electronically signed by: James Woodall M.D. 12/16/2018 8:17 AM
[2018-12-16] MEDS: ISOSORBIDE MONO EXTENDED REL 60 MG TABCR PO SCH (08:39)
[2018-12-16] MEDS: FUROSEMIDE 40 MG in SYRINGE 0 ML IV SCH ×2 (08:39→20:19)
[2018-12-16] MEDS: ATORVASTATIN 40 MG TAB PO SCH (08:39)
[2018-12-16] MEDS: ASPIRIN 81 MG ECTAB PO SCH (08:40)
[2018-12-16] MEDS: CARVEDILOL 12.5 MG TAB PO SCH ×2 (08:40→20:20)
[2018-12-16] MEDS: POT PHOSPHATE MONOBASIC W/ SOD TAB PO SCH ×2 (08:40→20:19)
[2018-12-16] MEDS: CALCIUM 600MG + VIT D 400 IU TAB PO SCH (08:40)
[2018-12-16] MEDS: LISINOPRIL 40 MG TAB PO SCH (08:40)
[2018-12-16] MEDS: TAMOXIFEN CITRATE 10 MG TABLET PO SCH (08:40)
--- NOTE | 2018-12-16 09:46 | Ultrasound Report ---
US effusion-chest/mediastinum CLINICAL HISTORY: b/l pleural effusions COMPARISON STUDY: Chest radiograph December 16, 2018. FINDINGS: A large right pleural effusion with estimated volume of 2527 cc was noted. Suitable right r ib interspace was marked for possible subsequent thoracentesis. A moderate left pleural effusion with estimated volume of 952 cc was noted. No chest wall riya was placed given underlying atelectatic shin g. IMPRESSION: 1. Large right pleural effusion. Suitable right rib interspace marked for possible subsequent thorace ntesis. 2. Moderate left pleural effusion. No left chest wall riya placed given insufficient window. Electronically signed by: James Woodall M.D. 12/16/2018 9:44 AM
--- NOTE | 2018-12-16 11:40 | Consultation Report ---
DATE OF CONSULTATION: 12/16/2018 INPATIENT CARDIOLOGY CONSULTATION CONSULTATION REQUESTED BY: Tomasz Salcedo PA-C. REASON FOR CONSULTATION: Decompensated heart failure. HISTORY OF PRESENT ILLNESS: Mr. Delgadillo is a very pleasant, yet very medically complex 82-year-old gentleman who normally follows with Dr. Quintana and Linda Cox of our cardiology practice. He presented to [facility] Emergency Department on 12/15/2018 with complaints of worsening shortness of breath. The patient states that his breathing has not been well for quite some time now. He was recently seen by his PCP and diagnosed with bronchitis and started on antibiotics; however, he states he has not had any improvement with those antibiotics. Upon presentation to the Emergency Room at [facility], he was found to have significant bilateral pleural effusions, and upon the patient's request, he was transferred to [facility] for further treatment. He has been started on IV Lasix with good diuresis so far, he states already his breathing has improved. Upon further questioning, he denies any episodes of chest discomfort and states the shortness of breath only occurs with exertion. When asked about shortness of breath while lying flat, he states he always sleeps upright and there has not been any change in his sleeping at all lately. He has also noticed some bilateral lower extremity edema over the last several days. PAST SURGICAL HISTORY: 1. Coronary artery bypass grafting surgery x3 with a ZHENG to the LAD, right radial graft to the circumflex and gastroepiploic artery to the RCA. 2. Most recent cardiac catheterization in 2006 showing patent ZHENG graft to LAD and patent radial graft to the circumflex. 3. Mastectomy for breast cancer. 4. Mohs surgery. 5. Sinus surgery. 6. Cholecystectomy. 7. Foot surgery. 8. Ulnar nerve repair at the elbow. MEDICAL ILLNESSES: 1. Coronary artery disease, status post CABG x3. 2. Ischemic cardiomyopathy, EF 40%. 3. Thoracic aortic aneurysm. 4. Chronic atrial fibrillation, the patient previously refusing anticoagulation. 5. Recent cerebrovascular accident, the patient discharged home on Xarelto 11/21/2018. 6. Significant peripheral arterial disease. 7. Hypertension. 8. Hyperlipidemia. 9. Diastolic dysfunction with most recently normal LV systolic function, EF noted to be 55-60% December 2015. FAMILY HISTORY: Noncontributory. SOCIAL HISTORY: The patient has remote tobacco use history. Denies any alcohol or recreational drug use. REVIEW OF SYSTEMS: As per HPI, all other review of systems reviewed and negative at this time. ALLERGIES: No known drug allergies. MEDICATIONS AN OUTPATIENT: 1. Xarelto 20 mg daily with evening meal. 2. Atorvastatin 40 mg daily. 3. Amlodipine 5 mg daily. 4. Carvedilol 12.5 mg b.i.d. 5. Torsemide 20 mg daily with an additional tablet on Mondays and Fridays. 6. Imdur 60 mg daily. 7. Lisinopril 40 mg daily. 8. Terazosin 2 mg p.o. at bedtime. 9. Aspirin 81 mg daily. 10. Nortriptyline. 11. Tamoxifen. 12. Metformin. PHYSICAL EXAMINATION: VITAL SIGNS: Temperature 36.4, pulse 80, respiratory rate 12, blood pressure 172/75. GENERAL: Awake, alert, oriented x3, upright in bed. HEENT: Normocephalic, atraumatic. Pupils equal, round, reactive to light and accommodation. Extraocular muscles intact. Anicteric sclerae. Moist mucous membranes. Poor dentition. NECK: Bilateral 3/4 carotid bruits. No JVD. CARDIOVASCULAR: Irregularly irregular, unable to appreciate any murmurs, rubs or gallops. PULMONARY: Poor air movement in the bilateral bases with scant crackles. No rhonchi or wheezing. ABDOMEN: Bowel sounds x4, soft. No rebound, guarding, or tenderness. No organomegaly. EXTREMITIES: No clubbing, cyanosis or edema. Bilateral chronic ulcers are dressed. +2 pedal pulses bilaterally. SKIN: Warm and dry. TEST RESULTS: Chest x-rays from 12/16/2018 showed moderate right and small left pleural effusions, increased pulmonary edema. Chest ultrasound showed large right pleural effusion, suitable for right rib interspace marked for possible subsequent thoracentesis, moderate left pleural effusion. No marked placed given insufficient window. IMPRESSION: 1. Bilateral pleural effusions. 2. Diastolic dysfunction with normal LV systolic function. 3. History of breast cancer with bone mets, were seen by most recent MRI. 4. Recent cerebrovascular accident, on Xarelto anticoagulation. 5. Pancytopenia. 6. Coronary artery disease. 7. Hypertension. 8. Chronic atrial fibrillation. RECOMMENDATIONS: It was my pleasure to see Mr. Delgadillo in consultation today. At this point, the patient has 2 very good explanations for the bilateral pleural effusions, either being diastolic dysfunction or possibly further metastatic of his breast cancer. So at this point, I believe the most prudent course of action would be to obtain a diagnostic thoracentesis, possibly even therapeutic for further delineation, which will help guide further treatment. At this point, he has been responding well to IV diuresis, now will be continued. He does have pancytopenia with a platelet count of 97 today. I will hold his Xarelto and ask our thoracic surgery colleagues to evaluate the patient for suitability for thoracentesis. Otherwise, he will be maintained on his outpatient cardiac regimen.
--- NOTE | 2018-12-16 13:49 | Consultation Report ---
DATE OF CONSULTATION: 12/16/2018 SURGICAL CONSULTATION REASON FOR CONSULTATION: Pleural effusions bilaterally. HISTORY OF PRESENT ILLNESS: This is an 82-year-old male with a litany of medical problems that will be listed below. The patient has noted worsening shortness of breath over the past 2 weeks. When I questioned him further, he says that he feels as though he is always somewhat short of breath since June, but again over the past 2 weeks it has gotten markedly worse. He notes he has associated cough along with dyspnea on exertion even on flat surfaces and he noted associated orthopnea. He also admits to some lower extremity edema and is unsure about any weight gain. I questioned him on numerous other symptoms and he has not had any falls since 02/2018. He denies head injuries, visual changes, tinnitus, sore throat, or neck pain. He has not reported any chest pain. He does note shortness of breath symptoms as noted above. He does deny hemoptysis. He does not note a history of DVT or PE. He denies anxiety or depression. He says that he did suffer a stroke 1-2 months ago. The patient presented to [facility] and then requested transfer to [facility] because of various specialists that he follows with at this facility. Upon transfer to [facility], the patient did have a chest x-ray performed that showed large to moderate bilateral pleural effusions and a chest ultrasound did reveal the patient had bilateral pleural effusions with estimated nearly 1 liter on the left and greater than 2 liters estimated on the right hand side. Labs were performed, which include a CBC, white blood cell count is 3.6, hemoglobin and hematocrit are 10.0 and 31.4, and his platelet count is 97,000. Coagulation studies revealed an INR of 1.3 and chemistry profile showed sodium, potassium and creatinine are all within the normal ranges. His BUN had a slight elevation at 20. Magnesium is noted to be within the normal range as well. The patient was admitted to [facility] and it was felt the patient may have had a component of congestive heart failure contributing to his symptomatology and diuresis has been undertaken. The patient notes that since his arrival to [facility] and treatment has been initiated, he does feel somewhat better. At the time of my exam, he is resting comfortably in bed. PAST MEDICAL HISTORY: Includes, 1. History of coronary artery disease. 2. History of congestive heart failure. The patient has a most recent echo in 10/2018 with 60% ejection fraction, grade 3 diastolic dysfunction, and mild mitral regurgitation. 3. History of thoracic aortic aneurysm. 4. Peripheral vascular disease. 5. Hypertension. 6. Atrial fibrillation. 7. Hyperlipidemia. 8. History of stroke. PAST SURGICAL HISTORY: Includes, 1. Sinus surgery. 2. Mohs surgery. 3. Coronary bypass grafting in 1993. 4. Most recent cardiac catheterization appears to be in 2005 where he was noted to have a patent left internal mammary artery to left anterior descending artery and a patent radial artery to the circumflex artery. 5. History of mastectomy for breast cancer. 6. Cholecystectomy. 7. Foot surgery. 8. Ulnar nerve repair at his elbow. FAMILY HISTORY: He does not know the family history of premature coronary artery disease. SOCIAL HISTORY: The patient is a former construction accountant. He has a remote history of tobacco use. He says that he did have a significant inhalational injury from chlorine in the past. ALLERGIES: INCLUDE PENICILLIN. HOME MEDICATIONS: Include, 1. Lasix 40 mg IV twice daily. 2. Aspirin 81 mg daily. 3. Lipitor 40 mg daily. 4. Coreg 12.5 mg daily. 5. Senokot at bedtime. 6. Lisinopril 40 mg daily. 7. Sublingual nitroglycerin as needed. 8. Pamelor 25 mg at bedtime. 9. Potassium phosphate twice daily. 10. Hytrin 2 mg at bedtime. 11. Multivitamin daily. 12. Isosorbide 60 mg daily. 13. Tamoxifen 20 mg daily. 14. Xopenex inhaler every 6 hours. 15. Atrovent inhaler every 6 hours. 16. Sliding scale insulin. 17. The patient also takes p.r.n. Tylenol and Zofran here in the hospital. 18. It should be noted that he does take Xarelto at home. The patient believes he may have taken that this morning, but according to nursing, the patient's most recent dose of this was last evening at 8:30 p.m. PHYSICAL EXAMINATION: VITAL SIGNS: The patient has a blood pressure of 133/70, pulse is 79 and regular, respirations are 18 and unlabored, temperature is 36.5, which is afebrile. Oxygen saturation is 97% on 2 liters. GENERAL: He is alert. He is oriented x3, in no distress. HEENT: Head is atraumatic, normocephalic. Eyes: Pupils equal, round, reactive to light and accommodation. Extraocular motions are intact. Ears: Auditory acuity is grossly intact. Nose: Nasal patency is intact. Sinuses are nontender. Mouth: Moist without exudates. NECK: Supple. I do not appreciate any JVD at the time of my exam. CARDIOVASCULAR: Regular rate and rhythm. LUNGS: Revealed patient had markedly decreased breath sounds at the bases with the right being greater than the left. He was not using accessory muscles to aid in respiration. No wheezing or rhonchi were noted. CHEST: His chest was examined. He has a well-healed median sternotomy incision. ABDOMEN: Soft and nontender. EXTREMITIES: Revealed no cyanosis or clubbing. He had trace lower extremity edema. The patient had faint DP pulses bilaterally. He had a faint radial pulse on the right side. His left extremity had a well-healed longitudinal incision on his forearm from previous radial artery harvest, and therefore, he did not have a palpable radial artery pulse. NEUROLOGIC: Revealed the patient was alert and oriented x3. He could move all 4 extremities. DIAGNOSTIC DATA: As noted above. IMPRESSION: An 82-year-old male with bilateral pleural effusions. PLAN: It appears that the pleural effusion on the right is larger. We have been asked to perform a thoracentesis. The patient will be seen by Dr. Tapia who will determine the timing of his thoracentesis based on the fact that he takes Xarelto. Ideally, it would be nice to have him off this medication for about 24 hours before we proceed. Once we perform a thoracentesis, this can be sent for proper analysis and I have outlined to the patient that the thoracentesis will be therapeutic as well as diagnostic. I did outline the risks, benefits and alternatives to the patient, the risks include but are not limited to bleeding, infection and pneumothorax along with reexpansion pulmonary edema. The benefits include improved breathing as well as obtain a diagnosis. Alternatives to this procedure include continued aggressive diuresis and observation. The patient expressed his understanding and says he wants to proceed when Dr. Tapia is available.
--- NOTE | 2018-12-16 14:16 | Hospitalist Progress Note ---
Date of Service December 16, 2018 Assessment & Plan (1) Acute on chronic diastolic (congestive) heart failure: Patient is an 82 yr male was transfer from [facility] for management of acute on chronic diastolic heart failure per patient's request. Recently completed PO abx for possible bronchitis with no complete resolution of symptoms Acute on chronic diastolic CHF Bilateral pleural effusions Hypoxia: Secondary to above CXR:Moderate right and small left pleural effusions. Increase in pulmonary edema. Recent ECHO reviewed Continue IV diuresis Planned for possible thoracentesis Xarelto held Appreciate Cardiology/CT surgery Input Monitor I/Os, daily weight, electrolytes, renal function Supplemental oxygen as needed (2) Chronic atrial fibrillation: Xarelto held for possible thoracentesis Continue Carvedilol (3) Hypertension: Stable Continue lisinopril Monitor (4) History of CVA (cerebrovascular accident): October 2018, had short hospital stay here and started on Xarelto Continue aspirin, statin Also on Xarelto at home (5) HLD (hyperlipidemia): Continue atorvastatin (6) Diabetes: Last A1C 5.9 06/13/18 HOLD metformin Diabetic diet Continue ISS Monitor BGs (7) Breast cancer in male: Follows with Dr. Tran outpatient On tamoxifen DVT Px: SCDs for now Resume Xarelto as able Disposition: Need to be determined Subjective Patient is seen and examined at bedside Cough, shortness of breath slightly improved when compared to yesterday Denies any chest pain, dizziness, nausea, abdominal pain Xarelto on hold for possible thoracentesis Discussed with cardiology today. Review of Systems Review of Systems: All systems reviewed & are unremarkable except as noted in HPI & below Physical Exam Physical Exam: Physical Exam: Vitals signs as noted above General Appearance:Moderately built and nourished, no apparent distress Head: normocephalic, Atraumatic Eyes: normal inspection, EOMI Neck: supple, Trachea midline Respiratory/Chest: Decreased breath sounds, + B/L crackles Cardiovascular: Irregularly Irregular, No murmur Abdomen/GI:Soft, Non tender, Bowel sounds present Extremities/Musculoskelatal:normal inspection, no edema Neurologic/Psych:AAOX3, grossly no focal neurological deficits Skin: normal color, warm Results & Data Vital Signs (Past 12 Hours) Vital Signs Temp Pulse Resp BP Pulse Ox 12/16/18 13:25 78 18 94 12/16/18 11:16 36.5 C 79 18 133/73 97 12/16/18 08:37 80 172/75 H 12/16/18 07:11 36.4 C L 72 18 172/85 H 94 12/16/18 06:57 76 18 94 12/16/18 03:48 36.6 C 76 20 173/72 H 97 Laboratory Results Short CBC 12/16/18 Range/Units 05:14 WBC 3.65 L (4.8-10.8) K/uL Hgb 10.0 L (14.0-18.0) g/dL Hct 31.4 L (42-52) % Plt Count 97 L (130-400) K/uL BMP 12/15/18 12/16/18 16:18 05:14 Sodium 141 Potassium 3.6 Chloride 105 Carbon Dioxide 33 H BUN 20 H Creatinine 0.93 0.89 Glucose 102 H Calcium 8.3 L Cardiac Enzymes 12/15/18 12/15/18 Range/Units 16:18 21:50 Troponin I < 0.015 < 0.015 (0-0.045) ng/ml
[2018-12-16] MEDS ORDERED: Nursing to Pharmacy Communication ONE (15:35)
[2018-12-16] MEDS: ACETAMINOPHEN 325 MG TAB PO PRN (16:10)
[2018-12-16] MEDS: DOCUSATE SODIUM/SENNA 50/8.6MG TAB PO SCH (20:19)
[2018-12-16] MEDS: TERAZOSIN HCL 1 MG CAP PO SCH (20:20)
[2018-12-16] MEDS: NORTRIPTYLINE HCL 25 MG CAP PO SCH (20:20)
--- NOTE | 2018-12-17 01:09 | Consultation Report ---
DATE OF CONSULTATION: 12/16/2018 HISTORY OF PRESENT ILLNESS: This patient is an 82-year-old male who we were asked to see for bilateral pleural effusions. The patient has multiple issues including history of atrial fibrillation, diastolic dysfunction and breast cancer. We were asked to see him for this pleural effusion. He is on Xarelto and took this yesterday. He has a larger right pleural effusion. I do believe that he would be helped with a thoracentesis as he is requiring oxygen. We will give him another day and offer him a right thoracentesis under ultrasound guidance at the bedside tomorrow. For specifics of this consult, please refer to Mr. elias Pond's detailed consultation. ROSAURA
[2018-12-17] MEDS: IPRATROPIUM BROMIDE NEB SOLN 0.02% 2.5 ML VIAL INH SCH ×4 (01:50→19:08)
[2018-12-17] MEDS: LEVALBUTEROL 1.25MG/0.5ML NEB INH SCH ×4 (01:51→19:09)
[2018-12-17 05:35] LABS: Hematocrit (blood only) 30.4 % (42-52); Hemoglobin 9.6 g/dL (14.0-18.0); Mean Corpuscular Hgb Conc 31.6 g/dL (32-36); Mean Corpuscular Volume 90.7 fL (80-100); Mean Platelet Volume 9.5 fL (7.4-10.4); Platelet Count 110 K/uL (130-400); RDW Coefficient of Variation 16.3 % (11.5-14.5); RDW Standard Deviation 54.1 fL (36.4-46.3); Red Blood Count 3.35 M/uL (4.7-6.1); White Blood Count 4.44 K/uL (4.8-10.8)
[2018-12-17 05:56] LABS: BUN Creatinine Ratio 22.7 (10-20); Calcium 7.6 mg/dl (8.5-10.1); Creatinine Clr Calc Pharmacy 56.3 ml/min; Est GFR (African American) 62.6; Potassium 3.8 mmol/L (3.5-5.1)
--- NOTE | 2018-12-17 08:04 | Procedure Note ---
Procedure Note Date of Service December 17, 2018 Informed consent obtained for right thoracentesis. Patient was identified and correct site verified. The pt. was seated upright on the edge of bed. A bedside US was used to identify and riya nthe location of pleural effusion on right side. The area was prepped and draped in the usual sterile fashion. Using lidocaine, a skin wheel was raised and then the subcutaneous tissue was anesthetized. Upon aspiration, yellow fluid was obtained. A larger needle was inserted into the pleural cavity, again aspirating yellow fluid to verify location. A guide wire was inserted, the tract was dilated and a triple lumen catheter was inserted over the guidewire. Fluid was aspirated and given to respiratory therapy for a I-stat pH which was noted to be 7.42. The triple lumen was then connected to vacuum bottles and 1800 cc of rust colored fluid was obtained. The fluid was sent to the lab for appropriate analysis. Upon completion of procedure a sterile, antimicrobial dressing was applied. Post procedure CXR showed no pneumothorax. There was a residual right pleural effusion, but improvement was noted when compared to prior CXR. The pt. tolerated this well with only a small amount of coughing during the procedure. Coding
[2018-12-17] MEDS: FUROSEMIDE 40 MG in SYRINGE 0 ML IV SCH ×2 (08:10→21:23)
[2018-12-17] MEDS: INSULIN ASPART 100 UNITS/ML 3 ML PEN SC SCH ×4 (08:11→21:26)
[2018-12-17] MEDS: POT PHOSPHATE MONOBASIC W/ SOD TAB PO SCH ×2 (08:13→21:24)
[2018-12-17] MEDS: ISOSORBIDE MONO EXTENDED REL 60 MG TABCR PO SCH (08:13)
[2018-12-17] MEDS: CALCIUM 600MG + VIT D 400 IU TAB PO SCH (08:13)
[2018-12-17] MEDS: ATORVASTATIN 40 MG TAB PO SCH (08:13)
[2018-12-17] MEDS: ASPIRIN 81 MG ECTAB PO SCH (08:13)
[2018-12-17] MEDS: CARVEDILOL 12.5 MG TAB PO SCH ×2 (08:13→21:24)
[2018-12-17] MEDS: TAMOXIFEN CITRATE 10 MG TABLET PO SCH (08:13)
--- NOTE | 2018-12-17 08:14 | XRay Report ---
XR chest 1V portable CLINICAL HISTORY: Chest x-ray status post thoracentesis COMPARISON STUDY: 12/16/2018 FINDINGS: The heart remains enlarged. There are bilateral pleural effusions. There is associated basi lar atelectasis/consolidation. There is no pneumothorax. There is an abnormal trabecular pattern of t he bone, most pronounced in the region of the right superior scapula. Findings are consistent with ea rly metastatic disease. There is mild pulmonary vascular congestion.[ IMPRESSION: 1. Cardiomegaly and mild pulmonary vascular congestion 2. Bilateral pleural effusions with associated basilar airspace opacities 3. No evidence of pneumothorax 4. Skeletal metastasis Electronically signed by: Golden Flynn M.D. 12/17/2018 8:13 AM
[2018-12-17 08:48] LABS: Glucose Pleural Fluid 95 mg/dl
[2018-12-17] MEDS: LISINOPRIL 40 MG TAB PO SCH (08:53)
[2018-12-17 08:54] LABS: LDH Pleural Fluid 82 U/L
[2018-12-17 09:04] LABS: Appearance Pleural Fluid CLEAR; Color Pleural Fluid AMBER; Mononuclear WBC Pleural 93.2 %; Polynuclear WBC Pleural 6.8 %; RBC Pleural Fluid (A) 3000 /uL; Source Pleural Fluid RIGHT LUNG; WBC Pleural Fluid (A) 572 /uL
[2018-12-17] MEDS ORDERED: AMLODIPINE BESYLATE 5 MG TAB PO ONE (09:45)
--- NOTE | 2018-12-17 10:28 | Cardiology Progress Note ---
Date of Service December 17, 2018 Assessment & Plan (1) Pleural effusion: s/p thoracentesis, await cytology cancer vs. diastolic heart failure, obviously; source will determine treatment (2) Acute on chronic diastolic (congestive) heart failure: should fluid come back suggesting decompensation would d/c to home on lasix 40mg po daily and f/u with cardiology in 2-3 weeks (3) Breast cancer in male: f/u with heme/onc (4) Chronic atrial fibrillation: will restart Xarelto this evening (5) Hypertension: some elevated readings will consider adding low dose amlodipine cont outpatient medical regimen Subjective Pt seen and examined, s/p thoracentesis, states that he feels great. SOB greatly improved with tap. Denies cp, sob, palpitations, lighteadedness or dizziness. tele reviewed: afib rate controlled Review of Systems Review of Systems: All systems reviewed & are unremarkable except as noted in HPI & below Physical Exam Physical Exam: General: Awake, alert and oriented x 3. No acute distress. HEENT: Normocephalic, atraumatic. Pupils equal, round and reactive to light and accommodation. Extraocular muscles are intact. Anicteric sclera. Moist mucous membranes. Neck: No JVD. No bruit. Cardiovascular: irregularly irregular, unable to appreciate murmur, rub or gallop. Pulmonary: Clear to auscultation bilaterally. No rales, rhonchi, or wheezing. Abdomen: Bowel sounds x 4, soft. No rebound, guarding or tenderness. No organomegaly. Extremities: No clubbing, cyanosis or edema. +2 pedal pulses bilaterally. Skin: Warm and dry. Results & Data Vital Signs (Past 12 Hours) Vital Signs Temp Pulse Pulse Resp BP Pulse Ox 12/17/18 09:57 80 113/67 12/17/18 07:04 36.7 C 68 18 166/80 H 12/17/18 06:56 81 18 87 L 12/17/18 03:25 37.0 C 78 18 138/69 96 12/17/18 01:51 63 16 94 12/16/18 23:41 36.8 C 73 19 137/68 91 12/16/18 23:30 73
--- NOTE | 2018-12-17 13:47 | Hospitalist Progress Note ---
Date of Service December 17, 2018 Assessment & Plan (1) Acute on chronic diastolic (congestive) heart failure: Patient is an 82 yr male was transfer from [facility] for management of acute on chronic diastolic heart failure per patient's request. Recently completed PO abx for possible bronchitis with no complete resolution of symptoms Acute on chronic diastolic CHF complicated by bilateral pleural effusions Recent ECHO on 11/19 showed normal LV chamber size with moderate concentric LVH, EF 55 to 60%, no segmental wall motion abnormality, grade 3 diastolic dysfunction, pulmonary hypertension Continue IV diuresis Appreciate cardiology input and recommendation (2) Pleural effusion: Bilateral pleural effusion Complicating acute shortness of breath Status post right thoracentesis by about 2000 mL of fluid which has been sent for studies Appreciate Cardiology/CT surgery Input Clinically better today Continue supplemental oxygen at (3) Chronic atrial fibrillation: Xarelto held for possible thoracentesis Continue Carvedilol General tube will be restarted from this afternoon (4) Hypertension: Stable Continue lisinopril Monitor (5) History of CVA (cerebrovascular accident): October 2018, had short hospital stay here and started on Xarelto Continue aspirin, statin Also on Xarelto at home (6) HLD (hyperlipidemia): Continue atorvastatin (7) Diabetes: Last A1C 5.9 06/13/18 HOLD metformin Diabetic diet Continue ISS Monitor BGs (8) Breast cancer in male: Follows with Dr. Tran outpatient On tamoxifen DVT Px: SCDs for now Xarelto has been restarted Disposition: Need to be determined Subjective 12/17 The patient was seen and examined in the telemetry unit He is an 82 yo M with PMHx of CHF, T2DM, Dyslipidemia, Chronic Afib, HTN, Hx of CVA, chronic pancytopenia and Breast CA who presents today as a direct admit from [place] [facility] for acute on chronic diastolic heart failure. He is a status post right thoracentesis of about 2 L of fluid He has been feeling a lot better following thoracentesis Denies any other significant symptoms Review of Systems Review of Systems: All systems reviewed and are unremarkable except as noted below Respiratory: + cough and + dyspnea (Minimal shortness of breath at rest) Physical Exam Physical Exam: Minimal distress at rest and sitting on the bed by the side Eyes: PERRL, conjunctivae normal, anicteric sclerae ENMT: external ear and nose normal, oropharynx normal Neck: trachea midline, no thyromegaly Respiratory: + respiratory distress (Minimal) Auscultation: + diminished lung sounds (Bilateral basis mostly on the right side) Cardiovascular: Rate/Rhythm: + abnormal rate and + abnormal rhythm Gastrointestinal (Abdomen): Inspection/Auscultation: abdomen normal to inspection and normal bowel sounds Percussion/Palpation: abdomen soft Neurologic: Alert, awake and oriented x3 Lymphatic: no cervical or axillary lymphadenopathy Results & Data Vital Signs (Past 12 Hours) Vital Signs Temp Pulse Resp BP Pulse Ox 12/17/18 11:06 36.5 C 81 20 92/53 L 96 12/17/18 09:57 80 113/67 12/17/18 07:04 36.7 C 68 18 166/80 H 12/17/18 06:56 81 18 87 L 12/17/18 03:25 37.0 C 78 18 138/69 96 12/17/18 01:51 63 16 94 Laboratory Results Short CBC 12/17/18 Range/Units 05:12 WBC 4.44 L (4.8-10.8) K/uL Hgb 9.6 L (14.0-18.0) g/dL Hct 30.4 L (42-52) % Plt Count 110 L (130-400) K/uL BMP 12/17/18 05:12 Sodium 138 Potassium 3.8 Chloride 103 Carbon Dioxide 34 H BUN 28 H Creatinine 1.25 D Glucose 89 Calcium 7.6 L Medications Administered Current Inpatient Medications Acetaminophen (Tylenol) 650 mg PO Q4H PRN PRN Reason: Pain or Fever Stop: 01/14/19 15:51 Last Admin: 12/16/18 16:10 Dose: 650 mg Documented by: Aspirin (Ecotrin Ectab) [facility] Stop: 01/15/19 08:59 Last Admin: 12/17/18 08:13 Dose: 81 mg Documented by: Atorvastatin Calcium (Lipitor) 40 [facility] [place] Stop: 01/15/19 08:59 Last Admin: 12/17/18 08:13 Dose: 40 mg Documented by: Carvedilol (Coreg) 12.5 mg PO BID [facility] Stop: 01/14/19 20:59 Last Admin: 12/17/18 08:13 Dose: 12.5 mg Documented by: Dextrose (Dextrose 50%) 25 - 50 ml IV UD PRN; Protocol PRN Reason: Hypoglycemia Protocol Stop: 01/14/19 16:13 Glucagon (Glucagen) 1 mg SQ UD PRN; Protocol PRN Reason: Hypoglycemia Protocol Stop: 01/14/19 16:13 Glucose (Glucose 40%) 15 - 30 gm PO UD PRN; Protocol PRN Reason: Hypoglycemia Protocol Stop: 01/14/19 16:13 Glucose (Dex4 Glucose) 4 - 8 tabs PO UD PRN; Protocol PRN Reason: Hypoglycemia Protocol Stop: 01/14/19 16:13 Furosemide 40 mg/ Syringe 4 mls @ 4 mls/min IV BID [facility] Stop: 01/15/19 08:59 Last Admin: 12/17/18 08:10 Dose: 4 mls/min Documented by: Insulin Aspart (Novolog Flexpen) 0 units SC ACHS [facility] Stop: 01/15/19 16:29 Last Admin: 12/17/18 11:50 Dose: 3 units Documented by: Ipratropium [place] (Atrovent 0.02% 0.5mg/2.5ml) 0.5 mg INH Q6R [facility] Stop: 01/14/19 19:59 Last Admin: 12/17/18 06:55 Dose: 0.5 mg Documented by: Isosorbide Mononitrate (Imdur Extended Rel) 60 mg PO QAM [facility] Stop: 01/15/19 08:59 Last Admin: 12/17/18 08:13 Dose: 60 mg Documented by: Levalbuterol HCl (Xopenex 1.25mg/0.5ml Neb) 1.25 mg INH Q6R [facility] Stop: 01/14/19 19:59 Last Admin: 12/17/18 06:55 Dose: 1.25 mg Documented by: Lisinopril (Zestril) 40 mg PO QAM [facility] Stop: 01/15/19 08:59 Last Admin: 12/17/18 08:53 Dose: 40 mg Documented by: Miscellaneous (Carbohydrates For Hypoglycemia) 15 - 30 gm PO UD PRN PRN Reason: Hypoglycemia Treatment Stop: 01/14/19 16:13 Multivitamins/Minerals (Caltrate Plus) 1 tab PO QAM [facility] Stop: 01/15/19 08:59 Last Admin: 12/17/18 08:13 Dose: 1 tab Documented by: Nitroglycerin (Nitrostat) 0.4 mg SL UD [facility] Stop: 01/14/19 16:14 Nortriptyline HCl (Pamelor) 25 mg PO HS [facility] Stop: 01/14/19 20:59 Last Admin: 12/16/18 20:20 Dose: 25 mg Documented by: Ondansetron HCl (Zofran) 4 mg IV Q6H PRN PRN Reason: Nausea Stop: 01/14/19 15:51 Potassium Phosphate (Phospha 250 Neutral 155-852-130 Mg) 1 tab PO BID [facility] Stop: 01/14/19 20:59 Last Admin: 12/17/18 08:13 Dose: 1 tab Documented by: Rivaroxaban (Xarelto) 20 mg PO PM [facility] Stop: 01/14/19 20:59 Last Admin: 12/15/18 20:27 Dose: 20 mg Documented by: Senna/Docusate Sodium (Senokot S) 2 tab PO HS [facility] Stop: 01/14/19 20:59 Last Admin: 12/16/18 20:19 Dose: 2 tab Documented by: Tamoxifen Citrate (Nolvadex) 20 mg PO QAM [facility] Stop: 01/15/19 08:59 Last Admin: 12/17/18 08:13 Dose: 20 mg Documented by: Terazosin HCl (Hytrin) 2 mg PO HS [facility] Stop: 01/14/19 20:59 Last Admin: 12/16/18 20:20 Dose: 2 mg Documented by:
[2018-12-17] MEDS: TERAZOSIN HCL 1 MG CAP PO SCH (21:24)
[2018-12-17] MEDS: DOCUSATE SODIUM/SENNA 50/8.6MG TAB PO SCH (21:24)
[2018-12-17] MEDS: NORTRIPTYLINE HCL 25 MG CAP PO SCH (21:25)
[2018-12-17] MEDS: RIVAROXABAN 20 MG TAB PO SCH (21:25)
[2018-12-18] MEDS: LEVALBUTEROL 1.25MG/0.5ML NEB INH SCH ×2 (01:03→07:23)
[2018-12-18] MEDS: IPRATROPIUM BROMIDE NEB SOLN 0.02% 2.5 ML VIAL INH SCH ×2 (01:04→07:23)
[2018-12-18 07:01] LABS: Basophils # (auto) 0.01 K/uL (0-0.2); Basophils % (auto) 0.2 %; Eosinophils # (auto) 0.18 K/uL (0-0.5); Eosinophils % (auto) 3.9 %; Hematocrit (blood only) 30.5 % (42-52); Hemoglobin 9.8 g/dL (14.0-18.0); Lymphocytes # (auto) 0.74 K/uL (1.2-3.4); Mean Corpuscular Hgb Conc 32.1 g/dL (32-36); Mean Corpuscular Volume 89.2 fL (80-100); Mean Platelet Volume 10.4 fL (7.4-10.4); Monocytes # (auto) 0.48 K/uL (0.11-0.59); Monocytes % (auto) 10.4 %; Neutrophils # (auto) 3.22 K/uL (1.4-6.5); Neutrophils % (auto) 69.5 %; Platelet Count 116 K/uL (130-400); RDW Coefficient of Variation 16.8 % (11.5-14.5); RDW Standard Deviation 54.8 fL (36.4-46.3); Red Blood Count 3.42 M/uL (4.7-6.1); White Blood Count 4.63 K/uL (4.8-10.8)
--- NOTE | 2018-12-18 07:10 | XRay Report ---
XR chest 1V portable CLINICAL HISTORY: effusion history and COMPARISON STUDY: 12/17/2017 FINDINGS: Moderate stable cardiomegaly. Prior median sternotomy. I'll increase in volume of bilateral pleural effusions. Persistent prominence of pulmonary vasculature. IMPRESSION: 1. Mild increase in volume of bilateral pleural effusions. 2. Component of congestive failure similar compared to the prior exam The above report was generated using voice recognition software. It may contain grammatical, syntax or spelling errors. Electronically signed by: Jared Tyler M.D. 12/18/2018 7:09 AM
[2018-12-18 07:32] LABS: BUN Creatinine Ratio 25.6 (10-20); Calcium 7.4 mg/dl (8.5-10.1); Est GFR (African American) 60.9; Est GFR (Non-African American) 52.5; Potassium 3.5 mmol/L (3.5-5.1)
[2018-12-18] MEDS: TAMOXIFEN CITRATE 10 MG TABLET PO SCH (07:38)
[2018-12-18] MEDS: POT PHOSPHATE MONOBASIC W/ SOD TAB PO SCH ×2 (07:38→19:15)
[2018-12-18] MEDS: ASPIRIN 81 MG ECTAB PO SCH (07:38)
[2018-12-18] MEDS: LISINOPRIL 40 MG TAB PO SCH (07:38)
[2018-12-18] MEDS: FUROSEMIDE 40 MG in SYRINGE 0 ML IV SCH ×2 (07:38→19:14)
[2018-12-18] MEDS: ATORVASTATIN 40 MG TAB PO SCH (07:38)
[2018-12-18] MEDS: ISOSORBIDE MONO EXTENDED REL 60 MG TABCR PO SCH (07:39)
[2018-12-18] MEDS: CALCIUM 600MG + VIT D 400 IU TAB PO SCH (07:39)
[2018-12-18] MEDS: INSULIN ASPART 100 UNITS/ML 3 ML PEN SC SCH ×4 (07:43→21:34)
[2018-12-18] MEDS: CARVEDILOL 12.5 MG TAB PO SCH ×2 (07:43→19:15)
[2018-12-18] MEDS ORDERED: POTASSIUM CHLORIDE 20 MEQ TABCR PO STA (08:27)
[2018-12-18] MEDS ORDERED: IPRATROPIUM BROMIDE NEB SOLN 0.02% 2.5 ML VIAL INH PRN (10:00)
[2018-12-18] MEDS ORDERED: LEVALBUTEROL 1.25MG/0.5ML NEB INH PRN (10:00)
--- NOTE | 2018-12-18 10:51 | Cardiology Progress Note ---
Date of Service December 18, 2018 Assessment & Plan (1) Pleural effusion: s/p thoracentesis, await cytology cancer vs. diastolic heart failure, obviously; source will determine treatment results to be followed as outpatient (2) Acute on chronic diastolic (congestive) heart failure: cxr with possible reaccumulation this AM physical exam consistent with effusions will repeat ultrasound for completeness sake obviously, should fluid reaccumulate despite continued diuresis: poor prognosis cont IV lasix for now if no significant reaccumulation would d/c home on lasix 40mg po daily and close f/u as outpatient (3) Breast cancer in male: f/u with heme/onc (4) Chronic atrial fibrillation: Xarelto restarted (5) Hypertension: improved still somewhat labile will cont current meds Subjective Pt seen and examined, nursing reports difficult night, confused and angry. More pleasant this AM. States that he feels well and is anxious for discharge. States breathing is just about back to baseline. Denies cp, palpitations, lightheadedness or dizziness. tele reviewed: afib, rate controlled Review of Systems Review of Systems: All systems reviewed & are unremarkable except as noted in HPI & below Physical Exam Physical Exam: General: Awake, alert and oriented x 3. No acute distress. HEENT: Normocephalic, atraumatic. Pupils equal, round and reactive to light and accommodation. Extraocular muscles are intact. Anicteric sclera. Moist mucous membranes. Neck: No JVD. No bruit. Cardiovascular: irregularly irregular, unable to appreciate murmur, rub or gallop. Pulmonary: Decreased breath sounds in B/L bases, scant crackles. No rhonci or wheezing. Abdomen: Bowel sounds x 4, soft. No rebound, guarding or tenderness. No organomegaly. Extremities: No clubbing, cyanosis or edema. +2 pedal pulses bilaterally. Skin: Warm and dry. Results & Data Vital Signs (Past 12 Hours) Vital Signs Temp Pulse Pulse Resp BP BP Pulse Ox 12/18/18 07:15 36.7 C 82 16 154/75 H 97 12/18/18 04:06 36.6 C 79 18 97/58 L 96 12/18/18 01:06 73 18 93 12/17/18 23:47 75 12/17/18 23:23 36.8 C 73 22 118/61 99
--- NOTE | 2018-12-18 14:20 | Hospitalist Progress Note ---
Date of Service December 18, 2018 Assessment & Plan (1) Acute on chronic diastolic (congestive) heart failure: Patient is an 82 yr male was transfer from [facility] for management of acute on chronic diastolic heart failure per patient's request. Recently completed PO abx for possible bronchitis with no complete resolution of symptoms Acute on chronic diastolic CHF complicated by bilateral pleural effusions Recent ECHO on 11/19 showed normal LV chamber size with moderate concentric LVH, EF 55 to 60%, no segmental wall motion abnormality, grade 3 diastolic dysfunction, pulmonary hypertension Continue IV diuresis Appreciate cardiology input and recommendation We will diuretics to oral at discharge (2) Pleural effusion: Bilateral pleural effusion Complicating acute shortness of breath Status post right thoracentesis by about 2000 mL of fluid which has been sent for studies Appreciate Cardiology/CT surgery Input Clinically better today Continue supplemental oxygen at Repeat x-ray did show probable increasing effusion Will get chest ultrasound to document the amount of fluid The fluid came back to be borderline exudative with total protein of 3.0 May need to have repeat thoracentesis (3) Chronic atrial fibrillation: Xarelto held for possible thoracentesis Continue Carvedilol General tube will be restarted from this afternoon Rate is controlled (4) Hypertension: Stable Continue lisinopril Monitor (5) History of CVA (cerebrovascular accident): October 2018, had short hospital stay here and started on Xarelto Continue aspirin, statin Also on Xarelto at home (6) HLD (hyperlipidemia): Continue atorvastatin (7) Diabetes: Last A1C 5.9 06/13/18 HOLD metformin Diabetic diet Continue ISS Monitor BGs (8) Breast cancer in male: Follows with Dr. Tran outpatient On tamoxifen DVT Px: SCDs for now Xarelto has been restarted Disposition: Need to be determined (9) Hematuria: Has been having hematuria since last night Likely secondary to traumatic insertion of Arcos catheter Has been on Xarelto and complicating hematuria If there is no improvement of hematuria will need to have urology evaluation Hemoglobin has not dropped since hematuria started Subjective 12/17 The patient was seen and examined in the telemetry unit He is an 82 yo M with PMHx of CHF, T2DM, Dyslipidemia, Chronic Afib, HTN, Hx of CVA, chronic pancytopenia and Breast CA who presents today as a direct admit from [place] [facility] for acute on chronic diastolic heart failure. He is a status post right thoracentesis of about 2 L of fluid He has been feeling a lot better following thoracentesis Denies any other significant symptoms 12/18 Patient was seen and examined in telemetry unit He has been having painless hematuria since last night and now passing some clots following irrigation Denies any pain, shortness of breath, nausea and vomiting Review of Systems Review of Systems: All systems reviewed and are unremarkable except as noted below Respiratory: no dyspnea Genitourinary: + hematuria Physical Exam Physical Exam: No apparent distress at rest but has anxiety Constitutional: + obese Eyes: PERRL, conjunctivae normal, anicteric sclerae ENMT: external ear and nose normal, oropharynx normal Neck: trachea midline, no thyromegaly Respiratory: + respiratory distress (Minimal) Auscultation: + diminished lung sounds (Bilateral basis mostly on the right side) Cardiovascular: Rate/Rhythm: + abnormal rate and + abnormal rhythm Gastrointestinal (Abdomen): Inspection/Auscultation: abdomen normal to inspection and normal bowel sounds Percussion/Palpation: abdomen soft Genitourinary: Ongoing hematuria with passage of clot through the catheter Lymphatic: no cervical or axillary lymphadenopathy Results & Data Vital Signs (Past 12 Hours) Vital Signs Temp Pulse Resp BP Pulse Ox 12/18/18 12:00 37.0 C 76 16 121/66 98 12/18/18 07:15 36.7 C 82 16 154/75 H 97 12/18/18 04:06 36.6 C 79 18 97/58 L 96 Laboratory Results Short CBC 12/18/18 Range/Units 06:30 WBC 4.63 L (4.8-10.8) K/uL Hgb 9.8 L (14.0-18.0) g/dL Hct 30.5 L (42-52) % Plt Count 116 L (130-400) K/uL BMP 12/18/18 06:30 Sodium 137 Potassium 3.5 Chloride 101 Carbon Dioxide 33 H BUN 33 H Creatinine 1.28 Glucose 117 H Calcium 7.4 L Medications Administered Current Inpatient Medications Acetaminophen (Tylenol) 650 mg PO Q4H PRN PRN Reason: Pain or Fever Stop: 01/14/19 15:51 Last Admin: 12/16/18 16:10 Dose: 650 mg Documented by: Aspirin (Ecotrin Ectab) [facility] [place] Stop: 01/15/19 08:59 Last Admin: 12/18/18 07:38 Dose: 81 mg Documented by: Atorvastatin Calcium (Lipitor) 40 mg PO QAM JUAN ANTONIO Stop: 01/15/19 08:59 Last Admin: 12/18/18 07:38 Dose: 40 mg Documented by: Carvedilol (Coreg) 12.5 mg PO BID JUAN ANTONIO Stop: 01/14/19 20:59 Last Admin: 12/18/18 07:43 Dose: 12.5 mg Documented by: Dextrose (Dextrose 50%) 25 - 50 ml IV UD PRN; Protocol PRN Reason: Hypoglycemia Protocol Stop: 01/14/19 16:13 Glucagon (Glucagen) 1 mg SQ UD PRN; Protocol PRN Reason: Hypoglycemia Protocol Stop: 01/14/19 16:13 Glucose (Glucose 40%) 15 - 30 gm PO UD PRN; Protocol PRN Reason: Hypoglycemia Protocol Stop: 01/14/19 16:13 Glucose (Dex4 Glucose) 4 - 8 tabs PO UD PRN; Protocol PRN Reason: Hypoglycemia Protocol Stop: 01/14/19 16:13 Furosemide 40 mg/ Syringe 4 mls @ 4 mls/min IV BID JUAN ANTONIO Stop: 01/15/19 08:59 Last Admin: 12/18/18 07:38 Dose: 4 mls/min Documented by: Insulin Aspart (Novolog Flexpen) 0 units SC ACHS [facility] Stop: 01/15/19 16:29 Last Admin: 12/18/18 12:22 Dose: 6 units Documented by: Ipratropium [place] (Atrovent 0.02% 0.5mg/2.5ml) 0.5 mg INH Q6R PRN PRN Reason: Shortness Of Breath Or Wheezing Stop: 01/14/19 19:59 Isosorbide Mononitrate (Imdur Extended Rel) 60 mg PO QAM [facility] Stop: 01/15/19 08:59 Last Admin: 12/18/18 07:39 Dose: 60 mg Documented by: Levalbuterol HCl (Xopenex 1.25mg/0.5ml Neb) 1.25 mg INH Q6R PRN PRN Reason: Shortness Of Breath Or Wheezing Stop: 01/14/19 19:59 Lisinopril (Zestril) 40 mg PO QAM [facility] Stop: 01/15/19 08:59 Last Admin: 12/18/18 07:38 Dose: 40 mg Documented by: Miscellaneous (Carbohydrates For Hypoglycemia) 15 - 30 gm PO UD PRN PRN Reason: Hypoglycemia Treatment Stop: 01/14/19 16:13 Multivitamins/Minerals (Caltrate Plus) 1 tab PO QAM [facility] Stop: 01/15/19 08:59 Last Admin: 12/18/18 07:39 Dose: 1 tab Documented by: Nitroglycerin (Nitrostat) 0.4 mg SL UD JUAN ANTONIO Stop: 01/14/19 16:14 Nortriptyline HCl (Pamelor) 25 mg PO HS [facility] Stop: 01/14/19 20:59 Last Admin: 12/17/18 21:25 Dose: 25 mg Documented by: Ondansetron HCl (Zofran) 4 mg IV Q6H PRN PRN Reason: Nausea Stop: 01/14/19 15:51 Potassium Phosphate (Phospha 250 Neutral 155-852-130 Mg) 1 tab PO BID JUAN ANTONIO Stop: 01/14/19 20:59 Last Admin: 12/18/18 07:38 Dose: 1 tab Documented by: Rivaroxaban (Xarelto) 20 mg PO PM JUAN ANTONIO Stop: 01/14/19 20:59 Last Admin: 12/17/18 21:25 Dose: 20 mg Documented by: Senna/Docusate Sodium (Senokot S) 2 tab PO HS [facility] Stop: 01/14/19 20:59 Last Admin: 12/17/18 21:24 Dose: 2 tab Documented by: Tamoxifen Citrate (Nolvadex) 20 mg PO QAM [facility] Stop: 01/15/19 08:59 Last Admin: 12/18/18 07:38 Dose: 20 mg Documented by: Terazosin HCl (Hytrin) 2 mg PO HS [facility] Stop: 01/14/19 20:59 Last Admin: 12/17/18 21:24 Dose: 2 mg Documented by:
--- NOTE | 2018-12-18 15:07 | Ultrasound Report ---
US effusion-chest/mediastinum CLINICAL HISTORY: pleural effusions COMPARISON STUDY: Chest ultrasound December 16, 2018. Chest radiograph December 18, 2018. FINDINGS: Sonography of the right hemithorax demonstrated a large right pleural effusion was estimate d volume of 1356 cc. A suitable right rib interspace was marked for possible subsequent thoracentesis . Sonography of the left hemithorax demonstrated a moderate to large left pleural effusion with estim ated volume of 1000 cc. Suitable rib interspace was not marked given insufficient window given underl fanny lung. IMPRESSION: 1. Large right pleural effusion. Suitable right rib interspace marked for possible subsequent thorace ntesis. 2. Moderate to large left pleural effusion. Insufficient window for thoracentesis given underlying abebe ng. Electronically signed by: James Wodoall M.D. 12/18/2018 3:06 PM
--- NOTE | 2018-12-18 15:34 | Progress Note ---
DATE: 12/18/2018 Mr. Delgadillo was seen today on 12/18/2018. Yesterday, he underwent a thoracentesis for about 1800 mL of fluid. He states he feels better, but he still has issues with hematuria and his Arcos catheter. At this point, despite the fact that he still has fluid in his chest, I would continue to be conservative. His x-ray today shows that he now has fluid on both sides, however. Another ultrasound was done today and he has increased volume on the left which goes along with his x-ray to about 1000 mL. He has decreased from over 2500 to less than 1400 on the right. Again, I think we need to have better understanding of where we are going with this patient. My feeling is that he should probably be medically optimized. Performing thoracentesis on these will be of short term benefit. We may consider a PleurX catheter, but that comes with a whole another set of problems that I would like to avoid.
[2018-12-18] MEDS ORDERED: POTASSIUM CHLORIDE 20 MEQ TABCR PO ONE (19:00)
[2018-12-18] MEDS: SPIRONOLACTONE 25 MG TAB PO SCH (19:11)
[2018-12-18] MEDS: ACETAMINOPHEN 325 MG TAB PO PRN (19:14)
[2018-12-18] MEDS: DOCUSATE SODIUM/SENNA 50/8.6MG TAB PO SCH (19:14)
[2018-12-18] MEDS: NORTRIPTYLINE HCL 25 MG CAP PO SCH (19:15)
[2018-12-18] MEDS: TERAZOSIN HCL 1 MG CAP PO SCH (19:16)
[2018-12-19 06:19] LABS: Basophils # (auto) 0.01 K/uL (0-0.2); Basophils % (auto) 0.1 %; Eosinophils # (auto) 0.31 K/uL (0-0.5); Eosinophils % (auto) 4.6 %; Hematocrit (blood only) 28.4 % (42-52); Hemoglobin 9.1 g/dL (14.0-18.0); Immature Granulocytes # (auto) 0.01 K/uL (0.00-0.02); Immature Granulocytes % (auto) 0.1 %; Lymphocytes # (auto) 1.12 K/uL (1.2-3.4); Lymphocytes % (auto) 16.5 %; Mean Corpuscular Volume 90.4 fL (80-100); Mean Platelet Volume 9.9 fL (7.4-10.4); Monocytes # (auto) 0.77 K/uL (0.11-0.59); Monocytes % (auto) 11.4 %; Neutrophils # (auto) 4.56 K/uL (1.4-6.5); Neutrophils % (auto) 67.3 %; Platelet Count 119 K/uL (130-400); RDW Coefficient of Variation 17.1 % (11.5-14.5); RDW Standard Deviation 56.5 fL (36.4-46.3); Red Blood Count 3.14 M/uL (4.7-6.1); White Blood Count 6.78 K/uL (4.8-10.8)
[2018-12-19 06:56] LABS: BUN Creatinine Ratio 27.8 (10-20); Calcium 7.7 mg/dl (8.5-10.1); Creatinine Clr Calc Pharmacy 50.3 ml/min; Est GFR (African American) 54.6; Est GFR (Non-African American) 47.1; Magnesium 2.1 mg/dl (1.8-2.4); Potassium 4.4 mmol/L (3.5-5.1)
[2018-12-19] MEDS: ISOSORBIDE MONO EXTENDED REL 60 MG TABCR PO SCH (08:10)
[2018-12-19] MEDS: INSULIN ASPART 100 UNITS/ML 3 ML PEN SC SCH ×4 (08:10→20:33)
[2018-12-19] MEDS: LISINOPRIL 40 MG TAB PO SCH (08:11)
[2018-12-19] MEDS: POT PHOSPHATE MONOBASIC W/ SOD TAB PO SCH ×2 (08:11→20:33)
[2018-12-19] MEDS: FUROSEMIDE 40 MG in SYRINGE 0 ML IV SCH ×2 (08:11→20:32)
[2018-12-19] MEDS: ATORVASTATIN 40 MG TAB PO SCH (08:11)
[2018-12-19] MEDS: CARVEDILOL 12.5 MG TAB PO SCH ×2 (08:11→20:32)
[2018-12-19] MEDS: CALCIUM 600MG + VIT D 400 IU TAB PO SCH (08:11)
[2018-12-19] MEDS: ASPIRIN 81 MG ECTAB PO SCH (08:12)
[2018-12-19] MEDS: TAMOXIFEN CITRATE 10 MG TABLET PO SCH (08:12)
[2018-12-19] MEDS: SPIRONOLACTONE 25 MG TAB PO SCH (08:12)
[2018-12-19] MEDS ORDERED: LIDOCAINE HCL 2% (LOCAL) INJ 50 ML VIAL ONE (09:36)
--- NOTE | 2018-12-19 10:15 | Cardiology Progress Note ---
Date of Service December 19, 2018 Assessment & Plan (1) Pleural effusion: s/p thoracentesis, cytology consistent with CHF unfortunately, quickly reaccumulated despite continued IV diurese, poor prognosticator spoke with thoracic surgery, for PleurX catheter today unfortunately, given current clinical setting, do not believe he will be able to go home and may in fact benefit from hospice will ask our Palliative Care colleagues to evaluate (2) Acute on chronic diastolic (congestive) heart failure: will cont lasix and spironolactone for now will see how he responds to catheter placement, hopefully will be able to back off diuretics afterwards (3) Breast cancer in male: f/u with heme/onc (4) Chronic atrial fibrillation: Xarelto held due to persistent, significant hematuria (5) Hypertension: improved still somewhat labile will cont current meds Subjective Pt seen and examined, much more alert and in better spirits this AM. States breathing is ok, but has not ambulated today. Denies cp, palpitations, lightheadedness or dizziness. tele reviewed: afib, rate controlled. Review of Systems Review of Systems: All systems reviewed & are unremarkable except as noted in HPI & below Physical Exam Physical Exam: General: Awake, alert and oriented x 3. No acute distress. HEENT: Normocephalic, atraumatic. Pupils equal, round and reactive to light and accommodation. Extraocular muscles are intact. Anicteric sclera. Moist mucous membranes. Neck: No JVD. No bruit. Cardiovascular: irregularly irregular, unable to appreciate murmur, rub or gallop. Pulmonary: Poor air movement in B/L bases with crackles. No rhonchi or wheezing. Abdomen: Bowel sounds x 4, soft. No rebound, guarding or tenderness. No organomegaly. Extremities: No clubbing, cyanosis or edema. +2 pedal pulses bilaterally. Skin: Warm and dry. Results & Data Vital Signs (Past 12 Hours) Vital Signs Temp Pulse Pulse Resp BP Pulse Ox 12/19/18 08:00 68 12/19/18 07:06 36.7 C 72 18 106/62 97 12/19/18 03:35 36.9 C 70 18 114/63 96 12/18/18 23:35 36.7 C 57 L 18 102/58 L 95 12/18/18 23:00 77
--- NOTE | 2018-12-19 10:35 | Palliative Care Consultation ---
Date of Consultation December 19, 2018 Assessment & Plan (1) Palliative care encounter: This is an 82 year old male who was a transfer from [facility] by the request of the patient with a diagnosis of acute on chronic CHF. The patient initially presented to the [facility] with increased SOB and increased LE edema. Additional PMH includes: pHTN, CAD, chronic atrial fibrillation, BPH, Right breast CA s/p mastectomy (2013), and renal insufficiency. The patient, upon arrival was found to have B/L pleural effusions and a thoracentesis was performed yesterday with 1800mL of rust- colored output removed and sent to pathology with pending results. The patient indicated that his breathing significantly improved post thoracentesis. Additional laboratory testing revealed K+ 4.0, BNP 7474 Troponin peaked at 1.7. A repeat CXR was performed this morning which revealed reaccumulation of fluid of approximately 1,000mL. The fluid was suspected to be metastatic disease vs CHF. Per Cardiology, the latter is suspected. Palliative Care was consulted to discuss goals of care. -I met with patient, along with WEED COOKING OPERATOR student Myah Fountain, in room 238-1. Patient was calm and cooperative during interview and exam. -Initially, we talked about his current HPI, including his thoracentesis and response to this. He states that he felt great afterwards and would be willing to have it done again. We talked about how quickly the fluid has reaccumulated and what long-term effects of this may look like. We did talk, in detail about the Pluer-X catheter and how this is not considered a nursing home solution to his underlying chronic condition, whether it be related to CHF vs an undiagnosed condition. -From there, he discussed how he is a patient of Dr. Asif and continues to take Tamoxifen for breast cancer treatment and he tolerates this oral treatment well. -We then discussed Palliative Care and goals of care. He pointed to his DNR bracelet that he is wearing and states that his son, Falkito, who lives 15 minutes away from him 'knows what he wants' -He did say that he has a 45 callibur gun and knows its there if its time. He did; however, deny SI/SA. -He did become tearful during our interview and led to him really opening up about the 7 years that he served in [place] and some of the heart-wrenching and challenging visuals that he saw, including multiple women and children dying, some of which he admittedly knows he killed, but has a lot of resentment towards the political side of the war. -He stated that he has a closer friend whom he has served that has been his sounding board all of these years to be able to continue to live, but now as he knows he is entereing the final stage of his life, all of these emotions are resurfacing. He did state that thunderstorms are a big trigger for him. -He stated that he has strong Zoroastrianism susie and has plans for his body to be taken to [place] and ashes are to be placed by his son (11 years ago). He also stated he has lost an daughter who lived 23 days. -He does have 4 adult living children, Ed (local who is his POA), Gill Matias (MURIEL Bailey) , Isauro (MURIEL Acosta), Milagros (MURIEL Prabhakar). -The patient lives independently in [address]. His significant other May, visits him in the morning and assists with his ADL's, breakfast, etc. He does have Meals on Wheels delivery and his son assists with transportation. He does ambulate with a walker and uses a power wheelchair if he leaves his apartment. -We did touch base regarding Home health vs hospice, regardless of his decision moving forward with Pleur-X , etc. for palliative management. Additionally, regardless of the pathology results, he would be a candidate for Hospice with his worsening CHF, although his most recent EF is 55-60% on November 19. I think that he could benefit from a palliative standpoint to have a Pleur-X catheter for management of his symptoms if his goal is to return home and transition to hospice. -Moving forward, it was a pleasure to establish rapport with this gentleman. We did not officially go over a POLST form today due to the nature and where our conversation led. -I will plan to see him on Saturday, to further discuss goals, home health vs hospice, once we see how he does over the weekend. -I would suggest if he has hesitation to hospice, moving forward with an agency that can transition him from Home Health to Hospice. -The patient does take Nortriptyline; however, does not have an anxiolytic medication PRN, which I think he could benefit from related to situational depression and PTSD. -PPS: 40% (2) Acute on chronic diastolic (congestive) heart failure: (3) Breast cancer in male: (4) BPH (benign prostatic hyperplasia): (5) Renal insufficiency: (6) Chronic atrial fibrillation: Supervising Physician Co-Signing Physician Notes Chart reviewed, patient seen and examined-no family at bedside Collaborated with CARRINGTON Catalan. Collaborated with Dr. Fritz and Dr. Tapia PE: Patient awake and alert, appears comfortable at rest HEENT: EOMI, mild [place] Respirations: Unlabored, on O2. Diminished breath sounds bilaterally CV: Irregular, no edema Abdomen: Soft, nontender Neuro: Alert and oriented x4 Psych appropriate mood and affect Agree with above note, assessment and plan as per CARRINGTON Catalan. Will continue to follow and assist patient with medical decision making. History of Present Illness Reason for Consultation: Goals of Care Requesting Physician: Dr. Graham Attending Physician: Grzegorz Graham MD History of Present Illness This is an 82 year old male who was a transfer from [facility] by the request of the patient with a diagnosis of acute on chronic CHF. The patient initially presented to the [facility] with increased SOB and increased LE edema. Additional PMH includes: pHTN, CAD, chronic atrial fibrillation, BPH, Right breast CA s/p mastectomy (2013), and renal insufficiency. The patient, upon arrival was found to have B/L pleural effusions and a thoracentesis was performed yesterday with 1800mL of rust-colored output removed and sent to pathology with pending results. The patient indicated that his breathing significantly improved post thoracentesis. Additional laboratory testing revealed K+ 4.0, BNP 7474 Troponin peaked at 1.7. A repeat CXR was performed this morning which revealed reaccumulation of fluid of approximately 1,000mL. The fluid was suspected to be metastatic disease vs CHF. Per Cardiology, the latter is suspected. Palliative Care was consulted to discuss goals of care. Please see A/P for additional details. Thank you kindly for involving Palliative Care with this patient. We will follow and continue to assist with decision making throughout his hospitalization. Allergies Allergy/AdvReac Type Severity Reaction Status Date / Time Penicillins AdvReac Unknown HAS Verified 11/30/18 12:15 TOLERATED CEPHALOSPORINS W/O RXN-lightheaded Home Medications Home Medications Medication Instructions Recorded Confirmed Type aspirin [Aspirin Low Dose] 81 mg PO QAM 05/21/18 12/15/18 History metformin 500 mg PO BIDM 05/21/18 12/15/18 History nortriptyline 25 mg PO HS 05/21/18 12/15/18 History sennosides-docusate sodium [Senna 2 tab PO HS 05/21/18 12/15/18 History with Docusate Sodium] diclofenac sodium 50 mg PO TID PRN 06/28/18 12/15/18 History isosorbide mononitrate 60 mg PO QAM 06/28/18 12/15/18 History lisinopril 40 mg PO QAM 06/28/18 12/15/18 History nitroglycerin 0.4 mg SUBLINGUAL UD 06/28/18 12/15/18 History tamoxifen 20 mg PO QAM 06/28/18 12/15/18 History torsemide 20 mg PO UD 06/28/18 12/15/18 History carvedilol 12.5 mg PO BID 08/12/18 12/15/18 History Calcium 600 + D(3) 1 cap PO QAM 11/18/18 12/15/18 History magnesium hydroxide [Milk of 0 ml PO DAILY PRN 11/18/18 12/15/18 History Magnesia] polyethylene glycol 3350 [Miralax] 17 g PO DAILY PRN 11/18/18 12/15/18 History potassium, sodium phosphates 1 packet PO BID 11/18/18 12/15/18 History [Phos-NaK] terazosin 2 mg PO HS 11/18/18 12/15/18 History atorvastatin 40 mg PO QAM 30 Days #30 tab 11/21/18 12/15/18 Rx rivaroxaban [Xarelto] 20 mg PO PM 11/30/18 12/15/18 History psyllium husk [Metamucil] 1 tbsp PO TID PRN 12/15/18 12/15/18 History Patient History Medical History Pressure ulcer (Acute) LFTs abnormal Hyperbilirubinemia Breast cancer in male (Chronic) HLD (hyperlipidemia) (Chronic) Chronic atrial fibrillation (Chronic) CAD (coronary artery disease) (Chronic) Thoracic aortic aneurysm (Chronic) CHF (congestive heart failure) (Acute) Altered mental status (Acute) MRSA (methicillin resistant Staphylococcus aureus) (Resolved) Diabetes (Chronic) Hypertension (Chronic) Hepatitis (Resolved) Diabetic neuropathy (Chronic) Diabetic retinopathy (Chronic) Renal insufficiency (Chronic) BPH (benign prostatic hyperplasia) (Chronic) History of diabetic ulcer of foot (Resolved) Status post partial amputation of foot (Resolved) Venous stasis ulcer (Acute) 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) Acquired claw toe of right foot (Chronic) Callus (Chronic) Hallux abducto valgus, bilateral (Chronic) Pneumonia (Inactive) Bone cancer Kidney stones Surgical History Hx of CABG (Resolved) 1994 Hx of cholecystectomy (Resolved) H/O breast surgery (Chronic) Family History Other Colon cancer Diabetes Family history non-contributory Hypertension Social History Preferred Language: Welsh Communication Ability: Effective Communication Ability Comment: glasses Visual Impairment: No Limitations Hearing Ability: Normal Mechanical Intern Required: No Beliefs That Will Affect Care: None marital status: Current Living Situation: Alone Current Living Situation Comment: apartment, [address]ic[address] unit, 1st floor, no stairs current occupational status: retired Feels Safe at Home: Yes Safety Concerns: Feels Safe At This Time Smoking Status: Former smoker Tobacco Type: cigars Cigarettes Per Day: 4 Smoking End Date: february 2018 Second Hand Exposure: No Tobacco Cessation Education Requested by Patient: No Hx Alcohol Use: Yes Alcohol type: hard liquor Hx Substance Use: No Review of Systems Review of Systems: All systems reviewed & are unremarkable except as noted in HPI & below Patient states that his breathing is improved today. Patient denies pain. Patient states that he is having increased flatulance Patient states he has been processing his life these past few days Physical Exam Constitutional: well developed, well nourished and + well hydrated Eyes: PERRL, conjunctivae normal, anicteric sclerae patient with corrective lenses, with thick lenses. ENMT: external ear and nose normal, oropharynx normal Neck: trachea midline, no thyromegaly Respiratory: normal respiratory effort, able to speak in complete sentences and symmetric chest movement Auscultation: + diminished lung sounds and + rales Cardiovascular: Rate/Rhythm: + irregularly irregular Vessels: no JVD Extremities: normal capillary refill; no calf tenderness and no pedal edema Gastrointestinal (Abdomen): Inspection/Auscultation: abdomen normal to inspection and normal bowel sounds Percussion/Palpation: abdomen soft and + tympanic to percussion Skin: no rashes, warm and dry normal turgor right breast mastectomy scaring Psychiatric: A+Ox3, euthymic affect Eye Contact: good eye contact Affect: euthymic affect and + tearful affect Thought Process: linear/logical thought process Suicidal Thoughts: denies suicidal thoughts, denies suicidal plan and denies suicidal intent Cognition: recent memory grossly intact Estimated Intelligence: average estimated intelligence Insight: good insight Judgement: good judgement Genitourinary: Arcos catheter with hematuria output Lymphatic: no cervical or axillary lymphadenopathy Results & Data Vital Signs (Past 12 Hours) Vital Signs Temp Pulse Pulse Resp BP Pulse Ox 12/19/18 08:00 68 12/19/18 07:06 36.7 C 72 18 106/62 97 12/19/18 03:35 36.9 C 70 18 114/63 96 12/18/18 23:35 36.7 C 57 L 18 102/58 L 95 12/18/18 23:00 77 PG Care Time/CCT Total # of Minutes Spent Total Time Spent with Patient: Total time spent 100 minutes is greater than 50% in coordination of care (as documented) at patient's floor/unit and/or counseling patient Time Spent Midlevel Total time spent 100 minutes with > 50% of that time spent assessing the patient, discussing goals of care with the patient and IDT
[2018-12-19] MEDS: FINASTERIDE 5 MG TAB PO SCH (12:30)
--- NOTE | 2018-12-19 13:12 | Consultation Report ---
DATE OF CONSULTATION: 12/19/2018 REASON FOR THE CONSULTATION: Gross hematuria. HISTORY OF PRESENTATION: The patient is an 82-year-old male who does have a history of severe heart failure as well as breast cancer, AFib, he has been on Xarelto, who was admitted with congestive heart failure, had a Arcos catheter placed several days ago and then developed gross hematuria after this was placed. He does have a history of having BPH. He said he was not emptying his bladder and had a cystoscopy approximately [address] Conde in [place]. He does take an alpha nael but does not take anything else. No recent PSA. No previous history of gross hematuria. He denies significant difficulty voiding, but it does not appear that he was completely emptying his bladder. When I irrigated him today, he did not have any discomfort or sensation. He does have a history of smoking for a long period of time and recently quit. Today upon examination he did have some clots in his Arcos, minimal clots, but had been irrigated by the nurse recently. I irrigated him and his urine irrigated clear. He has been off Xarelto for over 24 hours. PAST MEDICAL HISTORY: Significant for significant congestive heart failure to the point where hospice and palliative care service is seeing him and making recommendations. Apparently he is on the schedule to have a chest tube placed because thoracentesis, while it cleared, the fluid in his lungs reaccumulated quickly. The patient also has a history of breast cancer. REVIEW OF SYSTEMS: Please refer to the history and physical. PHYSICAL EXAMINATION: GENERAL: The patient is alert and oriented and responsive. He is thin and somewhat pale. HEENT: Within normal limits. LUNGS: The patient is not having significant difficulty breathing. HEART: He does have minimal pedal edema at this time. GENITOURINARY: Arcos catheter in place with normal male phallus with blood initially in the Arcos, but when I irrigated him with 120 mL of saline, it cleared up immediately to completely clear with no clot. In addition, the patient did not have any significant pain with irrigation which suggests that he probably does have a residual He had no sensation of urgency. ASSESSMENT AND PLAN: Gross hematuria in the face of a male with severe congestive heart failure. He is getting a chest tube placed today. Would keep him off of the Xarelto for the time being awaiting input from palliative care who has seen him, but is working on their report as we speak. Would not resume the Xarelto for at least several days. The patient's hemoglobin has dropped to the low 9 range. Medicine is going to start him on finasteride as well as the alpha nael and check a PSA. In addition, we will consider if the bleeding comes back and if severe whether or not intervention is appropriate. Would get perhaps a CAT scan without contrast. The patient's creatinine currently is 1.4. He does not look like a good candidate for surgery for renal mass. The bleeding appears to have started with the Arcos catheter placement and may be secondary to catheter trauma although he may have a bladder tumor. If he stabilizes, we will need to consider cystoscopy to assess patient for both BPH and to rule out bladder cancer.
--- NOTE | 2018-12-19 13:33 | XRay Report ---
XR chest 1V portable CLINICAL HISTORY: pleurex insertion COMPARISON STUDY: 12/18/2018 FINDINGS: Diminished volume of right pleural effusion post right basilar drainage catheter placement. No significant pneumothorax. Tiny right apical pneumothorax. Focal separation of 4 mm. Left basilar effusion remains unchanged. IMPRESSION: Minimal right apical pneumothorax post right basilar drainage catheter placement. Improv ed aeration right base The above report was generated using voice recognition software. It may contain grammatical, syntax or spelling errors. Electronically signed by: Jared Tyler M.D. 12/19/2018 1:32 PM
[2018-12-19] MEDS: ACETAMINOPHEN 325 MG TAB PO PRN ×2 (13:49→23:35)
--- NOTE | 2018-12-19 15:42 | Hospitalist Progress Note ---
Date of Service December 19, 2018 Assessment & Plan (1) Acute on chronic diastolic (congestive) heart failure: Patient is an 82 yr male was transfer from [facility] for management of acute on chronic diastolic heart failure per patient's request. Recently completed PO abx for possible bronchitis with no complete resolution of symptoms Acute on chronic diastolic CHF complicated by bilateral pleural effusions Recent ECHO on 11/19 showed normal LV chamber size with moderate concentric LVH, EF 55 to 60%, no segmental wall motion abnormality, grade 3 diastolic dysfunction, pulmonary hypertension Continue IV diuresis Appreciate cardiology input and recommendation We will diuretics to oral at discharge Clinically stable congestive heart failure Overall clinical condition has not been improving Given comorbid medical conditions prognosis remains poor Palliative care consult (2) Hematuria: Has been having hematuria since last night Likely secondary to traumatic insertion of Arcos catheter Has been on Xarelto and complicating hematuria If there is no improvement of hematuria will need to have urology evaluation Hemoglobin has not dropped since hematuria started Hematuria continued as of this morning with hemoglobin slightly dropped to 9.1 Urology consulted and input appreciated Apparently hematuria improved with repeat irrigation Plan to hold Xarelto until Saturday to see clear urine before that time will be started Has history of prostate hypertrophy Possible history of cystoscopy in the past but no history of hematuria as per patient Has been on terazosin and will add finasteride as per the urologist (3) Pleural effusion: Bilateral pleural effusion Complicating acute shortness of breath Status post right thoracentesis by about 2000 mL of fluid which has been sent for studies Appreciate Cardiology/CT surgery Input Clinically better today Continue supplemental oxygen at Repeat x-ray did show probable increasing effusion Will get chest ultrasound to document the amount of fluid The fluid came back to be borderline exudative with total protein of 3.0. Pathology of pleural fluid did not show any malignant cells given the history of breast carcinoma May need to have repeat thoracentesis Likely to have chest tube placement today by Dr. Ellison (4) Chronic atrial fibrillation: Xarelto held for possible thoracentesis Continue Carvedilol General tube will be restarted from this afternoon Rate is controlled Xarelto has been on hold due to ongoing hematuria (5) Hypertension: Stable Continue lisinopril Monitor (6) History of CVA (cerebrovascular accident): October 2018, had short hospital stay here and started on Xarelto Continue aspirin, statin Also on Xarelto at home (7) HLD (hyperlipidemia): Continue atorvastatin (8) Diabetes: Last A1C 5.9 06/13/18 HOLD metformin Diabetic diet Continue ISS Monitor BGs (9) Breast cancer in male: Follows with Dr. Tran outpatient On tamoxifen DVT Px: SCDs for now Xarelto has been restarted and now on hold again Xarelto can be restarted on Saturday if hematuria is stops Disposition: Need to be determined Subjective 12/17 The patient was seen and examined in the telemetry unit He is an 82 yo M with PMHx of CHF, T2DM, Dyslipidemia, Chronic Afib, HTN, Hx of CVA, chronic pancytopenia and Breast CA who presents today as a direct admit from [facility] for acute on chronic diastolic heart failure. He is a status post right thoracentesis of about 2 L of fluid He has been feeling a lot better following thoracentesis Denies any other significant symptoms 12/18 Patient was seen and examined in telemetry unit He has been having painless hematuria since last night and now passing some clots following irrigation Denies any pain, shortness of breath, nausea and vomiting 12/19 Patient was seen and examined in telemetry unit He continued to have hematuria as of this morning He denies any chest pain and/or shortness of breath, no abdominal pain nausea no vomiting Otherwise has been feeling better Review of Systems Review of Systems: All systems reviewed and are unremarkable except as noted below Genitourinary: + hematuria Physical Exam Physical Exam: Minimal distress at rest Constitutional: + ill appearing and + obese; no acute distress Eyes: PERRL, conjunctivae normal, anicteric sclerae ENMT: external ear and nose normal, oropharynx normal Neck: trachea midline, no thyromegaly Respiratory: + respiratory distress (Minimal) Auscultation: + diminished lung sounds (Bilateral bases mostly on the right side) Cardiovascular: Rate/Rhythm: + abnormal rate and + abnormal rhythm Gastrointestinal (Abdomen): Inspection/Auscultation: abdomen normal to inspection and normal bowel sounds Percussion/Palpation: abdomen soft Musculoskeletal: No acute arthritis involving any joints Neurologic: Alert, awake and oriented x3 Lymphatic: no cervical or axillary lymphadenopathy Results & Data Vital Signs (Past 12 Hours) Vital Signs Temp Pulse Pulse Resp BP BP Pulse Ox 12/19/18 15:10 36.8 C 65 19 107/61 95 12/19/18 11:47 36.8 C 75 19 93/47 L 92 12/19/18 08:00 68 12/19/18 07:06 36.7 C 72 18 106/62 97 Laboratory Results Short CBC 12/19/18 Range/Units 06:05 WBC 6.78 (4.8-10.8) K/uL Hgb 9.1 L (14.0-18.0) g/dL Hct 28.4 L (42-52) % Plt Count 119 L (130-400) K/uL BMP 12/19/18 06:05 Sodium 138 Potassium 4.4 D Chloride 101 Carbon Dioxide 33 H BUN 39 H Creatinine 1.40 Glucose 107 H Calcium 7.7 L Liver Function 12/19/18 Range/Units 06:05 Albumin 2.6 L (3.4-5.0) gm/dl Medications Administered Current Inpatient Medications Acetaminophen (Tylenol) 650 mg PO Q4H PRN PRN Reason: Pain or Fever Stop: 01/14/19 15:51 Last Admin: 12/19/18 13:49 Dose: 650 mg Documented by: [facility]ir[facility] ([facility]) [facility] [place]: 01/15/19 08:59 Last Admin: 12/19/18 08:12 Dose: 81 mg Documented by: Atorvastatin Calcium (Lipitor) [facility] Stop: 01/15/19 08:59 Last Admin: 12/19/18 08:11 Dose: 40 mg Documented by: Carvedilol (Coreg) 12.5 mg PO BID [facility] Stop: 01/14/19 20:59 Last Admin: 12/19/18 08:11 Dose: 12.5 mg Documented by: Dextrose (Dextrose 50%) 25 - 50 ml IV UD PRN; Protocol PRN Reason: Hypoglycemia Protocol Stop: 01/14/19 16:13 Finasteride (Proscar) [facility] Stop: 01/18/19 11:59 Last Admin: 12/19/18 12:30 Dose: 5 mg Documented by: Glucagon (Glucagen) 1 mg SQ UD PRN; Protocol PRN Reason: Hypoglycemia Protocol Stop: 01/14/19 16:13 Glucose (Glucose 40%) 15 - 30 gm PO UD PRN; Protocol PRN Reason: Hypoglycemia Protocol Stop: 01/14/19 16:13 Glucose (Dex4 Glucose) 4 - 8 tabs PO UD PRN; Protocol PRN Reason: Hypoglycemia Protocol Stop: 01/14/19 16:13 Furosemide 40 mg/ Syringe 4 mls @ 4 mls/min IV BID [facility] Stop: 01/15/19 08:59 Last Admin: 12/19/18 08:11 Dose: 4 mls/min Documented by: Insulin Aspart (Novolog Flexpen) 0 units SC ACHS [facility] Stop: 01/15/19 16:29 Last Admin: 12/19/18 12:22 Dose: 5 units Documented by: Ipratropium [employer] (Atrovent 0.02% 0.5mg/2.5ml) 0.5 mg INH Q6R PRN PRN Reason: Shortness Of Breath Or Wheezing Stop: 01/14/19 19:59 Isosorbide Mononitrate (Imdur Extended Rel) 60 mg PO QAM [facility] Stop: 01/15/19 08:59 Last Admin: 12/19/18 08:10 Dose: 60 mg Documented by: Levalbuterol HCl (Xopenex 1.25mg/0.5ml Neb) 1.25 mg INH Q6R PRN PRN Reason: Shortness Of Breath Or Wheezing Stop: 01/14/19 19:59 Lisinopril (Zestril) 40 mg PO QAM [facility] Stop: 01/15/19 08:59 Last Admin: 12/19/18 08:11 Dose: 40 mg Documented by: Miscellaneous (Carbohydrates For Hypoglycemia) 15 - 30 gm PO UD PRN PRN Reason: Hypoglycemia Treatment Stop: 01/14/19 16:13 Multivitamins/Minerals (Caltrate Plus) 1 tab PO QAM [facility] Stop: 01/15/19 08:59 Last Admin: 12/19/18 08:11 Dose: 1 tab Documented by: Nitroglycerin (Nitrostat) 0.4 mg SL UD [facility] Stop: 01/14/19 16:14 Nortriptyline HCl (Pamelor) 25 mg PO HS [facility] Stop: 01/14/19 20:59 Last Admin: 12/18/18 19:15 Dose: 25 mg Documented by: Ondansetron HCl (Zofran) 4 mg IV Q6H PRN PRN Reason: Nausea Stop: 01/14/19 15:51 Oxycodone/Acetaminophen (Percocet 5mg/325mg) 1 tab PO Q6H PRN PRN Reason: Pain Stop: 01/01/19 18:48 Potassium Phosphate (Phospha 250 Neutral 155-852-130 Mg) 1 tab PO BID [facility] Stop: 01/14/19 20:59 Last Admin: 12/19/18 08:11 Dose: 1 tab Documented by: Rivaroxaban (Xarelto) 20 mg PO PM [facility] Stop: 01/14/19 20:59 Last Admin: 12/17/18 21:25 Dose: 20 mg Documented by: Senna/Docusate Sodium (Senokot S) 2 tab PO HS [facility] Stop: 01/14/19 20:59 Last Admin: 12/18/18 19:14 Dose: 2 tab Documented by: Spironolactone (Aldactone) 12.5 mg PO DAILY [facility] Stop: 01/17/19 17:44 Last Admin: 12/19/18 08:12 Dose: 12.5 mg Documented by: Tamoxifen Citrate (Nolvadex) 20 mg PO QAM [facility] Stop: 01/15/19 08:59 Last Admin: 12/19/18 08:12 Dose: 20 mg Documented by: Terazosin HCl (Hytrin) 2 mg PO HS [facility] Stop: 01/14/19 20:59 Last Admin: 12/18/18 19:16 Dose: 2 mg Documented by:
[2018-12-19] MEDS: OXYCODONE/ACETAMINOPHEN 5mg/325mg TAB PO PRN (18:43)
[2018-12-19] MEDS: TERAZOSIN HCL 1 MG CAP PO SCH (20:32)
[2018-12-19] MEDS: NORTRIPTYLINE HCL 25 MG CAP PO SCH (20:32)
[2018-12-19] MEDS: DOCUSATE SODIUM/SENNA 50/8.6MG TAB PO SCH (20:33)
--- NOTE | 2018-12-19 22:39 | Operative Report ---
DATE OF OPERATION: 12/19/2018 PREOPERATIVE DIAGNOSIS: Recurrent right pleural effusion. POSTOPERATIVE DIAGNOSIS: Recurrent right pleural effusion. PROCEDURE: Insertion of right PleurX catheter. SURGEON: Guillermo Tapia MD. HAZARDOUS SUBSTANCES SCIENTIST: MURIEL Barron. ANESTHESIA: Local. DESCRIPTION OF PROCEDURE: The patient in left lateral decubitus position, his right chest was evaluated with an ultrasound and we were able to see a good window to enter the chest. The patient was prepped and draped in usual sterile fashion. After appropriate timeout have been called, a 25-gauge needle and 1% Xylocaine was used to anesthetize the skin and subcutaneous tissues and a large bore needle was then used to anesthetize the deeper muscle layers and pleura. We got free flowing fluid. Guidewire was inserted through the needle and the needle removed. A 1 cm incision was made. 10 cm anterior to this, another skin wheal was raised with 25-gauge needle and a 1 cm incision made. Subcutaneous tissues between these 2 incisions were anesthetized with a long needle with 1% Xylocaine and then a tunneler was attached to PleurX catheter and dragged from the anterior to posterior incision and then the tunneler disconnected from the catheter. An introducer sheath with inner cannula was slid over the guidewire and into the pleural cavity and the posterior incision and inner cannula guidewire was removed and the PleurX catheter was placed into the peel-away sheath which was removed. Two separate 3-0 silk sutures were used to close the skin incision posteriorly and a 2-0 silk suture was used to anchor the catheter to the patient's skin anteriorly. Approximately 1000 mL of fluid was drained. He started having some mild reexpansion coughing and we stopped. We will drain the rest of it tomorrow. We placed antimicrobial dressings and capped this catheter. He tolerated it very well. I attest to the content of the Intraoperative Record and any orders documented therein. Any exception s are noted below.
[2018-12-20 06:44] LABS: Basophils # (auto) 0.01 K/uL (0-0.2); Basophils % (auto) 0.2 %; Eosinophils # (auto) 0.33 K/uL (0-0.5); Eosinophils % (auto) 6.2 %; Hematocrit (blood only) 27.4 % (42-52); Hemoglobin 8.8 g/dL (14.0-18.0); Lymphocytes # (auto) 1.07 K/uL (1.2-3.4); Lymphocytes % (auto) 20.2 %; Mean Corpuscular Hgb Conc 32.1 g/dL (32-36); Mean Corpuscular Volume 90.4 fL (80-100); Mean Platelet Volume 10.8 fL (7.4-10.4); Monocytes # (auto) 0.64 K/uL (0.11-0.59); Monocytes % (auto) 12.1 %; Neutrophils # (auto) 3.24 K/uL (1.4-6.5); Neutrophils % (auto) 61.3 %; Platelet Count 118 K/uL (130-400); RDW Coefficient of Variation 17.1 % (11.5-14.5); RDW Standard Deviation 55.9 fL (36.4-46.3); Red Blood Count 3.03 M/uL (4.7-6.1); White Blood Count 5.29 K/uL (4.8-10.8)
[2018-12-20 07:07] LABS: BUN Creatinine Ratio 30.8 (10-20); Calcium 7.3 mg/dl (8.5-10.1); Creatinine Clr Calc Pharmacy 42.2 ml/min; Est GFR (African American) 44.1; Est GFR (Non-African American) 38.1; Magnesium 2.3 mg/dl (1.8-2.4); Phosphorus 3.7 mg/dl (2.5-4.9); Potassium 4.3 mmol/L (3.5-5.1)
--- NOTE | 2018-12-20 07:19 | XRay Report ---
SINGLE VIEW CHEST CLINICAL HISTORY: Pleural effusion. FINDINGS: An AP, portable, upright chest radiograph is compared to study dated 12/19/2018. The examina tion is significantly degraded by portable technique and patient rotation. The patient is status pos t midline sternotomy. The heart is enlarged and there is atherosclerotic calcification of the thoraci c aorta. There is pulmonary vascular congestion which appears worsened from yesterday. There are smal l pleural effusions with bibasilar consolidation, left larger than right. A pleural drain is again se en at the right lung base. No pneumothorax is seen. The skeletal structures are osteopenic. The bony thorax is grossly intact. IMPRESSION: 1. Cardiomegaly with evidence of congestive failure. This appears modestly worsened from yesterday. 2. There are left larger than right pleural effusions with bibasilar consolidation. This is similar t o yesterday. 3. A pleural drain is again seen at the right lung base. Electronically signed by: Alex Ye M.D. 12/20/2018 7:18 AM
[2018-12-20] MEDS: CALCIUM 600MG + VIT D 400 IU TAB PO SCH (08:16)
[2018-12-20] MEDS: ATORVASTATIN 40 MG TAB PO SCH (08:16)
[2018-12-20] MEDS: FUROSEMIDE 40 MG in SYRINGE 0 ML IV SCH (08:16)
[2018-12-20] MEDS: LISINOPRIL 40 MG TAB PO SCH (08:17)
[2018-12-20] MEDS: TAMOXIFEN CITRATE 10 MG TABLET PO SCH (08:17)
[2018-12-20] MEDS: SPIRONOLACTONE 25 MG TAB PO SCH (08:17)
[2018-12-20] MEDS: ISOSORBIDE MONO EXTENDED REL 60 MG TABCR PO SCH (08:17)
[2018-12-20] MEDS: ASPIRIN 81 MG ECTAB PO SCH (08:18)
[2018-12-20] MEDS: POT PHOSPHATE MONOBASIC W/ SOD TAB PO SCH ×2 (08:18→21:22)
[2018-12-20] MEDS: FINASTERIDE 5 MG TAB PO SCH (08:18)
[2018-12-20] MEDS: CARVEDILOL 12.5 MG TAB PO SCH ×2 (08:18→21:22)
[2018-12-20] MEDS: INSULIN ASPART 100 UNITS/ML 3 ML PEN SC SCH ×4 (08:19→21:22)
[2018-12-20] MEDS: ACETAMINOPHEN 325 MG TAB PO PRN (08:21)
[2018-12-20] MEDS: OXYCODONE/ACETAMINOPHEN 5mg/325mg TAB PO PRN (11:24)
--- NOTE | 2018-12-20 11:25 | Progress Note ---
DATE: 12/20/2018 Mr. Delgadillo was seen today. He is a happy man. He states that his breathing is "great" and he "wants to get the heck out of here." On room air, he has 98% saturation. He was drained for about 500 mL today. I thought his x-ray looked better. He still had some consolidation at the right base, but quite frankly I think he is much better. He sounds better on auscultation also. The Gram stain from the pleural fluid showed no evidence of organisms or growth. In addition, the LDH is only 82, so from a few days ago, this is certainly a transudate. We will continue the PleurX catheter. He can be discharged with the catheter in place. We will arrange home care to drain him and I will see him back in the office with an x-ray.
--- NOTE | 2018-12-20 12:28 | Cardiology Progress Note ---
Date of Service December 20, 2018 Assessment & Plan (1) Pleural effusion: s/p thoracentesis, cytology consistent with CHF unfortunately, quickly reaccumulated despite continued IV diurese, poor prognosticator PleurX catheter placed 12/19, total of 1500 mls out so far clinically appears well compensated lasix to be changed to po cont spirionlactone unfortunateley, anticipate significant clinical decline now with fluid reaccumulation and continued drainage agree with placement and hospice (2) Acute on chronic diastolic (congestive) heart failure: will cont lasix and spironolactone for now (3) Breast cancer in male: f/u with heme/onc (4) Chronic atrial fibrillation: Xarelto held due to persistent, significant hematuria (5) Hypertension: stable Subjective Pt seen and examined, states that he feels well. States that his breathing is back to baseline and that he wants to go home. Denies cp, sob, palpitations, lightheadedness or dizziness. tele reviewed: afib rate controlled. Review of Systems Review of Systems: All systems reviewed & are unremarkable except as noted in HPI & below Physical Exam Physical Exam: General: Awake, alert and oriented x 3. No acute distress. HEENT: Normocephalic, atraumatic. Pupils equal, round and reactive to light and accommodation. Extraocular muscles are intact. Anicteric sclera. Moist mucous membranes. Neck: No JVD. No bruit. Cardiovascular: irregularly irregular, unable to appreciate murmur, rub or gallop. Pulmonary: Improved air movement in B/L bases, still with slightly diminished breath sounds in B/L bases. Abdomen: Bowel sounds x 4, soft. No rebound, guarding or tenderness. No organomegaly. Extremities: No clubbing, cyanosis or edema. +2 pedal pulses bilaterally. Skin: Warm and dry. Results & Data Vital Signs (Past 12 Hours) Vital Signs Temp Pulse Pulse Resp BP BP Pulse Ox 12/20/18 11:13 36.6 C 65 18 104/55 L 94 12/20/18 08:00 70 12/20/18 07:44 36.6 C 66 20 123/69 98 12/20/18 03:25 36.7 C 65 20 130/70 97
[2018-12-20] MEDS ORDERED: fentaNYL 25 MCG/HR TDSY TD SCH (13:00)
--- NOTE | 2018-12-20 15:07 | Urology Progress Note ---
Date of Service December 20, 2018 Subjective Patient resting comfortably with indwelling Arcos catheter urine is still bloody but fewer clots and yesterday and his hematocrit only dropped one-point today. Patient here with daughters we did discuss the fact that if his bleeding were to continue he might need a procedure and they said they were not sure that he would want to have this done. He did have a palliative care consult yesterday that further decisions are going to be made Saturday. Would not restart Xarelto on Saturday with not start Xarelto again until discussed with urology. Particular if he is going to go on palliative care do not think he should be on Xarelto. Is not clear whether the patient has urinary retention will start him on finasteride although given his history that he had incomplete emptying years ago and was never treated with a TURP my concern is that he has a possible neurogenic bladder and may need chronic indwelling Arcos We will continue to follow and the nurses will irrigate on an as-needed basis Results & Data Vital Signs (Past 12 Hours) Vital Signs Temp Pulse Pulse Resp BP BP Pulse Ox 12/20/18 12:54 97 12/20/18 11:13 36.6 C 65 18 104/55 L 94 12/20/18 08:00 70 12/20/18 07:44 36.6 C 66 20 123/69 98 12/20/18 03:25 36.7 C 65 20 130/70 97
[2018-12-20] MEDS: CHECK FENTANYL PATCH PLACEMENT SCH ×2 (15:17→23:50)
--- NOTE | 2018-12-20 16:03 | Hospitalist Progress Note ---
Date of Service December 20, 2018 Assessment & Plan (1) Acute on chronic diastolic (congestive) heart failure: Transfer from [facility] for management of acute on chronic diastolic heart failure per patient's request. Recently completed PO abx for possible bronchitis with no complete resolution of symptoms CXR from [place] [facility] showed large bilateral pleural effusions. Recent ECHO on 11/19 showed normal LV chamber size with moderate concentric LVH, EF 55 to 60%, no segmental wall motion abnormality, grade 3 diastolic dysfunction, pulmonary hypertension Received IV lasix 40mg BID Cardiology on board recommended to change IV lasix to oral Repeat CXR today showed cardiomegaly with evidence of congestive failure. Continue spironolactone 12.5 mg daily PleurX catheter drained today about 500cc Monitor BMP Given comorbid medical conditions prognosis remains poor Palliative care on board (2) Hematuria: Possible secondary to traumatic insertion of Arcos catheter Was on Xarelto and that led to complicate hematuria Urology on board and recommended to continue to hold the xarelto Hemoglobin 8.8 today Hematuria improved with repeat irrigation Plan to hold Xarelto until Saturday Will need to discuss with urology before resuming xarelto Continue terazosin and finasteride If hgb continues to drop, will hold aspirin Continue monitor CBC (3) Pleural effusion: Bilateral pleural effusion Status post right thoracentesis where about 2000 mL of fluid removed by Dr. Tapia Pleural fluid with no growth Pathology of pleural fluid did not show any malignant cells given the history of breast carcinoma S/P PleuralX Catheter performed by Dr. Tapia PleuralX catheter drained today about 500cc fluid Repeat CXR today showed small pleural effusions with bibasilar consolidation, left larger than right. Case discussed with Dr. Tapia Ok from thoracic surgery standpoint to discharge with the pleurX catheter in place. Dr. Tapia's office will arrange for home care to drain the pleurX catheter Follow up with thoracic surgery outpatient once discharge Saturated well on RA Clinically improves significantly (4) Chronic atrial fibrillation: Continue to hold Xarelto for hematuria Rate control with Carvedilol Continue aspirin for now Continue monitor in tele (5) Acute kidney injury superimposed on CKD: Mostly related to diuretic Creatinine increased to 1.67 today IV lasix 40mg BID, will be transition to oral lasix 40mg in am On Lisinopril and spironolactone that were already given today If creatinine worsening in am, will hold the diuretic in am Avoid nephrotoxic agent if able Check BMP in am (6) Hypertension: BP in the low side today On home dose lisinopril 40mg Will hold lisinopril for now, ok to resume if BP and creatinine improve in am Continue monitor (7) History of CVA (cerebrovascular accident): October 2018, had short hospital stay here and started on Xarelto Continue aspirin, statin for now Continue to hold xarelto due to hematuria Continue PT/OT (8) HLD (hyperlipidemia): Continue atorvastatin (9) Diabetes: Last A1C 5.9 06/13/18 Continue to hold metformin Continue insulin sliding scale Continue monitor BS (10) Breast cancer in male: Follows with Dr. Tran outpatient On tamoxifen Chronic pain Home dose fentanyl resumed Oxycodone d/c DVT Px: SCDs for now Continue to hold xarelto due to hematuria CODE STATUS DNR Disposition: Will discharge once medically stable Subjective Pt was seen and examined Lying in bed with no distress Pt said that his breathing feels much better after they drained the pleurX cath Denies any chest pain, palpitation, dizziness and SOB Physical Exam Physical Exam: General- No acute distress Head- atraumatic Eyes- PERRL, EOMI, ENT- oropharynx clear Neck- supple, no JVD Lungs- Diminished BS at base Heart- regular rhythm; no murmur Abdomen- normal bowel sounds, soft, nontender Extremities- no calf tenderness Neuro- alert, oriented x 3; PERRL, EOMI; no facial palsy; no dysarthria Skin- warm & dry Results & Data Vital Signs (Past 12 Hours) Vital Signs Temp Pulse Pulse Resp BP BP Pulse Ox 12/20/18 15:30 36.6 C 63 18 94/53 L 96 12/20/18 15:18 62 12/20/18 12:54 97 12/20/18 11:13 36.6 C 65 18 104/55 L 94 12/20/18 08:00 70 12/20/18 07:44 36.6 C 66 20 123/69 98
[2018-12-20] MEDS: TERAZOSIN HCL 1 MG CAP PO SCH (21:22)
[2018-12-20] MEDS: DOCUSATE SODIUM/SENNA 50/8.6MG TAB PO SCH (21:22)
[2018-12-20] MEDS: NORTRIPTYLINE HCL 25 MG CAP PO SCH (21:22)
[2018-12-21 06:58] LABS: Hematocrit (blood only) 26.4 % (42-52); Hemoglobin 8.4 g/dL (14.0-18.0); Mean Corpuscular Hgb Conc 31.8 g/dL (32-36); Mean Corpuscular Volume 90.4 fL (80-100); Mean Platelet Volume 10.2 fL (7.4-10.4); Platelet Count 124 K/uL (130-400); RDW Standard Deviation 56.4 fL (36.4-46.3); Red Blood Count 2.92 M/uL (4.7-6.1); White Blood Count 4.77 K/uL (4.8-10.8)
[2018-12-21 07:33] LABS: BUN Creatinine Ratio 32.6 (10-20); Calcium 6.5 mg/dl (8.5-10.1); Creatinine Clr Calc Pharmacy 43.2 ml/min; Est GFR (African American) 45.4; Est GFR (Non-African American) 39.2; Potassium 4.3 mmol/L (3.5-5.1)
[2018-12-21] MEDS: SPIRONOLACTONE 25 MG TAB PO SCH (07:44)
[2018-12-21] MEDS: CALCIUM 600MG + VIT D 400 IU TAB PO SCH (07:45)
[2018-12-21] MEDS: ISOSORBIDE MONO EXTENDED REL 60 MG TABCR PO SCH (07:45)
[2018-12-21] MEDS: FUROSEMIDE 40 MG TAB PO SCH (07:45)
[2018-12-21] MEDS: CARVEDILOL 12.5 MG TAB PO SCH ×2 (07:45→20:39)
[2018-12-21] MEDS: TAMOXIFEN CITRATE 10 MG TABLET PO SCH (07:46)
[2018-12-21] MEDS: FINASTERIDE 5 MG TAB PO SCH (07:46)
[2018-12-21] MEDS: ATORVASTATIN 40 MG TAB PO SCH (07:46)
[2018-12-21] MEDS: POT PHOSPHATE MONOBASIC W/ SOD TAB PO SCH ×2 (07:46→20:39)
[2018-12-21] MEDS: LISINOPRIL 40 MG TAB PO SCH (07:47)
[2018-12-21] MEDS: INSULIN ASPART 100 UNITS/ML 3 ML PEN SC SCH ×4 (07:47→20:37)
[2018-12-21] MEDS: CHECK FENTANYL PATCH PLACEMENT SCH ×3 (07:57→23:49)
[2018-12-21] MEDS: fentaNYL 25 MCG/HR TDSY TD SCH (09:17)
--- NOTE | 2018-12-21 11:04 | Progress Note ---
DATE: 12/21/2018 Mr. Delgadillo was seen today. He has 100% saturation on 2 liters. His catheter was evaluated. He only drained about 75 mL today. He feels much better, but he is extremely eager to get out of the hospital. We have set him up to be drained every day at home and they will call in the results to my office. I will see him back in the office in a week or so with an x-ray.
--- NOTE | 2018-12-21 12:02 | Urology Progress Note ---
Date of Service December 21, 2018 Assessment & Plan (1) Hematuria: Subjective Patient appears free of discomfort and his urine is completely clear. Discussed the patient's situation with his 2 daughters who are both nurses and the patient. They do not want to resume Xarelto with the risk of bleeding but I explained that ultimately while I agreed with this from a urologic point of view this may have cardiac consequences and they understand this and will make a final decision with the hospitalist. Given the patient's inability to ambulate and the fact that he likely has a neurogenic bladder they wish to keep the Arcos indwelling. They understand there is a risk of infection and do not want to start prophylactic antibiotics at this time. We will check a urine culture prior to discharge and they understand to call if they think patient is having an infection. In addition we discussed whether not to continue finasteride. It is not clear what the long-term goals are for this patient but he was incontinent prior to coming in and has difficulty making it to the bathroom. That reason if he tolerates the catheter well may be best just to leave this indwelling. They understand that I recommended follow-up in a month or sooner if they are having problems. They also are going to keep him on finasteride in the event that he wants to have a voiding trial Results & Data Vital Signs (Past 12 Hours) Vital Signs Temp Pulse Pulse Resp BP BP Pulse Ox 12/21/18 11:06 36.8 C 58 L 22 96/55 L 99 12/21/18 07:19 36.6 C 71 H 125/58 L 100 12/21/18 03:55 36.8 C 70 18 113/68 99 12/21/18 00:50 69
[2018-12-21] MEDS: OXYCODONE/ACETAMINOPHEN 5mg/325mg TAB PO PRN (14:49)
--- NOTE | 2018-12-21 15:22 | Hospitalist Progress Note ---
Date of Service December 21, 2018 Assessment & Plan (1) Acute on chronic diastolic (congestive) heart failure: Transfer from [facility] for management of acute on chronic diastolic heart failure per patient's request. Recently completed PO abx for possible bronchitis with no complete resolution of symptoms CXR from [place] ED showed large bilateral pleural effusions. Recent ECHO on 11/19 showed normal LV chamber size with moderate concentric LVH, EF 55 to 60%, no segmental wall motion abnormality, grade 3 diastolic dysfunction, pulmonary hypertension Received IV lasix 40mg BID Cardiology on board recommended to continue oral lasix Repeat CXR today showed cardiomegaly with evidence of congestive failure. Continue spironolactone 12.5 mg daily PleurX catheter drained about 500cc yesterday and 75cc today Given comorbid medical conditions prognosis remains poor Palliative care on board family/patient will meet to discuss transition to hospice/palliative care case management notified Monitor BMP (2) Hematuria: Possible secondary to traumatic insertion of Machado catheter Was on Xarelto and that led to complicate hematuria Urology on board and recommended to continue to hold the xarelto Hemoglobin 8.4 today Hematuria improved with repeat irrigation family does not want to restart the xarelto due to the risk of bleeding Continue terazosin and finasteride If hgb dropped to 8.4, continue to hold aspirin Might consider to discharge home with machado cath as per family request Urology discussed with family about keeping machado cath, such as risk for infection Continue monitor CBC (3) Pleural effusion: Bilateral pleural effusion Status post right thoracentesis where about 2000 mL of fluid removed by Dr. Tapia Pleural fluid with no growth Pathology of pleural fluid did not show any malignant cells given the history of breast carcinoma S/P PleuralX Catheter performed by Dr. Tapia PleuralX catheter drained about 500cc fluid yesterday and 75cc yesterday Repeat CXR today showed small pleural effusions with bibasilar consolidation, left larger than right. Case discussed with Dr. Regina Guerra from thoracic surgery standpoint to discharge with the pleurX catheter in place. Dr. Tapia's office will arrange for home care to drain the pleurX catheter Follow up with thoracic surgery outpatient once discharge Saturated well on RA Clinically improves significantly (4) Chronic atrial fibrillation: Continue to hold Xarelto for hematuria Rate control with Carvedilol Continue aspirin for now Continue monitor in tele (5) Acute kidney injury superimposed on CKD: Mostly related to diuretic Creatinine increased to 1.63 today On oral lasix 40mg daily On Lisinopril and spironolactone that were already given today If creatinine worsening in am, will hold the diuretic in am Avoid nephrotoxic agent if able Check BMP in am (6) Hypertension: BP in the low side today On home dose lisinopril 40mg Will hold Lisinopril due to BP in the low side Continue monitor (7) History of CVA (cerebrovascular accident): October 2018, had short hospital stay here and started on Xarelto Continue statin for now Continue to hold xarelto due to hematuria aspirin on hold today due to drop on hemoglobin Continue PT/OT (8) HLD (hyperlipidemia): Continue atorvastatin (9) Diabetes: Last A1C 5.9 06/13/18 Continue to hold metformin Continue insulin sliding scale Continue monitor BS (10) Breast cancer in male: Follows with Dr. Tran outpatient On tamoxifen Chronic pain Home dose fentanyl resumed Percocet adding for breakthrough pain DVT Px: SCDs for now Continue to hold xarelto due to hematuria CODE STATUS DNR Disposition: Will discharge once medically stable Possible transition to hospice/palliative Subjective Pt was seen and examined Lying in bed with no distress with daughter and girlfriend at bedside Pt was tearful and very emotion today He said that he does not want to stay in the hospital anymore He said that he is getting a lot of tablet and not sure what are they and why he is taking them He said that he wants to go home to in peace He wants to know how long does he have before he dies I explained to him that i can not put a time, but he is prognosis is poor Daughter said that the family cannot take him room today because they have to make arrangement for him at home Daughter will meet with the other siblings to discuss with patient about transition to hospice/palliative care Pt agreed to stay for tonight and would like to discharge tomorrow Denies any chest pain, palpitation and SOB Physical Exam Physical Exam: General- No acute distress Head- atraumatic Eyes- PERRL, EOMI, ENT- oropharynx clear Neck- supple, no JVD Lungs- Diminished BS at base Heart- regular rhythm; no murmur Abdomen- normal bowel sounds, soft, nontender Extremities- no calf tenderness Neuro- alert, oriented x 3; PERRL, EOMI; no facial palsy; no dysarthria Skin- warm & dry Results & Data Vital Signs (Past 12 Hours) Vital Signs Temp Pulse Resp BP BP Pulse Ox 12/21/18 11:06 36.8 C 58 L 22 96/55 L 99 12/21/18 07:19 36.6 C 71 H 125/58 L 100 12/21/18 03:55 36.8 C 70 18 113/68 99
[2018-12-21] MEDS ORDERED: LORazepam 0.5 MG TAB PO PRN (15:33)
[2018-12-21] MEDS: TERAZOSIN HCL 1 MG CAP PO SCH (20:39)
[2018-12-21] MEDS: NORTRIPTYLINE HCL 25 MG CAP PO SCH (20:39)
[2018-12-21] MEDS: DOCUSATE SODIUM/SENNA 50/8.6MG TAB PO SCH (20:40)
[2018-12-22 06:35] LABS: Hematocrit (blood only) 25.6 % (42-52); Hemoglobin 8.3 g/dL (14.0-18.0); Mean Corpuscular Hgb Conc 32.4 g/dL (32-36); Mean Corpuscular Volume 89.2 fL (80-100); Mean Platelet Volume 9.8 fL (7.4-10.4); Platelet Count 125 K/uL (130-400); RDW Standard Deviation 55.8 fL (36.4-46.3); Red Blood Count 2.87 M/uL (4.7-6.1); White Blood Count 4.74 K/uL (4.8-10.8)
[2018-12-22 07:09] LABS: BUN Creatinine Ratio 36.1 (10-20); Calcium 6.5 mg/dl (8.5-10.1); Creatinine Clr Calc Pharmacy 44.6 ml/min; Est GFR (African American) 47.2; Est GFR (Non-African American) 40.7; Potassium 4.2 mmol/L (3.5-5.1)
--- NOTE | 2018-12-22 07:15 | XRay Report ---
XR chest 1V portable HISTORY: 82 years-old Male pleural effusion acute shortness of breath COMPARISON: Chest radiograph 12/20/2018 TECHNIQUE: Portable AP view of the chest FINDINGS: Cardiac silhouette is enlarged, unchanged. Surgical clips project over the left heart border. Right-s ided pleural drainage catheter is in stable positioning. Pulmonary vascular congestion persists along with mild persistent interstitial coarsening. Bilateral pleural effusions with bibasilar opacities a ppear unchanged. Degenerative changes of the shoulders and spine. IMPRESSION: 1. Cardiomegaly with suggestion of mild pulmonary edema. 2. Unchanged bilateral pleural effusions with bibasilar opacities. 3. Stable positioning of right-sided pleural drainage catheter. The above report was generated using voice recognition software. It may contain grammatical, syntax o r spelling errors. Electronically signed by: Franky Venegas M.D. 12/22/2018 7:13 AM
[2018-12-22] MEDS: INSULIN ASPART 100 UNITS/ML 3 ML PEN SC SCH ×4 (07:47→20:46)
[2018-12-22] MEDS: SPIRONOLACTONE 25 MG TAB PO SCH (07:48)
[2018-12-22] MEDS: POT PHOSPHATE MONOBASIC W/ SOD TAB PO SCH ×2 (07:48→20:43)
[2018-12-22] MEDS: TAMOXIFEN CITRATE 10 MG TABLET PO SCH (07:48)
[2018-12-22] MEDS: FUROSEMIDE 40 MG TAB PO SCH (07:48)
[2018-12-22] MEDS: FINASTERIDE 5 MG TAB PO SCH (07:49)
[2018-12-22] MEDS: LISINOPRIL 40 MG TAB PO SCH (07:49)
[2018-12-22] MEDS: CARVEDILOL 12.5 MG TAB PO SCH ×2 (07:49→20:45)
[2018-12-22] MEDS: ATORVASTATIN 40 MG TAB PO SCH (07:49)
[2018-12-22] MEDS: ISOSORBIDE MONO EXTENDED REL 60 MG TABCR PO SCH (07:49)
[2018-12-22] MEDS: CALCIUM 600MG + VIT D 400 IU TAB PO SCH (07:49)
[2018-12-22] MEDS: CHECK FENTANYL PATCH PLACEMENT SCH ×2 (08:40→15:37)
--- NOTE | 2018-12-22 09:34 | Palliative Care Progress Note ---
Date of Service December 22, 2018 Assessment & Plan (1) Palliative care encounter: This is an 82 year old male who was a transfer from [facility] by the request of the patient with a diagnosis of acute on chronic CHF. The patient initially presented to the [facility] with increased SOB and increased LE edema. Additional PMH includes: pHTN, CAD, chronic atrial fibrillation, BPH, Right breast CA s/p mastectomy (2013), and renal insufficiency. The patient, upon arrival was found to have B/L pleural effusions and a thoracentesis was performed yesterday with 1800mL of rust- colored output removed and sent to pathology with pending results. The patient indicated that his breathing significantly improved post thoracentesis. Additional laboratory testing revealed K+ 4.0, BNP 7474 Troponin peaked at 1.7. A repeat CXR was performed this morning which revealed reaccumulation of fluid of approximately 1,000mL. The fluid was suspected to be metastatic disease vs CHF. Per Cardiology, the latter is suspected. Palliative Care was consulted to discuss goals of care. -I met with patient in room 238-1, patient son Ed was visiting him. Patient was calm and cooperative during interview and exam. -A Pleur-x Catheter was placed on Saturday and the patient has been tolerating the draining. He said that it is tender at the insertion site. -The patient's breathing is improved on exam and per conversation, he remains in 2LNC. -Ed and I spoke in the hallway regarding his fathers current medical status and future plans. -Family has decided to move forward with Home Hospice. They have chosen [facility] for the agency and case management is aware. -The patients significant other, May, will be with the patient for a few hours each morning to assist with ADL's. His daughter, Bev will be staying with him overnight for the next few weeks and his son, Flakito, will be visiting every day in the afternoon for a few hours. Ed stated that two other adult siblings will be assisting as well over the weekend. -The patient does have Meals on Wheels at home. -Ed stated that they understand his care may become too challenging to manage at home and plans to contact a SNF for possible placement/waiting list, if needed. -I did complete a POLST form that was signed by the patient's son indicating DNR, Comfort Measures Only, trial abx, and no artifical nutrition/hydration. -The patient is quite comfortable with his machado catheter in place and I suggest we allow it to remain for discharge, this can be removed by Hospice if needed. -I spoke with the Hospitalist who will order Roxanol and Ativan to have prior to the comfort pack delivery, discharge tentatively planned for today, pending equipment delivery from Hospice. -I provided my business card to the patient's son -PPS: 40% -We will continue to follow this patient if needed. (2) Acute on chronic diastolic (congestive) heart failure: (3) Breast cancer in male: (4) BPH (benign prostatic hyperplasia): (5) Renal insufficiency: (6) Chronic atrial fibrillation: Subjective Pt was seen and examined Patient son, Ed was at the bedside. Patient finished eating his breakfast in NAD Patient states he has some tenderness at the pleur-x cath site but is tolerable Pt smiling and stated he is ready to go home. Review of Systems Review of Systems: Patient states that his breathing is improved today. Patient denies pain. Patient states he is ready to go home Physical Exam Constitutional: well developed, well nourished and + well hydrated Eyes: PERRL, conjunctivae normal, anicteric sclerae ENMT: external ear and nose normal, oropharynx normal Neck: trachea midline, no thyromegaly Respiratory: normal respiratory effort, able to speak in complete sentences and symmetric chest movement Auscultation: + diminished lung sounds Cardiovascular: Rate/Rhythm: + irregularly irregular Vessels: no JVD Extremities: normal capillary refill; no calf tenderness and no pedal edema Gastrointestinal (Abdomen): Inspection/Auscultation: abdomen normal to inspection and normal bowel sounds Percussion/Palpation: abdomen soft and + tympanic to percussion Skin: no rashes, warm and dry normal turgor right sided pleur-x catheter. dressing clean/dry/intact Psychiatric: A+Ox3, euthymic affect Eye Contact: good eye contact Affect: euthymic affect and + tearful affect Thought Process: linear/logical thought process Suicidal Thoughts: denies suicidal thoughts, denies suicidal plan and denies suicidal intent Cognition: recent memory grossly intact Estimated Intelligence: average estimated intelligence Insight: good insight Judgement: good judgement Lymphatic: no cervical or axillary lymphadenopathy Results & Data Vital Signs (Past 12 Hours) Vital Signs Temp Pulse Pulse Resp BP BP Pulse Ox 12/22/18 07:35 36.7 C 76 19 124/64 96 12/22/18 02:53 36.5 C 65 16 128/72 95 12/21/18 23:06 36.7 C 69 18 110/63 93 12/21/18 22:56 63 PG Care Time/CCT Total # of Minutes Spent Total Time Spent with Patient: Total time spent is greater than 50% in coordination of care (as documented) at patient's floor/unit and/or counseling patient: 35 minutes Time Spent Midlevel Total time spent is greater than 50% in coordination of care (as documented) at patient's floor/unit and/or counseling patient: 35 minutes
--- NOTE | 2018-12-22 09:55 | Hospitalist Progress Note ---
Date of Service December 22, 2018 Assessment & Plan (1) Acute on chronic diastolic (congestive) heart failure: Patient is an 82 yr male was transfer from [facility] for management of acute on chronic diastolic heart failure per patient's request. Recently completed PO abx for possible bronchitis with no complete resolution of symptoms Acute on chronic diastolic CHF complicated by bilateral pleural effusions Recent ECHO on 11/19 showed normal LV chamber size with moderate concentric LVH, EF 55 to 60%, no segmental wall motion abnormality, grade 3 diastolic dysfunction, pulmonary hypertension Continue IV diuresis Appreciate cardiology input and recommendation We will diuretics to oral at discharge Clinically stable congestive heart failure Continue spironolactone 12.5 mg daily Overall prognosis remains poor Palliative care input appreciated Likely be discharged today home with hospice care Will discharge any small dose of Roxanol and Ativan (2) Hematuria: Has been having hematuria since last night Likely secondary to traumatic insertion of Arcos catheter Has been on Xarelto and complicating hematuria If there is no improvement of hematuria will need to have urology evaluation Hemoglobin has not dropped since hematuria started Hematuria continued as of this morning with hemoglobin slightly dropped to 9.1 Urology consulted and input appreciated Apparently hematuria improved with repeat irrigation Plan to hold Xarelto until Saturday to see clear urine before that time will be started Has history of prostate hypertrophy Possible history of cystoscopy in the past but no history of hematuria as per patient Has been on terazosin and will add finasteride as per the urologist Hematuria is stopped We will continue oral steroids Zosyn and finasteride Discharge home with Arcos catheter (3) Pleural effusion: Bilateral pleural effusion Complicating acute shortness of breath Status post right thoracentesis by about 2000 mL of fluid which has been sent for studies Appreciate Cardiology/CT surgery Input Clinically better today Continue supplemental oxygen at Repeat x-ray did show probable increasing effusion Will get chest ultrasound to document the amount of fluid The fluid came back to be borderline exudative with total protein of 3.0. Pathology of pleural fluid did not show any malignant cells given the history of breast carcinoma May need to have repeat thoracentesis Likely to have chest tube placement today by Dr. Tapia Status post right Pleurx catheter placement Will discharge home with the catheter (4) Chronic atrial fibrillation: Xarelto held for possible thoracentesis Continue Carvedilol General tube will be restarted from this afternoon Rate is controlled Xarelto has been on hold due to ongoing hematuria Will not give any more Xarelto Continue aspirin (5) Hypertension: Stable Continue lisinopril Monitor (6) History of CVA (cerebrovascular accident): October 2018, had short hospital stay here and started on Xarelto Continue aspirin, statin Also on Xarelto at home (7) HLD (hyperlipidemia): Continue atorvastatin (8) Diabetes: Last A1C 5.9 06/13/18 HOLD metformin Diabetic diet Continue ISS Monitor BGs (9) Breast cancer in male: Follows with Dr. Tran outpatient On tamoxifen DVT Px: SCDs for now Xarelto has been restarted and now on hold again Xarelto can be restarted on Saturday if hematuria is stops Disposition: Likely be discharged today with home hospice Subjective 12/17 The patient was seen and examined in the telemetry unit He is an 82 yo M with PMHx of CHF, T2DM, Dyslipidemia, Chronic Afib, HTN, Hx of CVA, chronic pancytopenia and Breast CA who presents today as a direct admit from [facility] for acute on chronic diastolic heart failure. He is a status post right thoracentesis of about 2 L of fluid He has been feeling a lot better following thoracentesis Denies any other significant symptoms 12/18 Patient was seen and examined in telemetry unit He has been having painless hematuria since last night and now passing some clots following irrigation Denies any pain, shortness of breath, nausea and vomiting 12/19 Patient was seen and examined in telemetry unit He continued to have hematuria as of this morning He denies any chest pain and/or shortness of breath, no abdominal pain nausea no vomiting Otherwise has been feeling better 12/22 Patient was seen and examined in the telemetry unit He remains stable and denies any acute symptoms He is a status post right chest tube placement and has an indwelling catheter Was seen by palliative today and plan to send him home with hospice today Review of Systems Review of Systems: All systems reviewed and are unremarkable except as noted below Constitutional: + weakness Respiratory: no dyspnea Neurologic: + generalized weakness Physical Exam Physical Exam: Lying in bed comfortably Constitutional: + ill appearing and + obese; no acute distress Eyes: PERRL, conjunctivae normal, anicteric sclerae ENMT: external ear and nose normal, oropharynx normal Neck: trachea midline, no thyromegaly Respiratory: normal respiratory effort; no respiratory distress (At rest) Auscultation: + diminished lung sounds (Bilateral bases mostly on the right side) Cardiovascular: Rate/Rhythm: + abnormal rate and + abnormal rhythm Gastrointestinal (Abdomen): Inspection/Auscultation: abdomen normal to inspection and normal bowel sounds Percussion/Palpation: abdomen soft Musculoskeletal: No acute arthritis in any of the joints Neurologic: moves all extremities and awake Lymphatic: no cervical or axillary lymphadenopathy Results & Data Vital Signs (Past 12 Hours) Vital Signs Temp Pulse Pulse Resp BP BP Pulse Ox 12/22/18 07:35 36.7 C 76 19 124/64 96 12/22/18 02:53 36.5 C 65 16 128/72 95 12/21/18 23:06 36.7 C 69 18 110/63 93 12/21/18 22:56 63 Laboratory Results Short CBC 12/22/18 Range/Units 06:10 WBC 4.74 L (4.8-10.8) K/uL Hgb 8.3 L (14.0-18.0) g/dL Hct 25.6 L (42-52) % Plt Count 125 L (130-400) K/uL BMP 12/22/18 06:10 Sodium 136 Potassium 4.2 Chloride 100 Carbon Dioxide 31 BUN 57 H Creatinine 1.58 H Glucose 104 H Calcium 6.5 L Medications Administered Current Inpatient Medications Acetaminophen (Tylenol) 650 mg PO Q4H PRN PRN Reason: Pain or Fever Stop: 01/14/19 15:51 Last Admin: 12/20/18 08:21 Dose: 650 mg Documented by: Aspirin (Ecotrin Ectab) 81 mg PO QAM [facility] Stop: 01/15/19 08:59 Last Admin: 12/20/18 08:18 Dose: 81 mg Documented by: Atorvastatin Calcium (Lipitor) 40 mg PO QAM [facility] Stop: 01/15/19 08:59 Last Admin: 12/22/18 07:49 Dose: 40 mg Documented by: Carvedilol (Coreg) 12.5 mg PO BID [facility] Stop: 01/14/19 20:59 Last Admin: 12/22/18 07:49 Dose: 12.5 mg Documented by: Dextrose (Dextrose 50%) 25 - 50 ml IV UD PRN; Protocol PRN Reason: Hypoglycemia Protocol Stop: 01/14/19 16:13 Fentanyl (Duragesic) 25 mcg TD Q3D [facility] Stop: 01/04/19 08:14 Last Admin: 12/21/18 09:17 Dose: 25 mcg Documented by: Finasteride (Proscar) 5 mg PO QAM [facility] Stop: 01/18/19 11:59 Last Admin: 12/22/18 07:49 Dose: 5 mg Documented by: Furosemide (Lasix) 40 mg PO QAM [facility] Stop: 01/20/19 08:59 Last Admin: 12/22/18 07:48 Dose: 40 mg Documented by: Glucagon (Glucagen) 1 mg SQ UD PRN; Protocol PRN Reason: Hypoglycemia Protocol Stop: 01/14/19 16:13 Glucose (Glucose 40%) 15 - 30 gm PO UD PRN; Protocol PRN Reason: Hypoglycemia Protocol Stop: 01/14/19 16:13 Glucose (Dex4 Glucose) 4 - 8 tabs PO UD PRN; Protocol PRN Reason: Hypoglycemia Protocol Stop: 01/14/19 16:13 Insulin Aspart (Novolog Flexpen) 0 units SC ACHS [facility] Stop: 01/15/19 16:29 Last Admin: 12/22/18 07:47 Dose: 4 units Documented by: Ipratropium [place] (Atrovent 0.02% 0.5mg/2.5ml) 0.5 mg INH Q6R PRN PRN Reason: Shortness Of Breath Or Wheezing Stop: 01/14/19 19:59 Isosorbide Mononitrate (Imdur Extended Rel) 60 mg PO [facility] Stop: 01/15/19 08:59 Last Admin: 12/22/18 07:49 Dose: 60 mg Documented by: Levalbuterol HCl (Xopenex 1.25mg/0.5ml Neb) 1.25 mg INH Q6R PRN PRN Reason: Shortness Of Breath Or Wheezing Stop: 01/14/19 19:59 [facility]inop[facility]est[facility]) [facility] Stop: 01/15/19 08:59 Last Admin: 12/22/18 07:49 Dose: 40 mg Documented by: Lorazepam (Ativan) 0.25 mg PO Q12H PRN PRN Reason: Anxiety Stop: 01/20/19 15:32 Miscellaneous (Carbohydrates For Hypoglycemia) 15 - 30 gm PO UD PRN PRN Reason: Hypoglycemia Treatment Stop: 01/14/19 16:13 Miscellaneous (Fentanyl Patch Check Placement) 1 ea N/A QS [facility] Stop: 01/19/19 15:59 Last Admin: 12/22/18 08:40 Dose: 1 ea Documented by: Miscellaneous (Fentanyl Patch Remove & Waste) 1 ea N/A Q3D [facility] Stop: 01/20/19 08:13 Last Admin: 12/21/18 09:17 Dose: Not Given Documented by: Multivitamins/Minerals (Caltrate Plus) 1 tab PO QAM [facility] Stop: 01/15/19 08:59 Last Admin: 12/22/18 07:49 Dose: 1 tab Documented by: Nitroglycerin (Nitrostat) 0.4 mg SL UD [facility] Stop: 01/14/19 16:14 Nortriptyline HCl (Pamelor) 25 mg PO HS [facility] Stop: 01/14/19 20:59 Last Admin: 12/21/18 20:39 Dose: 25 mg Documented by: Ondansetron HCl (Zofran) 4 mg IV Q6H PRN PRN Reason: Nausea Stop: 01/14/19 15:51 Oxycodone/Acetaminophen (Percocet 5mg/325mg) 1 tab PO Q6H PRN PRN Reason: Pain Stop: 01/04/19 14:35 Last Admin: 12/21/18 14:49 Dose: 1 tab Documented by: Potassium Phosphate (Phospha 250 Neutral 155-852-130 Mg) 1 tab PO BID [facility] Stop: 01/14/19 20:59 Last Admin: 12/22/18 07:48 Dose: 1 tab Documented by: Rivaroxaban (Xarelto) 20 mg PO PM [facility] Stop: 01/14/19 20:59 Last Admin: 12/17/18 21:25 Dose: 20 mg Documented by: Senna/Docusate Sodium (Senokot S) 2 tab PO HS [facility] Stop: 01/14/19 20:59 Last Admin: 12/21/18 20:40 Dose: 2 tab Documented by: Spironolactone (Aldactone) 12.5 mg PO DAILY [facility] Stop: 01/17/19 17:44 Last Admin: 12/22/18 07:48 Dose: 12.5 mg Documented by: Tamoxifen Citrate (Nolvadex) 20 mg PO QAM [facility] Stop: 01/15/19 08:59 Last Admin: 12/22/18 07:48 Dose: 20 mg Documented by: Terazosin HCl (Hytrin) 2 mg PO HS [facility] Stop: 01/14/19 20:59 Last Admin: 12/21/18 20:39 Dose: 2 mg Documented by:
[2018-12-22] MEDS: CIPROFLOXACIN 500 MG TAB PO SCH ×2 (12:08→20:43)
[2018-12-22] MEDS: OXYCODONE/ACETAMINOPHEN 5mg/325mg TAB PO PRN (12:19)
--- NOTE | 2018-12-22 15:25 | Surgery Progress Note ---
Date of Service December 22, 2018 Assessment & Plan (1) Pleural effusion: -pt. is s/p right thoracentesis and subsequent right pleurex insertion -cytology (-) for Ca -cultures (-) to date -continue daily drainage of pleurex -at time of d/c will call for f/u appt. in 1-2 weeks with CXR Subjective Pt. feels as though his breathing is better. Discussed with RN and pleurex drained for 150 cc this am. NO issues noted. Physical Exam Respiratory: BS are decreased at bases L>R Results & Data Vital Signs (Past 12 Hours) Vital Signs Temp Pulse Resp BP Pulse Ox 12/22/18 12:00 36.7 C 74 19 81/46 L 94 12/22/18 07:35 36.7 C 76 19 124/64 96
[2018-12-22] MEDS: DOCUSATE SODIUM/SENNA 50/8.6MG TAB PO SCH (20:43)
[2018-12-22] MEDS: NORTRIPTYLINE HCL 25 MG CAP PO SCH (20:44)
[2018-12-22] MEDS: TERAZOSIN HCL 1 MG CAP PO SCH (20:44)
[2018-12-23] MEDS: CHECK FENTANYL PATCH PLACEMENT SCH ×3 (00:56→15:39)
[2018-12-23] MEDS: SPIRONOLACTONE 25 MG TAB PO SCH (08:04)
[2018-12-23] MEDS: POT PHOSPHATE MONOBASIC W/ SOD TAB PO SCH ×2 (08:05→20:18)
[2018-12-23] MEDS: CARVEDILOL 12.5 MG TAB PO SCH ×2 (08:05→20:18)
[2018-12-23] MEDS: FINASTERIDE 5 MG TAB PO SCH (08:05)
[2018-12-23] MEDS: INSULIN ASPART 100 UNITS/ML 3 ML PEN SC SCH ×4 (08:05→20:31)
[2018-12-23] MEDS: CIPROFLOXACIN 500 MG TAB PO SCH ×2 (08:05→20:17)
[2018-12-23] MEDS: TAMOXIFEN CITRATE 10 MG TABLET PO SCH (08:05)
[2018-12-23] MEDS: ISOSORBIDE MONO EXTENDED REL 60 MG TABCR PO SCH (08:05)
[2018-12-23] MEDS: CALCIUM 600MG + VIT D 400 IU TAB PO SCH (08:05)
[2018-12-23] MEDS: ATORVASTATIN 40 MG TAB PO SCH (08:05)
[2018-12-23] MEDS: FUROSEMIDE 40 MG TAB PO SCH (08:05)
[2018-12-23] MEDS: LISINOPRIL 40 MG TAB PO SCH (08:05)
[2018-12-23] MEDS: OXYCODONE/ACETAMINOPHEN 5mg/325mg TAB PO PRN ×2 (08:11→15:38)
--- NOTE | 2018-12-23 10:08 | Urology Progress Note ---
Date of Service December 23, 2018 Assessment & Plan (1) Hematuria: 82yo M with multiple comorbidities, admitted with CHF. Indwelling catheter placed, E.Coli UTI. Gross hematuria cleared up, xarelto currently on hold. UC&S final growing >100,000 cfu E. Coli. Currently on Ciprofloxacin - appropri ate based upon sensitivities. We recommend 10-14day course. Recommend maintaining machado catheter for maximal drainage, patient comfort. Continue finasteride and terazosin. Will arrange for follow-up as outpatient to discuss machado catheter management vs outpatient trial of void. Thank you for allowing us to participate in the acute care of Mr. Delgadillo. Please reconsult with additional questions, concerns or changes in patient status. Subjective 82yo M with multiple comorbidities, admitted with CHF with machado catheter placed many years ago. WE were asked to see patient regarding machado catheter management and gross hematuria. Hx BPH, on xarelto for atrial fibrillation - currently on hold. Pt sitting up in chair this afternoon. No new complaints today. Machado draining clear peter, no hematuria/clots. Pt denies flank or suprapubic pain. Denies n/v/f/c. Review of Systems Review of Systems: All systems reviewed & are unremarkable except as noted in HPI & below Physical Exam Physical Exam: A&Ox1 RRR abd soft, nontender machado draining peter clear Results & Data Vital Signs (Past 12 Hours) Vital Signs Temp Pulse Resp BP BP Pulse Ox 12/23/18 08:08 36.9 C 72 20 120/61 93 12/23/18 00:00 36.7 C 72 18 129/73 98 Laboratory Results - last 48 hr 12/21/18 12/21/18 12/21/18 11:35 16:19 20:19 WBC RBC Hgb Hct MCV MCH MCHC RDW Std Deviation RDW Coeff of Pranay Plt Count MPV Sodium Potassium Chloride Carbon Dioxide Anion Gap BUN Creatinine Est Cr Clr Drug Dosing Est GFR ( Amer) Est GFR (Non-Af Amer) BUN/Creatinine Ratio Glucose POC Glucose 173 H 232 H 156 H Calcium 12/22/18 12/22/18 12/22/18 06:10 06:10 07:28 WBC 4.74 L RBC 2.87 L Hgb 8.3 L Hct 25.6 L MCV 89.2 MCH 28.9 MCHC 32.4 RDW Std Deviation 55.8 H RDW Coeff of Pranay 17.0 H Plt Count 125 L MPV 9.8 Sodium 136 Potassium 4.2 Chloride 100 Carbon Dioxide 31 Anion Gap 5.0 BUN 57 H Creatinine 1.58 H Est Cr Clr Drug Dosing 44.6 Est GFR ( Amer) 47.2 Est GFR (Non-Af Amer) 40.7 BUN/Creatinine Ratio 36.1 H Glucose 104 H POC Glucose 107 H Calcium 6.5 L 12/22/18 12/22/18 12/22/18 11:10 16:24 20:16 WBC RBC Hgb Hct MCV MCH MCHC RDW Std Deviation RDW Coeff of Pranay Plt Count MPV Sodium Potassium Chloride Carbon Dioxide Anion Gap BUN Creatinine Est Cr Clr Drug Dosing Est GFR ( Amer) Est GFR (Non-Af Amer) BUN/Creatinine Ratio Glucose POC Glucose 169 H 169 H 209 H Calcium 12/23/18 07:50 WBC RBC Hgb Hct MCV MCH MCHC RDW Std Deviation RDW Coeff of Pranay Plt Count MPV Sodium Potassium Chloride Carbon Dioxide Anion Gap BUN Creatinine Est Cr Clr Drug Dosing Est GFR ( Amer) Est GFR (Non-Af Amer) BUN/Creatinine Ratio Glucose POC Glucose 151 H Calcium
--- NOTE | 2018-12-23 11:22 | Hospitalist Progress Note ---
Date of Service December 23, 2018 Assessment & Plan (1) Acute on chronic diastolic (congestive) heart failure: Patient is an 82 yr male was transfer from [facility] for management of acute on chronic diastolic heart failure per patient's request. Recently completed PO abx for possible bronchitis with no complete resolution of symptoms Acute on chronic diastolic CHF complicated by bilateral pleural effusions Recent ECHO on 11/19 showed normal LV chamber size with moderate concentric LVH, EF 55 to 60%, no segmental wall motion abnormality, grade 3 diastolic dysfunction, pulmonary hypertension Continue IV diuresis Appreciate cardiology input and recommendation We will diuretics to oral at discharge Clinically stable congestive heart failure Continue spironolactone 12.5 mg daily Remains stable as per cardiac symptoms Overall prognosis remains poor Palliative care input appreciated Likely be discharged today home with hospice care Will discharge any small dose of Roxanol and Ativan (2) Hematuria: Has been having hematuria since last night Likely secondary to traumatic insertion of Arcos catheter Has been on Xarelto and complicating hematuria If there is no improvement of hematuria will need to have urology evaluation Hemoglobin has not dropped since hematuria started Hematuria continued as of this morning with hemoglobin slightly dropped to 9.1 Urology consulted and input appreciated Apparently hematuria improved with repeat irrigation Plan to hold Xarelto until Saturday to see clear urine before that time will be started No more hematuria We will keep the Arcos in place at discharge and urology will have follow-up arranged for him Has history of prostate hypertrophy Possible history of cystoscopy in the past but no history of hematuria as per patient Has been on terazosin and will add finasteride as per the urologist Hematuria is stopped We will continue oral Terazocin and finasteride Discharge home with Arcos catheter Has UTI with E. coli sensitive to Cipro We will continue Cipro for 10 days in total (3) Pleural effusion: Bilateral pleural effusion Complicating acute shortness of breath Status post right thoracentesis by about 2000 mL of fluid which has been sent for studies Appreciate Cardiology/CT surgery Input Clinically better today Continue supplemental oxygen at Repeat x-ray did show probable increasing effusion Will get chest ultrasound to document the amount of fluid The fluid came back to be borderline exudative with total protein of 3.0. Pathology of pleural fluid did not show any malignant cells given the history of breast carcinoma May need to have repeat thoracentesis-pleural fluid cytology did not show any malignancy Likely to have chest tube placement today by Dr. Tapia Status post right Pleurx catheter placement Will discharge home with the catheter Vascular surgery will make appointment within 1 to 2 weeks with chest x-ray following discharge (4) Chronic atrial fibrillation: Xarelto held for possible thoracentesis Continue Carvedilol General tube will be restarted from this afternoon Rate is controlled Xarelto has been on hold due to ongoing hematuria Will not give any more Xarelto Continue aspirin (5) Hypertension: Stable Continue lisinopril Monitor (6) History of CVA (cerebrovascular accident): October 2018, had short hospital stay here and started on Xarelto Continue aspirin, statin Also on Xarelto at home Will not give any more Xarelto (7) HLD (hyperlipidemia): Continue atorvastatin (8) Diabetes: Last A1C 5.9 06/13/18 HOLD metformin Diabetic diet Continue ISS Monitor BGs (9) Breast cancer in male: Follows with Dr. Tran outpatient On tamoxifen DVT Px: SCDs for now Xarelto has been restarted and now on hold again Will not give any more child to due to hematuria Disposition: He did not want to go home with hospice Waiting to be placed in a facility with hospice care Subjective 12/17 The patient was seen and examined in the telemetry unit He is an 82 yo M with PMHx of CHF, T2DM, Dyslipidemia, Chronic Afib, HTN, Hx of CVA, chronic pancytopenia and Breast CA who presents today as a direct admit from [place] [facility] for acute on chronic diastolic heart failure. He is a status post right thoracentesis of about 2 L of fluid He has been feeling a lot better following thoracentesis Denies any other significant symptoms 12/18 Patient was seen and examined in telemetry unit He has been having painless hematuria since last night and now passing some clots following irrigation Denies any pain, shortness of breath, nausea and vomiting 12/19 Patient was seen and examined in telemetry unit He continued to have hematuria as of this morning He denies any chest pain and/or shortness of breath, no abdominal pain nausea no vomiting Otherwise has been feeling better 12/22 Patient was seen and examined in the telemetry unit He remains stable and denies any acute symptoms He is a status post right chest tube placement and has an indwelling catheter Was seen by palliative today and plan to send him home with hospice today 12/23 Patient is seen and examined in medical floor He remains able without any significant symptoms Denies any chest pain and/or palpitation and Arcos is draining clear urine without any more hematuria He has been voiding to go to [facility] Discussed with the family members The patient was given Roxanol for better pain control and Ativan for control of anxiety Likely be discharged tomorrow to [facility] with hospice care Review of Systems Review of Systems: All systems reviewed and are unremarkable except as noted below Constitutional: + weakness Genitourinary: + hematuria Neurologic: + generalized weakness Physical Exam Physical Exam: Sitting on a chair without any significant symptoms Constitutional: + ill appearing and + obese; no acute distress Eyes: PERRL, conjunctivae normal, anicteric sclerae ENMT: external ear and nose normal, oropharynx normal Neck: trachea midline, no thyromegaly Respiratory: normal respiratory effort; no respiratory distress (At rest) Auscultation: + diminished lung sounds (Bilateral bases mostly on the right side. Right Pleurx catheter in situ) Cardiovascular: Rate/Rhythm: + abnormal rate and + abnormal rhythm Chest (Breasts): Chest: + vascular access device or port (Has right Pleurx catheter) Gastrointestinal (Abdomen): Inspection/Auscultation: abdomen normal to inspection, + abdomen distended and normal bowel sounds Percussion/Palpation: abdomen soft Neurologic: moves all extremities and awake Alert, awake and oriented x3. Generally weak Genitourinary: no CVA tenderness Has Arcos catheter in place Lymphatic: no cervical or axillary lymphadenopathy Results & Data Vital Signs (Past 12 Hours) Vital Signs Temp Pulse Resp BP BP Pulse Ox 12/23/18 08:08 36.9 C 72 20 120/61 93 12/23/18 00:00 36.7 C 72 18 129/73 98 Medications Administered Current Inpatient Medications Acetaminophen (Tylenol) 650 mg PO Q4H PRN PRN Reason: Pain or Fever Stop: 01/14/19 15:51 Last Admin: 12/20/18 08:21 Dose: 650 mg Documented by: Atorvastatin Calcium (Lipitor) 40 mg PO QAM [facility] Stop: 01/15/19 08:59 Last Admin: 12/23/18 08:05 Dose: 40 mg Documented by: Carvedilol (Coreg) 12.5 mg PO BID [facility] Stop: 01/14/19 20:59 Last Admin: 12/23/18 08:05 Dose: 12.5 mg Documented by: Ciprofloxacin (Cipro) 500 mg PO BID [facility] Stop: 01/01/19 11:29 Last Admin: 12/23/18 08:05 Dose: 500 mg Documented by: Dextrose (Dextrose 50%) 25 - 50 ml IV UD PRN; Protocol PRN Reason: Hypoglycemia Protocol Stop: 01/14/19 16:13 Fentanyl (Duragesic) 25 mcg TD Q3D [facility] Stop: 01/04/19 08:14 Last Admin: 12/21/18 09:17 Dose: 25 mcg Documented by: Finasteride (Proscar) 5 mg PO QAM [facility] Stop: 01/18/19 11:59 Last Admin: 12/23/18 08:05 Dose: 5 mg Documented by: [facility]sem[facility] (Lasix) [facility] Stop: 01/20/19 08:59 Last Admin: 12/23/18 08:05 Dose: 40 mg Documented by: Glucagon (Glucagen) 1 mg SQ UD PRN; Protocol PRN Reason: Hypoglycemia Protocol Stop: 01/14/19 16:13 Glucose (Glucose 40%) 15 - 30 gm PO UD PRN; Protocol PRN Reason: Hypoglycemia Protocol Stop: 01/14/19 16:13 Glucose (Dex4 Glucose) 4 - 8 tabs PO UD PRN; Protocol PRN Reason: Hypoglycemia Protocol Stop: 01/14/19 16:13 Insulin Aspart (Novolog Flexpen) 0 units SC ACHS [facility] Stop: 01/15/19 16:29 Last Admin: 12/23/18 08:05 Dose: 6 units Documented by: Ipratropium [place] (Atrovent 0.02% 0.5mg/2.5ml) 0.5 mg INH Q6R PRN PRN Reason: Shortness Of Breath Or Wheezing Stop: 01/14/19 19:59 Isosorbide Mononitrate (Imdur Extended Rel) 60 mg PO [facility] Stop: 01/15/19 08:59 Last Admin: 12/23/18 08:05 Dose: 60 mg Documented by: Levalbuterol HCl (Xopenex 1.25mg/0.5ml Neb) 1.25 mg INH Q6R PRN PRN Reason: Shortness Of Breath Or Wheezing Stop: 01/14/19 19:59 Lisinopril (Zestril) 40 mg PO [facility] Stop: 01/15/19 08:59 Last Admin: 12/23/18 08:05 Dose: 40 mg Documented by: Lorazepam (Ativan) 0.25 mg PO Q12H PRN PRN Reason: Anxiety Stop: 01/20/19 15:32 Miscellaneous (Carbohydrates For Hypoglycemia) 15 - 30 gm PO UD PRN PRN Reason: Hypoglycemia Treatment Stop: 01/14/19 16:13 Miscellaneous (Fentanyl Patch Check Placement) 1 ea N/A QS [facility] Stop: 01/19/19 15:59 Last Admin: 12/23/18 08:05 Dose: 1 ea Documented by: Miscellaneous (Fentanyl Patch Remove & Waste) 1 ea N/A Q3D [facility] Stop: 01/20/19 08:13 Last Admin: 12/21/18 09:17 Dose: Not Given Documented by: Multivitamins/Minerals (Caltrate Plus) 1 tab PO QAM [facility] Stop: 01/15/19 08:59 Last Admin: 12/23/18 08:05 Dose: 1 tab Documented by: Nitroglycerin (Nitrostat) 0.4 mg SL UD [facility] Stop: 01/14/19 16:14 Nortriptyline HCl (Pamelor) 25 mg PO HS [facility] Stop: 01/14/19 20:59 Last Admin: 12/22/18 20:44 Dose: 25 mg Documented by: Ondansetron HCl (Zofran) 4 mg IV Q6H PRN PRN Reason: Nausea Stop: 01/14/19 15:51 Oxycodone/Acetaminophen (Percocet 5mg/325mg) 1 tab PO Q6H PRN PRN Reason: Pain Stop: 01/04/19 14:35 Last Admin: 12/23/18 08:11 Dose: 1 tab Documented by: Potassium Phosphate (Phospha 250 Neutral [phone] Mg) 1 tab PO BID [facility] Stop: 01/14/19 20:59 Last Admin: 12/23/18 08:05 Dose: 1 tab Documented by: Senna/Docusate Sodium (Senokot S) 2 tab PO HS [facility] Stop: 01/14/19 20:59 Last Admin: 12/22/18 20:43 Dose: 2 tab Documented by: Spironolactone (Aldactone) 12.5 mg PO DAILY [facility] Stop: 01/17/19 17:44 Last Admin: 12/23/18 08:04 Dose: 12.5 mg Documented by: Tamoxifen Citrate (Nolvadex) 20 mg PO QAM [facility] Stop: 01/15/19 08:59 Last Admin: 12/23/18 08:05 Dose: 20 mg Documented by: Terazosin HCl (Hytrin) 2 mg PO HS [facility] Stop: 01/14/19 20:59 Last Admin: 12/22/18 20:44 Dose: 2 mg Documented by:
[2018-12-23] MEDS ORDERED: HYDROmorphone INJ 0.5 MG/0.5 ML SYR IV STA (16:53)
[2018-12-23] MEDS ORDERED: MoRPHine SULFATE 5 MG/0.25 ML UDP PO PRN (16:54)
[2018-12-23] MEDS ORDERED: LORazepam 1 MG TAB PO PRN (16:55)
--- NOTE | 2018-12-23 17:16 | Progress Note ---
DATE: 12/23/2018 The patient was drained for about 300 mL of serous fluid today. His AA gradient is better. He could probably be weaned from the O2. He is 98% on 2 liters. He still has decreased breath sounds at his right base. PleurX dressing is dry. We will check x-ray on him tomorrow. I think he can be discharged anytime. We will send him out having drained daily initially. We will keep cover the drainage and decrease it to every other day or 3 times a week as needed. I do not think he is going to have this in very long.
[2018-12-23] MEDS: TERAZOSIN HCL 1 MG CAP PO SCH (20:17)
[2018-12-23] MEDS: NORTRIPTYLINE HCL 25 MG CAP PO SCH (20:19)
[2018-12-23] MEDS: DOCUSATE SODIUM/SENNA 50/8.6MG TAB PO SCH (21:21)
[2018-12-24] MEDS: CHECK FENTANYL PATCH PLACEMENT SCH ×2 (00:58→09:28)
[2018-12-24 06:13] LABS: Creatinine Clr Calc Pharmacy 46.8 ml/min; Est GFR (African American) 50.7; Est GFR (Non-African American) 43.7
--- NOTE | 2018-12-24 07:14 | XRay Report ---
XR chest 1V portable HISTORY: 83 years-old Male pleurx follow-up study in a patient with right-sided pleural drainage cat heter COMPARISON: Chest radiograph 12/22/2018 TECHNIQUE: Portable AP view of the chest FINDINGS: Cardiac silhouette is enlarged, unchanged. Prior median sternotomy with probable CABG. Decreased pulm onary edema with mild persistent pulmonary vascular congestion. No pneumothorax. Stable positioning o f right-sided pleural drainage catheter. Small bilateral pleural effusions with decreased bibasilar o pacities. Degenerative changes of the shoulders and spine. IMPRESSION: 1. Cardiomegaly with decreased pulmonary edema. 2. Stable positioning of right-sided pleural drainage catheter with unchanged small bilateral pleural effusions. 3. Decreased bibasilar opacities. The above report was generated using voice recognition software. It may contain grammatical, syntax o r spelling errors. Electronically signed by: Franky Venegas M.D. 12/24/2018 7:13 AM
[2018-12-24] MEDS: TAMOXIFEN CITRATE 10 MG TABLET PO SCH (09:21)
[2018-12-24] MEDS: FUROSEMIDE 40 MG TAB PO SCH (09:21)
[2018-12-24] MEDS: FINASTERIDE 5 MG TAB PO SCH (09:21)
[2018-12-24] MEDS: SPIRONOLACTONE 25 MG TAB PO SCH (09:22)
[2018-12-24] MEDS: ISOSORBIDE MONO EXTENDED REL 60 MG TABCR PO SCH (09:23)
[2018-12-24] MEDS: CARVEDILOL 12.5 MG TAB PO SCH (09:23)
[2018-12-24] MEDS: ATORVASTATIN 40 MG TAB PO SCH (09:23)
[2018-12-24] MEDS: CIPROFLOXACIN 500 MG TAB PO SCH (09:23)
[2018-12-24] MEDS: CALCIUM 600MG + VIT D 400 IU TAB PO SCH (09:23)
[2018-12-24] MEDS: POT PHOSPHATE MONOBASIC W/ SOD TAB PO SCH (09:23)
[2018-12-24] MEDS: LISINOPRIL 40 MG TAB PO SCH (09:24)
[2018-12-24] MEDS: INSULIN ASPART 100 UNITS/ML 3 ML PEN SC SCH ×2 (09:27→12:51)
[2018-12-24] MEDS: fentaNYL 25 MCG/HR TDSY TD SCH (09:28)
--- NOTE | 2018-12-24 11:34 | Progress Note ---
DATE: 12/24/2018 Mr. Delgadillo was seen today and he states his breathing is quite good. He still has not been weaned from his oxygen, I reordered that today. His saturations today on liters were 99%. His PleurX catheter drained 150 mL of fluid and his x-ray looks much improved. I really do not see much fluid on the right at all. It is serous in appearance. From our standpoint, the patient will be discharged home. We will arrange for him to be drained on a daily basis. He has improved with this PleurX catheter.
--- NOTE | 2018-12-24 13:49 | Hospitalist Progress Note ---
Date of Service December 24, 2018 Assessment & Plan (1) Acute on chronic diastolic (congestive) heart failure: Transfer from [facility] for management of acute on chronic diastolic heart failure per patient's request. Recently completed PO abx for possible bronchitis with no complete resolution of symptoms CXR from [place] [facility] showed large bilateral pleural effusions. Recent ECHO on 11/19 showed normal LV chamber size with moderate concentric LVH, EF 55 to 60%, no segmental wall motion abnormality, grade 3 diastolic dysfunction, pulmonary hypertension Received IV lasix 40mg BID Cardiology on board recommended to continue oral lasix Repeat CXR today showed cardiomegaly with decreased pulmonary edema. Unchanged small bilateral pleural effusions. Decreased bibasilar opacities. Continue spironolactone 12.5 mg and lasix 40mg daily Continue to drain PleurX catheter (150cc drained today ) Given comorbid medical conditions prognosis remains poor Palliative care on board Will discharge to SNF with hospice Clinically stable (2) Hematuria: Possible secondary to traumatic insertion of [place]ado catheter Was on Xarelto and that led to complicate hematuria Urology on board and recommended to continue to hold the xarelto Hemoglobin 8.4 today Hematuria improved with repeat irrigation family does not want to restart the xarelto due to the risk of bleeding Continue terazosin and finasteride Hgb 8.3 stable Might consider to discharge home with machado cath as per family request Urology discussed with family about keeping machado cath, such as risk for infection Xarelto discontinued We will keep the Machado in place at discharge and urology will have follow-up arranged for him (3) Pleural effusion: Bilateral pleural effusion Status post right thoracentesis where about 2000 mL of fluid removed by Dr. Tapia Pleural fluid with no growth Pathology of pleural fluid did not show any malignant cells given the history of breast carcinoma S/P PleuralX Catheter performed by Dr. Tapia PleuralX catheter drained about 500cc fluid yesterday and 75cc yesterday Repeat CXR today showed small pleural effusions with bibasilar consolidation, left larger than right. Case discussed with Dr. Regina Guerra from thoracic surgery standpoint to discharge with the pleurX catheter in place. Dr. Tapia's office will arrange for home care to drain the pleurX catheter Follow up with thoracic surgery outpatient in 1 to 2 weeks Continue PleurX drainage as instructing per Dr. Tapia Clinically improves significantly (4) Chronic atrial fibrillation: Continue to hold Xarelto for hematuria Rate control with Carvedilol Continue aspirin Xarelto discontinued (5) Acute kidney injury superimposed on CKD: Mostly related to diuretic Creatinine improved to 1.48 today On oral lasix 40mg daily Continue Lisinopril and spironolactone Avoid nephrotoxic agent if able (6) Hypertension: BP stable Continue lisinopril 40mg, spironolactone and lasix Continue monitor (7) History of CVA (cerebrovascular accident): October 2018, had short hospital stay here and started on Xarelto Continue statin for now Continue to hold xarelto due to hematuria Will continue aspirin, but Xarelto discontinued for hematuria Patient and family understood the risk by d/c xarelto such as stroke, blood clot and Continue PT/OT (8) HLD (hyperlipidemia): Continue atorvastatin (9) Diabetes: Last A1C 5.9 06/13/18 Continue to hold metformin Continue insulin sliding scale Continue monitor BS (10) Breast cancer in male: Follows with Dr. Tran outpatient On tamoxifen Chronic pain Home dose fentanyl resumed Percocet adding for breakthrough pain Will add roxanol for breakthrough pain on discharge DVT Px: SCDs for now Continue to hold xarelto due to hematuria CODE STATUS DNR Disposition: Discharge to [facility] for hospice Subjective Pt was seen and examined Lying in bed with no distress Pt is very happy that he will be discharged today He said that his breathing feels fine He said to add the pain med because it is a long ride to get to [place] Denies any chest pain, palpitation, dizziness and SOB Physical Exam Physical Exam: General- No acute distress Head- atraumatic Eyes- PERRL, EOMI, ENT- oropharynx clear Neck- supple, no JVD Lungs- Diminished BS at base Heart- regular rhythm; no murmur Abdomen- normal bowel sounds, soft, nontender Extremities- no calf tenderness Neuro- alert, oriented x 3; PERRL, EOMI; no facial palsy; no dysarthria Skin- warm & dry Results & Data Vital Signs (Past 12 Hours) Vital Signs Temp Pulse Resp BP Pulse Ox 12/24/18 07:26 36.7 C 72 18 119/65 95
--- NOTE | 2018-12-24 14:38 | Discharge Summary ---
Date of Service December 24, 2018 Admission HPI Per Admitting Provider 82 yo M with PMHx of CHF, T2DM, Dyslipidemia, Chronic Afib, HTN, Hx of CVA, chronic pancytopenia and Breast CA who presents today as a direct admit from [facility] for acute on chronic diastolic heart failure. He reports started feeling more SOB about 2 weeks ago and was seen in the ED here and diagnosed with bronchitis, completed total of 10 days of doxycycline 100 mg BID. He reports he never quite felt right after this, continued SOB-- both pt and his daughter then noticed increased LE edema over the last 3-4 days. This morning when his visiting nurse came found O2 sats to be in the low 90's at rest and in the mid 80's with activity with associated chest pain and mild elevated BP at 162/72 so he was taken via EMS to [facility]. At [facility]: BP 138/66, HR 75, 02 90% RA, WBC 4.8, H/H 9.6/31.6, Plt 132, Cr 0.96, K 4, Na 141, INR 2, BNP 7474 (chronic pancytopenia) CXR: Large bilateral pleural effusions. He had negative troponins and EKG at [facility] but requested transport to [facility] as his doctors are here. Pt received Nitro and ASA which relieved chest pain, denies active chest pain at this time. He is no longer feeling SOB with oxygen on but still has labored breathing. Outpatient Echo done October 2018: Grade 3 diastolic dysfunction, follows with Dr. Quintana for cardiology outpatient. He saw wound clinic 12/09/18 for chronic foot/leg ulcers, hx of neuropathy, no drainage of lesions or bleeding. Pt denies cough, congestion, fevers/chills, CP, headache, dizziness, abdominal pain, change in bowel or bladder. Admission Exam Per Admitting Provider GENERAL: alert, no acute distress, well nourished and well developed HEAD: Normocephalic, atraumatic EYES: PERRL, EOMI, Conjunctiva are pink and non-injected, sclera clear EARS: External ears normal, Canals clear, TM's clear with good cone of light NOSE: no purulent discharge, no sinus tenderness, no mucosal erythema or edema OROPHARYNX: no exudate, no erythema, lips, buccal mucosa, and tongue normal and mucous membranes are moist NECK: supple, no adenopathy HEART: regular rate & rhythm, no murmurs and no gallops, 1+ pitting edema b/l LE LUNGS: no rales or rhonchi, mild labored breathing, diminished bibasilar, moderate wheezing throughout ABDOMEN: abdomen soft, non-tender, normal bowel sounds, no masses or organomegaly, no rebound or guarding, no CVA tenderness, no bladder distention identified and no bruits SKIN: skin color, texture, turgor are normal, few scabbed over ulcers on b/l LE-- no drainage, bleeding, or signs of secondary bacterial infection NEURO: alert & oriented x 3 with fluent speech, no focal motor/sensory deficits Principal Diagnosis Acute on chronic diastolic (congestive) heart failure Hematuria UTI Pleural effusion Chronic Atrial fibrillation Acute kidney injury superimposed on CK Breast cancer in male Chronic pain Discharge Exam General- No acute distress Head- atraumatic Eyes- PERRL, EOMI, ENT- oropharynx clear Neck- supple, no JVD Lungs- Diminished BS at base Heart- regular rhythm; no murmur Abdomen- normal bowel sounds, soft, nontender Extremities- no calf tenderness Neuro- alert, oriented x 3; PERRL, EOMI; no facial palsy; no dysarthria Skin- warm & dry Discharge Data Allergies Allergy/AdvReac Type Severity Reaction Status Date / Time Penicillins AdvReac Unknown HAS Verified 11/30/18 12:15 TOLERATED CEPHALOSPORINS W/O RXN-lightheaded Consultations 12/15/18 15:56 Consult Case Management - Discharge Planning Routine 12/15/18 15:58 Consult Cardiology Routine 12/16/18 08:28 Consult Thoracic Surgery Routine 12/19/18 09:33 Consult Urology Routine 12/19/18 10:06 Consult Palliative Care Routine Ordered Studies 12/16/18 08:28 US effusion-chest/mediastinum Routine 12/18/18 09:00 US effusion-chest/mediastinum Routine XR chest 2V routine CLINICAL HISTORY: Congestive heart failure. COMPARISON STUDY: Chest radiograph November 30, 2018. PET/CT October 27, 2018. Chest radiograph December 15, 2018. FINDINGS: Median sternotomy wires and mediastinal surgical clips are noted. There is no pneumothorax. Cardiomegaly is unchanged. Mild pulmonary edema has progressed. Moderate right and small left pleural effusions are again noted. IMPRESSION: 1. Moderate right and small left pleural effusions. 2. Increase in pulmonary edema. Electronically signed by: James Woodall M.D. 12/16/2018 8:17 AM Dictated: 12/16/18812 Transcribed: 12/16/18812 US effusion-chest/mediastinum CLINICAL HISTORY: b/l pleural effusions COMPARISON STUDY: Chest radiograph December 16, 2018. FINDINGS: A large right pleural effusion with estimated volume of 2527 cc was noted. Suitable right rib interspace was marked for possible subsequent thoracentesis. A moderate left pleural effusion with estimated volume of 952 cc was noted. No chest wall riya was placed given underlying atelectatic lung. IMPRESSION: 1. Large right pleural effusion. Suitable right rib interspace marked for possible subsequent thoracentesis. 2. Moderate left pleural effusion. No left chest wall riya placed given insufficient window. Electronically signed by: James Woodall M.D. 12/16/2018 9:44 AM Dictated: 12/16/1843 Transcribed: 12/16/18942 XR chest 1V portable CLINICAL HISTORY: Chest x-ray status post thoracentesis COMPARISON STUDY: 12/16/2018 FINDINGS: The heart remains enlarged. There are bilateral pleural effusions. There is associated basilar atelectasis/consolidation. There is no pneumothorax. There is an abnormal trabecular pattern of the bone, most pronounced in the region of the right superior scapula. Findings are consistent with early metasta tic disease. There is mild pulmonary vascular congestion.[ IMPRESSION: 1. Cardiomegaly and mild pulmonary vascular congestion 2. Bilateral pleural effusions with associated basilar airspace opacities 3. No evidence of pneumothorax 4. Skeletal metastasis Electronically signed by: Golden Flynn M.D. 12/17/2018 8:13 AM Dictated: 12/17/1806 Transcribed: 12/17/18805 XR chest 1V portable CLINICAL HISTORY: effusion history and COMPARISON STUDY: 12/17/2017 FINDINGS: Moderate stable cardiomegaly. Prior median sternotomy. I'll increase in volume of bilateral pleural effusions. Persistent prominence of pulmonary vasculature. IMPRESSION: 1. Mild increase in volume of bilateral pleural effusions. 2. Component of congestive failure similar compared to the prior exam The above report was generated using voice recognition software. It may contain grammatical, syntax or spelling errors. Electronically signed by: Riya Tyler M.D. 12/18/2018 7:09 AM Dictated: 12/18/18 0708 Transcribed: 12/18/18 0708 US effusion-chest/mediastinum CLINICAL HISTORY: pleural effusions COMPARISON STUDY: Chest ultrasound December 16, 2018. Chest radiograph December 18, 2018. FINDINGS: Sonography of the right hemithorax demonstrated a large right pleural effusion was estimated volume of 1356 cc. A suitable right rib interspace was marked for possible subsequent thoracentesis. Sonography of the left hemithorax demonstrated a moderate to large left pleural effusion with estimated volume of 1000 cc. Suitable rib interspace was not marked given insufficient window given underlying lung. IMPRESSION: 1. Large right pleural effusion. Suitable right rib interspace marked for possible subsequent thoracentesis. 2. Moderate to large left pleural effusion. Insufficient window for tho racentesis given underlying lung. Electronically signed by: James Woodall M.D. 12/18/2018 3:06 PM Dictated: 12/18/18 1504 Transcribed: 12/18/18 1504 Hospital Course (1) Acute on chronic diastolic (congestive) heart failure: Transfer from [facility] for management of acute on chronic diastolic heart failure per patient's request. Recently completed PO abx for possible bronchitis with no complete resolution of symptoms CXR from [facility] showed large bilateral pleural effusions. Recent ECHO on 11/19 showed normal LV chamber size with moderate concentric LVH, EF 55 to 60%, no segmental wall motion abnormality, grade 3 diastolic dysfunction, pulmonary hypertension Received IV lasix 40mg BID Cardiology on board recommended to continue oral lasix Repeat CXR today showed cardiomegaly with decreased pulmonary edema. Unchanged small bilateral pleural effusions. Decreased bibasilar opacities. Continue spironolactone 12.5 mg and lasix 40mg daily Continue to drain PleurX catheter (150cc drained today ) Given comorbid medical conditions prognosis remains poor Palliative care on board Will discharge to SNF with hospice Clinically stable (2) Hematuria: Possible secondary to traumatic insertion of Machado catheter Was on Xarelto and that led to complicate hematuria Urology on board and recommended to continue to hold the xarelto Hemoglobin 8.4 today Hematuria improved with repeat irrigation family does not want to restart the xarelto due to the risk of bleeding Continue terazosin and finasteride Hgb 8.3 stable Might consider to discharge home with machado cath as per family request Urology discussed with family about keeping machado cath, such as risk for infection Xarelto discontinued We will keep the Machado in place at discharge and urology will have follow-up arranged for him (3) Pleural effusion: Bilateral pleural effusion Status post right thoracentesis where about 2000 mL of fluid removed by Dr. Tapia Pleural fluid with no growth Pathology of pleural fluid did not show any malignant cells given the history of breast carcinoma S/P PleuralX Catheter performed by Dr. Tapia PleuralX catheter drained about 500cc fluid yesterday and 75cc yesterday Repeat CXR today showed small pleural effusions with bibasilar consolidation, left larger than right. Case discussed with Dr. Regina Guerra from thoracic surgery standpoint to discharge with the pleurX catheter in place. Dr. Tapia's office will arrange for home care to drain the pleurX catheter Follow up with thoracic surgery outpatient in 1 to 2 weeks Continue PleurX drainage as instructing per Dr. Tapia Clinically improves significantly (4) Chronic atrial fibrillation: Continue to hold Xarelto for hematuria Rate control with Carvedilol Continue aspirin Xarelto discontinued (5) Acute kidney injury superimposed on CKD: Mostly related to diuretic Creatinine improved to 1.48 today On oral lasix 40mg daily Continue Lisinopril and spironolactone Avoid nephrotoxic agent if able (6) Hypertension: BP stable Continue lisinopril 40mg, spironolactone and lasix Continue monitor (7) History of CVA (cerebrovascular accident): October 2018, had short hospital stay here and started on Xarelto Continue statin for now Continue to hold xarelto due to hematuria Will continue aspirin, but Xarelto discontinued for hematuria Patient and family understood the risk by d/c xarelto such as stroke, blood clot and Continue PT/OT (8) HLD (hyperlipidemia): Continue atorvastatin (9) Diabetes: Last A1C 5.9 06/13/18 Continue to hold metformin Continue insulin sliding scale Continue monitor BS (10) Breast cancer in male: Follows with Dr. Tran outpatient On tamoxifen Chronic pain Home dose fentanyl resumed Percocet adding for breakthrough pain Will add roxanol for breakthrough pain on discharge DVT Px: SCDs for now Continue to hold xarelto due to hematuria CODE STATUS DNR Disposition: Discharge to [facility] for hospice Total Time Total Time Spent Total Time Spent (In Minutes): 40 minutes Total Time Includes: Examination of the Patient, Discharge Planning, Medication Reconciliation, Communication With Other Providers and Other Discharge Plan Discharge Items Patient Disposition: Hospice - Medical Facility Reason For Visit: CHEST PAIN, CHF EXACERBATION Discharge Diagnosis: Acute on chronic diastolic (congestive) heart failure Hematuria UTI Pleural effusion Chronic Atrial fibrillation Acute kidney injury superimposed on CK Breast cancer in male Chronic pain Discharge Goals: Decrease discomfort, Improve disease control and Increase independence Activity: Resume your previous activity Activity Comment: As tolerated Non-emergency contact: Primary Care Provider and Surgeon Call non-emergency contact if: you have any medication questions Follow-up/Referrals: Ya Moncada MD [Primary Care Provider] - Diet: Carb Consistent or DM2 Addtl Provider Instructions: Follow up with Vascular surgery Dr. Tapia in 1 to weeks Follow up with [facility] Follow up with your primary care provider Continue pleurX catheter drainage Keep machado catheter on discharge Complete the course of antibiotic Fall precaution Prescriptions: New morphine concentrate 100 mg/5 mL (20 mg/mL) Solution 5 mg PO Q3H PRN (Reason: breakthrough pain) Qty: 15 RF: 0 ciprofloxacin HCl 500 mg Tablet 500 mg PO BID 7 Days Qty: 14 RF: 0 spironolactone 25 mg Tablet 12.5 mg PO DAILY 30 Days Qty: 15 RF: 0 lorazepam 1 mg Tablet 1 mg PO Q4H PRN (Reason: agitation/anxiety) Qty: 10 RF: 0 fentanyl 25 mcg/hr Patch 72 Hour 25 mcg transdermal Q3D Qty: 3 RF: 0 furosemide 40 mg Tablet 40 mg PO QAM 30 Days Qty: 30 RF: 0 finasteride [Proscar] 5 mg Tablet 5 mg PO QAM 30 Days Qty: 30 RF: 0 atorvastatin 40 mg Tablet 40 mg PO QAM 30 Days Qty: 30 RF: 0 Continued isosorbide mononitrate 60 mg tablet extended release 24 hr 60 mg PO QAM RF: 0 lisinopril 40 mg tablet 40 mg PO QAM RF: 0 nitroglycerin 0.4 mg tablet, sublingual 0.4 mg Sublingual UD RF: 0 tamoxifen 20 mg Tablet 20 mg PO QAM RF: 0 Metamucil 3.4 gram/5.4 gram Powder 1 tbsp PO TID PRN (Reason: Constipation) RF: 0 metformin 500 mg Tablet 500 mg PO BIDM RF: 0 sennosides-docusate sodium [Senna with Docusate Sodium] 8.6-50 mg Tablet 2 tab PO HS RF: 0 aspirin [Aspirin Low Dose] 81 mg Tablet,Delayed Release (Dr/Ec) 81 mg PO QAM RF: 0 nortriptyline 25 mg Capsule 25 mg PO HS RF: 0 carvedilol 12.5 mg tablet 12.5 mg PO BID RF: 0 polyethylene glycol 3350 [Miralax] 17 gram Powder In Packet 17 g PO DAILY PRN (Reason: Constipation) RF: 0 magnesium hydroxide [Milk of Magnesia] 400 mg/5 mL Suspension PO DAILY PRN (Reason: Constipation) RF: 0 terazosin 2 mg capsule 2 mg PO HS RF: 0 Calcium 600 + D(3) 600 mg calcium- 200 unit Capsule 1 cap PO QAM RF: 0 potassium, sodium phosphates [Phos-NaK] 280-160-250 mg powder in packet 1 packet PO BID RF: 0 Discontinued torsemide 20 mg tablet 20 mg PO UD RF: 0 diclofenac sodium 50 mg tablet,delayed release (DR/EC) 50 mg PO TID PRN (Reason: Pain) RF: 0 Xarelto 20 mg tablet 20 mg PO PM RF: 0 Stand-Alone Forms: [facility] Discharge Orders: Discharge Order (Routine); Ordered 12/24/18 Ordered By: Ya Moncada Admission Data Admit Date/Time: 12/15/18 14:31 Attending Provider: Grzegorz Graham Admit Provider: Ya Moncada Primary Care Provider: Ya Moncada Other Providers: Adam Silvestre ; Grzegorz Graham ; Ya Moncada ; Guillermo Tapia ; Alexei Acosta ; Gabriela Sanchez ; Campbell Quiñones ; Lawrence Mallory Service: Medical Other Interventions: Discharge Summary Assessment (RN) Last Done: 12/24/18 13:57
== END 2018-12-24 15:25 | disposition hospice, inpatient (51) | DRG 291 ==
LOC: SUATTDRO 14:31 → SUPCPDRO 14:31 → 2S 14:31 → 2N 12-22 15:02
DX: E11.51 Type 2 diabetes mellitus with diabetic peripheral angiopathy without gangrene; J91.8 Pleural effusion in other conditions classified elsewhere; Z66 Do not resuscitate; Z87.891 Personal history of nicotine dependence; I50.33 Acute on chronic diastolic (congestive) heart failure; I71.2 Thoracic aortic aneurysm, without rupture; I13.0 Hypertensive heart and chronic kidney disease with heart failure and stage 1 through stage 4 chronic kidney disease, or unspecified chronic kidney disease; N18.9 Chronic kidney disease, unspecified; Z86.14 Personal history of Methicillin resistant Staphylococcus aureus infection; Y84.6 Urinary catheterization as the cause of abnormal reaction of the patient, or of later complication, without mention of misadventure at the time of the procedure; N17.9 Acute kidney failure, unspecified; R31.0 Gross hematuria; N39.0 Urinary tract infection, site not specified; I48.2 Chronic atrial fibrillation; Z88.0 Allergy status to penicillin; D61.818 Other pancytopenia; E78.5 Hyperlipidemia, unspecified; Y92.239 Unspecified place in hospital as the place of occurrence of the external cause; D68.32 Hemorrhagic disorder due to extrinsic circulating anticoagulants; Z79.01 Long term (current) use of anticoagulants; Z95.1 Presence of aortocoronary bypass graft; T45.515A Adverse effect of anticoagulants, initial encounter; C50.929 Malignant neoplasm of unspecified site of unspecified male breast; Z86.73 Personal history of transient ischemic attack (TIA), and cerebral infarction without residual deficits; N40.0 Benign prostatic hyperplasia without lower urinary tract symptoms; I25.10 Atherosclerotic heart disease of native coronary artery without angina pectoris; Z51.5 Encounter for palliative care; Z79.84 Long term (current) use of oral hypoglycemic drugs